=== PATIENT | male | born 1945 | race Caucasian/White ===

== ENCOUNTER → 2017-10-25 09:32 | Outpatient (CLI) | payer MEDICARE, SELFPAY ==
[2017-10-25 10:30] LABS: ALB/GLOB Ratio 1.1 RATIO (0.9-2.4); AST(SGOT) 16 U/L (15-37); Alanine Aminotransfer ALT/SGPT 22 U/L (16-61); Albumin, Serum 3.9 g/dL (3.2-5.0); Alkaline Phosphatase 67 U/L (45-117); Anion Gap 7 (5-15); BUN 14 mg/dL (7-18); BUN/Creat Ratio 14.9 RATIO (10-20); Calcium,Total 8.7 mg/dL (8.5-10.1); Chloride 107 mmol/L (98-107); Cholesterol 153 mg/dL (200); Creatinine, Serum 0.94 mg/dL (0.70-1.30); EST Glomerular Filtration Rate 84 mL/min (>60); Est Glom Filt Rate - Afr Amer 101 mL/min (>60); Globulin 3.5 g/dL (2.2-4.2); Glucose 98 mg/dL (74-106); High Density Lipoprotein 40 mg/dL; PSA,Total - Annual Screen 5.92 ng/mL (0.00-4.00); Potassium 4.5 mmol/L (3.5-5.1); Protein, Total 7.4 g/dL (6.4-8.2); Sodium Level 141 mmol/L (136-145); Triglycerides 101 mg/dL; Very Low Density Lipoprotein 20 mg/dL (5-40)
== END ==
PROVIDERS: Family Provider Family Medicine; PCP Family Medicine; Visit Provider Family Medicine
DX: I10 Essential (primary) hypertension (principal); N40.0 Benign prostatic hyperplasia without lower urinary tract symptoms; Z12.5 Encounter for screening for malignant neoplasm of prostate
CPT/HCPCS: 36415; 80053; 80061; 84153; G0103

== ENCOUNTER → 2018-04-05 11:45 | Outpatient (CLI) | payer MEDICARE, SELFPAY ==
[2018-04-05 12:53] LABS: Absolute Lymphocyte Count 1.64 X10^3/ul (0.83-4.51); Absolute Neutrophil Count 4.7 X10^3/uL (2.0-7.7); Basophil# 0.07 X10^3/uL; Basophil% 0.9 % (0-1); Eosinophil# 0.31 X10^3/uL; Eosinophils% 4.2 % (0-5); Hematocrit 42.8 % (40-54); Hemoglobin 14.3 g/dl (13.0-16.5); Lymphocyte # 1.64 X10^3/ul (4.0); Lymphocyte % 22.1 % (19-41); Mean Corp Hgb Conc 33.4 g/gl (32-36); Mean Corpuscular Hgb 31.2 pg (27.0-32.0); Mean Corpuscular Volume 93.2 fL (80-94); Mean Platelet Vol. 9.6 fl (6.2-12.0); Monocyte# 0.74 X10^3/uL; Neutrophil # 4.65 X10^3/uL (2.7-7.7); Neutrophil % 62.5 % (47-70); Platelet Count 302 K/mm3 (150-450); RBC Distribution Width CV 12.7 % (11.6-14.6); RBC Distribution Width SD 42.8 fl (35.1-43.9); Red Blood Count 4.59 M/mm3 (4.6-6.2); White Blood Count 7.4 K/mm3 (4.4-11.0)
[2018-04-05 12:54] LABS: POSITIVE COUNT NO; POSITIVE DIFFERENTIAL NO; POSITIVE MORPHOLOGY NO
[2018-04-05 13:26] LABS: ALB/GLOB Ratio 1.2 RATIO (0.9-2.4); AST(SGOT) 14 U/L (15-37); Alanine Aminotransfer ALT/SGPT 22 U/L (16-61); Albumin, Serum 3.9 g/dL (3.2-5.0); Alkaline Phosphatase 63 U/L (45-117); Anion Gap 7 (5-15); BUN 15 mg/dL (7-18); BUN/Creat Ratio 16.2 RATIO (10-20); Calcium,Total 8.6 mg/dL (8.5-10.1); Chloride 106 mmol/L (98-107); Creatinine, Serum 0.92 mg/dL (0.70-1.30); EST Glomerular Filtration Rate 85 mL/min (>60); Est Glom Filt Rate - Afr Amer 103 mL/min (>60); Globulin 3.3 g/dL (2.2-4.2); Glucose 97 mg/dL (74-106); Potassium 4.3 mmol/L (3.5-5.1); Protein, Total 7.2 g/dL (6.4-8.2); Sodium Level 140 mmol/L (136-145); Thyroid Stim Hormone (TSH) 0.96 uIU/mL (0.358-3.74)
[2018-04-05 13:27] LABS: Vitamin D,25 Hydroxy 35.9 ng/mL (29.95-100.01)
== END ==
PROVIDERS: Nurse Practitioner Family; Family Provider Family Medicine; PCP Family Medicine; Referring Provider Family Medicine; Visit Provider Family Medicine
DX: I10 Essential (primary) hypertension (principal); R53.83 Other fatigue; E55.9 Vitamin D deficiency, unspecified
CPT/HCPCS: 36415; 80053; 82306; 84443; 85025

== ENCOUNTER → 2018-11-15 | Outpatient (CLI) | payer MEDICARE, SELFPAY ==
--- NOTE | 2018-11-15 02:49 | HP_ITS ---
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: No Is patient in pain?: No Allergies No Known Allergies Allergy (Verified 11/15/18 14:14) Medications Pravastatin [Pravachol] 20 mg PO DAILY 02/05/14 [History Confirmed 11/15/18] aspirin 81 mg tablet,delayed release 81 mg PO DAILY 07/11/18 [History Confirmed 11/15/18] brimonidine 0.1 % eye drops 1 drp OPHTHALMIC BID ml 07/11/18 [History Confirmed 11/15/18] finasteride 5 mg tablet 5 mg PO DAILY 07/11/18 [History Confirmed 11/15/18] omeprazole magnesium 20 mg tablet,delayed release 20 mg PO DAILY 07/11/18 [History Confirmed 11/15/18] tamsulosin 0.4 mg capsule 0.4 mg PO DAILY 07/11/18 [History Confirmed 11/15/18] timolol 0.25 % eye drops 1 drp OPHTHALMIC BID 07/11/18 [History Confirmed 11/15/18] Azithromycin 500 mg PO DAILY #3 tab 11/08/18 [Rx Confirmed 11/15/18] PFS Medical History Emphysema lung (Acute) Carotid stenosis, bilateral (Chronic) Glaucoma (Acute) OA (osteoarthritis) of hip (Acute) Microcytic anemia (Chronic) Hyperlipidemia (Chronic) Hypertension (Chronic) History of kidney stones (Chronic) Hematuria (Acute) BPH (benign prostatic hyperplasia) (Chronic) Arthritis (Chronic) Abnormal stress test (Acute) Surgical History Hx of right inguinal hernia repair (Acute) History of total right hip arthroplasty (Acute) History of prostate surgery (Acute) History of back surgery (Acute) Hx of lithotripsy (Acute) Hx of cystoscopy (Acute) Family History Mother Heart disease Social History Smoking Status: Former smoker how long ago did patient quit smokin days ago alcohol intake: never substance use type: does not use caffeine: Yes frequency: does not exercise HPI HPI HPI: YAN STODDARD, is a 83 M who presents to the office today for HPI HPI Surgical H&P: Yes HPI: YAN STODDARD is a 83 M who presents to the office today for iron deficiency anemia. Patient was recently admitted to the hospital with pneumonia and was found to have iron deficiency anemia. He denies any abdominal pain or gross blood in his stool. He says that he also occasionally has dysphagia with solid foods. His last colonoscopy was in 1987. ROS General General: Yes fatigue; no weight change, appetite, colon cancer, breast cancer or weakness HEENT HEENT: Yes eye surgery; no difficulty swallowing, eye injury, swollen glands or hoarseness Endo Endocrine: No thyroid disease, diabetes mellitus, thyroid cancer, Hair loss, heat intolerance or cold intolerance Musc Musculoskeletal: Yes back problems and arthritis; no rheumatoid arthritis, gout or joint pain Cardio Cardiovascular: No murmur, pacemaker, heart disease, atrial fibrillation, high blood pressure, heart attack, heart stent, palpitations, shortness of breat with exertion or chest pain Resp Respiratory: Yes shortness of breath, No sleep apnea, No cough, Yes COPD, No asthma, Yes emphysema, No wheezing Gastro Gastrointestinal: No abdominal pain, No nausea or vomiting, No diarrhea, Yes constipation, No blood in stool, Yes acid reflux, No hemorrhoids, No ulcers, No gallbladder problem, No black,tarry stools [place] Hematologic: No blood thinners, No blood disorders, No bleeding, Yes anemia, No blood clots Neuro Neurologic: No weakness Exam Const General: cooperative Orientation: alert, oriented x3 Resp Effort & Inspection: normal respiratory effort Auscultation: clear to auscultation bilaterally Cardio Rate: regular rate Rhythm: regular rhythm Heart Sounds: no murmurs GI Inspection: non-distended Palpation: soft, hernia ventral, nontender Assessment & Plan Problems 1. Iron deficiency anemia, unspecified iron deficiency anemia type D50.9 Plan The patient has iron deficiency anemia. No gross blood in his stool. Recommend EGD and colonoscopy. Patient was recently worked up for carotid stenosis and is under observation. Patient sees Dr. Rojas for cardiology I explained endoscopy in detail to the patient. I explained the risks including but not limited to stroke or heart attack with anesthesia, perforation of the GI tract, bleeding, infection. I explained that any of these could necessitate further emergency surgery. The patient understands and all questions were answered sufficiently. The patient wishes to proceed with procedure. Patrick Mullins MD Pager: [facility] [address] [place] [address] [address] [place] [address] Office: Orders Orders: Colonoscopy Today D50.9 EGD Today D50.9 Coding Level of Care Code Off vis,new,level 3 Diagnoses Iron deficiency anemia, unspecified iron deficiency anemia type D50.9 ??Iron deficiency anemia type: unspecified iron deficiency 11/15/18 1449 <Electronically signed by Patrick Mullins MD> Date Patrick Mullins MD
[2018-11-15 08:53] VITALS: BMI 32.5
[2018-11-15 12:45] LABS: Anion Gap 5 (5-15); BUN 17 mg/dL (7-18); BUN/Creat Ratio 18.2 RATIO (10-20); Calcium,Total 8.8 mg/dL (8.5-10.1); Chloride 106 mmol/L (98-107); Creatinine, Serum 0.93 mg/dL (0.70-1.30); EST Glomerular Filtration Rate 84 mL/min (>60); Est Glom Filt Rate - Afr Amer 102 mL/min (>60); Glucose 93 mg/dL (74-106); PSA,Total- Diagnostic 5.89 ng/mL (0.0-4.0); Potassium 4.3 mmol/L (3.5-5.1); Sodium Level 139 mmol/L (136-145)
== END | disposition home or self-care (01) ==
LOC: BIMLAB 09:22
PROVIDERS: Family Provider Family Medicine; PCP Family Medicine; Visit Provider Family Medicine
DX: I10 Essential (primary) hypertension (principal); N40.0 Benign prostatic hyperplasia without lower urinary tract symptoms
CPT/HCPCS: 36415; 80048; 84153

== ENCOUNTER → 2019-12-26 09:48 | Outpatient (CLI) | payer MEDICARE, SELFPAY ==
[2019-12-26 09:30] VITALS: BMI 32.5
[2019-12-26 12:43] LABS: ALB/GLOB Ratio 1.2 RATIO (0.9-2.4); AST(SGOT) 16 U/L (15-37); Alanine Aminotransfer ALT/SGPT 27 U/L (16-61); Albumin, Serum 3.8 g/dL (3.2-5.0); Alkaline Phosphatase 58 U/L (45-117); Anion Gap 4 (5-15); BUN 16 mg/dL (7-18); BUN/Creat Ratio 17.8 RATIO (10-20); Calcium,Total 8.7 mg/dL (8.5-10.1); Chloride 107 mmol/L (98-107); Cholesterol 165 mg/dL (200); EST Glomerular Filtration Rate 87 mL/min (>60); Est Glom Filt Rate - Afr Amer 106 mL/min (>60); Globulin 3.3 g/dL (2.2-4.2); Glucose 97 mg/dL (74-106); High Density Lipoprotein 36 mg/dL; PSA,Total - Annual Screen 6.12 ng/mL (0.00-4.00); Potassium 4.5 mmol/L (3.5-5.1); Protein, Total 7.1 g/dL (6.4-8.2); Sodium Level 139 mmol/L (136-145); Triglycerides 103 mg/dL; Very Low Density Lipoprotein 21 mg/dL (5-40)
== END ==
PROVIDERS: PCP Family Medicine; Referring Provider Family Medicine; Visit Provider Family Medicine
DX: I10 Essential (primary) hypertension (principal); N40.0 Benign prostatic hyperplasia without lower urinary tract symptoms; Z12.5 Encounter for screening for malignant neoplasm of prostate
CPT/HCPCS: 36415; 80053; 80061; 84153; G0103

== ENCOUNTER → 2021-01-13 09:56 | Outpatient (CLI) | payer MEDICARE, SELFPAY ==
[2021-01-13 09:20] VITALS: BMI 32.5
--- NOTE | 2021-01-13 10:21 | RAD_ITS ---
STUDY: X-RAY CHEST REASON FOR EXAM: Male, 75 years old. chronic cough TECHNIQUE: PA and lateral views of the chest. COMPARISON: None. FINDINGS: Calcified nodule within the right lung base measuring approximately 1.3 cm, likely calcified granuloma. Remainder of the lung simpson are clear. There is no demonstrated pleural abnormality. Normal size heart. Normal mediastinum and ledy. Normal visualized pulmonary arteries. Normal visualized aortic arch and descending thoracic aorta. There is an increased kyphosis of the thoracic spine. There is degenerative osteoarthritis of the bilateral shoulders. There is no demonstrated abnormality of the visualized soft tissue structures of the upper abdomen. RAD/Chest PA and Lateral IMPRESSION: Calcified granuloma at the right lung base as described. Otherwise no acute cardiopulmonary disease. Electronically Signed: Eleanor Ng MD at 0:35 EDT , Service support ,
[2021-01-13 12:15] LABS: Absolute Lymphocyte Count 0.86 X10^3/uL (0.83-4.51); Absolute Neutrophil Count 3.1 X10^3/uL (2.0-7.7); Basophil# 0.07 X10^3/uL; Basophil% 1.4 % (0-1); Eosinophil# 0.47 X10^3/uL; Eosinophils% 9.3 % (0-5); Hematocrit 37.3 % (40-54); Hemoglobin 12.2 g/dL (13.0-16.5); Lymphocyte # 0.86 X10^3/ul (0.83-4.51); Lymphocyte % 16.9 % (19-41); Mean Corp Hgb Conc 32.7 g/dL (32-36); Mean Corpuscular Hgb 30.1 pg (27.0-32.0); Mean Corpuscular Volume 92.1 fL (80-94); Mean Platelet Vol. 9.8 fl (6.2-12.0); Monocyte% 11.8 % (0-10); NRBC Flagged by Analyzer 0 % (0-5); Neutrophil # 3.06 X10^3/uL (2.7-7.7); Neutrophil % 60.2 % (47-70); Platelet Count 146 K/mm3 (150-450); RBC Distribution Width CV 12.4 % (11.6-14.6); RBC Distribution Width SD 42.3 fl (35.1-43.9); Red Blood Count 4.05 M/mm3 (4.6-6.2); White Blood Count 5.1 K/mm3 (4.4-11.0)
[2021-01-13 12:39] LABS: ALB/GLOB Ratio 1.1 RATIO (0.9-2.4); AST(SGOT) 19 U/L (15-37); Alanine Aminotransfer ALT/SGPT 22 U/L (16-61); Albumin, Serum 3.8 g/dL (3.2-5.0); Alkaline Phosphatase 74 U/L (45-117); Anion Gap 5 (5-15); BUN 17 mg/dL (7-18); BUN/Creat Ratio 15.6 RATIO (10-20); Calcium,Total 8.6 mg/dL (8.5-10.1); Chloride 105 mmol/L (98-107); Creatinine, Serum 1.09 mg/dL (0.70-1.30); EST Glomerular Filtration Rate 70 mL/min (>60); Est Glom Filt Rate - Afr Amer 85 mL/min (>60); Globulin 3.4 g/dL (2.2-4.2); Glucose 84 mg/dL (74-106); Potassium 4.2 mmol/L (3.5-5.1); Protein, Total 7.2 g/dL (6.4-8.2); Sodium Level 138 mmol/L (136-145)
== END ==
LOC: BIMLAB 09:56 → RAD 10:20
PROVIDERS: PCP Family Medicine; Referring Provider Family Medicine; Visit Provider Family Medicine
DX: R05 Cough (principal); N40.0 Benign prostatic hyperplasia without lower urinary tract symptoms; I10 Essential (primary) hypertension
CPT/HCPCS: 36415; 71046; 80053; 84153; 84443; 85025

== ENCOUNTER → 2021-02-22 | Outpatient (CLI) | payer MEDICARE, SELFPAY | END | disposition home or self-care (01) | LOC: LABSPEC 15:38 | PROVIDERS: PCP Family Medicine; Visit Provider Physician Assistant Surgical | DX: R05 Cough (principal) | CPT/HCPCS: 87635; U0005; U0003 ==

== ENCOUNTER → 2021-03-03 13:33 | Outpatient (CLI) | payer MEDICARE, SELFPAY ==
[2021-03-03 13:34] LABS: Bacteria 0 SEEN /hpf (None Seen); Mucous, Urine 0 SEEN /hpf (<or=2+); Squamous Epithelial Cells - UA 0 SEEN /hpf (0-5); White Blood Cells 0 SEEN /hpf (0-5)
[2021-03-03 15:01] LABS: Absolute Neutrophil Count 2.2 X10^3/uL (2.0-7.7); Basophil# 0.05 X10^3/uL; Eosinophil# 0.34 X10^3/uL; Hematocrit 28.1 % (40-54); Lymphocyte % 33.1 % (19-41); Mean Corpuscular Hgb 29.7 pg (27.0-32.0); Mean Corpuscular Volume 92.7 fL (80-94); Mean Platelet Vol. 10.3 fl (6.2-12.0); Monocyte# 0.63 X10^3/uL; NRBC Flagged by Analyzer 0 % (0-5); Neutrophil # 2.17 X10^3/uL (2.7-7.7); Neutrophil % 44.9 % (47-70); Platelet Count 142 K/mm3 (150-450); RBC Distribution Width SD 46.9 fl (35.1-43.9); Red Blood Count 3.03 M/mm3 (4.6-6.2); White Blood Count 4.8 K/mm3 (4.4-11.0)
[2021-03-03 15:05] LABS: Color, Urine Yellow (Yellow); Glucose, Dipstick Normal (Normal); Ketone-Dipstick 5 mg/dl (Negative); Leukocyte Esterase-Dipstick 25 /ul (Negative); Nitrite-Dipstick Negative (Negative); Occult Blood-Urine Negative /ul (Negative); Protein-Dipstick 30 mg/dl (Negative); Specific Gravity, Urine 1.025 (1.002-1.030); Urine Bilirubin Dipstick Negative (Negative); Urine Clarity Sl. Cloudy (Clear); Urine Urobilinogen 4 mg/dl (Normal)
[2021-03-03 15:15] LABS: Red Blood Cells-Urine 0-5 SEEN /hpf (0-5)
[2021-03-03 15:16] LABS: Calcium Oxalate Crystals Ur 2+ /hpf (<or=2+)
[2021-03-03 15:22] LABS: BNP,B-Type NATRIURETIC PEPTIDE 95.2 pg/mL (0-100)
[2021-03-03 15:28] LABS: ALB/GLOB Ratio 0.8 RATIO (0.9-2.4); AST(SGOT) 35 U/L (15-37); Alanine Aminotransfer ALT/SGPT 75 U/L (16-61); Alkaline Phosphatase 82 U/L (45-117); Anion Gap 4 (5-15); BUN 33 mg/dL (7-18); BUN/Creat Ratio 22.9 RATIO (10-20); Calcium,Total 10.3 mg/dL (8.5-10.1); Chloride 107 mmol/L (98-107); Creatinine, Serum 1.44 mg/dL (0.70-1.30); EST Glomerular Filtration Rate 51 mL/min (>60); Est Glom Filt Rate - Afr Amer 61 mL/min (>60); Globulin 3.7 g/dL (2.2-4.2); Glucose 102 mg/dL (74-106); Potassium 4.4 mmol/L (3.5-5.1); Protein, Total 6.7 g/dL (6.4-8.2); Sodium Level 139 mmol/L (136-145)
[2021-03-04 10:59] LABS: Ferritin 468 ng/mL (26-388); Iron 32 ug/dL (65-175); Iron Binding Capacity,Total 234 ug/dL (250-450); PERCENT IRON SATURATION 13.7 % (15.0-55.0)
[2021-03-05 13:13] LABS: Transferrin 200 mg/dL (177-329)
== END ==
PROVIDERS: PCP Family Medicine; Referring Provider Physician Assistant; Visit Provider Physician Assistant
DX: N40.1 Benign prostatic hyperplasia with lower urinary tract symptoms (principal); R30.0 Dysuria; R35.0 Frequency of micturition; R35.1 Nocturia; R05 Cough; R06.02 Shortness of breath; R53.83 Other fatigue; I10 Essential (primary) hypertension; D64.9 Anemia, unspecified
CPT/HCPCS: 36415; 80053; 81001; 82668; 82728; 83540; 83550; 83880; 84443; 84466; 85025; 87086

== ENCOUNTER → 2021-03-09 09:39 | Outpatient (CLI) | payer MEDICARE, SELFPAY ==
[2021-03-09 09:50] LABS: Absolute Lymphocyte Count 1.64 X10^3/uL (0.83-4.51); Absolute Neutrophil Count 2.8 X10^3/uL (2.0-7.7); Basophil# 0.07 X10^3/uL; Basophil% 1.3 % (0-1); Eosinophil# 0.26 X10^3/uL; Eosinophils% 4.9 % (0-5); Hematocrit 27.4 % (40-54); Hemoglobin 8.6 g/dL (13.0-16.5); Lymphocyte # 1.64 X10^3/ul (0.83-4.51); Lymphocyte % 30.6 % (19-41); Mean Corp Hgb Conc 31.4 g/dL (32-36); Mean Corpuscular Hgb 29.8 pg (27.0-32.0); Mean Corpuscular Volume 94.8 fL (80-94); Mean Platelet Vol. 10.9 fl (6.2-12.0); Monocyte# 0.53 X10^3/uL; Monocyte% 9.9 % (0-10); NRBC Flagged by Analyzer 0.4 % (0-5); Neutrophil # 2.82 X10^3/uL (2.7-7.7); Neutrophil % 52.6 % (47-70); POSITIVE MORPHOLOGY YES; Platelet Count 119 K/mm3 (150-450); RBC Distribution Width CV 15.6 % (11.6-14.6); RBC Distribution Width SD 51.2 fl (35.1-43.9); Red Blood Count 2.89 M/mm3 (4.6-6.2); White Blood Count 5.4 K/mm3 (4.4-11.0)
[2021-03-09 09:52] LABS: Differential Indicated SCAN CRITERIA MET
[2021-03-09 10:23] LABS: Atypical Lymphocyte 1+ %
== END ==
PROVIDERS: PCP Family Medicine; Referring Provider Surgery; Visit Provider Surgery
DX: D64.9 Anemia, unspecified (principal); I10 Essential (primary) hypertension
CPT/HCPCS: 36415; 85025

== ENCOUNTER 2021-03-10 12:06 | Inpatient (IN) | payer MEDICARE, SELFPAY ==
[2021-03-10] VITALS (13 sets, daily range): BP systolic 99–118; BP diastolic 60–91; PULSE 94–108; RESP 14–23; TEMP 36.4–37.8; O2SAT 92–95; BMI 29.7; BMI 29.8
--- NOTE | 2021-03-10 12:31 | EKG12_ITS ---
Test Reason : Blood Pressure : / mmHG Vent. Rate : 100 BPM Atrial Rate : 100 BPM P-R Int : 146 ms QRS Dur : 094 ms QT Int : 332 ms P-R-T Axes : 012 -27 050 degrees QTc Int : 428 ms Normal sinus rhythm Leftward axis Confirmed by ALBERTO FINLEY, RUDY ([id number]), advertising editor BOOGIE BRO ([id number]) on 03/15/2021 12:56:59 PM Referred By: Confirmed By:RUDY DOMINGUEZ MD
[2021-03-10] MEDS: 0.9% Normal Saline 1,000 ML 150 ML IV (12:46)
--- NOTE | 2021-03-10 12:47 | ED.VIS.GI ---
HPI HPI - GI History of Present Illness Chief Complaint: GI Bleed Detail of Chief Complaint: Abdominal discomfort, dropping hemoglobin and dyspnea on exertion Informant: patient, spouse/S.O. and family Abdominal Pain/Flank Pain Onset: Weeks Context: Gradual Onset Timing: Continuous Quality: Cramping Location: Diffuse Current Severity: Mild Maximum Severity: Moderate Worsened by: Nothing Relieved by: Nothing Nausea/Vomiting/Emesis GI Symptom: Positive for Nausea; Negative for Vomiting Diarrhea/Melena/Hematochezia GI Symptom: Positive for Diarrhea Onset: Today Stool Quality: Positive for Loose Severity: Mild Associated Symptoms Associated Symptoms: Negative for Dysuria, Frequency and Hematuria Narrative Narrative: Patient is an elderly male with history of anemia, allergic rhinitis, hypertension and benign prostatic hypertrophy. Patient had 2 - Covid test. His family doctor was working him up for his dyspnea. Patient appears pale. states he is pale. He had dark loose stools today. He is scheduled for colonoscopy for tomorrow. He was sent to the emergency department to facilitate this. He does give intermittent symptoms of orthostatic hypotension. He does report [place] exertion. He apparently was prescribed Naprosyn by his primary care physician and he has been taking ibuprofen. He denies vomiting. states his stool looked like coffee grounds this morning. He does report vague abdominal discomfort. He is not on antiplatelet or anticoagulant. Prior similar symptoms: Yes Recent Illness/Hospitalization: No PFSH PFSH Medical History Enlarged prostate Hypertension Home Medications finasteride 5 mg tablet 5 mg PO QDAY 10/25/17 [History Last Taken 03/09/21] valsartan 80 mg tablet 80 mg PO DAILY #90 tab 01/13/21 [Rx Last Taken 03/09/21] benzonatate 100 mg capsule 100 mg PO BID PRN #20 cap 02/23/21 [Rx Last Taken 03/08/21] albuterol sulfate 90 mcg/actuation aerosol inhaler 2 puff INHALATION Q6H PRN #8.5 g 03/03/21 [Rx Last Taken 03/08/21] ibuprofen 200 mg capsule 200 mg PO Q6H PRN 03/03/21 [History Last Taken 03/09/21] multivitamin 1 tab PO DAILY 03/03/21 [History Last Taken 03/08/21] ascorbic acid (vitamin C) 500 mg PO DAILY 03/10/21 [History Last Taken 03/09/21] ferrous sulfate 325 mg PO QODAY 03/10/21 [History Last Taken 03/09/21] Allergy/AdvReac Type Severity Reaction Status Date / Time Antihistamines - Ethanolamine Allergy Severe rash Verified 03/10/21 12:11 MUCOUS RELIEF DM Allergy Rash Uncoded 03/10/21 12:12 Family History Father Cancer prostate Colon cancer Grandfather CVA (cerebral vascular accident) Myocardial infarction Surgical History History of appendectomy History of tonsillectomy Social History (Updated 03/10/21 @ 12:[address] Marcell Juarez MD) household members: spouse housing: house Smoking Status: Never smoker alcohol intake: never substance use type: does not use what type of physical activity do you participate in: none ROS ROS ED Constitutional Constitutional ED: Denies chills, fever(s) or subjective ENT ENT ED: Denies ear pain, rhinorrhea or sore throat Cardiovascular Cardiovascular: Denies chest pain, orthopnea, palpitations or paroxysmal nocturnal dyspnea Respiratory/Chest Respiratory/Chest: Reports dyspnea and dyspnea on exertion; Denies cough, orthopnea, paroxysmal nocturnal dyspnea or sputum Gastrointestinal Gastrointestinal: Denies abdominal pain, diarrhea, nausea or vomiting Genitourinary Genitourinary ED: Denies dysuria, hematuria or urinary frequency Musculoskeletal Musculoskeletal: Denies arthralgias, myalgias or neck pain Integumentary Denies rash Neurologic Neurologic: Reports weakness; Denies headache(s) or paresthesias Psychiatric Psychiatric: Denies anxiety or depression Endocrine Endocrinology: Denies polydipsia or polyuria Hematologic/Lymphatic Hematologic/Lymphatic: Denies easy bleeding or easy bruising EXAM Physical Exam Const Vital Signs: 03/10/21 12:07 03/10/21 12:10 03/10/21 13:09 Temperature 99.3 F H 99.3 F H Temperature Source Oral Oral Pulse Rate 105 H 105 H Respiratory Rate 18 18 Blood Pressure 99/60 99/60 118/68 Blood Pressure Mean 73 73 84 Pulse Ox 92 92 Oxygen Delivery Method Room Air Room Air 03/10/21 14:10 03/10/21 15:44 03/10/21 16:01 Temperature Temperature Source Pulse Rate 99 97 96 Respiratory Rate 19 H 23 H 23 H Blood Pressure 104/91 H 102/88 H 102/88 H Blood Pressure Mean 95 92 92 Pulse Ox 93 93 Oxygen Delivery Method Room Air Room Air Positive well nourished and well developed General Appearance ED: well developed, NAD and pallor HEENT Reports TM's clear and dry mucous membranes normocephalic and atraumatic Tympanic Membrane ED: Yes TM's clear Mouth ED: Yes dry mucous membranes Mouth: dry mucous membranes Eyes PERRL and EOMs intact bilaterally General Eye ED: Negative for pale conjunctiva or scleral icterus Neck no lymphadenopathy, supple and no JVD Resp normal respiratory effort and clear to auscultation bilaterally Cardio regular rate, regular rhythm, S1 normal heart sound, S2 normal heart sound and no murmurs GI non-distended and no masses; Negative for non-tender Auscultation: normoactive bowel sounds and hypoactive bowel sounds Palpation: soft and tender LLQ; Negative for guarding or rigid Back/Spine no CVA tenderness Cervical Spine: Negative for cervical spine tenderness Thoracic Spine / Upper Back: Negative for thoracic spinal tenderness Extremity full ROM Neuro CN's II-XII intact bilaterally and moves all extremities Sensorium / Orientation: alert and oriented to person Motor Exam: strength 5/5 throughout Psych mental status grossly normal Skin no wounds General Skin Exam: pallor; Negative for jaundice Lesions: no lesions Rashes: no rashes MDM MDM MDM Narrative Medical decision making narrative: Patient is anemic by exam. Prior laboratory results reveal a 3.5 to 4 drop in hemoglobin. He is hypotensive. We will perform orthostatic symptoms. Fluid bolus and appropriate labs. He will require admission for work-up of his presumed GI bleed. Hemoglobin on January 13 was 12.2. Hemoglobin on March 03 was 9.0. Hemoglobin on was 8.6. BUN to creatinine ratio is greater than 20-1. Case was discussed with patient's general surgeon/endoscopist. Because of the bloating, left lower quadrant bowel pain with smaller caliber stool CT of the abdomen with p.o. and IV contrast was ordered to determine if there is a stricture due to diverticulitis. Since there is an infiltrate on the left most likely the lingula and was missed transcribed ulnar level Floxin was ordered. Lab Data Attestation: I reviewed the patient's lab results. Labs: Laboratory Results - last 24 hr 03/10/21 03/10/21 03/10/21 12:35 12:35 12:35 WBC 5.5 RBC 2.91 L Hgb 8.6 L Hct 27.3 L MCV 93.8 MCH 29.6 MCHC 31.5 L RDW Std Deviation 51.6 H RDW Coeff of Dmitry 15.9 H Plt Count 128 L MPV 10.3 Sodium 138 Potassium 4.5 Chloride 107 Carbon Dioxide 23.0 Anion Gap 8 BUN 42 H Creatinine 1.63 H Estim Creat Clear Calc 41.06 Est GFR (MDRD) Af Amer 53 L Est GFR (MDRD) Non-Af 44 L BUN/Creatinine Ratio 25.8 H Glucose 105 Calcium 9.4 Blood Type A POSITIVE Antibody Screen NEGATIVE Radiography Diagnostic Testing: Radiology Impression Abdomen/Pelvis CT 03/10/21 13:20 IMPRESSION: Diffuse peritoneal and retroperitoneal lymphadenopathy extending into the pelvis. Marked degree of splenomegaly with findings suggestive of peripheral infarcts. Hepatomegaly. Small left pleural effusion with left ulnar infiltrate. Electronically Signed: Mihir Mathis MD at 15:44 EDT , Service support , CT of the abdomen and pelvis with IV contrast reveals a left pleural effusion, enlarged spleen with splenic infarct, bilateral renal cysts and significant lymphadenopathy. This is suggestive of lymphoma and most likely the etiology for patient's anemia. Since he is symptomatic and hypotensive hospitalist has been called. The surgeon who sent patient to the emergency room was called. Discharge Plan Dx/Rx/DC Orders Clinical Impression: Signs and symptoms of anemia, Pleural effusion on left, Splenomegaly, Splenic infarct, Renal cysts, acquired, bilateral, Lymphoma, Acute kidney injury, Enlarged prostate, Acute hypotension, Infiltrate of lung present on computed tomography Disposition Disposition: Acute Care [facility]
[2021-03-10 12:51] LABS: Hematocrit 27.3 % (40-54); Hemoglobin 8.6 g/dL (13.0-16.5); Mean Corp Hgb Conc 31.5 g/dL (32-36); Mean Corpuscular Hgb 29.6 pg (27.0-32.0); Mean Corpuscular Volume 93.8 fL (80-94); Mean Platelet Vol. 10.3 fl (6.2-12.0); Platelet Count 128 K/mm3 (150-450); RBC Distribution Width CV 15.9 % (11.6-14.6); RBC Distribution Width SD 51.6 fl (35.1-43.9); Red Blood Count 2.91 M/mm3 (4.6-6.2); White Blood Count 5.5 K/mm3 (4.4-11.0)
[2021-03-10 13:06] LABS: Anion Gap 8 (5-15); BUN 42 mg/dL (7-18); BUN/Creat Ratio 25.8 RATIO (10-20); Calcium,Total 9.4 mg/dL (8.5-10.1); Chloride 107 mmol/L (98-107); Creatinine, Serum 1.63 mg/dL (0.70-1.30); EST Glomerular Filtration Rate 44 mL/min (>60); Est Glom Filt Rate - Afr Amer 53 mL/min (>60); Estimated Creatinine Clearance 41.06 ml/min; Glucose 105 mg/dL (74-106); Potassium 4.5 mmol/L (3.5-5.1); Sodium Level 138 mmol/L (136-145)
--- NOTE | 2021-03-10 13:20 | CT_ITS ---
STUDY: CT ABDOMEN AND PELVIS WITH CONTRAST REASON FOR EXAM: Male, 75 years old. Left lower quadrant abdominal pain, small stool bl -- IV PO Contrast RADIATION DOSAGE (If Supplied By Facility): CTDIvol = ( 18.13 ) mGy, DLP = ( 2237.69 ) mGycm TECHNIQUE: Transaxial images were obtained from the dome of the diaphragm to the symphysis pubis with oral contrast. Oral and amp;amp; IV Gastrografin and amp;amp; 100mL Isovue-370 was administered. Sagittal and coronal images were reconstructed. Individualized dose optimization techniques were used for this CT. COMPARISON: None. FINDINGS: Small left pleural effusion with left basilar infiltration. Calcified granuloma at the right lung base. Coronary artery calcification. Hepatomegaly. Contracted gallbladder. Possible tiny gallstones versus sludge. There is severe splenomegaly. There is a 4.5 cm x 4.7 cm wedge-shaped peripheral defect in the upper posterior aspect of the spleen suggestive of possible infarction. Irregular contour of the inferior lateral aspect of the spleen is also present suggestive of possible smaller infarcts. There is evidence of a multiple lymph nodes in the region of the nikolai hepatis as well as the gastroepiploic ligament. Normal pancreas. Normal bilateral adrenal glands. Normal right kidney. Left renal cysts. The largest cyst measures 3.8 cm. Nonspecific bilateral perinephric stranding. There appears to be a thickening of the second portion of the duodenum. Normal small intestine. There are multiple colonic diverticula consistent with diverticulosis. There is non-visualization of the appendix. Normal abdominal aorta. Normal inferior vena cava. There is retroperitoneal lymphadenopathy with enlarged nodes greater than 10-15mm in the short axis. Enlarged lymphadenopathy is seen within the pelvis worse on the left side. There is also evidence of the bilateral inguinal lymph nodes. Normal urinary bladder. There is enlargement of the prostate gland. It measures 7.5 cm x 6.8 cm. This causes indentation at the bladder base. Normal abdominal wall. There are diffuse degenerative changes of the visualized lumbar spine. Minimal anterior listhesis of L5 on S1 with spondylolysis. CT/Abdomen/Pelvis WITH Contrast IMPRESSION: Diffuse peritoneal and retroperitoneal lymphadenopathy extending into the pelvis. Marked degree of splenomegaly with findings suggestive of peripheral infarcts. Hepatomegaly. Small left pleural effusion with left ulnar infiltrate. Electronically Signed: Mihir Mathis MD at 15:44 EDT , Service support ,
--- NOTE | 2021-03-10 16:08 | HP.PCM_ITS ---
HPI - General HPI Narrative WINNIE SCOTT, is a 75 M who presents to [facility] ED with complaints of abdominal distention, nausea, and extreme fatigue. Mr. Scott and I met for the first time yesterday in consultation after he was diagnosed with profound anemia as his referring provider sought colonoscopic evaluation to rule out a GI source for this anemia. He and his family had described a significant functional decline over the last 4 to 5 weeks and this has been largely attributed to his anemia, however, he consistently denied any observation of hematochezia or melena. Nevertheless he was scheduled for a colonoscopy for 03/15/2021 with an understanding that we would seek an earlier date if it became available. Such an opening did occur and when our office called his home to communicate this availability change, we were notified that the patient had developed abdominal distention and nausea as well as additional profound fatigue. Therefore, he was advised to present to the emergency room for further evaluation. This latter work-up was notable for ongoing mild hypotension, stable anemia with a hemoglobin of 8.6 g/dL, and double contrasted CT abdomen and pelvis findings which showed thickening of the second portion of the duodenum, multiple splenic infarcts, and diffuse peritoneal lymphadenopathy. [facility] Medical History Enlarged prostate Hypertension Home Medications finasteride 5 mg tablet 5 mg PO QDAY 10/25/17 [History Last Taken 03/09/21] valsartan 80 mg tablet 80 mg PO DAILY #90 tab 01/13/21 [Rx Last Taken 03/09/21] benzonatate 100 mg capsule 100 mg PO BID PRN #20 cap 02/23/21 [Rx Last Taken 03/08/21] albuterol sulfate 90 mcg/actuation aerosol inhaler 2 puff INHALATION Q6H PRN #8.5 g 03/03/21 [Rx Last Taken 03/08/21] ibuprofen 200 mg capsule 200 mg PO Q6H PRN 03/03/21 [History Last Taken 03/09/21] multivitamin 1 tab PO DAILY 03/03/21 [History Last Taken 03/08/21] ascorbic acid (vitamin C) 500 mg PO DAILY 03/10/21 [History Last Taken 03/09/21] ferrous sulfate 325 mg PO QODAY 03/10/21 [History Last Taken 03/09/21] Allergy/AdvReac Type Severity Reaction Status Date / Time Antihistamines - Ethanolamine Allergy Severe rash Verified 03/10/21 12:11 MUCOUS RELIEF DM Allergy Rash Uncoded 03/10/21 12:12 Family History Father Cancer prostate Colon cancer Grandfather CVA (cerebral vascular accident) Myocardial infarction Surgical History History of appendectomy History of tonsillectomy Social History (Updated 03/10/21 @ 12:[address] Marcell Juarez MD) household members: spouse housing: house Smoking Status: Never smoker alcohol intake: never substance use type: does not use what type of physical activity do you participate in: none Vital Signs Vital Signs Vital Signs: 03/10/21 12:07 03/10/21 12:10 03/10/21 13:09 Temperature 99.3 F H 99.3 F H Temperature Source Oral Oral Pulse Rate 105 H 105 H Pulse Rate [Lying] Pulse Rate [Sitting] Pulse Rate [Standing] Respiratory Rate 18 18 Blood Pressure 99/60 99/60 118/68 Blood Pressure [Lying] Blood Pressure [Sitting] Blood Pressure [Standing] Blood Pressure Mean 73 73 84 Blood Pressure Mean [Lying] Blood Pressure Mean [Sitting] Blood Pressure Mean [Standing] Pulse Ox 92 92 Oxygen Delivery Method Room Air Room Air 03/10/21 14:10 03/10/21 15:44 03/10/21 16:01 Temperature Temperature Source Pulse Rate 99 97 96 Pulse Rate [Lying] Pulse Rate [Sitting] Pulse Rate [Standing] Respiratory Rate 19 H 23 H 23 H Blood Pressure 104/91 H 102/88 H 102/88 H Blood Pressure [Lying] Blood Pressure [Sitting] Blood Pressure [Standing] Blood Pressure Mean 95 92 92 Blood Pressure Mean [Lying] Blood Pressure Mean [Sitting] Blood Pressure Mean [Standing] Pulse Ox 93 93 Oxygen Delivery Method Room Air Room Air 03/10/21 16:02 Temperature Temperature Source Pulse Rate Pulse Rate [Lying] 94 Pulse Rate [Sitting] 103 H Pulse Rate [Standing] 108 H Respiratory Rate Blood Pressure Blood Pressure [Lying] 114/60 Blood Pressure [Sitting] 107/65 Blood Pressure [Standing] 105/60 Blood Pressure Mean Blood Pressure Mean [Lying] 78 Blood Pressure Mean [Sitting] 79 Blood Pressure Mean [Standing] 75 Pulse Ox Oxygen Delivery Method Weight Weight: 213 lb Body Mass Index (BMI) 29.7 Physical Exam Const alert and oriented x3 General Appearance: cooperative Resp normal respiratory effort GI soft to palpation Inspection: abdominal distention Palpation: tender LLQ (Mild) and LUQ (Slightly greater than left lower quadrant) Results Lab / Micro Data Result Diagrams: 03/10/21 12:35 03/10/21 12:35 Labs: Laboratory Results - last 24 hr 03/10/21 12:35: WBC 5.5, RBC 2.91 L, Hgb 8.6 L, Hct 27.3 L, MCV 93.8, MCH 29.6, MCHC 31.5 L, RDW Std Deviation 51.6 H, RDW Coeff of Dmitry 15.9 H, Plt Count 128 L, MPV 10.3 03/10/21 12:35: Sodium 138, Potassium 4.5, Chloride 107, Carbon Dioxide 23.0, Anion Gap 8, BUN 42 H, Creatinine 1.63 H, Estim Creat Clear Calc 41.06, Est GFR (MDRD) Af Amer 53 L, Est GFR (MDRD) Non-Af 44 L, BUN/Creatinine Ratio 25.8 H, Glucose 105, Calcium 9.4 03/10/21 12:35: Blood Type A POSITIVE, Antibody Screen NEGATIVE Micro: Microbiology 03/10/21 12:45 Nasal Secretion SARS-CoV-2 Antigen (Rapid) - Final 03/10/21 12:35 Stool Stool Occult Blood (SERGIO) - Final Radiology Impression Abdomen/Pelvis CT 03/10/21 13:20 IMPRESSION: Diffuse peritoneal and retroperitoneal lymphadenopathy extending into the pelvis. Marked degree of splenomegaly with findings suggestive of peripheral infarcts. Hepatomegaly. Small left pleural effusion with left ulnar infiltrate. Electronically Signed: Mihir Mathis MD at 15:44 EDT , Service support , Assessment & Plan Assessment/Plan (1) Lymphadenopathy, abdominal: PLAN: Highly suggestive of neoplastic process. Especially when considered alongside patient's history of recent fatigue and hot flashes this is concerning for possible lymphoma. Will require tissue diagnosis. Tentatively planning for excisional lymph node biopsy. (2) Signs and symptoms of anemia: PLAN: Patient with profound fatigue and hemoglobin of 8.6 g/dL. This does represent a significant decrease from his prior baseline, however, the lymphadenopathy noted on his recent CT imaging suggests another possible cause of the patient's fatigue. Given the patient's history of anemia, reports of decreased stool caliber, and no prior colonoscopy a colonoscopic exam is indicated. After discussion with the hospitalist service, we will pursue a bowel prep today and then plan for endoscopy tomorrow afternoon. Patient okay for clear liquids on admission. (3) Thickened small bowel: PLAN: Patient's CT imaging shows some thickening of the second portion of the small bowel, recent use of NSAIDs (Naprosyn), and at least some concern for coffee-ground emesis/upper GI bleeding. Therefore, we will plan for EGD in addition to colonoscopy to evaluate these issues further. Patient should begin prep today. As above, okay to begin clear liquid diet. Recommend Protonix 40 mg twice daily as well. Charges/Coding Visit Charges Inpatient E&M: 86769 Init Hosp L2
--- NOTE | 2021-03-10 16:11 | HP.PCM.HOS_ITS ---
HPI - General General Date of Admission: 03/10/21 Date of Service: 03/10/21 Chief Complaint: Dark stools, loose, Low BP. HPI Narrative The patient is a 75 y/o M w/ PMHx: HTN, BPH who presents to the [facility] ED on 03/10/21 with history of planned colonoscopy day following presentation however patient per PCP upon evaluation with worsening dyspnea, worse with exertion with dark loose stools on day of presentation prompting ED evaluation with notable hypotension. Patient reportedly has been taking both naproxen and ibuprofen. reports that his stool does look like coffee grounds especially in the morning on day of ED presentation. He reports associated vague abdominal discomfort, cramping which has been continuous and ranges mild to moderate in severity with nausea with no emesis. His stools have been loose in nature. He denies taking any antiplatelet or anticoagulant therapy. Work-up in the ED included T 99.3, heart rate 105, BP 99/58 initially, improved 104/91, respiratory rate 18, 92 to 93% on room air, CBC with WC 5.5, hemoglobin 8.6 most recently 03/09/2021 8.6 and 03/03/2021 9 however 01/13/2021 had been 12.2, platelet 128 with no differential performed, BMP with BUN/creatinine 42/1.63 with baseline creatinine noted 0.9-1.0, type and screen performed per ED physician noted to be a positive with antibody negative screen, stool guaiac negative, rapid SARS Covid antigen negative, CT A/P w/ diffuse peritoneal and retr operitoneal lymphadenopathy extending into the pelvis, marked degree of splenomegaly with findings suggestive of peripheral infarcts, hepatomegaly, small left pleural effusion with left basilar infiltrate. [facility] Medical History Enlarged prostate Hypertension Home Medications finasteride 5 mg tablet 5 mg PO QDAY 10/25/17 [History Last Taken 03/09/21] valsartan 80 mg tablet 80 mg PO DAILY #90 tab 01/13/21 [Rx Last Taken 03/09/21] benzonatate 100 mg capsule 100 mg PO BID PRN #20 cap 02/23/21 [Rx Last Taken 03/08/21] albuterol sulfate 90 mcg/actuation aerosol inhaler 2 puff INHALATION Q6H PRN #8.5 g 03/03/21 [Rx Last Taken 03/08/21] ibuprofen 200 mg capsule 200 mg PO Q6H PRN 03/03/21 [History Last Taken 03/09/21] multivitamin 1 tab PO DAILY 03/03/21 [History Last Taken 03/08/21] ascorbic acid (vitamin C) 500 mg PO DAILY 03/10/21 [History Last Taken 03/09/21] ferrous sulfate 325 mg PO QODAY 03/10/21 [History Last Taken 03/09/21] Allergy/AdvReac Type Severity Reaction Status Date / Time Antihistamines - Ethanolamine Allergy Severe rash Verified 03/10/21 12:11 MUCOUS RELIEF DM Allergy Rash Uncoded 03/10/21 12:12 Family History (Updated 03/10/21 @ 18:[address] Fariha Chaudhry MD) Father Cancer Prostate and Colon CA. Colon cancer Hypertension Grandfather CVA (cerebral vascular accident) Myocardial infarction Mother Hypertension Surgical History History of appendectomy History of tonsillectomy Social History (Updated 03/10/21 @ 12:[address] Marcell Juarez MD) household members: spouse housing: house Smoking Status: Never smoker alcohol intake: never substance use type: does not use what type of physical activity do you participate in: none ROS ROS Narrative Admission Review of Systems: CONSTITUTIONAL: No weight loss, fever, chills, + weakness or fatigue. HEENT: Eyes: No visual loss, blurred vision, double vision or yellow sclerae. Ears, Nose, Throat: No hearing loss, sneezing, congestion, runny nose or sore throat. SKIN: No rash or itching, lesions, wounds. CARDIOVASCULAR: No chest pain, chest pressure or chest discomfort, palpitations, edema, orthopnea, syncopal events. RESPIRATORY: + shortness of breath, No marked cough or sputum, wheezing, hemoptysis. GASTROINTESTINAL: + anorexia, nausea without vomiting, diarrhea, abdominal cramping, dark stools but not specifically melena, No BRBPR. GENITOURINARY: No dysuria, frequency, urgency or retention. NEUROLOGICAL: No headache, dizziness, syncope, paralysis, ataxia, numbness or tingling in the extremities, focal weakness, change in bowel or bladder control, seizure. MUSCULOSKELETAL: + muscle, back pain, joint pain or stiffness. HEMATOLOGIC: + anemia, bleeding or bruising. LYMPHATICS: No enlarged nodes. No history of splenectomy. PSYCHIATRIC: No history of depression or anxiety. ENDOCRINOLOGIC: No reports of sweating, cold or heat intolerance. No polyuria or polydipsia. ALLERGIES: No history of asthma, hives, eczema or rhinitis. Vital Signs Vital Signs Vital Signs: 03/10/21 12:07 03/10/21 12:10 03/10/21 13:09 Temperature 99.3 F H 99.3 F H Temperature Source Oral Oral Pulse Rate 105 H 105 H Pulse Rate [Lying] Pulse Rate [Sitting] Pulse Rate [Standing] Respiratory Rate 18 18 Blood Pressure 99/60 99/60 118/68 Blood Pressure [Lying] Blood Pressure [Sitting] Blood Pressure [Standing] Blood Pressure Mean 73 73 84 Blood Pressure Mean [Lying] Blood Pressure Mean [Sitting] Blood Pressure Mean [Standing] Pulse Ox 92 92 Oxygen Delivery Method Room Air Room Air 03/10/21 14:10 03/10/21 15:44 03/10/21 16:01 Temperature Temperature Source Pulse Rate 99 97 96 Pulse Rate [Lying] Pulse Rate [Sitting] Pulse Rate [Standing] Respiratory Rate 19 H 23 H 23 H Blood Pressure 104/91 H 102/88 H 102/88 H Blood Pressure [Lying] Blood Pressure [Sitting] Blood Pressure [Standing] Blood Pressure Mean 95 92 92 Blood Pressure Mean [Lying] Blood Pressure Mean [Sitting] Blood Pressure Mean [Standing] Pulse Ox 93 93 Oxygen Delivery Method Room Air Room Air 03/10/21 16:02 Temperature Temperature Source Pulse Rate Pulse Rate [Lying] 94 Pulse Rate [Sitting] 103 H Pulse Rate [Standing] 108 H Respiratory Rate Blood Pressure Blood Pressure [Lying] 114/60 Blood Pressure [Sitting] 107/65 Blood Pressure [Standing] 105/60 Blood Pressure Mean Blood Pressure Mean [Lying] 78 Blood Pressure Mean [Sitting] 79 Blood Pressure Mean [Standing] 75 Pulse Ox Oxygen Delivery Method Weight Weight: 213 lb Body Mass Index (BMI) 29.7 Physical Exam Narrative Physical Examination: General: Awake, alert, oriented x 3 and cooperative, seated upright in the ED bed, fatigued and uncomfortable appearing. Skin: Normal color, normal turgor, no icterus, no cyanosis. HEENT: AT/NC, EOMI, PERRLA, mildly dry MM, no carotid bruits or JVD noted. Lungs: Mildly diminished, greater bases, mildly increased respiratory rate but no evidence of any distress, no rales, ronchi or wheezing. Heart: Mildly tachycardic with regular rhythm; no gallop, rub audible. Abdomen: Soft, mild generalized discomfort with palpation, worse left-sided upper and lower quadrants, no rebound or guarding, mildly tympanic and distended, distant hyperactive bowel sounds, evidence of hepatosplenomegaly. Extremities: No cyanosis, no clubbing, bilateral ankle to distal gomes mild edema. Neurological: Patient awake, alert, oriented as noted, cognitive function i ntact; pupils equally reactive to light and accommodation, cranial nerves II-XII grossly normal, moving all 4 extremities, no focal deficits, strength moderately to severely global decreased. Psychiatric: Affect appears fatigued, uncomfortable appearing, no acute evidence of depressive or anxiety feelings. Results Lab / Micro Data Result Diagrams: 03/10/21 12:35 03/10/21 12:35 Labs: Laboratory Results - last 24 hr 03/10/21 12:35: WBC 5.5, RBC 2.91 L, Hgb 8.6 L, Hct 27.3 L, MCV 93.8, MCH 29.6, MCHC 31.5 L, RDW Std Deviation 51.6 H, RDW Coeff of Dmitry 15.9 H, Plt Count 128 L, MPV 10.3 03/10/21 12:35: Sodium 138, Potassium 4.5, Chloride 107, Carbon Dioxide 23.0, Anion Gap 8, BUN 42 H, Creatinine 1.63 H, Estim Creat Clear Calc 41.06, Est GFR (MDRD) Af Amer 53 L, Est GFR (MDRD) Non-Af 44 L, BUN/Creatinine Ratio 25.8 H, Glucose 105, Calcium 9.4 03/10/21 12:35: Blood Type A POSITIVE, Antibody Screen NEGATIVE Micro: Microbiology 03/10/21 12:45 Nasal Secretion SARS-CoV-2 Antigen (Rapid) - Final 03/10/21 12:35 Stool Stool Occult Blood (SERGIO) - Final Radiology Impression Abdomen/Pelvis CT 03/10/21 13:20 IMPRESSION: Diffuse peritoneal and retroperitoneal lymphadenopathy extending into the pelvis. Marked degree of splenomegaly with findings suggestive of peripheral infarcts. Hepatomegaly. Small left pleural effusion with left ulnar infiltrate. Electronically Signed: Mihir Mathis MD at 15:44 EDT , Service support , Assessment & Plan Assessment/Plan (1) Splenic infarct: (2) Splenomegaly: (3) Lymphadenopathy, abdominal: (4) Signs and symptoms of anemia: PLAN: The patient is a 75 y/o M w/ PMHx: HTN, BPH who presents to the [facility] ED on 03/10/21 with history of planned colonoscopy day following presentation however patient per PCP upon evaluation with worsening dyspnea, worse with exertion with dark loose stools on day of presentation prompting ED evaluation with notable hypotension. 1. Acute GI Bleed w/ resultant Acute Blood Loss Anemia complicated by #2: Will admit to PCU given associated hypotension and possibly upper in nature, maintain on IVFs, obtain coags to be cautious, obtain serial H+Hs especially if recurrent loose dark appearing stools, type and screen obtained per ED, maintain IV PPI, n.p.o. status pending surgery evaluation with Per discussion with Dr Aldana planned upper and lower scope 03/11/2021. There is a region of noted thickening, second portion of the duodenum. 2. Acute peripheral splenic infarcts: CT abdomen pelvis with diffuse peritoneal and retroperitoneal lymphadenopathy extending to the pelvis with marked degree of splenomegaly with findings suggestive of peripheral infarcts with noted largest defect 4.57 x 4.7 similar wedge-shaped peripheral in the upper posterior aspect of the spleen, complicates presentation given #1 with acute GI bleed as patient would benefit from consideration of anticoagulant therapy. Unclear etiology but suspect secondary to underlying malignancy. 3. Acute kidney injury: Secondary to GI losses and likely #1. Admission BUN/Cr 42/1.63, prior baseline creatinine noted to be 0.9-1, increasing notably over the last 1 week. Will judiciously hydrate, hold nephrotoxic medications and repeat chemistry in AM. If no improvement would plan FeNa assessment. 4. ? Community Acquired Pneumonia, left basilar: CT abdomen pelvis with noted small left pleural effusion with left basilar infiltrate, will maintain on oxygen with wean as tolerated to room air, continue ATC duonebs, PRN albuterol, maintained on Rocephin and Azithromycin, HOB, IS parameters w/ pending sputum cultures, respiratory viral panel and urine antigens. Procalcitonin pending. 5. Significant diffuse peritoneal and retroperitoneal lymphadenopathy concerning for underlying malignant process: Given presentation, initial needs will be to ascertain any source of GI bleeding although given findings could certainly be underlying malignant process, will then benefit from consideration lymph node biopsy and following these transition to anticoagulation preferably with heparin drip in case of recurrent worsening anemia 6. Hypertension: Given presentation with hypotension, hold regimen, may add back once appropriate. 7. BPH: We will continue patient home finasteride regimen. 8. DVT prophylaxis: SCDs, defer any chemoprophylaxis given acute presentation as noted. 9. CODE status: Patient HARINI is his who is present as well as his son and living will is currently in place. Discussed CODE status at length including di fference between FULL code, DNR-CCA and DNR-CC status. Following discussions about the differences in these status, requested Full Code status, but intimated that if interventions became futile he would prefer then to transition to passing naturally. Advanced Care Planning Face to Face Time: 16 minutes. Charges/Coding Visit Charges Inpatient E&M: 85501 Init Hosp L3 Procedures Hospitalists Procedures: 71894 Advncd Care Plan 30 Min
[2021-03-10] MEDS: levoFLOXacin IV 750 MG/150 ML BAG 100 MG IV (16:26)
--- NOTE | 2021-03-10 18:10 | ECHOD_ITS ---
Reason For Study: DYSPNEA Procedure This was a 2D Doppler, Color Flow transthoracic echocardiogram. Exam performed portable in patient room. Left Ventricle Normal LV size. Left ventricular systolic function is hyperdynamic. The estimated ejection fraction is 75 %. The global longitudinal strain = -28 % (normal). No evidence for diastolic dysfunction. No regional wall motion abnormalities noted. Right Ventricle Normal RV size. Normal systolic function. Atria The left atrium is mildly enlarged. Normal right atrium. No doppler evidence for ASD. Mitral Valve There is no mitral annular calcification. Mild diffuse mitral valve thickening. Trivial mitral valve insufficiency. Tricuspid Valve Normal tricuspid valve. Mild to moderate (1-2+) tricuspid valve insufficiency. Right ventricular systolic pressure estimated to be 51 mmHg. Aortic Valve Trisinus/trileaflet aortic valve. Mild diffuse aortic valve thickening. Pulmonic Valve The pulmonic valve is not well visualized. Trivial pulmonic valve insufficiency. Great Vessels Normal sized aortic root. Pericardium/Pleural No pericardial effusion. MMode/2D Measurements & Calculations LVIDd: 4.7 cm IVSd: 0.85 cm Ao root diam: 3.4 cm LVIDs: 2.9 cm LVPWd: 0.90 cm RVDd: 3.6 cm FS: 37.9 % LAV(MOD-bp): 64.5 ml LA A4 area: 22.3 cm2 LA dimension(2D): 4.5 cm LAV(MOD-bp) Indexed: 29.8 ml/m2 LAV(MOD-sp2): 61.0 ml LAV(MOD-sp4): 67.3 ml RA A4 area: 15.9 cm2 Time Measurements MV dec time: 0.23 sec Doppler Measurements & Calculations MV E max malvin: 73.0 cm/sec Lat Peak E' Malvin: 13.2 cm/sec Med Peak E' Malvin: 9.3 cm/sec MV A max malvin: 108.8 cm/sec E/E' lat: 5.5 E/E' med: 7.9 MV E/A: 0.67 Ao V2 max: 205.0 cm/sec LV V1 max: 168.7 cm/sec PA V2 max: 123.0 cm/sec Ao max P.9 mmHg LV V1 max P.5 mmHg PI end-d malvin: 141.5 cm/sec TR max malvin: 347.3 cm/sec TR max P.2 mmHg ECHO/Echo Complete Interpretation Summary Left ventricular systolic function is hyperdynamic. The estimated ejection fraction is 75 %. The global longitudinal strain = -28 % (normal). The left atrium is mildly enlarged. Mild diffuse mitral valve thickening. Trivial mitral valve insufficiency. Mild to moderate (1-2+) tricuspid valve insufficiency. Mild diffuse aortic valve thickening. Trivial pulmonic valve insufficiency. Right ventricular systolic pressure estimated to be 51 mmHg. No evidence for diastolic dysfunction. Comment: Based upon the 2D echocardiographic images obtained a diagnosis of raheel loidosis cannot necessarily be excluded with consideration for further evaluation as clinically indicated. Ordering Physician: Fariha Chaudhry Referring Physician: ROBBIE ALFARO Performed By: Valerie Aldrich RDCS, RVT
[2021-03-10] MEDS: 0.9% Normal Saline 1,000 ML 100 ML IV (18:48)
[2021-03-10] MEDS: Finasteride 5 MG Tablet PO (18:52)
[2021-03-10 19:19] LABS: AST(SGOT) 47 U/L (15-37); Alanine Aminotransfer ALT/SGPT 74 U/L (16-61); Albumin, Serum 2.4 g/dL (3.2-5.0); Alkaline Phosphatase 100 U/L (45-117); Bilirubin, Direct 0.39 mg/dL (0.00-0.30); Globulin 3.4 g/dL (2.2-4.2); Magnesium 1.9 mg/dL (1.6-2.6); Protein, Total 5.8 g/dL (6.4-8.2)
[2021-03-10 19:26] LABS: Procalcitonin 0.36 ng/mL (0.00-0.09)
[2021-03-10 22:20] LABS: Hematocrit 23.6 % (40-54); Hemoglobin 7.5 g/dL (13.0-16.5)
[2021-03-11] VITALS (13 sets, daily range): BP systolic 92–114; BP diastolic 48–65; PULSE 89–102; RESP 12–24; TEMP 36.8–37.4; O2SAT 93–96; BMI 29.9
[2021-03-11 02:51] LABS: Hematocrit 22.9 % (40-54); Hemoglobin 7.2 g/dL (13.0-16.5)
[2021-03-11] MEDS: 0.9% Normal Saline 1,000 ML 100 ML IV ×2 (04:45→18:19)
[2021-03-11 07:47] LABS: Absolute Lymphocyte Count 1.34 X10^3/uL (0.83-4.51); Absolute Neutrophil Count 2.6 X10^3/uL (2.0-7.7); Basophil# 0.04 X10^3/uL; Basophil% 0.8 % (0-1); Hematocrit 22.5 % (40-54); Lymphocyte # 1.34 X10^3/ul (0.83-4.51); Lymphocyte % 27.1 % (19-41); Mean Corp Hgb Conc 31.1 g/dL (32-36); Mean Corpuscular Hgb 29.8 pg (27.0-32.0); Mean Corpuscular Volume 95.7 fL (80-94); Mean Platelet Vol. 10.7 fl (6.2-12.0); Monocyte# 0.67 X10^3/uL; Monocyte% 13.5 % (0-10); NRBC Flagged by Analyzer 0.6 % (0-5); Neutrophil # 2.64 X10^3/uL (2.7-7.7); Neutrophil % 53.4 % (47-70); POSITIVE MORPHOLOGY YES; Platelet Count 112 K/mm3 (150-450); RBC Distribution Width SD 52.4 fl (35.1-43.9); Red Blood Count 2.35 M/mm3 (4.6-6.2)
[2021-03-11 07:58] LABS: Differential Indicated SCAN CRITERIA MET
--- NOTE | 2021-03-11 08:07 | PCM.PN.SRG ---
Objective Data Objective Data Vital Signs: Vital Signs Temp Pulse Resp BP Pulse Ox 98.5 F 97 18 114/65 93 03/11/21 06:00 03/11/21 06:00 03/11/21 06:00 03/11/21 06:00 03/11/21 06:00 Oxygen Flow Rate (L/min) 2 Oxygen Delivery Method Nasal Cannula Weight: 213 lb 10.047 oz Body Mass Index (BMI) 29.8 Intake & Output: Intake and Output for Last 24 Hours 03/09/21 03/10/21 03/11/21 23:59 23:59 23:59 Intake Total 1260 / 1260 1540 / 1540 Balance 1260 / 1260 1540 / 1540 Lab / Micro Data Result Diagrams: 03/11/21 06:43 03/10/21 12:35 Labs: Laboratory Results - last 24 hr 03/10/21 12:35: WBC 5.5, RBC 2.91 L, Hgb 8.6 L, Hct 27.3 L, MCV 93.8, MCH 29.6, MCHC 31.5 L, RDW Std Deviation 51.6 H, RDW Coeff of Dmitry 15.9 H, Plt Count 128 L, MPV 10.3 03/10/21 12:35: Sodium 138, Potassium 4.5, Chloride 107, Carbon Dioxide 23.0, Anion Gap 8, BUN 42 H, Creatinine 1.63 H, Estim Creat Clear Calc 41.06, Est GFR (MDRD) Af Amer 53 L, Est GFR (MDRD) Non-Af 44 L, BUN/Creatinine Ratio 25.8 H, Glucose 105, Calcium 9.4 03/10/21 12:35: Blood Type A POSITIVE, Antibody Screen NEGATIVE 03/10/21 18:53: Magnesium 1.9, Total Bilirubin 0.80, Direct Bilirubin 0.39 H, AST 47 H, ALT 74 H, Alkaline Phosphatase 100, Total Protein 5.8 L, Albumin 2.4 L, Globulin 3.4 03/10/21 18:53: Procalcitonin 0.36 H 03/10/21 21:50: Hgb 7.5 L, Hct 23.6 L 03/11/21 02:30: Hgb 7.2 L, Hct 22.9 L 03/11/21 06:43: WBC 5.0, RBC 2.35 L, Hgb 7.0 L, Hct 22.5 L, MCV 95.7 H, MCH 29.8, MCHC 31.1 L, RDW Std Deviation 52.4 H, RDW Coeff of Dmitry 16.0 H, Plt Count 112 L, MPV 10.7, Immature Gran % (Auto) 1.200 H, Neut % (Auto) 53.4, Lymph % (Auto) 27.1, [place] % (Auto) 13.5 H, Eos % (Auto) 4.0, Baso % (Auto) 0.8, Absolute Neuts (auto) 2.6, Absolute Lymphs (auto) 1.34, Nucleated RBC % 0.6 Micro: Microbiology 03/10/21 20:34 Mucosa - Nasopharyngeal Respiratory Panel (PCR) - Final 03/10/21 22:18 Urine, Clean Catch Legionella Antigen - Final 03/10/21 22:18 Urine, Clean Catch Streptococcus pneumoniae Antigen (M - Final 03/10/21 12:45 Nasal Secretion SARS-CoV-2 Antigen (Rapid) - Final 03/10/21 12:35 Stool Stool Occult Blood (SERGIO) - Final Radiography Diagnostic Testing: Radiology Impression Abdomen/Pelvis CT 03/10/21 13:20 IMPRESSION: Diffuse peritoneal and retroperitoneal lymphadenopathy extending into the pelvis. Marked degree of splenomegaly with findings suggestive of peripheral infarcts. Hepatomegaly. Small left pleural effusion with left ulnar infiltrate. Electronically Signed: Mihir Mathis MD at 15:44 EDT , Service support ,
--- NOTE | 2021-03-11 08:17 | PCM.PN.SRG ---
Subjective Subjective Patient seen and examined during AM rounds. He reports that he feels weaker this morning. He states that he had several bowel movements overnight, but does not believe he started a formal bowel prep. He describes the appearance as black and tarry and is not sure if this is to be attributed to his iron supplementation or blood. He has several questions regarding the plans for endoscopic investigation later today which were answered at bedside. Objective Data Objective Data Vital Signs: Vital Signs Temp Pulse Resp BP Pulse Ox 98.5 F 97 18 114/65 93 03/11/21 06:00 03/11/21 06:00 03/11/21 06:00 03/11/21 06:00 03/11/21 06:00 Oxygen Flow Rate (L/min) 2 Oxygen Delivery Method Nasal Cannula Weight: 213 lb 10.047 oz Body Mass Index (BMI) 29.8 Intake & Output: Intake and Output for Last 24 Hours 03/09/21 03/10/21 03/11/21 23:59 23:59 23:59 Intake Total 1260 / 1260 1540 / 1540 Balance 1260 / 1260 1540 / 1540 Lab / Micro Data Result Diagrams: 03/11/21 06:43 03/10/21 12:35 Labs: Laboratory Results - last 24 hr 03/10/21 12:35: WBC 5.5, RBC 2.91 L, Hgb 8.6 L, Hct 27.3 L, MCV 93.8, MCH 29.6, MCHC 31.5 L, RDW Std Deviation 51.6 H, RDW Coeff of Dmitry 15.9 H, Plt Count 128 L, MPV 10.3 03/10/21 12:35: Sodium 138, Potassium 4.5, Chloride 107, Carbon Dioxide 23.0, Anion Gap 8, BUN 42 H, Creatinine 1.63 H, Estim Creat Clear Calc 41.06, Est GFR (MDRD) Af Amer 53 L, Est GFR (MDRD) Non-Af 44 L, BUN/Creatinine Ratio 25.8 H, Glucose 105, Calcium 9.4 03/10/21 12:35: Blood Type A POSITIVE, Antibody Screen NEGATIVE 03/10/21 18:53: Magnesium 1.9, Total Bilirubin 0.80, Direct Bilirubin 0.39 H, AST 47 H, ALT 74 H, Alkaline Phosphatase 100, Total Protein 5.8 L, Albumin 2.4 L, Globulin 3.4 03/10/21 18:53: Procalcitonin 0.36 H 03/10/21 21:50: Hgb 7.5 L, Hct 23.6 L 03/11/21 02:30: Hgb 7.2 L, Hct 22.9 L 03/11/21 06:43: WBC 5.0, RBC 2.35 L, Hgb 7.0 L, Hct 22.5 L, MCV 95.7 H, MCH 29.8, MCHC 31.1 L, RDW Std Deviation 52.4 H, RDW Coeff of Dmitry 16.0 H, Plt Count 112 L, MPV 10.7, Immature Gran % (Auto) 1.200 H, Neut % (Auto) 53.4, Lymph % (Auto) 27.1, [place] % (Auto) 13.5 H, Eos % (Auto) 4.0, Baso % (Auto) 0.8, Absolute Neuts (auto) 2.6, Absolute Lymphs (auto) 1.34, Nucleated RBC % 0.6 Micro: Microbiology 03/10/21 20:34 Mucosa - Nasopharyngeal Respiratory Panel (PCR) - Final 03/10/21 22:18 Urine, Clean Catch Legionella Antigen - Final 03/10/21 22:18 Urine, Clean Catch Streptococcus pneumoniae Antigen (M - Final 03/10/21 12:45 Nasal Secretion SARS-CoV-2 Antigen (Rapid) - Final 03/10/21 12:35 Stool Stool Occult Blood (SERGIO) - Final Radiography Diagnostic Testing: Radiology Impression Abdomen/Pelvis CT 03/10/21 13:20 IMPRESSION: Diffuse peritoneal and retroperitoneal lymphadenopathy extending into the pelvis. Marked degree of splenomegaly with findings suggestive of peripheral infarcts. Hepatomegaly. Small left pleural effusion with left ulnar infiltrate. Electronically Signed: Mihir Mathis MD at 15:44 EDT , Service support , Physical Exam Const oriented x3 and no apparent distress Resp normal respiratory effort GI soft to palpation Inspection: Negative for abdominal distention Palpation: tender LUQ (Mild) Assessment & Plan Assessment/Plan (1) Signs and symptoms of anemia: PLAN: Plan for EGD and colonoscopy today. Need to have patient complete bowel prep prior to this procedure. To help ensure adequate prep, I have also ordered a soapsuds enema to follow this prep. Patient's hemoglobin has down trended to 7 g/dL from 8.6 g/dL on intake. This suggests ongoing losses. Blood cell transfusion threshold at 7 g/dL (2) Thickened small bowel: PLAN: As above, plan for EGD later today to better assess the thickening of the duodenum seen on CT yesterday (3) Lymphadenopathy, abdominal: PLAN: Patient with concurrent inguinal lymphadenopathy. Tentatively planning for excisional lymph node biopsy (left seems to have greater number of abnormal lymph nodes than right per CT) on 03/12/2021 in order to achieve tissue diagnosis. Charges/Coding Visit Charges Inpatient E&M: 37618 Subs Hosp L2
[2021-03-11 08:19] LABS: ALB/GLOB Ratio 0.7 RATIO (0.9-2.4); AST(SGOT) 39 U/L (15-37); Alanine Aminotransfer ALT/SGPT 67 U/L (16-61); Albumin, Serum 2.2 g/dL (3.2-5.0); Alkaline Phosphatase 85 U/L (45-117); Anion Gap 5 (5-15); BUN 35 mg/dL (7-18); BUN/Creat Ratio 23.8 RATIO (10-20); Calcium,Total 8.5 mg/dL (8.5-10.1); Chloride 110 mmol/L (98-107); Creatinine, Serum 1.47 mg/dL (0.70-1.30); EST Glomerular Filtration Rate 49 mL/min (>60); Est Glom Filt Rate - Afr Amer 60 mL/min (>60); Estimated Creatinine Clearance 44.14 ml/min; Globulin 3.1 g/dL (2.2-4.2); Glucose 85 mg/dL (74-106); Potassium 4.2 mmol/L (3.5-5.1); Protein, Total 5.3 g/dL (6.4-8.2); Sodium Level 140 mmol/L (136-145)
[2021-03-11 08:35] LABS: Reactive Lymphocyte RARE
--- NOTE | 2021-03-11 09:09 | IMM_PTH ---
PATIENT: WINNIE SCOTT LOC: [facility] U#:[id number] AGE/SX: 75/M ROOM: [facility] RE03/10/[address]: Dr. Alona Maldonado MD : [id number] BED: 1 DIS: 03/17/2021 SPEC #: [id number] RECD: 03/12/21 08:17 STATUS: SOUJohn REQ #: [id number] DELIO: 03/11/21 09:[address]: Reza Aldana DEPT: IMMUNOHISTOCHEMISTRY RECD BY: Betty Steel ENTERED: 03/12/21 08:18 SP TYPE: IMMUNO OTHR DR: MD Dr. Yo Hernandez, MD Dr. Jj Romero Dr., Tissues: Stomach, NOS Procedures: H Pylori (initial) Comments: @ Ordering doctor for H.PYLORI edited from to @ by DIOR at 03/15/21 1055 @ Submitting doctor edited from to @ by DIOR at 03/15/21 1055 PHYSICIAN & INSTITUTION [place] [address] SPECIMEN INFORMATION: Tissue Source: C. Antrum biopsy Clinical Info: Signs and symptoms of anemia Specimen Number: [id number] CPT code: 43609 METHODOLOGY: Deparaffinized sections of prefer/formalin-fixed tissue or PAP/DQ stained slides are incubated with monoclonal/polyclonal antibodies/oligonucleotide probes. Localization is made via biotin free immunoperoxidase method. Appropriate controls are performed and reacted as expected. Results on target cell population are indicated in the following table: RESULTS: ANTIBODY / CLONE RESULT Block C H Pylori (polyclonal) negative These tests were developed and their performance characteristics determined by [facility]. They may not have been cleared or approved by the U.S. Food and Drug Administration. The FDA has determined that such clearance or approval is not necessary. INTERPRETATION: C. Antrum biopsy: Negative for Helicobacter pylori organisms. YURIY:bob 03/15/2021
[2021-03-11] MEDS: Bisacodyl 5 MG Tablet 20 MG PO (09:10)
[2021-03-11] MEDS: Polyethylene Glycol 3350 BOWEL PREP PO (09:35)
[2021-03-11] MEDS: Ceftriaxone 1 GM/50 ML BAG IV (10:32)
--- NOTE | 2021-03-11 13:21 | PCM.PN.HOSP ---
Documented by User: Dilia Kang NP, SCHEDULING ADMINISTRATOR-C 03/11/21 13:30 Subjective Subjective Patient seen and examined. Undergoing bowel prep. Denies nausea, vomiting, abdominal pain. Reports continued generalized weakness. Objective Data Objective Data Vital Signs: Vital Signs Temp Pulse Resp BP Pulse Ox 98.3 F 94 18 109/57 L 94 03/11/21 09:00 03/11/21 09:00 03/11/21 09:00 03/11/21 09:00 03/11/21 09:00 Oxygen Flow Rate (L/min) 2 Oxygen Delivery Method Nasal Cannula Weight: 213 lb 10.047 oz Body Mass Index (BMI) 29.8 Intake & Output: Intake and Output for Last 24 Hours 03/09/21 03/10/21 03/11/21 23:59 23:59 23:59 Intake Total 1260 / 1260 1954 Balance 1260 / 1260 1954 Lab / Micro Data Result Diagrams: 03/11/21 06:43 03/11/21 06:43 Labs: Laboratory Results - last 24 hr 03/10/21 12:35: Blood Type A POSITIVE, Antibody Screen NEGATIVE 03/10/21 18:53: Magnesium 1.9, Total Bilirubin 0.80, Direct Bilirubin 0.39 H, AST 47 H, ALT 74 H, Alkaline Phosphatase 100, Total Protein 5.8 L, Albumin 2.4 L, Globulin 3.4 03/10/21 18:53: Procalcitonin 0.36 H 03/10/21 21:50: Hgb 7.5 L, Hct 23.6 L 03/11/21 02:30: Hgb 7.2 L, Hct 22.9 L 03/11/21 06:43: WBC 5.0, RBC 2.35 L, Hgb 7.0 L, Hct 22.5 L, MCV 95.7 H, MCH 29.8, MCHC 31.1 L, RDW Std Deviation 52.4 H, RDW Coeff of Dmitry 16.0 H, Plt Count 112 L, MPV 10.7, Immature Gran % (Auto) 1.200 H, Neut % (Auto) 53.4, Lymph % (Auto) 27.1, [place] % (Auto) 13.5 H, Eos % (Auto) 4.0, Baso % (Auto) 0.8, Absolute Neuts (auto) 2.6, Absolute Lymphs (auto) 1.34, Nucleated RBC % 0.6, Reactive Lymphocytes RARE 03/11/21 06:43: Sodium 140, Potassium 4.2, Chloride 110 H, Carbon Dioxide 25.0, Anion Gap 5, BUN 35 H, Creatinine 1.47 H, Estim Creat Clear Calc 44.14, Est GFR (MDRD) Af Amer 60, Est GFR (MDRD) Non-Af 49 L, BUN/Creatinine Ratio 23.8 H, Glucose 85, Calcium 8.5, Total Bilirubin 0.70, AST 39 H, ALT 67 H, Alkaline Phosphatase 85, Total Protein 5.3 L, Albumin 2.2 L, Globulin 3.1, Albumin/Globulin Ratio 0.7 L Micro: Microbiology 03/10/21 20:34 Mucosa - Nasopharyngeal Respiratory Panel (PCR) - Final 03/10/21 22:18 Urine, Clean Catch Legionella Antigen - Final 03/10/21 22:18 Urine, Clean Catch Streptococcus pneumoniae Antigen (M - Final 03/10/21 12:45 Nasal Secretion SARS-CoV-2 Antigen (Rapid) - Final 03/10/21 12:35 Stool Stool Occult Blood (SERGIO) - Final Radiography Diagnostic Testing: Radiology Impression Abdomen/Pelvis CT 03/10/21 13:20 IMPRESSION: Diffuse peritoneal and retroperitoneal lymphadenopathy extending into the pelvis. Marked degree of splenomegaly with findings suggestive of peripheral infarcts. Hepatomegaly. Small left pleural effusion with left ulnar infiltrate. Electronically Signed: Mihir Mathis MD at 15:44 EDT , Service support , Physical Exam Const alert, oriented x3 and no apparent distress Orientation / Consciousness: awake, oriented to person, oriented to place and oriented to time HEENT normocephalic and moist oral mucous membranes Eyes PERRL, EOMs intact bilaterally and conjunctivae normal Neck no lymphadenopathy Resp normal respiratory effort and clear to auscultation bilaterally Cardio regular rate, regular rhythm and no murmurs Peripheral Pulses: pulses 2+ throughout GI normal to inspection, nondistended, normoactive bowel sounds, non-tender and non-distended Extremity normal to inspection Skin no rashes or lesions noted Lesions: no lesions Rashes: no rashes Trauma: no lacerations or abrasions Neuro CN's II-XII intact bilaterally, no focal motor deficits, no sensory deficits noted and deep tendon reflexes 2+ bilaterally Psych mental status grossly normal and affect normal Assessment & Plan Assessment/Plan (1) Lymphadenopathy, abdominal: (2) Splenic infarct: (3) Acute kidney injury: (4) Anemia: QUALIFIERS: Anemia type: iron deficiency Iron deficiency anemia type: unspecified iron deficiency Qualified Code(s): D50.9 - Iron deficiency anemia, unspecified PLAN: 1. Acute GI bleed, blood loss anemia-IV PPI. General surgery consulted. Trend CBC. Transfuse for hemoglobin less than 7. To undergo EGD/colonoscopy this afternoon. 2. Acute splenic infarcts-suspected secondary to malignancy. GI work-up as noted above, if unremarkable, consider anticoagulation. 3. Acute kidney injury-not significantly improved from prior. IV fluids. Obtain urine studies and renal ultrasound. 4. Diffuse peritoneal and retroperitoneal lymphadenopathy, concerning for malignancy-general surgery on consult with plan for lymph node biopsy. CA 19/carcinoembryonic antigen ordered. Will need referral to oncology pending further inpatient stabilization. 5. Questionable left basilar community-acquired pneumonia-on empiric azithromycin and Rocephin. Sputum culture ordered. Afebrile, no leukocytosis. 6. Hypertension-valsartan on hold due to hypotension and acute kidney injury. Creatinine normal December 2020. 7. BPH-on finasteride. DVT prophylaxis-SCDs This patient was seen by ALISA CalderonC under the supervision of Dr. Langford. Documented by User: Dr. Hannah Langford DO 03/11/21 13:50 Subjective Subjective This patient was seen in conjunction with Dilia Kang NP. The following is a reflection of my independent history and physical exam. Please see below for any addendum the above. Patient reports that he has had symptoms for least 2 months. He reported he really started having symptoms in the middle of December. He is beginning his prep for his colonoscopy. Objective Data Lab / Micro Data Result Diagrams: 03/11/21 06:43 03/11/21 06:43 Physical Exam Const alert, oriented x3, no apparent distress and average body habitus Constitutional Narrative: Very pleasant elderly white male sitting on the edge of bed with nursing at bedside, appears fatigued but nontoxic Exam Limitations: no limitations Nutritional Appearance: overweight HEENT head/scalp atraumatic, moist oral mucous membranes and oropharynx normal Head and Scalp: normocephalic Mouth: oral and palatal mucosa normal Resp normal respiratory effort, no retractions, no use of accessory muscles and clear to auscultation bilaterally Auscultation: Negative for crackles, rales, rhonchi or wheezes Cardio regular rate, regular rhythm, S1 normal heart sound, S2 normal heart sound, no murmurs, no rub, no gallops, no clicks and no JVD GI normal to inspection, nondistended, normoactive bowel sounds, soft to palpation, non-tender and non-distended Extremity no clubbing, cyanosis or edema Peripheral Pulses: Yes pulses 2+ throughout Neuro oriented x3, CN's II-XII intact bilaterally, moves all extremities and no focal motor deficits Neuro Narrative: Significant generalized weakness Sensorium / Orientation: awake and alert Speech: speech normal Psych Psych Narrative: Affect is somewhat flat Assessment & Plan Assessment/Plan (1) Lymphadenopathy, abdominal: (2) Splenic infarct: (3) Acute kidney injury: (4) Anemia: QUALIFIERS: Anemia type: iron deficiency Iron deficiency anemia type: unspecified iron deficiency Qualified Code(s): D50.9 - Iron deficiency anemia, unspecified (5) Acute hypotension: (6) Splenomegaly: (7) Fatigue: QUALIFIERS: Fatigue type: unspecified Qualified Code(s): R53.83 - Other fatigue PLAN: Assessment: Acute anemia Duodenal thickening Abdominal/retroperitoneal lymphadenopathy Severe splenomegaly Acute splenic infarct EFREN Community-acquired pneumonia Hypotension-resolved History of hypertension BPH Plan: General surgery is following -Plan for lymph node biopsy, EGD, and colonoscopy today -Patient was Hemoccult negative Check CEA and CA 19-9 Check LDH Continue empiric antibiotics for left basilar pneumonia--> question if this is more compressive atelectasis from his effusion than actual pneumonia -Cultures pending--> if work-up negative would discontinue antibiotics -Strep pneumo and Legionella antigens negative -Covid negative -Viral respiratory panel negative Renal function remains the same despite hydration -Urine studies pending -Question if related to obstruction from marked abdominal lymphadenopathy -No hydro noted on CT scan--> ultrasound pending If scopes negative would consider full anticoagulation given splenic infarcts Echo pending
--- NOTE | 2021-03-11 13:29 | US_ITS ---
INDICATION: Acute kidney injury EXAMINATION: Ultrasound US Kidney(s) complete (eg, kidneys and bladder) TECHNIQUE: Whittaker scale and color doppler images were obtained of the kidneys. COMPARISON: CT abdomen and pelvis 03/10/2021 FINDINGS: RIGHT KIDNEY: 11.8 cm in length with 1.5 cm thick renal cortex. There is no hydronephrosis. No shadowing calculus, or perinephric collection is demonstrated. LEFT KIDNEY: 12.7 cm length kidney and 1.8 cm thick renal cortex. There is no hydronephrosis. No shadowing calculus, or perinephric collection is demonstrated. 2.9 x 2.0 x 2.0 cm mid and 3.7 x 2.5 x 2.7 cm inferior pole exophytic renal cysts are demonstrated. Smaller left upper pole hypodensity seen on comparison CT not visible on this exam. Area of cortical thickening right and left mid renal hilum consistent with column of Stephen. No suspicious masses. URINARY BLADDER: Prevoid urinary volume of 114 mL. No post void imaging. Prostate gland is significantly enlarged measuring 6.8 x 6.5 x 7.2 cm US/Kidney and Bladder IMPRESSION: Significant prostate enlargement with no associated hydronephrosis. Bladder volume within normal limits at 114 mL. Left renal cysts with otherwise normal sonographic appearance of the kidneys. Electronically Signed: Reza Ibrahim DO at 20:55 EDT Tel , Service support ,
--- NOTE | 2021-03-11 13:50 | CASEMGMT ---
KAL GOTTLIEB assessment: Face to Face with patient for initial transition planning/care coordination assessment. KAL GOTTLIEB introduced self and role at [facility], pt voices understanding and consents to assessment. Pt is lying in bed in no distress on 2Lnc . Pt is A/Ox4 and answers all questions appropriately. Pt's is at bedside during assessment and assists with questions at times. Care providers, pharmacy, and demographics verified. Presentation: Pt w/ low hgb, hypotension, dark stools-pt was supposed to have OP scope but unable to tolerate prep Admitting dx: GI bleed, splenic infarcts, pna, EFREN PCP: Willis Specialists: hesham Eller Preferred Pharmacy: [facility] Insurance: [facility] A/B Prescription Benefit: Pt does not have Rx coverage and declines concerns with getting meds at this time. Living Will/HPOA: Pt has LW/HPOA and is aware that it is not on file at [facility]. Pt's , Kylah Rodriguez, is HPOA. LNOK: Kylah Rodriguez, Living Arrangements: Pt states lives with on main level of 2 story home and states no concerns at home. Pt is independent w/ ADL's. Transportation: Pt states drives self and states no transportation concerns. DME/HHC: Pt states has the following DME: cane, walker, and shower chair. Pt states no need for any further DME. Pt states no hx of HHC or SNF. Pt states no concerns with going home at time of discharge. 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 Pt does not smoke cigarettes or drink ETOH. Pt voices no further concerns/needs. CM to follow for any further discharge planning/needs. Advised pt to ask for CM if any further questions/concerns/needs arise, voices understanding. Pt Goal: Home Plan[place] KAL GOTTLIEB
[2021-03-11 14:08] LABS: LDH 416 U/L (87-241)
[2021-03-11] MEDS: Lactated Ringers 1,000 ML 100 ML IV (14:20)
--- NOTE | 2021-03-11 15:00 | EGD_PTH ---
PATIENT: WINNIE SCOTT LOC: [facility] U#:[id number] AGE/SX: 75/M ROOM: [facility] RE03/10/[address]: Dr. Alona Maldonado MD : 1945 BED: 1 DIS: 03/17/2021 SPEC #: [id number] RECD: 03/11/21 17:17 STATUS: JELLY RUTH #: [id number] DELIO: 03/11/21 15:[address]: Reza Aldana DEPT: SURGICAL PATHOLOGY RECD BY: Shannan Dill ENTERED: 03/12/21 08:15 SP TYPE: EGD BIOPSY OTHR DR: MD Dr. Yo Hernandez, DO MD Dr. Jj Clement, DO Tissues: A - Duodenum, NOS B - Duodenum, NOS C - Gastric mucous membrane D - Stomach, NOS E - Stomach, NOS F - Rectum, NOS G - Rectum, NOS Procedures: Special Stain Group II Special Stain Group I Surgery Specimen Level IV GMS Stain (control) Alcian Blue/PAS (control) Comments: @ Ordering doctor for SSII edited from to @ by DIOR at 03/15/21 1055 @ Ordering doctor for SSI edited from to @ by DIOR at 03/15/21 1055 @ Ordering doctor for SUIV edited from to @ by DIOR at 03/15/21 1055 @ Ordering doctor for GMS edited from to @ by DIOR at 03/15/21 1055 @ Ordering doctor for AB-PAS edited from to @ by RGOFAUSTO at 03/15/21 1055 @ Submitting doctor edited from to @ by RGOOD at 03/15/21 1055 HEADER OPERATION: Colonoscopy, EGD ([facility] [place] PRE-OP DIAGNOSIS: Signs and symptoms of anemia TISSUE SUBMITTED: A. Duodenum biopsy, B. Duodenal ulcer, C. Antrum biopsy, D. Cardia polyp, E. GE junction, F. Rectal biopsy, G. Distal rectum biopsy MICROSCOPIC DIAGNOSIS A. Duodenum, biopsy: Fragments of duodenal mucosa with focal ulceration and associated acute inflammation and Keren gland hyperplasia. See comment. B. Duodenal ulcer, biopsy: A fragment of duodenal mucosa with focal ulceration and associated acute inflammation and Keren gland hyperplasia. C. Antrum, biopsy: Mild gastritis. See microscopic description and comment. D. Cardia polyp, biopsy: Consistent with fragments of hyperplastic/inflammatory polyp. E. GE junction, biopsy: Fragments of gastric mucosa with mild chronic inflammation. Intestinal metaplasia (goblet cell metaplasia) not identified. See comment. F. Rectal polyp, biopsy: A fragment of colonic mucosa with focal acute colitis. See comment. G. Distal rectum, biopsy: Fragments of squamous epithelium, no pathologic diagnosis. See comment. SJ:bob 03/15/2021 COMMENT A. Special stain for fungi is negative for organisms; matched control is appropriate. C. The results of immunohistochemistry for Helicobacter pylori will be reported separately ([id number]). E. Alcian blue/PAS stain with matched control is used in the evaluation of the specimen. F. Glandular distortion or granulomas are not seen. Correlation with clinical, endoscopic findings and appropriate follow up are necessary. MICROSCOPIC DESCRIPTION Slides are reviewed. C. The specimen shows fragments of gastric mucosa with chronic inflammatory cell infiltrates in the lamina propria consisting of lymphocytes and plasma cells, consistent with mild chronic gastritis. GROSS DESCRIPTION A. Received is one container labeled with the patient name and designated duodenum biopsy. The specimen consists of two irregular fragments of light bruno soft tissue that in aggregate measure 0.5 x 0.2 x 0.1 cm. The specimen is totally submitted in one cassette. B. Received is one container labeled with the patient name and designated duodenal ulcer biopsy. The specimen consists of one irregular fragment of light bruno soft tissue that measures 3 x 2 x 1 cm. The specimen is totally submitted in one cassette. C. Received is one container labeled with the patient name and designated antrum biopsy. The specimen consists of multiple irregular fragments of light bruno soft tissue that in aggregate measure 0.6 x 0.2 x 0.1 cm. The specimen is totally submitted in one cassette. D. Received is one container labeled with the patient name and designated cardia polyp biopsy. The specimen consists of two irregular fragments of light bruno soft tissue that in aggregate measure 0.6 x 0.6 x 0.1 cm. The specimen is totally submitted in one cassette. E. Received is one container labeled with the patient name and designated GE junction biopsy. The specimen consists of two irregular fragments of light bruno soft tissue that in aggregate measure 0.3 x 0.2 x 0.1 cm. The specimen is totally submitted in one cassette. F. Received is one container labeled with the patient name and designated rectal biopsy. The specimen consists of one irregular fragment of light bruno soft tissue that measures 0.2 x 0.2 x 0.1 cm. The specimen is totally submitted in one cassette. G. Received is one container labeled with the patient name and designated distal rectal biopsy. The specimen consists of multiple irregular fragments of light bruno soft tissue that in aggregate measure 0.2 x 0.2 x <0.1 cm. The specimen is totally submitted in one cassette. / AM:bob 03/12/21 TC:2 CPT: 71666 x7, 89386, 35942
--- NOTE | 2021-03-11 16:53 | OP.EGD_ITS ---
Patient Name: Saleem Rodriguez Procedure Date: 03/11/2021 2:50 PM Date of : 1945 Age: 75 Procedure: Upper GI endoscopy Indications: Iron deficiency anemia Providers: Reza Aldana MD Medicines: Monitored Anesthesia Care Patient Profile: Patient has symptoms. Refer to note in patient chart for documentation of history and physical. Complications: No immediate complications. Estimated blood loss: Minimal. Procedure: Pre-Anesthesia Assessment: - The heart rate, respiratory rate, oxygen saturations, blood pressure, adequacy of pulmonary ventilation, and response to care were monitored throughout the procedure. - After reviewing the risks and benefits, the patient was deemed in satisfactory condition to undergo the procedure. After obtaining informed consent, the endoscope was passed under direct vision. Throughout the procedure, the patient's blood pressure, pulse, and oxygen saturations were monitored continuously. The Endoscope was introduced through the mouth, and advanced to the second part of duodenum. The upper GI endoscopy was somewhat difficult. Scope In: 3:16:53 PM Scope Out: 3:45:21 PM Total Procedure Duration Time 0 hours 28 minutes 28 seconds Findings: Localized moderate mucosal changes characterized by erosion were found in the first portion of the duodenum. Biopsies were taken with a cold forceps for histology. Estimated blood loss was minimal. Mildly severe esophagitis with no bleeding was found. Biopsies were taken with a cold forceps for histology. Estimated blood loss was minimal. One non-bleeding cratered duodenal ulcer with no stigmata of bleeding was found in the first portion of the duodenum. The lesion was 8 mm in largest dimension. Biopsies were taken with a cold forceps for histology. Estimated blood loss was minimal. Patchy mild inflammation characterized by erythema was found in the gastric antrum. Biopsies were taken with a cold forceps for histology. Biopsies were taken with a cold forceps for Helicobacter pylori cultures. Estimated blood loss was minimal. One 7 mm pedunculated polyp with no bleeding and no stigmata of recent bleeding was found in the cardia. Biopsies were taken with a cold forceps for histology. Estimated blood loss was minimal. Impression: - Mucosal changes in the duodenum. Biopsied. - Mildly severe chronic esophagitis. Biopsied. - One non-bleeding duodenal ulcer with no stigmata of bleeding. Biopsied. - Acute gastritis. Biopsied. - One gastric polyp. Biopsied. Recommendation: - [facility]. - Await pathology results. - No aspirin, ibuprofen, naproxen, or other non-steroidal anti-inflammatory drugs. Procedure Code(s): --- Professional --- 23680, Esophagogastroduodenoscopy, flexible, transoral; with biopsy, single or multiple Diagnosis Code(s): --- Professional --- K31.89, Other diseases of stomach and duodenum K20.9, Esophagitis, unspecified K26.9, Duodenal ulcer, unspecified as acute or chronic, without hemorrhage or perforation K29.00, Acute gastritis without bleeding K31.7, Polyp of stomach and duodenum D50.9, Iron deficiency anemia, unspecified CPT copyright 2017 [employer]. All rights reserved. The codes documented in this report are preliminary and upon punch press operator review may be revised to meet current compliance requirements. Reza Aldana MD 03/11/2021 4:53:36 PM This report has been signed electronically. Number of Addenda: 0 Note Initiated On: 03/11/2021 2:50 PM
--- NOTE | 2021-03-11 16:55 | OP.CCLET_ITS ---
03/11/2021 Yo Pedro Re : Upper GI endoscopy procedure for Saleem Rodriguez Dear Dr. Pedro This procedure was performed on March. My impressions and recommendations are as follows: Impressions : - Mucosal changes in the duodenum. Biopsied. - Mildly severe chronic esophagitis. Biopsied. - One non-bleeding duodenal ulcer with no stigmata of bleeding. Biopsied. - Acute gastritis. Biopsied. - One gastric polyp. Biopsied. Recommendations : - [facility] to [facility]. - Await pathology results. - No aspirin, ibuprofen, naproxen, or other non-steroidal anti-inflammatory drugs. My findings are described in the full procedure note, which is enclosed. If I can be of further assistance, please feel free to contact me at Doctor phone number(s): , Work: . Sincerely, Reza Aldana MD 03/11/2021 4:53:36 PM This report has been signed electronically.
--- NOTE | 2021-03-11 17:03 | OP.COLON_ITS ---
Patient Name: Saleem Rodriguez Procedure Date: 03/11/2021 3:46 PM Date of : 1945 Age: 75 Procedure: Colonoscopy Indications: Iron deficiency anemia, Change in stool caliber Providers: Reza Aldana MD Medicines: See the Anesthesia note for documentation of the administered medications Patient Profile: Patient has symptoms. Refer to note in patient chart for documentation of history and physical. Last Colonoscopy: none. The patient's first colonoscopy is today. Complications: No immediate complications. Estimated blood loss: Minimal. Procedure: Pre-Anesthesia Assessment: - The heart rate, respiratory rate, oxygen saturations, blood pressure, adequacy of pulmonary ventilation, and response to care were monitored throughout the procedure. - After reviewing the risks and benefits, the patient was deemed in satisfactory condition to undergo the procedure. After I obtained informed consent, the scope was passed under direct vision. Throughout the procedure, the patient's blood pressure, pulse, and oxygen saturations were monitored continuously. The adult colonoscope was introduced through the anus and advanced to the cecum, identified by appendiceal orifice and ileocecal valve. The colonoscopy was technically difficult and complex due to poor bowel prep. Successful completion of the procedure was aided by lavage. Scope In: 3:49:59 PM Scope Withdrawal Time 0 hours 24 minutes 19 seconds Scope Out: 4:37:31 PM Total Procedure Duration Time 0 hours 47 minutes 32 seconds Findings: Many medium-mouthed diverticula were found in the sigmoid colon, ascending colon and mid ascending colon. There was no evidence of diverticular bleeding. No biopsies or other specimens were collected for this exam. Nonbleeding ulcerated mucosa with no stigmata of recent bleeding were present in the rectum. Biopsies were taken with a cold forceps for histology. Estimated blood loss was minimal. A 9 mm polyp was found in the rectum (benign-appearing lesion). The polyp was pedunculated. Biopsies were taken with a cold forceps for histology. Estimated blood loss was minimal. Impression: - Moderate diverticulosis in the sigmoid colon, in the ascending colon and in the mid ascending colon. There was no evidence of diverticular bleeding. No specimens collected. - Mucosal ulceration. Biopsied. - One benign appearing 9 mm polyp in the rectum. Biopsied. Recommendation: - Await pathology results. - [facility] patient to [facility] care. - Repeat colonoscopy is recommended. The colonoscopy date will be determined after pathology results from today's exam become available for review. - Continue present medications. Procedure Code(s): --- Professional --- 91950, Colonoscopy, flexible; with biopsy, single or multiple Diagnosis Code(s): --- Professional --- K63.3, Ulcer of intestine K62.1, Rectal polyp D50.9, Iron deficiency anemia, unspecified R19.5, Other fecal abnormalities K57.30, Diverticulosis of large intestine without perforation or abscess without bleeding CPT copyright 2017 [employer]. All rights reserved. The codes documented in this report are preliminary and upon sea captain review may be revised to meet current compliance requirements. Reza Aldana MD 03/11/2021 5:02:36 PM This report has been signed electronically. Number of Addenda: 0 Note Initiated On: 03/11/2021 3:46 PM
--- NOTE | 2021-03-11 17:03 | OP.CCLET_ITS ---
03/11/2021 Yo Pedro Re : Colonoscopy procedure for Saleem Rodriguez Dear Dr. Pedro This procedure was performed on March. My impressions and recommendations are as follows: Impressions : - Moderate diverticulosis in the sigmoid colon, in the ascending colon and in the mid ascending colon. There was no evidence of diverticular bleeding. No specimens collected. - Mucosal ulceration. Biopsied. - One benign appearing 9 mm polyp in the rectum. Biopsied. Recommendations : - Await pathology results. - [facility] patient to [facility] care. - Repeat colonoscopy is recommended. The colonoscopy date will be determined after pathology results from today's exam become available for review. - Continue present medications. My findings are described in the full procedure note, which is enclosed. If I can be of further assistance, please feel free to contact me at Doctor phone number(s): , Work: . Sincerely, Reza Aldana MD 03/11/2021 5:02:36 PM This report has been signed electronically.
[2021-03-11] MEDS: Finasteride 5 MG Tablet PO (18:15)
[2021-03-11] MEDS: Multivitamins,Therapeutic Tablet 1 TABLET PO (18:15)
[2021-03-11] MEDS: Ferrous Sulfate 325 MG Tablet PO (18:19)
[2021-03-11 21:34] LABS: Urine Sodium 32 mmol/L (Not Establ.)
[2021-03-12] VITALS (20 sets, daily range): BP systolic 98–147; BP diastolic 56–91; PULSE 84–104; RESP 18–28; TEMP 36.9–37.8; O2SAT 92–96
[2021-03-12] MEDS: 0.9% Normal Saline 1,000 ML 100 ML IV (05:08)
[2021-03-12 05:54] LABS: Absolute Lymphocyte Count 1.45 X10^3/uL (0.83-4.51); Absolute Neutrophil Count 2.3 X10^3/uL (2.0-7.7); Basophil# 0.04 X10^3/uL; Basophil% 0.8 % (0-1); Eosinophil# 0.34 X10^3/uL; Hematocrit 22.7 % (40-54); Lymphocyte # 1.45 X10^3/ul (0.83-4.51); Lymphocyte % 29.9 % (19-41); Mean Corp Hgb Conc 30.8 g/dL (32-36); Mean Corpuscular Hgb 29.8 pg (27.0-32.0); Mean Corpuscular Volume 96.6 fL (80-94); Mean Platelet Vol. 10.5 fl (6.2-12.0); Monocyte# 0.69 X10^3/uL; Monocyte% 14.2 % (0-10); NRBC Flagged by Analyzer 0.4 % (0-5); Neutrophil # 2.27 X10^3/uL (2.7-7.7); Neutrophil % 46.9 % (47-70); POSITIVE MORPHOLOGY YES; Platelet Count 126 K/mm3 (150-450); RBC Distribution Width SD 53.5 fl (35.1-43.9); Red Blood Count 2.35 M/mm3 (4.6-6.2); White Blood Count 4.9 K/mm3 (4.4-11.0)
[2021-03-12 05:56] LABS: Differential Indicated SCAN CRITERIA MET
[2021-03-12 06:23] LABS: Anion Gap 6 (5-15); BUN 30 mg/dL (7-18); BUN/Creat Ratio 22.4 RATIO (10-20); Calcium,Total 8.1 mg/dL (8.5-10.1); Chloride 110 mmol/L (98-107); Creatinine, Serum 1.34 mg/dL (0.70-1.30); EST Glomerular Filtration Rate 55 mL/min (>60); Est Glom Filt Rate - Afr Amer 67 mL/min (>60); Estimated Creatinine Clearance 48.42 ml/min; Glucose 86 mg/dL (74-106); Potassium 3.9 mmol/L (3.5-5.1); Sodium Level 140 mmol/L (136-145)
--- NOTE | 2021-03-12 08:32 | PCM.PN.SRG ---
Subjective Subjective Patient seen and examined during AM rounds. He reports an uneventful overnight course. He states that he feels somewhat better from a fatigue standpoint today than he did yesterday. He has had occasional nausea overnight but no vomiting and would like to try diet despite some noted abdominal distention. Objective Data Objective Data Vital Signs: Vital Signs Temp Pulse Resp BP Pulse Ox 98.9 F 93 18 98/56 L 96 03/12/21 05:15 03/12/21 07:00 03/12/21 05:15 03/12/21 05:15 03/12/21 05:15 Oxygen Flow Rate (L/min) 2 Oxygen Delivery Method Nasal Cannula Weight: 217 lb 6.012 oz Body Mass Index (BMI) 29.9 Intake & Output: Intake and Output for Last 24 Hours 03/10/21 03/11/21 03/12/21 23:59 23:59 23:59 Intake Total 1260 / 1260 4260 / 4260 1110 / 1110 Output Total 300 / 300 Balance 1260 / 1260 3960 / 3960 1110 / 1110 Lab / Micro Data Result Diagrams: 03/12/21 05:20 03/12/21 05:20 Labs: Laboratory Results - last 24 hr 03/11/21 06:43: Reactive Lymphocytes RARE 03/11/21 06:43: Lactate Dehydrogenase 416 H 03/11/21 21:00: Ur Random Sodium 32, Urine Creatinine 156.00 03/12/21 05:20: WBC 4.9, RBC 2.35 L, Hgb 7.0 L, Hct 22.7 L, MCV 96.6 H, MCH 29.8, MCHC 30.8 L, RDW Std Deviation 53.5 H, RDW Coeff of Dmitry 16.0 H, Plt Count 126 L, MPV 10.5, Immature Gran % (Auto) 1.200 H, Neut % (Auto) 46.9 L, Lymph % (Auto) 29.9, [place] % (Auto) 14.2 H, Eos % (Auto) 7.0 H, Baso % (Auto) 0.8, Absolute Neuts (auto) 2.3, Absolute Lymphs (auto) 1.45, Nucleated RBC % 0.4 03/12/21 05:20: Sodium 140, Potassium 3.9, Chloride 110 H, Carbon Dioxide 24.0, Anion Gap 6, BUN 30 H, Creatinine 1.34 H, Estim Creat Clear Calc 48.42, Est GFR (MDRD) Af Amer 67, Est GFR (MDRD) Non-Af 55 L, BUN/Creatinine Ratio 22.4 H, Glucose 86, Calcium 8.1 L Micro: Microbiology 03/10/21 20:34 Mucosa - Nasopharyngeal Respiratory Panel (PCR) - Final 03/10/21 22:18 Urine, Clean Catch Legionella Antigen - Final 03/10/21 22:18 Urine, Clean Catch Streptococcus pneumoniae Antigen (M - Final 03/10/21 12:45 Nasal Secretion SARS-CoV-2 Antigen (Rapid) - Final 03/10/21 12:35 Stool Stool Occult Blood (SERGIO) - Final Radiography Diagnostic Testing: Radiology Impression Renal Ultrasound 03/11/21 13:29 IMPRESSION: Significant prostate enlargement with no associated hydronephrosis. Bladder volume within normal limits at 114 mL. Left renal cysts with otherwise normal sonographic appearance of the kidneys. Electronically Signed: Reza Ibrahim, at 20:55 EDT Tel , Service support , Physical Exam Const oriented x3 and no apparent distress Resp normal respiratory effort Resp Narrative: Patient requiring supplemental O2 via nasal cannula GI non-tender GI Narrative: Moderate abdominal distention Assessment & Plan Assessment/Plan (1) Signs and symptoms of anemia: PLAN: Patient status post double endoscopy yesterday. Several possible causes of anemia are identified between duodenal ulcerations, gastritis, and colonic diverticulosis. However there is no stigmata of recent bleeding with any of the above. Biopsies obtained during endoscopy session currently pending final pathology. Hemoglobin remained stable today. Continue to monitor with daily labs. Given patient's CT findings of hepatosplenomegaly and diffuse lymphadenopathy, it is also possible patient's anemia is due to another process then GI bleed. (2) Lymphadenopathy, abdominal: PLAN: Patient with diffuse peritoneal lymphadenopathy and inguinal lymphadenopathy. Planning for excisional inguinal lymph node biopsy on Monday, March 15, 2021. Okay for regular diet today from surgical standpoint. Patient should be kept n.p.o. past midnight on March 14, 2021. (3) Thickened small bowel: PLAN: Thickened small bowel noted on patient's CT scan from admission. After yesterday's EGD, it is probable this thickening is due to the duodenal ulcerations that were found on exam. Biopsy results are pending (for both histology and H. pylori), however, recommend continuing Protonix, avoiding NSAIDs, and will begin Carafate. Charges/Coding Visit Charges Inpatient E&M: 91330 Subs Hosp L2
[2021-03-12] MEDS: Ceftriaxone 1 GM/50 ML BAG IV (09:52)
[2021-03-12] MEDS: Albuterol 2.5 MG/3 ML VIAL.NEB. INHALATION (09:57)
--- NOTE | 2021-03-12 10:08 | PCS.PANDOC ---
PANDEMIC DOCUMENTATION INITIATED: Date: 02/15/2021 Time: 190
[2021-03-12] MEDS: Multivitamins,Therapeutic Tablet 1 TABLET PO (10:32)
[2021-03-12] MEDS: Finasteride 5 MG Tablet PO (10:32)
--- NOTE | 2021-03-12 11:37 | CT_ITS ---
We are attempting to reach an attending provider to discuss findings. An addendum with communication details will be sent when the communication is complete. STUDY: CTA CHEST REASON FOR EXAM: Male, 75 years old. hypoxia RADIATION DOSAGE (If Supplied By Facility): CTDIvol = ( 19.15 ) mGy, DLP = ( 459.07 ) mGycm TECHNIQUE: The examination was performed with the intravenous administration of IV 100mL Isovue-370. Post-processing of the angiographic images was performed, with multiplanar reformation and 3D reconstruction. Individualized dose optimization techniques were used for this CT. COMPARISON: Chest x-ray 02/22/2021 FINDINGS: Extensive bilateral axillary lymphadenopathy worrisome for metastatic disease or lymphoma. Normal enhancement of the main pulmonary artery and right and left pulmonary arteries. Normal enhancement of the bilateral peripheral pulmonary arteries. Filling defect within the distal descending right pulmonary artery consistent with pulmonary embolism. Normal thoracic aorta and visualized great vessels. There is no demonstrated aortic dissection. Normal heart and pericardium. Bilateral hilar and mediastinal lymphadenopathy also worrisome for lymphoma or metastatic disease. Precarinal lymphadenopathy measures 2 x 5 cm. Right hilar lymphadenopathy measures 3 x 4 cm. Left hilar lymphadenopathy measures 2.2 x 2.8 cm. Normal visualized trachea and bronchi. The lungs are well expanded. Normal pulmonary parenchyma. Large left-sided pleural effusion with left lower lobe atelectasis. Normal chest wall structures. Normal osseous structures. Splenomegaly. CT/CTA Chest W/WO Contrast IMPRESSION: 1. Positive for pulmonary embolism of the distal right descending pulmonary artery. 2. Bilateral axillary, bilateral hilar, mediastinal lymphadenopathy as well as splenomegaly suggestive of lymphoma or metastatic disease. 3. Large left pleural effusion with left lower lobe atelectasis. Electronically Signed: Sebastian Torres MD at 12:16 EDT Tel , Service support ,
[2021-03-12] MEDS: Sucralfate 1 GM Tablet PO ×3 (11:56→21:06)
[2021-03-12 12:58] LABS: Carbohydrate Ag 19-9 2261 8 U/mL (0-35); Carcinoembryonic Antigen 0.5 ng/mL (0.0-4.7)
--- NOTE | 2021-03-12 13:58 | PN.HOSP_ITS ---
Documented by User: Dilia Kang NP, [employer] 03/12/21 14:13 Subjective Subjective Patient seen and examined. Reports continued cough, states shortness of breath has improved. Remains on 2 L nasal cannula. Denies other symptoms or complaints. Objective Data Objective Data Vital Signs: Vital Signs Temp Pulse Resp BP Pulse Ox 98.7 F 95 20 H 116/66 95 03/12/21 13:25 03/12/21 13:25 03/12/21 13:25 03/12/21 13:25 03/12/21 13:25 Oxygen Flow Rate (L/min) 2 Oxygen Delivery Method Nasal Cannula Weight: 217 lb 6.012 oz Body Mass Index (BMI) 29.9 Intake & Output: Intake and Output for Last 24 Hours 03/10/21 03/11/21 03/12/21 23:59 23:59 23:59 Intake Total 1260 / 1260 4260 / 4260 2481.67 / 2481.67 Output Total 300 / 300 Balance 1260 / 1260 3960 / 3960 2481.67 / 2481.67 Lab / Micro Data Result Diagrams: 03/12/21 05:20 03/12/21 05:20 Labs: Laboratory Results - last 24 hr 03/10/21 12:35: Crossmatch See Detail 03/10/21 18:53: Carcinoembryonic Ag 0.5 03/10/21 18:53: CA 19-9 Serial Monitor 8 03/11/21 06:43: Lactate Dehydrogenase 416 H 03/11/21 21:00: Ur Random Sodium 32, Urine Creatinine 156.00 03/12/21 05:20: WBC 4.9, RBC 2.35 L, Hgb 7.0 L, Hct 22.7 L, MCV 96.6 H, MCH 29.8, MCHC 30.8 L, RDW Std Deviation 53.5 H, RDW Coeff of Dmitry 16.0 H, Plt Count 126 L, MPV 10.5, Immature Gran % (Auto) 1.200 H, Neut % (Auto) 46.9 L, Lymph % (Auto) 29.9, [place] % (Auto) 14.2 H, Eos % (Auto) 7.0 H, Baso % (Auto) 0.8, Absolute Neuts (auto) 2.3, Absolute Lymphs (auto) 1.45, Nucleated RBC % 0.4 03/12/21 05:20: Sodium 140, Potassium 3.9, Chloride 110 H, Carbon Dioxide 24.0, Anion Gap 6, BUN 30 H, Creatinine 1.34 H, Estim Creat Clear Calc 48.42, Est GFR (MDRD) Af Amer 67, Est GFR (MDRD) Non-Af 55 L, BUN/Creatinine Ratio 22.4 H, Glucose 86, Calcium 8.1 L 03/12/21 05:20: Total PSA 10.70 H Micro: Microbiology 03/10/21 20:34 Mucosa - Nasopharyngeal Respiratory Panel (PCR) - Final 03/10/21 22:18 Urine, Clean Catch Legionella Antigen - Final 03/10/21 22:18 Urine, Clean Catch Streptococcus pneumoniae Antigen (M - Final 03/10/21 12:45 Nasal Secretion SARS-CoV-2 Antigen (Rapid) - Final 03/10/21 12:35 Stool Stool Occult Blood (SERGIO) - Final Radiography Diagnostic Testing: Radiology Impression Echocardiogram 03/10/21 18:10 Interpretation Summary Left ventricular systolic function is hyperdynamic. The estimated ejection fraction is 75 %. The global longitudinal strain = -28 % (normal). The left atrium is mildly enlarged. Mild diffuse mitral valve thickening. Trivial mitral valve insufficiency. Mild to moderate (1-2+) tricuspid valve insufficiency. Mild diffuse aortic valve thickening. Trivial pulmonic valve insufficiency. Right ventricular systolic pressure estimated to be 51 mmHg. No evidence for diastolic dysfunction. Comment: Based upon the 2D echocardiographic images obtained a diagnosis of amyloidosis cannot necessarily be excluded with consideration for further evaluation as clinically indicated. Ordering Physician: Fariha Chaudhry Referring Physician: ROBBIE ALFARO Performed By: Valerie Aldrich, RDCS, RVT Renal Ultrasound 03/11/21 13:29 IMPRESSION: Significant prostate enlargement with no associated hydronephrosis. Bladder volume within normal limits at 114 mL. Left renal cysts with otherwise normal sonographic appearance of the kidneys. Electronically Signed: Reza Ibrahim DO at 20:55 EDT Tel , Service support , Chest CTA 03/12/21 11:37 IMPRESSION: 1. Positive for pulmonary embolism of the distal right descending pulmonary artery. 2. Bilateral axillary, bilateral hilar, mediastinal lymphadenopathy as well as splenomegaly suggestive of lymphoma or metastatic disease. 3. Large left pleural effusion with left lower lobe atelectasis. Electronically Signed: Sebastian Torres MD at 12:16 EDT Tel , Service support , ADDENDUM: 03/12/21 1240 IMPRESSION: 1. Positive for pulmonary embolism of the distal right descending pulmonary artery. 2. Bilateral axillary, bilateral hilar, mediastinal lymphadenopathy as well as splenomegaly suggestive of lymphoma or metastatic disease. 3. Large left pleural effusion with left lower lobe atelectasis. N.B. : The above Results were Read Back by Sebastian Torres MD to Dilia Kang NP, and understanding confirmed on 03/12/2021 12:33:08 (ET). Electronically Signed: Sebastian Torres MD at 12:16 EDT Tel , Service support , Physical Exam Const alert, oriented x3 and no apparent distress Orientation / Consciousness: awake, oriented to person, oriented to place and oriented to time HEENT normocephalic and moist oral mucous membranes Eyes PERRL, EOMs intact bilaterally and conjunctivae normal Neck no lymphadenopathy Resp clear to auscultation bilaterally Auscultation: diminished lung sounds Cardio regular rate, regular rhythm and no murmurs Peripheral Pulses: pulses 2+ throughout GI normal to inspection, nondistended, normoactive bowel sounds, non-tender and non-distended Extremity normal to inspection Skin no rashes or lesions noted Lesions: no lesions Rashes: no rashes Trauma: no lacerations or abrasions Neuro CN's II-XII intact bilaterally, no focal motor deficits, no sensory deficits noted and deep tendon reflexes 2+ bilaterally Psych mental status grossly normal and affect normal Assessment & Plan Assessment/Plan (1) Lymphadenopathy, abdominal: (2) Duodenal ulcer: (3) Pulmonary embolism: PLAN: 1. Acute GI bleed, blood loss anemia, gastritis with duodenal ulcerations and colonic diverticulosis-IV PPI. General surgery consulted. Underwent EGD/colonoscopy which demonstrated duodenal ulcerations, gastritis and colonic diverticulosis. No evidence of recent bleeding. Biopsies obtained. 2 unit PRBC ordered. Trend CBC. 2. Acute splenic infarcts-suspected secondary to malignancy. Heparin drip pending biopsy on Monday, then plan for transition to oral anticoagulation. 3. Acute kidney injury-slightly improved. Renal ultrasound demonstrates sign ificant prostate enlargement with no hydronephrosis. FENa 0.2%, prerenal. Continue gentle fluids. Hold nephrotoxic regimen. 4. Acute hypoxic respiratory insufficiency secondary to acute PE and large left pleural effusion- heparin gtt pending lymph node biopsy. 5. Diffuse peritoneal and retroperitoneal lymphadenopathy, concerning for malignancy-general surgery on consult with plan for lymph node biopsy 03/15/21. CA 19/carcinoembryonic antigen ordered. Prior PSA elevated. Repeat PSA 10.7. Will need referral to oncology pending further inpatient stabilization. 6. Large left basilar pleural effusion, unclear if related to pneumonia or underlying malignant process-on empiric azithromycin and Rocephin. Afebrile, no leukocytosis. Consider therapeutic and diagnostic thoracentesis if worsening respiratory symptoms. 7. Hypertension-valsartan on hold due to hypotension and acute kidney injury. Blood pressure stable. 8. BPH-on finasteride. Flomax added. DVT prophylaxis-SCDs, heparin gtt This patient was seen by GREGORIO Calderon under the supervision of Dr. Estrada. Documented by User: Dr. Jj Estrada, 03/12/21 20:50 Objective Data Lab / Micro Data Result Diagrams: 03/12/21 05:20 03/12/21 05:20 Charges/Coding Addendum Addendum: Patient was seen and examined today independently of Dilia Kang, he required supplemental oxygen today and we performed a CTA of the chest on the patient which showed evidence of pulmonary embolism and a large pleural effusion on the left along with extensive lymphadenopathy. We placed the patient on heparin today, he will undergo a lymph node biopsy on Monday. Patient was transfused 2 units of packed red blood cells today. Echocardiogram today showed evidence of mild pulmonary hypertension along with a normal ejection fraction. On examination he appeared in good health and spirits. Vital signs as documented. Skin warm and dry and without overt rashes. Neck without JVD, neck was supple, trachea midline, thyroid was normal. Lungs-decreased breath sounds were noted over the left lower lung field, no rales rhonchi or wheezes were noted. Heart exam notable for regular rhythm, normal sounds and absence of murmurs, rubs or gallops. Abdomen unremarkable and without evidence of organom egaly, masses, or abdominal aortic enlargement. Bowel sounds are present, abdomen is not distended. Extremities nonedematous, no cyanosis was noted, no clubbing was noted. Neuro: Cranial nerves II through XII are grossly intact, no focal motor deficits were noted, sensation to light touch and pinprick intact, motor exam 5/5 throughout. Psych: Patient is alert and oriented x3, he does not appear anxious or depressed, he does not appear agitated. I have reviewed Dilia Kang's progress note including her medical assessment and plan of care and endorse it. Visit Charges Inpatient E&M: 89749 Subs Hosp L2
[2021-03-12 15:29] LABS: International Normalized Ratio 1.4; Prothrombin Time (Protime)PT. 16.5 SECONDS (11.7-14.9)
[2021-03-12 15:30] LABS: Partial Thromboplast Time 35.5 Seconds (24.1-36.2)
[2021-03-12] MEDS: Heparin Injection (Vial) 5,000 UNIT/ML VIAL 7500 UNIT IV (15:35)
[2021-03-12] MEDS: HEPARIN/D5w 25,000 UNITS 25,000 UNITS/250 ML IV.SOLN. 14 UNITS IV (15:36)
[2021-03-12] MEDS: Tamsulosin HCl 0.4 MG Capsule PO (18:15)
[2021-03-12 21:41] LABS: Partial Thromboplast Time 51.7 Seconds (24.1-36.2)
[2021-03-12] MEDS: Heparin Injection (Vial) 5,000 UNIT/ML VIAL IV (22:29)
[2021-03-13] VITALS (14 sets, daily range): BP systolic 100–105; BP diastolic 60–70; PULSE 93–104; RESP 18–20; TEMP 36.5–37.9; O2SAT 92–98
[2021-03-13 04:29] LABS: Absolute Lymphocyte Count 1.74 X10^3/uL (0.83-4.51); Absolute Neutrophil Count 2.3 X10^3/uL (2.0-7.7); Basophil# 0.08 X10^3/uL; Basophil% 1.5 % (0-1); Eosinophil# 0.55 X10^3/uL; Eosinophils% 10.1 % (0-5); Hematocrit 26.9 % (40-54); Hemoglobin 8.5 g/dL (13.0-16.5); Lymphocyte # 1.74 X10^3/ul (0.83-4.51); Mean Corp Hgb Conc 31.6 g/dL (32-36); Mean Corpuscular Hgb 29.7 pg (27.0-32.0); Mean Corpuscular Volume 94.1 fL (80-94); Mean Platelet Vol. 10.6 fl (6.2-12.0); Monocyte# 0.67 X10^3/uL; Monocyte% 12.3 % (0-10); NRBC Flagged by Analyzer 0 % (0-5); Neutrophil # 2.33 X10^3/uL (2.7-7.7); Neutrophil % 42.8 % (47-70); POSITIVE MORPHOLOGY YES; Platelet Count 106 K/mm3 (150-450); RBC Distribution Width CV 16.1 % (11.6-14.6); Red Blood Count 2.86 M/mm3 (4.6-6.2); White Blood Count 5.4 K/mm3 (4.4-11.0)
[2021-03-13 04:30] LABS: Differential Indicated SCAN CRITERIA MET
[2021-03-13 04:49] LABS: Partial Thromboplast Time 160.5 Seconds (24.1-36.2)
[2021-03-13 04:50] LABS: Anion Gap 6 (5-15); BUN 29 mg/dL (7-18); Calcium,Total 8.1 mg/dL (8.5-10.1); Chloride 109 mmol/L (98-107); Creatinine, Serum 1.32 mg/dL (0.70-1.30); EST Glomerular Filtration Rate 56 mL/min (>60); Est Glom Filt Rate - Afr Amer 68 mL/min (>60); Estimated Creatinine Clearance 49.16 ml/min; Glucose 95 mg/dL (74-106); Potassium 3.9 mmol/L (3.5-5.1); Sodium Level 138 mmol/L (136-145)
[2021-03-13] MEDS: Sucralfate 1 GM Tablet PO ×4 (06:04→21:51)
[2021-03-13] MEDS: Ferrous Sulfate 325 MG Tablet PO (08:51)
[2021-03-13] MEDS: Multivitamins,Therapeutic Tablet 1 TABLET PO (08:52)
[2021-03-13] MEDS: Finasteride 5 MG Tablet PO (08:52)
[2021-03-13] MEDS: levoFLOXacin IV 750 MG/150 ML BAG 100 MG IV (08:57)
[2021-03-13] MEDS: HEPARIN/D5w 25,000 UNITS 25,000 UNITS/250 ML IV.SOLN. 12 UNITS IV (10:43)
--- NOTE | 2021-03-13 11:21 | PCM.PN.HOSP ---
Documented by User: Dilia Kang NP, [employer] 03/13/21 11:28 Subjective Subjective Patient seen and examined. Reports itching rash which began overnight. Denies worsening shortness of breath. Cough mildly improved. Objective Data Objective Data Vital Signs: Vital Signs Temp Pulse Resp BP Pulse Ox 97.7 F L 98 18 102/63 97 03/13/21 08:00 03/13/21 08:00 03/13/21 08:00 03/13/21 08:00 03/13/21 08:00 Oxygen Flow Rate (L/min) 4 Oxygen Delivery Method Nasal Cannula Weight: 221 lb 1.978 oz Body Mass Index (BMI) 29.9 Intake & Output: Intake and Output for Last 24 Hours 03/11/21 03/12/21 03/13/21 23:59 23:59 23:59 Intake Total 4260 / 4260 3968.27 / 3968.27 401.7 / 401.7 Output Total 300 / 300 Balance 3960 / 3960 3968.27 / 3968.27 401.7 / 401.7 Lab / Micro Data Result Diagrams: 03/13/21 04:20 03/13/21 04:20 Labs: Laboratory Results - last 24 hr 03/10/21 12:35: Crossmatch See Detail 03/10/21 18:53: Carcinoembryonic Ag 0.5, CA 19-9 Serial Monitor Not Reportable 03/10/21 18:53: CA 19-9 Serial Monitor 8 03/12/21 05:20: Total PSA 10.70 H 03/12/21 14:39: PT 16.5 H, INR 1.4, APTT 35.5 03/12/21 21:13: APTT 51.7 H 03/13/21 04:20: WBC 5.4, RBC 2.86 L, Hgb 8.5 L, Hct 26.9 L, MCV 94.1 H, MCH 29.7, MCHC 31.6 L, RDW Std Deviation 53.0 H, RDW Coeff of Dmitry 16.1 H, Plt Count 106 L, MPV 10.6, Immature Gran % (Auto) 1.300 H, Neut % (Auto) 42.8 L, Lymph % (Auto) 32.0, [place] % (Auto) 12.3 H, Eos % (Auto) 10.1 H, Baso % (Auto) 1.5 H, Absolute Neuts (auto) 2.3, Absolute Lymphs (auto) 1.74, Nucleated RBC % 0 03/13/21 04:20: Sodium 138, Potassium 3.9, Chloride 109 H, Carbon Dioxide 23.0, Anion Gap 6, BUN 29 H, Creatinine 1.32 H, Estim Creat Clear Calc 49.16, Est GFR (MDRD) Af Amer 68, Est GFR (MDRD) Non-Af 56 L, BUN/Creatinine Ratio 22.0 H, Glucose 95, Calcium 8.1 L 03/13/21 04:20: APTT 160.5 H* Micro: Microbiology 03/12/21 09:26 Sputum, Expectorated/Coughed Gram Stain - Final 03/10/21 20:34 Mucosa - Nasopharyngeal Respiratory Panel (PCR) - Final 03/10/21 22:18 Urine, Clean Catch Legionella Antigen - Final 03/10/21 22:18 Urine, Clean Catch Streptococcus pneumoniae Antigen (M - Final 03/10/21 12:45 Nasal Secretion SARS-CoV-2 Antigen (Rapid) - Final 03/10/21 12:35 Stool Stool Occult Blood (SERGIO) - Final Radiography Diagnostic Testing: Radiology Impression Echocardiogram 03/10/21 18:10 Interpretation Summary Left ventricular systolic function is hyperdynamic. The estimated ejection fraction is 75 %. The global longitudinal strain = -28 % (normal). The left atrium is mildly enlarged. Mild diffuse mitral valve thickening. Trivial mitral valve insufficiency. Mild to moderate (1-2+) tricuspid valve insufficiency. Mild diffuse aortic valve thickening. Trivial pulmonic valve insufficiency. Right ventricular systolic pressure estimated to be 51 mmHg. No evidence for diastolic dysfunction. Comment: Based upon the 2D echocardiographic images obtained a diagnosis of amyloidosis cannot necessarily be excluded with consideration for further evaluation as clinically indicated. Ordering Physician: Fariha Chaudrhy Referring Physician: ROBBIE ALFARO Performed By: Valerie Aldrich, RDCS, RVT Chest CTA 03/12/21 11:37 IMPRESSION: 1. Positive for pulmonary embolism of the distal right descending pulmonary artery. 2. Bilateral axillary, bilateral hilar, mediastinal lymphadenopathy as well as splenomegaly suggestive of lymphoma or metastatic disease. 3. Large left pleural effusion with left lower lobe atelectasis. Electronically Signed: Sebastian Torres MD at 12:16 EDT Tel , Service support , ADDENDUM: 03/12/21 1240 IMPRESSION: 1. Positive for pulmonary embolism of the distal right descending pulmonary artery. 2. Bilateral axillary, bilateral hilar, mediastinal lymphadenopathy as well as splenomegaly suggestive of lymphoma or metastatic disease. 3. Large left pleural effusion with left lower lobe atelectasis. N.B. : The above Results were Read Back by Sebastian Torres MD to Dilia Kang NP, and understanding confirmed on 03/12/2021 12:33:08 (ET). Electronically Signed: Sebastian Torres MD at 12:16 EDT Tel , Service support , Physical Exam Const alert, oriented x3 and no apparent distress Orientation / Consciousness: awake, oriented to person, oriented to place and oriented to time HEENT normocephalic and moist oral mucous membranes Eyes PERRL, EOMs intact bilaterally and conjunctivae normal Neck no lymphadenopathy Resp clear to auscultation bilaterally Auscultation: diminished lung sounds Cardio regular rate, regular rhythm and no murmurs Peripheral Pulses: pulses 2+ throughout GI normal to inspection, nondistended, normoactive bowel sounds, non-tender and non-distended Extremity normal to inspection Skin no rashes or lesions noted Skin Narrative: Diffuse pruritic rash, allergic dermatitis Lesions: no lesions Rashes: no rashes Trauma: no lacerations or abrasions Neuro CN's II-XII intact bilaterally, no focal motor deficits, no sensory deficits noted and deep tendon reflexes 2+ bilaterally Psych mental status grossly normal and affect normal Assessment & Plan Assessment/Plan (1) Lymphadenopathy, abdominal: (2) Duodenal ulcer: PLAN: 1. Acute GI bleed, blood loss anemia, gastritis with duodenal ulcerations and colonic diverticulosis-IV PPI. General surgery consulted. Underwent EGD/colonoscopy which demonstrated duodenal ulcerations, gastritis and colonic diverticulosis. No evidence of recent bleeding. Biopsies obtained. 2 unit PRBC ordered. Trend CBC. 2. Acute splenic infarcts-suspected secondary to malignancy. Heparin drip pending biopsy on Monday, then plan for transition to oral anticoagulation. 3. Acute kidney injury-slightly improved. Renal ultrasound demonstrates significant prostate enlargement with no hydronephrosis. FENa 0.2%, prerenal. Hold nephrotoxic regimen. 4. Acute hypoxic respiratory insufficiency secondary to acute PE and large left pleural effusion- heparin gtt pending lymph node biopsy. 5. Diffuse peritoneal and retroperitoneal lymphadenopathy, concerning for malignancy-general surgery on consult with plan for lymph node biopsy 03/15/21. CA 19/carcinoembryonic antigen ordered. Prior PSA elevated. Repeat PSA 10.7. Will need referral to oncology pending further inpatient stabilization. 6. Large left basilar pleural effusion, unclear if related to pneumonia or underlying malignant process-IV Levaquin, previously on azithromycin and Rocephin however developed rash. Afebrile, no leukocytosis. Consider therapeutic and diagnostic thoracentesis if worsening respiratory symptoms. 7. Hypertension-valsartan on hold due to hypotension and acute kidney injury. Blood pressure stable. 8. BPH-on finasteride. Flomax added. 9. Pruritic dermatitis-unclear if related to medication versus other etiology. Patient states he cannot take antihistamines. Topical corticosteroid. DVT prophylaxis-SCDs, heparin gtt This patient was seen by GREGORIO Calderon under the supervision of Dr. Estrada. Documented by User: Dr. Jj Estrada, 03/13/21 20:25 Objective Data Lab / Micro Data Result Diagrams: 03/13/21 04:20 03/13/21 04:20 Charges/Coding Addendum Addendum: Patient was seen and examined today independently of Dilia Kang, his was in his hospital room this afternoon and I went over his medical care with her. Patient has audible expiratory wheezes today, his states that he has this frequently at home, he has no history of smoking and there is no diagnosis of chronic lung disease. On examination he appeared in good health and spirits. Vital signs as documented. Skin warm and dry and without overt rashes. Neck without JVD, neck was supple, trachea midline, thyroid was normal. Lungs-bilateral expiratory wheezing was noted, normal air movement was noted. Heart exam notable for regular rhythm, normal sounds and absence of murmurs, rubs or gallops. Abdomen unremarkable and without evidence of organomegaly, masses, or abdominal aortic enlargement. Bowel sounds are present, abdomen is not distended. Extremities nonedematous, no cyanosis was noted, no clubbing was noted. Neuro: Cranial nerves II through XII are grossly intact, no focal motor deficits were noted, sensation to light touch and pinprick intact, motor exam 5/5 throughout. Psych: Patient is alert and oriented x3, he does not appear anxious or depressed, he does not appear agitated. Patient will undergo a diagnostic and therapeutic thoracentesis on the left on Monday, he will also undergo an inguinal node biopsy on Monday. I have reviewed Diliavicki Kang's progress note including her medical assessment and plan of care and endorse it. Visit Charges Inpatient E&M: 37674 Subs Hosp L2
[2021-03-13 13:19] LABS: Partial Thromboplast Time 87.7 Seconds (24.1-36.2)
[2021-03-13 13:49] LABS: ALB/GLOB Ratio 0.7 RATIO (0.9-2.4); Globulin 3.1 g/dL (2.2-4.2); LDH 444 U/L (87-241); Protein, Total 5.2 g/dL (6.4-8.2)
[2021-03-13] MEDS: Tamsulosin HCl 0.4 MG Capsule PO (16:19)
[2021-03-13] MEDS: Hydrocortisone 2.5% Crm 1 APPLIC TOPICAL ×2 (16:20→21:51)
[2021-03-13 20:19] LABS: Partial Thromboplast Time 88.5 Seconds (24.1-36.2)
[2021-03-13] MEDS: Albuterol 2.5 MG/3 ML VIAL.NEB. INHALATION (21:35)
[2021-03-13] MEDS: 0.9% Saline Lock 10 ML Syringe IV (21:50)
[2021-03-14] VITALS (13 sets, daily range): BP systolic 94–114; BP diastolic 55–75; PULSE 80–112; RESP 18–28; TEMP 36.8–37.7; O2SAT 93–995
[2021-03-14 02:13] LABS: Absolute Lymphocyte Count 1.96 X10^3/uL (0.83-4.51); Absolute Neutrophil Count 2.5 X10^3/uL (2.0-7.7); Basophil# 0.05 X10^3/uL; Basophil% 0.9 % (0-1); Eosinophil# 0.66 X10^3/uL; Eosinophils% 11.5 % (0-5); Hematocrit 28.4 % (40-54); Hemoglobin 8.9 g/dL (13.0-16.5); Lymphocyte # 1.96 X10^3/ul (0.83-4.51); Mean Corp Hgb Conc 31.3 g/dL (32-36); Mean Corpuscular Hgb 29.9 pg (27.0-32.0); Mean Corpuscular Volume 95.3 fL (80-94); Mean Platelet Vol. 10.7 fl (6.2-12.0); Monocyte# 0.56 X10^3/uL; Monocyte% 9.7 % (0-10); NRBC Flagged by Analyzer 0.3 % (0-5); Neutrophil # 2.47 X10^3/uL (2.7-7.7); Neutrophil % 42.9 % (47-70); POSITIVE MORPHOLOGY YES; Platelet Count 116 K/mm3 (150-450); RBC Distribution Width CV 16.6 % (11.6-14.6); Red Blood Count 2.98 M/mm3 (4.6-6.2); White Blood Count 5.8 K/mm3 (4.4-11.0)
[2021-03-14 02:14] LABS: Differential Indicated SCAN CRITERIA MET
[2021-03-14 02:18] LABS: Anion Gap 8 (5-15); BUN 25 mg/dL (7-18); BUN/Creat Ratio 19.4 RATIO (10-20); Calcium,Total 8.2 mg/dL (8.5-10.1); Chloride 107 mmol/L (98-107); Creatinine, Serum 1.29 mg/dL (0.70-1.30); EST Glomerular Filtration Rate 58 mL/min (>60); Est Glom Filt Rate - Afr Amer 70 mL/min (>60); Glucose 99 mg/dL (74-106); Potassium 3.8 mmol/L (3.5-5.1); Sodium Level 139 mmol/L (136-145)
[2021-03-14 02:45] LABS: Partial Thromboplast Time 93.5 Seconds (24.1-36.2)
[2021-03-14 05:42] LABS: Anisocytosis RARE; Differential Comment SCANNED; Macrocytosis RARE; Polychromasia RARE
[2021-03-14] MEDS: Sucralfate 1 GM Tablet PO ×4 (06:05→21:27)
[2021-03-14] MEDS: Albuterol 2.5 MG/3 ML VIAL.NEB. INHALATION ×3 (07:05→20:03)
[2021-03-14] MEDS: Multivitamins,Therapeutic Tablet 1 TABLET PO (08:47)
[2021-03-14] MEDS: Finasteride 5 MG Tablet PO (08:47)
[2021-03-14 10:32] LABS: Partial Thromboplast Time 58.4 Seconds (24.1-36.2)
--- NOTE | 2021-03-14 11:30 | PCM.PN.HOSP ---
Documented by User: Dilia Kang NP, CURRICULUM AND ASSESSMENT COORDINATOR-C 03/14/21 11:49 Subjective Subjective Patient seen and examined. Reports ongoing shortness of breath, nonproductive cough. Rash mildly less pruritic. Denies fever, chills. Denies other current symptoms or complaints. Objective Data Objective Data Vital Signs: Vital Signs Temp Pulse Resp BP Pulse Ox 99.9 F H 99 18 94/59 L 995 03/14/21 08:39 03/14/21 08:39 03/14/21 08:39 03/14/21 08:39 03/14/21 08:39 Oxygen Flow Rate (L/min) 3 Oxygen Delivery Method Nasal Cannula Weight: 222 lb 10.67 oz Body Mass Index (BMI) 29.9 Intake & Output: Intake and Output for Last 24 Hours 03/12/21 03/13/21 03/14/21 23:59 23:59 23:59 Intake Total 3968.27 / 3968.27 1092.0 / 1092.0 183.33 / 183.33 Balance 3968.27 / 3968.27 1092.0 / 1092.0 183.33 / 183.33 Lab / Micro Data Result Diagrams: 03/14/21 01:35 03/14/21 01:35 Labs: Laboratory Results - last 24 hr 03/13/21 04:20: Lactate Dehydrogenase 444 H, Total Protein 5.2 L, Globulin 3.1, Albumin/Globulin Ratio 0.7 L 03/13/21 12:52: APTT 87.7 H 03/13/21 19:35: APTT 88.5 H 03/14/21 01:35: WBC 5.8, RBC 2.98 L, Hgb 8.9 L, Hct 28.4 L, MCV 95.3 H, MCH 29.9, MCHC 31.3 L, RDW Std Deviation 55.0 H, RDW Coeff of Dmitry 16.6 H, Plt Count 116 L, MPV 10.7, Immature Gran % (Auto) 1.000 H, Neut % (Auto) 42.9 L, Lymph % (Auto) 34.0, [place] % (Auto) 9.7, Eos % (Auto) 11.5 H, Baso % (Auto) 0.9, Absolute Neuts (auto) 2.5, Absolute Lymphs (auto) 1.96, Nucleated RBC % 0.3, Differential Comment SCANNED, Polychromasia RARE, Anisocytosis RARE, Macrocytosis RARE 03/14/21 01:35: Sodium 139, Potassium 3.8, Chloride 107, Carbon Dioxide 24.0, Anion Gap 8, BUN 25 H, Creatinine 1.29, Estim Creat Clear Calc 50.30, Est GFR (MDRD) Af Amer 70, Est GFR (MDRD) Non-Af 58 L, BUN/Creatinine Ratio 19.4, Glucose 99, Calcium 8.2 L 03/14/21 01:35: APTT 93.5 H* 03/14/21 09:45: APTT 58.4 H Micro: Microbiology 03/12/21 09:26 Sputum, Expectorated/Coughed Gram Stain - Final 03/12/21 09:26 Sputum, Expectorated/Coughed Respiratory Culture - Final Mixed normal respiratory fartun. No Streptococcus pneumoniae, beta-hemolytic Streptococcus or Staphylococcus aureus isolated. 03/10/21 20:34 Mucosa - Nasopharyngeal Respiratory Panel (PCR) - Final 03/10/21 22:18 Urine, Clean Catch Legionella Antigen - Final 03/10/21 22:18 Urine, Clean Catch Streptococcus pneumoniae Antigen (M - Final 03/10/21 12:45 Nasal Secretion SARS-CoV-2 Antigen (Rapid) - Final 03/10/21 12:35 Stool Stool Occult Blood (SERGIO) - Final Physical Exam Const alert, oriented x3 and no apparent distress Orientation / Consciousness: awake, oriented to person, oriented to place and oriented to time HEENT normocephalic and moist oral mucous membranes Eyes PERRL, EOMs intact bilaterally and conjunctivae normal Neck no lymphadenopathy Resp Auscultation: wheezes and diminished lung sounds Cardio regular rate, regular rhythm and no murmurs Peripheral Pulses: pulses 2+ throughout GI normal to inspection, nondistended, normoactive bowel sounds, non-tender and non-distended Extremity normal to inspection Skin no rashes or lesions noted Skin Narrative: Generalized allergic dermatitis Lesions: no lesions Rashes: no rashes Trauma: no lacerations or abrasions Neuro CN's II-XII intact bilaterally, no focal motor deficits, no sensory deficits noted and deep tendon reflexes 2+ bilaterally Psych mental status grossly normal and affect normal Assessment & Plan Assessment/Plan (1) Splenic infarct: (2) Pulmonary embolism: PLAN: 1. Acute GI bleed, blood loss anemia, gastritis with duodenal ulcerations and colonic diverticulosis-IV PPI. General surgery consulted. Underwent EGD/colonoscopy which demonstrated duodenal ulcerations, gastritis and colonic diverticulosis. No evidence of recent bleeding. Biopsies obtained. S/P 2 unit PRBC. Trend CBC. 2. Acute splenic infarcts-suspected secondary to malignancy. Heparin drip pending lymph node biopsy on Monday, then plan for transition to oral anticoagulation. 3. Acute kidney injury-resolved. Renal ultrasound demonstrates significant prostate enlargement with no hydronephrosis. FENa 0.2%, prerenal. Hold nephrotoxic regimen. 4. Acute hypoxic respiratory insufficiency secondary to acute PE and large left pleural effusion- heparin gtt pending lymph node biopsy. Home oxygen testing prior to discharge. Continue supplement oxygen to maintain O2 at above 90%. 5. Diffuse peritoneal and retroperitoneal lymphadenopathy, concerning for malignancy-general surgery on consult with plan for lymph node biopsy 03/15/21. CA 19/carcinoembryonic antigen ordered. Prior PSA elevated. Repeat PSA 10.7. Will need referral to oncology pending further inpatient stabilization. 6. Large left basilar pleural effusion, unclear if related to pneumonia or underlying malignant process- Afebrile, no leukocytosis. Left-sided thoracentesis diagnostic and therapeutic in a.m. On IV Levaquin empirically however suspect pleural effusion due to underlying malignancy. 7. Hypertension-valsartan on hold due to hypotension and acute kidney injury. Blood pressure stable. 8. BPH-on finasteride. Flomax added. 9. Pruritic dermatitis-unclear if related to medication versus other etiology. Patient states he cannot take antihistamines. Topical corticosteroid. DVT prophylaxis-SCDs, heparin gtt Discharge plan: Lymph node biopsy and thoracentesis 03/15/2021. Will likely need home O2. This patient was seen by GREGORIO Calderon under the supervision of Dr. Estrada. Documented by User: Dr. Jj Estrada, DO 03/14/21 19:57 Objective Data Lab / Micro Data Result Diagrams: 03/14/21 01:35 03/14/21 01:35 Charges/Coding Addendum Addendum: Patient was seen and examined independently of Dilia Kang, he continues to have some expiratory wheezes today but overall his breathing is improved. Patient will be scheduled for thoracentesis tomorrow as well as a lymph node biopsy. On examination he appeared in good health and spirits. Vital signs as documented. Skin warm and dry and without overt rashes. Neck without JVD, neck was supple, trachea midline, thyroid was normal. Lungs-mild expiratory wheezes bilaterally, normal air movement was noted. Heart exam notable for regular rhythm, normal sounds and absence of murmurs, rubs or gallops. Abdomen unremarkable and without evidence of organomegaly, masses, or abdominal aortic enlargement. Bowel sounds are present, abdomen is not distended. Extremities nonedematous, no cyanosis was noted, no clubbing was noted. Neuro: Cranial nerves II through XII are grossly intact, no focal motor deficits were noted, sensation to light touch and pinprick intact, motor exam 5/5 throughout. Psych: Patient is alert and oriented x3, he does not appear anxious or depressed, he does not appear agitated. I have reviewed Dilia Kang's progress note including her medical assessment and plan of care and endorse it. Visit Charges Inpatient E&M: 43757 Subs Hosp L2
[2021-03-14] MEDS: Hydrocortisone 2.5% Crm 1 APPLIC TOPICAL ×2 (12:34→20:56)
[2021-03-14] MEDS: HEPARIN/D5w 25,000 UNITS 25,000 UNITS/250 ML IV.SOLN. 8 UNITS IV (12:47)
[2021-03-14 16:30] LABS: Partial Thromboplast Time 57.9 Seconds (24.1-36.2)
[2021-03-14] MEDS: Tamsulosin HCl 0.4 MG Capsule PO (16:32)
[2021-03-14 21:06] LABS: Bedside Glucose 127 mg/dL (70-110)
[2021-03-15] VITALS (21 sets, daily range): BP systolic 73–109; BP diastolic 49–84; PULSE 86–103; RESP 16–92; TEMP 36.2–37.2; O2SAT 90–98
[2021-03-15] MEDS: Sucralfate 1 GM Tablet PO ×3 (06:47→22:10)
[2021-03-15] MEDS: Albuterol 2.5 MG/3 ML VIAL.NEB. INHALATION ×2 (06:48→19:10)
[2021-03-15 08:02] LABS: Absolute Lymphocyte Count 1.75 X10^3/uL (0.83-4.51); Absolute Neutrophil Count 3.1 X10^3/uL (2.0-7.7); Basophil# 0.05 X10^3/uL; Basophil% 0.8 % (0-1); Eosinophil# 0.89 X10^3/uL; Eosinophils% 13.6 % (0-5); Hemoglobin 9.6 g/dL (13.0-16.5); Lymphocyte # 1.75 X10^3/ul (0.83-4.51); Lymphocyte % 26.8 % (19-41); Mean Corpuscular Hgb 30.1 pg (27.0-32.0); Mean Platelet Vol. 11.1 fl (6.2-12.0); Monocyte# 0.66 X10^3/uL; Monocyte% 10.1 % (0-10); NRBC Flagged by Analyzer 0 % (0-5); Neutrophil # 3.12 X10^3/uL (2.7-7.7); Neutrophil % 47.8 % (47-70); POSITIVE MORPHOLOGY YES; Platelet Count 122 K/mm3 (150-450); RBC Distribution Width CV 16.6 % (11.6-14.6); RBC Distribution Width SD 54.4 fl (35.1-43.9); Red Blood Count 3.19 M/mm3 (4.6-6.2); White Blood Count 6.5 K/mm3 (4.4-11.0)
[2021-03-15 08:03] LABS: Differential Indicated SCAN CRITERIA MET
--- NOTE | 2021-03-15 08:12 | PN.SURG_ITS ---
Subjective Subjective Patient seen and examined during AM rounds. He states he overall had an uneventful weekend. He believes he is feeling somewhat better, however, he continues to deal with some shortness of breath. He confirms that he has not had anything to eat since midnight and only a sip of water for meds. He has some concerns related to new scrotal swelling and questions how this might have occurred/might be improved. Objective Data Objective Data Vital Signs: Vital Signs Temp Pulse Resp BP Pulse Ox 98.5 F 99 24 H 106/68 98 03/15/21 06:45 03/15/21 06:49 03/15/21 06:49 03/15/21 06:45 03/15/21 06:49 Oxygen Flow Rate (L/min) 3 Oxygen Delivery Method Nasal Cannula Weight: 225 lb 8.526 oz Body Mass Index (BMI) 29.9 Intake & Output: Intake and Output for Last 24 Hours 03/13/21 03/14/21 03/15/21 23:59 23:59 23:59 Intake Total 1092.0 / 1092.0 364.26 / 364.26 Balance 1092.0 / 1092.0 364.26 / 364.26 Lab / Micro Data Result Diagrams: 03/15/21 07:31 03/14/21 01:35 Labs: Laboratory Results - last 24 hr 03/14/21 09:45: APTT 58.4 H 03/14/21 16:05: APTT 57.9 H 03/14/21 21:00: POC Glucose 127 H 03/15/21 07:31: WBC 6.5, RBC 3.19 L, Hgb 9.6 L, Hct 30.0 L, MCV 94.0, MCH 30.1, MCHC 32.0, RDW Std Deviation 54.4 H, RDW Coeff of Dmitry 16.6 H, Plt Count 122 L, MPV 11.1, Immature Gran % (Auto) 0.900, Neut % (Auto) 47.8, Lymph % (Auto) 26.8, [place] % (Auto) 10.1 H, Eos % (Auto) 13.6 H, Baso % (Auto) 0.8, Absolute Neuts (auto) 3.1, Absolute Lymphs (auto) 1.75, Nucleated RBC % 0 Micro: Microbiology 03/12/21 09:26 Sputum, Expectorated/Coughed Gram Stain - Final 03/12/21 09:26 Sputum, Expectorated/Coughed Respiratory Culture - Final Mixed normal respiratory fartun. No Streptococcus pneumoniae, beta-hemolytic Streptococcus or Staphylococcus aureus isolated. 03/10/21 20:34 Mucosa - Nasopharyngeal Respiratory Panel (PCR) - Final 03/10/21 22:18 Urine, Clean Catch Legionella Antigen - Final 03/10/21 22:18 Urine, Clean Catch Streptococcus pneumoniae Antigen (M - Final 03/10/21 12:45 Nasal Secretion SARS-CoV-2 Antigen (Rapid) - Final 03/10/21 12:35 Stool Stool Occult Blood (SERGIO) - Final Physical Exam Const oriented x3 and no apparent distress Resp Resp Narrative: Requiring 3 L nasal cannula Auscultation: wheezes expiratory wheezes and lower bilaterally; Negative for rales GI soft to palpation and non-tender Inspection: Negative for abdominal distention Assessment & Plan Assessment/Plan (1) Duodenal ulcer: PLAN: Awaiting final path results from EGD biopsies last week. Continue to abstain from NSAIDs. Continue PPI and Carafate. (2) Pulmonary embolism: QUALIFIERS: Chronicity: acute Acute cor pulmonale presence: without acute cor pulmonale Pulmonary embolism type: other Qualified Code(s): I26.99 - Other pulmonary embolism without acute cor pulmonale PLAN: Patient currently on heparin drip with stable oxygen saturations using 3 L nasal cannula. Will hold drip this morning in anticipation of both a excisional lymph node biopsy and thoracentesis. (3) Signs and symptoms of anemia: PLAN: Patient with appropriate response to transfusion of 2 units PRBCs per labs from 03/14/2021. No evidence of ongoing losses. Plan as above for duodenal ulceration and remainder of biopsies from patient's double endoscopy last week. (4) Lymphadenopathy, abdominal: PLAN: Patient with accessible inguinal adenopathy. Planning for excisional lymph node biopsy this afternoon. Hold heparin drip as above. M aintjessi n.p.o. (5) Scrotal swelling: PLAN: Patient encouraged to elevate scrotum with a small towel or washcloth to improve lymphatic drainage. Charges/Coding Visit Charges Inpatient E&M: 38819 [facility] Hosp L1
[2021-03-15 08:30] LABS: Partial Thromboplast Time 47.1 Seconds (24.1-36.2)
[2021-03-15 08:32] LABS: Anion Gap 8 (5-15); BUN 28 mg/dL (7-18); BUN/Creat Ratio 18.9 RATIO (10-20); Calcium,Total 8.3 mg/dL (8.5-10.1); Chloride 106 mmol/L (98-107); Creatinine, Serum 1.48 mg/dL (0.70-1.30); EST Glomerular Filtration Rate 49 mL/min (>60); Est Glom Filt Rate - Afr Amer 59 mL/min (>60); Estimated Creatinine Clearance 43.84 ml/min; Glucose 106 mg/dL (74-106); Potassium 4.1 mmol/L (3.5-5.1); Sodium Level 136 mmol/L (136-145)
[2021-03-15 08:35] LABS: Reactive Lymphocyte 1+
[2021-03-15] MEDS: 0.9% Saline Lock 10 ML Syringe IV ×2 (10:12→22:10)
[2021-03-15] MEDS: Finasteride 5 MG Tablet PO (10:13)
[2021-03-15] MEDS: Multivitamins,Therapeutic Tablet 1 TABLET PO (10:13)
[2021-03-15] MEDS: Ferrous Sulfate 325 MG Tablet PO (10:13)
--- NOTE | 2021-03-15 12:29 | PCM.PN.HOSP ---
Documented by User: Dilia Kang HOSPICE/HOME HEALTH AIDE, HOSPICE/HOME HEALTH AIDE-C 03/15/21 12:39 Subjective Subjective Patient seen and examined. Reports improvement in rash/itching. Continues to have shortness of breath and cough however not worsened from prior. To undergo thoracentesis and biopsy today. Discussed with patient's and son at bedside. Objective Data Objective Data Vital Signs: Vital Signs Temp Pulse Resp BP Pulse Ox 98.5 F 95 18 96/62 94 03/15/21 10:42 03/15/21 10:42 03/15/21 10:42 03/15/21 10:42 03/15/21 10:42 Oxygen Flow Rate (L/min) 4 Oxygen Delivery Method Nasal Cannula Weight: 225 lb 8.526 oz Body Mass Index (BMI) 29.9 Intake & Output: Intake and Output for Last 24 Hours 03/13/21 03/14/21 03/15/21 23:59 23:59 23:59 Intake Total 1092.0 / 1092.0 364.26 / 364.26 265.73 / 265.73 Balance 1092.0 / 1092.0 364.26 / 364.26 265.73 / 265.73 Lab / Micro Data Result Diagrams: 03/15/21 07:31 03/15/21 07:31 Labs: Laboratory Results - last 24 hr 03/14/21 16:05: APTT 57.9 H 03/14/21 21:00: POC Glucose 127 H 03/15/21 07:31: WBC 6.5, RBC 3.19 L, Hgb 9.6 L, Hct 30.0 L, MCV 94.0, MCH 30.1, MCHC 32.0, RDW Std Deviation 54.4 H, RDW Coeff of Dmitry 16.6 H, Plt Count 122 L, MPV 11.1, Immature Gran % (Auto) 0.900, Neut % (Auto) 47.8, Lymph % (Auto) 26.8, [place] % (Auto) 10.1 H, Eos % (Auto) 13.6 H, Baso % (Auto) 0.8, Absolute Neuts (auto) 3.1, Absolute Lymphs (auto) 1.75, Nucleated RBC % 0, Reactive Lymphocytes 1+ 03/15/21 07:31: Sodium 136, Potassium 4.1, Chloride 106, Carbon Dioxide 22.0, Anion Gap 8, BUN 28 H, Creatinine 1.48 H, Estim Creat Clear Calc 43.84, Est GFR (MDRD) Af Amer 59 L, Est GFR (MDRD) Non-Af 49 L, BUN/Creatinine Ratio 18.9, Glucose 106, Calcium 8.3 L 03/15/21 07:31: APTT 47.1 H Micro: Microbiology 03/12/21 09:26 Sputum, Expectorated/Coughed Gram Stain - Final 03/12/21 09:26 Sputum, Expectorated/Coughed Respiratory Culture - Final Mixed normal respiratory fartun. No Streptococcus pneumoniae, beta-hemolytic Streptococcus or Staphylococcus aureus isolated. 03/10/21 20:34 Mucosa - Nasopharyngeal Respiratory Panel (PCR) - Final 03/10/21 22:18 Urine, Clean Catch Legionella Antigen - Final 03/10/21 22:18 Urine, Clean Catch Streptococcus pneumoniae Antigen (M - Final 03/10/21 12:45 Nasal Secretion SARS-CoV-2 Antigen (Rapid) - Final 03/10/21 12:35 Stool Stool Occult Blood (SERGIO) - Final Physical Exam Const alert, oriented x3 and no apparent distress Orientation / Consciousness: awake, oriented to person, oriented to place and oriented to time HEENT normocephalic and moist oral mucous membranes Eyes PERRL, EOMs intact bilaterally and conjunctivae normal Neck no lymphadenopathy Resp Auscultation: wheezes and diminished lung sounds Cardio regular rate, regular rhythm and no murmurs Peripheral Pulses: pulses 2+ throughout GI normal to inspection, nondistended, normoactive bowel sounds, non-tender and non-distended Extremity normal to inspection Skin no rashes or lesions noted Lesions: no lesions Rashes: no rashes Trauma: no lacerations or abrasions Neuro CN's II-XII intact bilaterally, no focal motor deficits, no sensory deficits noted and deep tendon reflexes 2+ bilaterally Psych mental status grossly normal and affect normal Assessment & Plan Assessment/Plan (1) Pulmonary embolism: QUALIFIERS: Acute cor pulmonale presence: without acute cor pulmonale Chronicity: acute Pulmonary embolism type: other Qualified Code(s): I26.99 - Other pulmonary embolism without acute cor pulmonale (2) Splenic infarct: (3) Pleural effusion on left: PLAN: 1. Acute GI bleed, blood loss anemia, gastritis with duodenal ulcerations and colonic diverticulosis-IV PPI. General surgery consulted. Underwent EGD/colonoscopy which demonstrated duodenal ulcerations, gastritis and colonic diverticulosis. No evidence of recent bleeding. Biopsies obtained. S/P 2 unit PRBC. Trend CBC. Hemoglobin has remained stable. 2. Acute splenic infarcts-suspected secondary to malignancy. Heparin drip pending lymph node biopsy today, then plan for transition to oral anticoagulation. 3. Acute kidney injury-improved. Renal ultrasound demonstrates significant prostate enlargement with no hydronephrosis. FENa 0.2%, prerenal. Hold nephrotoxic regimen. 4. Acute hypoxic respiratory insufficiency secondary to acute PE and large left pleural effusion- heparin gtt pending lymph node biopsy. Home oxygen testing prior to discharge. Continue supplement oxygen to maintain O2 at above 90%. 5. Diffuse peritoneal and retroperitoneal lymphadenopathy, concerning for malignancy-general surgery on consult with plan for lymph node biopsy 03/15/21. CA 19/carcinoembryonic antigen ordered. Prior PSA elevated. Repeat PSA 10.7. Will need referral to oncology pending further inpatient stabilization. Further antibiotics on hold, if pleural fluid consistent with exudate, will resume. 6. Large left basilar pleural effusion, unclear if related to pneumonia or underlying malignant process- Afebrile, no leukocytosis. Left-sided thoracentesis diagnostic and therapeutic in a.m. Suspect pleural effusion due to underlying malignancy. 7. Hypertension-valsartan on hold due to hypotension and acute kidney injury. Blood pressure stable. 8. BPH-on finasteride. Flomax added. 9. Pruritic dermatitis-unclear if related to medication versus other etiology. Patient states he cannot take antihistamines. Topical corticosteroid. DVT prophylaxis-SCDs, heparin gtt Discharge plan: Lymph node biopsy and thoracentesis 03/15/2021. Will likely need home O2. This patient was seen by GREGORIO Calderon under the supervision of Dr. Estrada. Documented by User: Dr. Jj Estrada, 03/15/21 20:36 Objective Data Lab / Micro Data Result Diagrams: 03/15/21 07:31 03/15/21 07:31 Charges/Coding Addendum Addendum: Patient was seen and examined independently of Dilia Kang today, he underwent a lymph node biopsy which the preliminary result pointed to lymphoma. The final diagnosis on this patient will be pending due to staining and cytology. Patient was not able to undergoes thoracentesis today due to scheduling conflicts and the fact that he returned late from his biopsy to the floor. On examination he appeared in good health and spirits. Vital signs as documented. Skin warm and dry and without overt rashes. Neck without JVD, neck was supple, trachea midline, thyroid was normal. Lungs-scattered expiratory wheezes were noted bilaterally, normal air movement was noted. Heart exam notable for regular rhythm, normal sounds and absence of murmurs, rubs or gallops. Abdomen unremarkable and without evidence of organomegaly, masses, or abdominal aortic enlargement. Bowel sounds are present, abdomen is not distended. Extremities nonedematous, no cyanosis was noted, no clubbing was noted. Neuro: Cranial nerves II through XII are grossly intact, no focal motor deficits were noted, sensation to light touch and pinprick intact, motor exam 5/5 throughout. Psych: Patient is alert and oriented x3, he does not appear anxious or depressed, he does not appear agitated. Patient will undergo thoracentesis tomorrow, he will need follow-up with oncology regarding his biopsy results. I have I have reviewed Dilia Kang's progress note including her medical assessment and plan of care and endorse it. Visit Charges Inpatient E&M: 69070 Subs Hosp L2
[2021-03-15] MEDS: Cefazolin 2 GM in 0.9% Normal Saline 100 ML IV (12:58)
[2021-03-15] MEDS: Bupivacaine 0.25% 30 ML Vial (12:58)
--- NOTE | 2021-03-15 13:53 | OP.PCM_ITS ---
Problems Associated Problem List Diagnoses (1) Inguinal adenopathy: Report of Operation Date of Procedure: 03/15/21 Pre-Operative Diagnosis: 1. Inguinal (diffuse) adenopathy 2. Symptomatic anemia 3. Pulmonary embolus (acute) 4. Hepatosplenomegaly 5. Diffuse papular rash thought to be reactive to recent medication Post-Operative Diagnosis: Same Surgery/Procedure Performed:: Excisional biopsy of left inguinal lymph node Description of Surgical Findings:: ?Bulky inguinal adenopathy (friable with manipulation) ?Dry surgical bed following excision of node Surgeon: Reza Aldana touch up painter: Leia Garcia Type of Anesthesia: MAC/Supplemental/Local Anesthesiologist: Declan Payne Specimen's removed: Left inguinal lymph node Drains: None Estimated Blood Loss (mL): 5 Description of Procedure: After appropriate identification and site marking in the preoperative holding area, the patient was brought to the operating room. He was positioned supine on the operating table and was administered sedation for a MAC. Preoperative antibiotics were administered by anesthesia. The patient's left groin was then clipped of hair and prepped/draped in the usual sterile fashion. A formal timeout was conducted amongst those present to confirm both patient and the procedure. The procedure was begun by raising a wheal of local anesthetic (a total of 15 mL quarter percent plain bupivacaine) and making a 4 cm transverse incision in the left groin directly over a palpable inguinal lymph node. Dissection was carried down through the dermis and connective tissue to inguinal lymph node chain. There we encountered an enlarged red/pink lymph node. Blunt dissection and use of the harmonic scalpel was used to free the surrounding attachments circumferentially taking care posteriorly to avoid any inadvertent injury to the femoral vessels. Despite taking care with manipulation of this tissue, the lymph node was very friable and the capsule fractured. Still the lymph node was submitted in its entirety for pathologic frozen section followed by permanent staining. The surgical cavity was inspected for hemostasis and any lymphatic leakage. There was some oozing from the next superior lymph node in the inguinal chain and electrocautery was successfully applied to stop this oozing. The cavity was irrigated with sterile saline and was closed in layers using 3-0 Vicryl. Subcuticular technique was used for the skin with a 4-0 Monocryl and after confirming our frozen section result, Dermabond was applied as a dressing. Given the patient's rash, alcohol was used to try to clear chlorhexidine from the patient's skin. A Telfa and Tegaderm were applied to discourage any scratching or picking by the patient given the concurrent rash. Sedation was then lightened and the patient was transferred to PACU for ongoing recovery. Complications None Admit VTE Documentation VTE Present on Admission: Yes VTE Mechan Device Prophylaxis: SCD's Procedures Cardiovascular CF Procedures [id number]: [id number] Open bx/exc inguinofem nodes
[2021-03-15 14:36] LABS: Bedside Glucose 88 mg/dL (70-110)
[2021-03-15] MEDS: Tamsulosin HCl 0.4 MG Capsule PO (16:05)
[2021-03-15] MEDS: Hydrocortisone 2.5% Crm 1 APPLIC TOPICAL (16:07)
[2021-03-15 22:21] LABS: Partial Thromboplast Time 45.6 Seconds (24.1-36.2)
[2021-03-15] MEDS: HEPARIN/D5w 25,000 UNITS 25,000 UNITS/250 ML IV.SOLN. 9 UNITS IV (23:41)
[2021-03-16] VITALS (17 sets, daily range): BP systolic 86–100; BP diastolic 51–64; PULSE 90–116; RESP 16–20; TEMP 36.6–37; O2SAT 94–99
[2021-03-16 05:07] LABS: Absolute Lymphocyte Count 1.52 X10^3/uL (0.83-4.51); Absolute Neutrophil Count 2.9 X10^3/uL (2.0-7.7); Basophil# 0.03 X10^3/uL; Basophil% 0.5 % (0-1); Eosinophil# 0.86 X10^3/uL; Eosinophils% 14.3 % (0-5); Hematocrit 28.6 % (40-54); Hemoglobin 9.2 g/dL (13.0-16.5); Lymphocyte # 1.52 X10^3/ul (0.83-4.51); Lymphocyte % 25.3 % (19-41); Mean Corp Hgb Conc 32.2 g/dL (32-36); Mean Corpuscular Hgb 30.4 pg (27.0-32.0); Mean Corpuscular Volume 94.4 fL (80-94); Mean Platelet Vol. 10.8 fl (6.2-12.0); Monocyte# 0.63 X10^3/uL; Monocyte% 10.5 % (0-10); NRBC Flagged by Analyzer 0 % (0-5); Neutrophil # 2.94 X10^3/uL (2.7-7.7); Neutrophil % 48.9 % (47-70); POSITIVE MORPHOLOGY YES; Platelet Count 140 K/mm3 (150-450); RBC Distribution Width CV 16.6 % (11.6-14.6); RBC Distribution Width SD 54.4 fl (35.1-43.9); Red Blood Count 3.03 M/mm3 (4.6-6.2)
[2021-03-16 05:20] LABS: Partial Thromboplast Time 46.4 Seconds (24.1-36.2)
[2021-03-16 05:23] LABS: Anion Gap 5 (5-15); BUN 28 mg/dL (7-18); Chloride 106 mmol/L (98-107); EST Glomerular Filtration Rate 52 mL/min (>60); Est Glom Filt Rate - Afr Amer 63 mL/min (>60); Estimated Creatinine Clearance 46.35 ml/min; Glucose 108 mg/dL (74-106); Sodium Level 135 mmol/L (136-145)
[2021-03-16 05:28] LABS: Differential Indicated SCAN CRITERIA MET
[2021-03-16 05:29] LABS: Differential Comment SCANNED; Hypochromasia 1+
[2021-03-16] MEDS: Hydrocortisone 2.5% Crm 1 APPLIC TOPICAL (06:49)
[2021-03-16] MEDS: Sucralfate 1 GM Tablet PO ×3 (06:49→20:31)
[2021-03-16] MEDS: Albuterol 2.5 MG/3 ML VIAL.NEB. INHALATION ×2 (07:21→19:28)
--- NOTE | 2021-03-16 08:00 | US_ITS ---
STUDY: SUPERFICIAL ULTRASOUND - CHEST. REASON FOR EXAM: Male, 75 years old. Left pleural effusion, lymphadenopathy TECHNIQUE: A superficial ultrasound was performed with real-time and static dior-scale imaging. COMPARISON: None. FINDINGS: Sonogram of the left pleural space was obtained. There is a small left pleural effusion. The effusion is too small for safe thoracentesis. US/Chest IMPRESSION: Small left pleural effusion. Electronically Signed: Mihir Mathis MD at 13:25 EDT , Service support ,
--- NOTE | 2021-03-16 08:40 | PN.SURG_ITS ---
Subjective Subjective Patient seen and examined during AM rounds. He reports that he is still feeling fatigued and somewhat short of breath. He presented for thoracentesis this morning, but was told by the veterinary milk specialist that there was not enough fluid present to be tapped. He states that the rash that developed under his arms across his back and in his inguinal folds is somewhat improved?and as long as he keeps from becoming overheated it is better. Lastly he states there is no pain with his left groin surgical site but continues to complain of scrotal swelling. Objective Data Objective Data Vital Signs: Vital Signs Temp Pulse Resp BP Pulse Ox 98.4 F 94 18 97/60 99 03/16/21 06:56 03/16/21 07:06 03/16/21 06:56 03/16/21 06:56 03/16/21 06:56 Oxygen Flow Rate (L/min) 4 Oxygen Delivery Method Nasal Cannula Weight: 227 lb 4.745 oz Body Mass Index (BMI) 29.9 Intake & Output: Intake and Output for Last 24 Hours 03/14/21 03/15/21 03/16/21 23:59 23:59 23:59 Intake Total 364.26 / 364.26 548.20 / 668.20 237.2 / 237.2 Balance 364.26 / 364.26 548.20 / 668.20 237.2 / 237.2 Lab / Micro Data Result Diagrams: 03/16/21 04:56 03/16/21 04:56 Labs: Laboratory Results - last 24 hr 03/15/21 14:29: POC Glucose 88 03/15/21 21:55: APTT 45.6 H 03/16/21 04:56: WBC 6.0, RBC 3.03 L, Hgb 9.2 L, Hct 28.6 L, MCV 94.4 H, MCH 30.4, MCHC 32.2, RDW Std Deviation 54.4 H, RDW Coeff of Dmitry 16.6 H, Plt Count 140 L, MPV 10.8, Immature Gran % (Auto) 0.500, Neut % (Auto) 48.9, Lymph % (Auto) 25.3, [place] % (Auto) 10.5 H, Eos % (Auto) 14.3 H, Baso % (Auto) 0.5, Abso lute Neuts (auto) 2.9, Absolute Lymphs (auto) 1.52, Nucleated RBC % 0, Differential Comment SCANNED, Hypochromasia 1+ 03/16/21 04:56: Sodium 135 L, Potassium 4.0, Chloride 106, Carbon Dioxide 24.0, Anion Gap 5, BUN 28 H, Creatinine 1.40 H, Estim Creat Clear Calc 46.35, Est GFR (MDRD) Af Amer 63, Est GFR (MDRD) Non-Af 52 L, BUN/Creatinine Ratio 20.0, Glucose 108 H, Calcium 8.0 L 03/16/21 04:56: APTT 46.4 H Micro: Microbiology 03/12/21 09:26 Sputum, Expectorated/Coughed Gram Stain - Final 03/12/21 09:26 Sputum, Expectorated/Coughed Respiratory Culture - Final Mixed normal respiratory fartun. No Streptococcus pneumoniae, beta-hemolytic Streptococcus or Staphylococcus aureus isolated. 03/10/21 20:34 Mucosa - Nasopharyngeal Respiratory Panel (PCR) - Final 03/10/21 22:18 Urine, Clean Catch Legionella Antigen - Final 03/10/21 22:18 Urine, Clean Catch Streptococcus pneumoniae Antigen (M - Final 03/10/21 12:45 Nasal Secretion SARS-CoV-2 Antigen (Rapid) - Final 03/10/21 12:35 Stool Stool Occult Blood (SERGIO) - Final Physical Exam Const oriented x3 and no apparent distress Resp Auscultation: wheezes expiratory wheezes and scattered wheezes Cardio regular rate and regular rhythm Narrative: There is no substantial scrotal swelling extending onto the phallus. The left groin operative site remains dressed with a Telfa and Tegaderm and the surrounding tissues here are soft. There is no strikethrough to this overlying dressing. Assessment & Plan Assessment/Plan (1) Inguinal adenopathy: PLAN: Postoperative day 1 from excisional biopsy of left inguinal lymph node. Pathology currently pending. Patient okay to remove outer dressing today and could begin showering as early as today given that there is a coat of Dermabond sealing the incision site. Continue to monitor for any signs of swelling or acute pain developing. (2) Scrotal swelling: PLAN: Continue to elevate scrotum on a rolled towel to promote drainage (3) Pulmonary embolism: QUALIFIERS: Pulmonary embolism type: other Chronicity: acute Acute cor pulmonale presence: without acute cor pulmonale Qualified Code(s): I26.99 - Other pulmonary embolism without acute cor pulmonale PLAN: Okay to resume heparin drip from a surgical standpoint. Could consider transition to p.o. anticoagulation if no additional procedures are planned. Patient continues to require supplemental oxygen. May require home oxygen?defer to hospitalist team. (4) Duodenal ulcer: PLAN: Biopsy results consistent with duodenal ulcer only. Continue Protonix and Carafate therapy while inpatient. Upon discharge continue Protonix and limit NSAIDs. (5) Signs and symptoms of anemia: PLAN: Patient's hemoglobin has stabilized to slightly improved today. He continues to be fatigued. Unfortunately this fatigue could be a manifestation of more than his anemia as lymphoma remains at the top of his differential diagnosis. Continue to monitor for any signs of GI losses, but negative scopes and subsequent stable labs (despite anticoagulation with heparin) suggest any losses have stopped. (6) Splenic infarct: PLAN: Okay to resume heparin drip from surgical standpoint. May consider transition to p.o. anticoagulation. Charges/Coding Visit Charges Inpatient E&M: 11404 Subs Hosp L2
[2021-03-16] MEDS: Finasteride 5 MG Tablet PO (09:29)
[2021-03-16] MEDS: Multivitamins,Therapeutic Tablet 1 TABLET PO (09:29)
[2021-03-16] MEDS: 0.9% Saline Lock 10 ML Syringe IV (09:30)
--- NOTE | 2021-03-16 12:42 | PN.HOSP_ITS ---
Documented by User: Dilia Kang CABIN CREW, CABIN CREW-C 03/16/21 13:03 Subjective Subjective Patient seen and examined. Remains on 4 L nasal cannula. Reports continued shortness of breath, cough. Went for thoracentesis today however not enough fluid to drain. Reports scrotal and lower extremity swelling. Objective Data Objective Data Vital Signs: Vital Signs Temp Pulse Resp BP Pulse Ox 98.6 F 105 H 18 89/51 L 98 03/16/21 09:49 03/16/21 09:49 03/16/21 09:49 03/16/21 09:49 03/16/21 09:49 Oxygen Flow Rate (L/min) 4 Oxygen Delivery Method Nasal Cannula Weight: 227 lb 4.745 oz Body Mass Index (BMI) 29.9 Intake & Output: Intake and Output for Last 24 Hours 03/14/21 03/15/21 03/16/21 23:59 23:59 23:59 Intake Total 364.26 / 364.26 548.20 / 668.20 347.2 / 347.2 Balance 364.26 / 364.26 548.20 / 668.20 347.2 / 347.2 Lab / Micro Data Result Diagrams: 03/16/21 04:56 03/16/21 04:56 Labs: Laboratory Results - last 24 hr 03/15/21 14:29: POC Glucose 88 03/15/21 21:55: APTT 45.6 H 03/16/21 04:56: WBC 6.0, RBC 3.03 L, Hgb 9.2 L, Hct 28.6 L, MCV 94.4 H, MCH 30.4, MCHC 32.2, RDW Std Deviation 54.4 H, RDW Coeff of Dmitry 16.6 H, Plt Count 140 L, MPV 10.8, Immature Gran % (Auto) 0.500, Neut % (Auto) 48.9, Lymph % (Auto) 25.3, [place] % (Auto) 10.5 H, Eos % (Auto) 14.3 H, Baso % (Auto) 0.5, Absolute Neuts (auto) 2.9, Absolute Lymphs (auto) 1.52, Nucleated RBC % 0, Differential Comment SCANNED, Hypochromasia 1+ 03/16/21 04:56: Sodium 135 L, Potassium 4.0, Chloride 106, Carbon Dioxide 24.0, Anion Gap 5, BUN 28 H, Creatinine 1.40 H, Estim Creat Clear Calc 46.35, Est GFR (MDRD) Af Amer 63, Est GFR (MDRD) Non-Af 52 L, BUN/Creatinine Ratio 20.0, Glucose 108 H, Calcium 8.0 L 03/16/21 04:56: APTT 46.4 H Micro: Microbiology 03/12/21 09:26 Sputum, Expectorated/Coughed Gram Stain - Final 03/12/21 09:26 Sputum, Expectorated/Coughed Respiratory Culture - Final Mixed normal respiratory fartun. No Streptococcus pneumoniae, beta-hemolytic Streptococcus or Staphylococcus aureus isolated. 03/10/21 20:34 Mucosa - Nasopharyngeal Respiratory Panel (PCR) - Final 03/10/21 22:18 Urine, Clean Catch Legionella Antigen - Final 03/10/21 22:18 Urine, Clean Catch Streptococcus pneumoniae Antigen (M - Final 03/10/21 12:45 Nasal Secretion SARS-CoV-2 Antigen (Rapid) - Final 03/10/21 12:35 Stool Stool Occult Blood (SERGIO) - Final Physical Exam Const alert, oriented x3 and no apparent distress Orientation / Consciousness: awake, oriented to person, oriented to place and oriented to time HEENT normocephalic and moist oral mucous membranes Eyes PERRL, EOMs intact bilaterally and conjunctivae normal Neck no lymphadenopathy Resp Auscultation: wheezes and diminished lung sounds Cardio regular rate, regular rhythm and no murmurs Peripheral Pulses: pulses 2+ throughout GI normal to inspection, nondistended, normoactive bowel sounds, non-tender and non-distended Extremity General Extremity: edema bilateral lower extremity Details: moderate Skin no rashes or lesions noted Lesions: no lesions Rashes: no rashes Trauma: no lacerations or abrasions Neuro CN's II-XII intact bilaterally, no focal motor deficits, no sensory deficits noted and deep tendon reflexes 2+ bilaterally Psych mental status grossly normal and affect normal Assessment & Plan Assessment/Plan (1) Pleural effusion on left: (2) Anemia: QUALIFIERS: Anemia type: iron deficiency Iron deficiency anemia type: unspecified iron deficiency Qualified Code(s): D50.9 - Iron deficiency anemia, unspecified PLAN: 1. Acute hypoxic respiratory insufficiency secondary to acute PE and large left pleural effusion-on heparin drip. Continue supplement oxygen to maintain O2 at above 90%. Thoracentesis ordered however reported there was not enough fluid to drain. Remains on 4 L nasal cannula. Repeat chest x-ray ordered. IV Lasix if blood pressure tolerates. Pulmonary medicine consulted. 2. Diffuse peritoneal and retroperitoneal lymphadenopathy, concerning for malignancy-general surgery on consult, lymph node biopsy 03/15/21. CA 19/carcinoembryonic antigen negative/normal. Prior PSA elevated. Repeat PSA 10.7. Oncology consult placed. 3. Large left basilar pleural effusion, unclear if related to pneumonia or underlying malignant process- Afebrile, no leukocytosis. Left-sided thoracen tesis canceled due to reported and significant fluid. Suspect pleural effusion due to underlying malignancy. IV antibiotics empirically to complete course. 4. Acute GI bleed, blood loss anemia, gastritis with duodenal ulcerations and colonic diverticulosis- General surgery consulted. Underwent EGD/colonoscopy which demonstrated duodenal ulcerations, gastritis and colonic diverticulosis. No evidence of recent bleeding. Biopsies negative for h. pylori. S/P 2 unit PRBC. Hemoglobin has remained stable. Trend CBC. Transition to oral PPI twice daily. 5. Acute PE/Acute splenic infarcts-suspected secondary to malignancy. Heparin drip, will transition to oral anticoagulation if patient does not able to undergo thoracentesis. 6. Acute kidney injury-initially improved, creatinine fluctuating. Renal ultrasound demonstrates significant prostate enlargement with no hydronephrosis. FENa 0.2%, prerenal. Hold nephrotoxic regimen. 7. Hypertension-valsartan on hold due to hypotension and acute kidney injury. 8. BPH-on finasteride. Flomax added. 9. Pruritic dermatitis-unclear if related to medication versus other etiology. Patient states he cannot take antihistamines. Topical corticosteroid. DVT prophylaxis-SCDs, heparin gtt This patient was seen by GREGORIO Calderon under the supervision of Dr. Maldonado. Documented by User: Dr. Alona Maldonado MD 03/16/21 20:58 Objective Data Lab / Micro Data Result Diagrams: 03/16/21 04:56 03/16/21 04:56 Charges/Coding Addendum Addendum: This patient was seen in conjunction with Dilia Kang. I have independently interviewed and examined the patient and reviewed pertinent historical, laboratory, and other data. I have reviewed her note and concur with her documentation Patient was seen and examined. Denies any new complaints. Thoracocentesis could not be done. Physical Exam: Gen: Appears comfortable on 3 L of oxygen, not pale, not jaundiced CVS:HS I +II, regular, no murmurs RESP: Diminished at lung bases GI: BS present and normal, soft, nontender, no palpable organs EXT: Bilateral lower leg edema, +3 ASSESSMENT: 1. Acute hypoxic respiratory failure secondary to acute PE/large left pleural effusion 2. Diffuse peritoneal retroperitoneal lymphadenopathy 3. Large left pleural effusion 4. Acute GI bleed 5. Acute PE/acute splenic infarct 6. EFREN 7. Hypertension 8. BPH Plan: Continue on Levaquin, Lasix, heparin drip Visit Charges Inpatient E&M: 93557 Subs Hosp L3
--- NOTE | 2021-03-16 13:11 | RAD_ITS ---
STUDY: X-RAY CHEST REASON FOR EXAM: Male, 75 years old. Hypoxia, pleural effusion TECHNIQUE: PA and lateral views of the chest. COMPARISON: Comparison is made with prior study dated 02/22/2021. FINDINGS: EKG electrodes are seen. There is evidence of a small left pleural effusion with left lower lobe infiltration. Calcified granuloma at the right lung base. There is no demonstrated pleural abnormality. Normal size heart. Normal mediastinum and ledy. Normal visualized pulmonary arteries. There is atherosclerotic calcification of the aortic arch with tortuosity. There are diffuse degenerative changes of the visualized thoracic spine. Normal visualized ribs, clavicles, and shoulders. There is no demonstrated abnormality of the visualized soft tissue structures of the upper abdomen. RAD/Chest PA and Lateral IMPRESSION: Small left pleural effusion with left basilar infiltrate. Electronically Signed: Mihir Mathis MD at 13:27 EDT , Service support ,
[2021-03-16] MEDS: levoFLOXacin IV 750 MG/150 ML BAG 100 MG IV (15:28)
[2021-03-16] MEDS: Furosemide 20 MG/2 ML VIAL IV (15:36)
--- NOTE | 2021-03-16 16:27 | CON.PCM.ON_ITS ---
Assessment & Plan Assessment/Plan (1) Lymphadenopathy, abdominal: Status: Acute Code(s): R59.0 - Localized enlarged lymph nodes (2) Mediastinal lymphadenopathy: Status: Acute Code(s): R59.0 - Localized enlarged lymph nodes (3) Splenomegaly: Status: Acute Code(s): R16.1 - Splenomegaly, not elsewhere classified (4) Anemia: Status: Acute Code(s): D64.9 - Anemia, unspecified Qualifiers: Anemia type: iron deficiency Iron deficiency anemia type: unspecified iron deficiency Qualified Code(s): D50.9 - Iron deficiency anemia, unspecified Plan: All imaging including CT abdomen and pelvis, chest CTA and labs reviewed. Images demonstrate extensive lymphadenopathy involving bilateral axilla, hilar and mediastinal nodes, peritoneal and retroperitoneal nodes and hepatosplenomegaly. Patient with persistent normocytic anemia, mild thrombocytopenia. Subjectively reporting B symptoms. Clinical picture suggestive of a lymphoma. Patient underwent excisional biopsy of left inguinal node yesterday, area is healing well. Pathology is pending. Discussed suspicion for malignancy with patient however cannot confirm subtype of lymphoma, prognosis or present treatment options until pathology is finalized. Recommend we assess iron levels, B12, LDH and obtain hepatitis panel in preparation for likely future therapy with rituximab. We will also obtain baseline uric acid level?if elevated will begin allopurinol. Consider DOAC on discharge as long as platelets remain greater than 50,000. Advised patient be evaluated at [place] [facility] early next week. In the interim, I advised the patient to focus on maintaining good nutrition/hydration and staying as active as possible while at home. Emotional support provided. Case reviewed and discussed with Dr. Sebastian who was in agreement with aforem entioned plan. HPI Consult Data Date of Service:: 03/18/21 PCP / Referring Provider: Dr. Robbie Pedro DO Attending: Dr. Alona Maldonado MD Chief Complaint Chief Complaint: Lymphadenopathy, anemia History of Present Illness History of Present Illness: Mr. Rodriguez is a very pleasant 75 year old gentleman with a PMH for hypertension and BPH, who presented to [facility] ED on 03/10/21 with c/o fatigue and anemia which were being worked up by his pcp. Found to have a Hgb 8.6, platelets 128,[address] abdomen and pelvis revealed diffuse peritoneal and retroperitoneal lymphadenopathy extending into the pelvis, hepato-splenomegaly and small left pleural effusion. Underwent EGD and colonosc opy on 03/11/2021 findings significant only for duodenal ulcer, started on PPI and Carafate. CTA 03/12/2021 right-sided revealed PE, now on heparin drip. Received 2 units PRBCs on 03/12/2021 for hemoglobin 7. He underwent excision left inguinal node yesterday?pathology is pending. Upon entering the room, patient is lying supine in bed visiting with spouse. Describes productive cough and exertional dyspnea onset as abrupt within 4 to 6 weeks. The symptoms were accompanied by intermittent night sweats, abdominal bloating and early satiety. He denies headache, vision changes, dysphagia, and any other lymph nodes that he may have noted under his arms or neck while bathing/dressing. No weight loss although he began noting dependent edema at home prior to admission. Reports a good support system at home by way of family and friends. Prior to this admission, ECOG 0. 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 Advanced Directives Power of It Security Architect: Yes Living Will: Yes [facility], [facility] Medical History Enlarged prostate Hypertension Mediastinal lymphadenopathy Home Medications finasteride 5 mg tablet 5 mg PO QDAY 10/25/17 [History Last Taken 03/09/21] albuterol sulfate 90 mcg/actuation aerosol inhaler 2 puff INHALATION Q6H PRN #8.5 g 03/03/21 [Rx Last Taken 03/08/21] multivitamin 1 tab PO DAILY 03/03/21 [History Last Taken 03/08/21] apixaban [Eliquis] 10 mg PO BID #70 tab 03/17/21 [Rx Last Taken Unknown] furosemide [Lasix] 40 mg PO BID #60 tab 03/17/21 [Rx Last Taken Unknown] pantoprazole 40 mg PO BID #60 tab 03/17/21 [Rx Last Taken Unknown] tamsulosin 0.4 mg PO DAILY@1730 #30 cap 03/17/21 [Rx Last Taken Unknown] Allergy/AdvReac Type Severity Reaction Status Date / Time Antihistamines - Ethanolamine Allergy Severe rash Verified 03/10/21 12:11 MUCOUS RELIEF DM Allergy Rash Uncoded 03/10/21 12:12 Family History Father Cancer Prostate and Colon CA. Colon cancer Hypertension Grandfather CVA (cerebral vascular accident) Myocardial infarction Mother Hypertension Surgical History History of appendectomy History of tonsillectomy Social History household members: spouse housing: house Smoking Status: Never smoker alcohol intake: never substance use type: does not use what type of physical activity do you participate in: none ROS ROS Narrative Negative except as documented in the interval HPI Physical Exam Const alert, oriented x3 and no apparent distress Orientation / Consciousness: awake HEENT normocephalic Eyes conjunctivae normal and no scleral icterus Lymph Lymphatic: no lymphedema noted Lymphatic Narrative: 1 anterior cervical node and 1 posterior cervical node noted on the right, 2 anterior cervical nodes and one posterior node on the left?all approximately 1 cm and nontender. 2 small axillary nodes left Resp Auscultation: wheezes expiratory wheezes and throughout and diminished lung sounds left Cardio regular rate, regular rhythm, S1 normal heart sound and S2 normal heart sound Peripheral Pulses: pulses 2+ throughout GI non-distended GI Narrative: Minimally tender to palpation left upper quadrant, normoactive bowel sounds Palpation: firm, tender, hepatomegaly and splenomegaly Extremity General Extremity: edema bilateral (Nonpitting) lower extremity Details: moderate Skin no rashes or lesions noted, no jaundice and no petechiae General Skin Exam: Negative for ecchymosis Lesions: no lesions Rashes: no rashes Trauma: no lacerations or abrasions Neuro CN's II-XII intact bilaterally, no focal motor deficits and deep tendon reflexes 2+ bilaterally Psych mental status grossly normal Psych Narrative: Calm and engaged Vital Signs Temperature 98.0 F 03/16/21 15:10 Temperature Source Oral 03/16/21 15:10 Pulse Rate 91 03/16/21 15:10 Respiratory Rate 18 03/16/21 15:10 Respiratory Effort Non-Labored 03/15/21 03:00 Respiratory Depth Normal 03/14/21 04:18 Respiratory Pattern Normal 03/16/21 07:21 Blood Pressure 95/62 03/16/21 15:10 Blood Pressure Mean 73 03/16/21 15:10 Blood Pressure Source Monitor 03/16/21 15:10 Blood Pressure Position Sitting 03/16/21 09:49 Blood Pressure Location Right Arm 03/16/21 09:49 Baseline BP 95/53 03/15/21 14:50 Pulse Ox 98 03/16/21 15:10 Oxygen Delivery Method Nasal Cannula 03/16/21 15:10 Oxygen Flow Rate (L/min) 2 03/16/21 15:10 Laboratory Results - last 24 hr 03/15/21 21:55: APTT 45.6 H 03/16/21 04:56: WBC 6.0, RBC 3.03 L, Hgb 9.2 L, Hct 28.6 L, MCV 94.4 H, MCH 30.4, MCHC 32.2, RDW Std Deviation 54.4 H, RDW Coeff of Dmitry 16.6 H, Plt Count 140 L, MPV 10.8, Immature Gran % (Auto) 0.500, Neut % (Auto) 48.9, Lymph % (Auto) 25.3, [place] % (Auto) 10.5 H, Eos % (Auto) 14.3 H, Baso % (Auto) 0.5, Absolute Neuts (auto) 2.9, Absolute Lymphs (auto) 1.52, Nucleated RBC % 0, Differential Comment SCANNED, Hypochromasia 1+ 03/16/21 04:56: Sodium 135 L, Potassium 4.0, Chloride 106, Carbon Dioxide 24.0, Anion Gap 5, BUN 28 H, Creatinine 1.40 H, Estim Creat Clear Calc 46.35, Est GFR (MDRD) Af Amer 63, Est GFR (MDRD) Non-Af 52 L, BUN/Creatinine Ratio 20.0, Glucose 108 H, Calcium 8.0 L 03/16/21 04:56: APTT 46.4 H Diagnostic Data Abdomen/Pelvis CT 03/10/21 13:20 IMPRESSION: Diffuse peritoneal and retroperitoneal lymphadenopathy extending into the pelvis. Marked degree of splenomegaly with findings suggestive of peripheral infarcts. Hepatomegaly. Small left pleural effusion with left ulnar infiltrate. Electronically Signed: Mihir Mathis MD at 15:44 EDT , Service support , Echocardiogram 03/10/21 18:10 Interpretation Summary Left ventricular systolic function is hyperdynamic. The estimated ejection fraction is 75 %. The global longitudinal strain = -28 % (normal). The left atrium is mildly enlarged. Mild diffuse mitral valve thickening. Trivial mitral valve insufficiency. Mild to moderate (1-2+) tricuspid valve insufficiency. Mild diffuse aortic valve thickening. Trivial pulmonic valve insufficiency. Right ventricular systolic pressure estimated to be 51 mmHg. No evidence for diastolic dysfunction. Comment: Based upon the 2D echocardiographic images obtained a diagnosis of amyloidosis cannot necessarily be excluded with consideration for further evaluation as clinically indicated. Ordering Physician: Fariha Chaudhry Referring Physician: ROBBIE PEDRO Performed By: Valerie Aldrich, MIRACLE, RVT Renal Ultrasound 03/11/21 13:29 IMPRESSION: Significant prostate enlargement with no associated hydronephrosis. Bladder volume within normal limits at 114 mL. Left renal cysts with otherwise normal sonographic appearance of the kidneys. Electronically Signed: Reza Ibrahim DO at 20:55 EDT Tel , Service support , Chest CTA 03/12/21 11:37 IMPRESSION: 1. Positive for pulmonary embolism of the distal right descending pulmonary artery. 2. Bilateral axillary, bilateral hilar, mediastinal lymphadenopathy as well as splenomegaly suggestive of lymphoma or metastatic disease. 3. Large left pleural effusion with left lower lobe atelectasis. Electronically Signed: Sebastian Torres MD at 12:16 EDT Tel , Service support , ADDENDUM: 03/12/21 1240 IMPRESSION: 1. Positive for pulmonary embolism of the distal right descending pulmonary artery. 2. Bilateral axillary, bilateral hilar, mediastinal lymphadenopathy as well as splenomegaly suggestive of lymphoma or metastatic disease. 3. Large left pleural effusion with left lower lobe atelectasis. N.B. : The above Results were Read Back by Sebastian Torres MD to Dilia Kang NP, and understanding confirmed on 03/12/2021 12:33:08 (ET). Electronically Signed: Sebastian Torres MD at 12:16 EDT Tel , Service support , Chest Ultrasound 03/16/21 08:00 IMPRESSION: Small left pleural effusion. Electronically Signed: Mihir Mathis MD at 13:25 EDT , Service support , Chest X-Ray 03/16/21 13:11 IMPRESSION: Small left pleural effusion with left basilar infiltrate. Electronically Signed: Mihir Mathis MD at 13:27 EDT , Service support ,
[2021-03-16] MEDS: Tamsulosin HCl 0.4 MG Capsule PO (16:41)
--- NOTE | 2021-03-16 19:29 | EX.PCM.CONCC ---
Assessment & Plan Assessment/Plan (1) Mediastinal lymphadenopathy: (2) Pulmonary embolism: QUALIFIERS: Pulmonary embolism type: other Chronicity: acute Acute cor pulmonale presence: without acute cor pulmonale Qualified Code(s): I26.99 - Other pulmonary embolism without acute cor pulmonale (3) Lymphadenopathy, abdominal: (4) Acute kidney injury: (5) Chronic cough: PLAN: RECOMMENDATIONS: 1. Aggressive diuresis with goal of -500 to 1000 mL/day 2. Initiation of steroid therapy if okay with oncology 3. Encourage incentive spirometer and Acapella 4. Await pathology results 5. Wean oxygen as tolerated 6. Agree with bronchodilators IMPRESSIONS: 1. Acute hypoxic respiratory insufficiency secondary to left pleural effusion and acute PE Pleural effusion was predominant on CT scan, but reportedly was not enough fluid to drain on thoracentesis. Patient does have multiple stigmata suggestive of fluid overload. Recommend aggressive diuresis of -500 to 1000 mL/day. Patient does have a history of possible asthma and bronchial thickening noted on CT scan. Agree with bronchodilators, but patient may benefit from steroid therapy. This would need to be discussed with oncology as this may interfere with his work-up for possible lymphoma. Patient can be continued on anticoagulation from my perspective. Okay to transition to a 10 a inhibitor, Eliquis would be preferred given patient's acute kidney injury. 2. Diffuse lymphadenopathy Patient has had an inguinal lymph node biopsy on 03/15/2021. Await the results. Likely not necessary to proceed with bronchoscopy for mediastinal lymphadenopathy. Mediastinal lymphadenopathy is bilateral, so it is unclear if this would be related to left lower lobe findings. 3. Acute kidney injury/hypertension/BPH/dermatitis/Advanced age/chronic cough Complicates care, management, recovery and prognosis. HPI Consult Data Date of Consult: 03/16/21 HPI Narrative HPI Narrative: WINNIE SCOTT is a 75 M, with past medical history listed below, who presented to [facility] on 03/10/2021 secondary to abdominal discomfort and a reported GI bleed. Patient reportedly had had some shortness of breath on exertion and had been tested twice for Covid and was found to be negative. Patient's reported that he appeared pale and he had had some dark stools. Patient did admit to using naproxen and ibuprofen. Patient had vague abdominal discomfort. Patient is not on any antiplatelet or anticoagulant therapy. In the ER, patient was afebrile, but slightly hypotensive at 99/60 with tachycardia of 105 bpm. Patient was saturating well when 92% on room air. Examination of laboratory value showed a drop of 3-1/2 to 4 g in hemoglobin compared to December. Patient also had an element of acute kidney injury. A CT of the abdomen showed a possible lingular infiltrate with associated effusion, so patient was placed on Levaquin therapy. CT of the abdomen and also showed significant lymphadenopathy, so the patient was admitted to the hospital for further evaluation. Over the course of patient's hospitalization he has required more supplemental oxygen. Patient states he is never required supplemental oxygen previously. Patient does report that he has had some gradual worsening of his lower extremity edema over the last 2 to 3 weeks. Patient has never had a pulmonary function test, but states that his PCP has recommended this secondary to frequent bronchitis. Patient states he has been placed on prednisone in the past and feels this significantly helped his cough and shortness of breath. Patient's reports that he readily coughs more than a normal person. Patient is not on an inhaler at baseline that he uses regularly. Patient does not report any family history of clotting disorders. Patient has never had a DVT or PE previously. Patient was placed on diuretics today and feels this may have helped. Patient does not have a history of a pleural effusion in the past that he is aware of. Review of systems otherwise negative from a constitutional, HEENT, respiratory, cardiovascular, GI, genitourinary, musculoskeletal, skin, neurologic, psychiatric and hematologic system unless stated above. [facility] Medical History Enlarged prostate Hypertension Mediastinal lymphadenopathy Home Medications finasteride 5 mg tablet 5 mg PO QDAY 10/25/17 [History Last Taken 03/09/21] valsartan 80 mg tablet 80 mg PO DAILY #90 tab 01/13/21 [Rx Last Taken 03/09/21] benzonatate 100 mg capsule 100 mg PO BID PRN #20 cap 02/23/21 [Rx Last Taken 03/08/21] albuterol sulfate 90 mcg/actuation aerosol inhaler 2 puff INHALATION Q6H PRN #8.5 g 03/03/21 [Rx Last Taken 03/08/21] ibuprofen 200 mg capsule 200 mg PO Q6H PRN 03/03/21 [History Last Taken 03/09/21] multivitamin 1 tab PO DAILY 03/03/21 [History Last Taken 03/08/21] ascorbic acid (vitamin C) 500 mg PO DAILY 03/10/21 [History Last Taken 03/09/21] ferrous sulfate 325 mg PO QODAY 03/10/21 [History Last Taken 03/09/21] Allergy/AdvReac Type Severity Reaction Status Date / Time Antihistamines - Ethanolamine Allergy Severe rash Verified 03/10/21 12:11 MUCOUS RELIEF DM Allergy Rash Uncoded 03/10/21 12:12 Family History Father Cancer Prostate and Colon CA. Colon cancer Hypertension Grandfather CVA (cerebral vascular accident) Myocardial infarction Mother Hypertension Surgical History History of appendectomy History of tonsillectomy Social History household members: spouse housing: house Smoking Status: Never smoker alcohol intake: never substance use type: does not use what type of physical activity do you participate in: none ROS ROS Narrative See HPI Physical Exam Const alert, oriented x3 and no apparent distress Orientation / Consciousness: awake, oriented to person, oriented to place and oriented to time HEENT normocephalic and moist oral mucous membranes Eyes PERRL, EOMs intact bilaterally and conjunctivae normal Neck no lymphadenopathy Resp Auscultation: wheezes and diminished lung sounds Cardio regular rate, regular rhythm and no murmurs Peripheral Pulses: pulses 2+ throughout GI normal to inspection, nondistended, normoactive bowel sounds, non-tender and non-distended Extremity General Extremity: edema bilateral lower extremity (3+) Skin no rashes or lesions noted Lesions: no lesions Rashes: no rashes Trauma: no lacerations or abrasions Neuro CN's II-XII intact bilaterally, no focal motor deficits, no sensory deficits noted and deep tendon reflexes 2+ bilaterally Psych mental status grossly normal and affect normal Lab / Micro Data Result Diagrams: 03/16/21 04:56 03/16/21 04:56 Labs: Laboratory Results - last 24 hr 03/15/21 21:55: APTT 45.6 H 03/16/21 04:56: WBC 6.0, RBC 3.03 L, Hgb 9.2 L, Hct 28.6 L, MCV 94.4 H, MCH 30.4, MCHC 32.2, RDW Std Deviation 54.4 H, RDW Coeff of Dmitry 16.6 H, Plt Count 140 L, MPV 10.8, Immature Gran % (Auto) 0.500, Neut % (Auto) 48.9, Lymph % (Auto) 25.3, [place] % (Auto) 10.5 H, Eos % (Auto) 14.3 H, Baso % (Auto) 0.5, Absolute Neuts (auto) 2.9, Absolute Lymphs (auto) 1.52, Nucleated RBC % 0, Differential Comment SCANNED, Hypochromasia 1+ 03/16/21 04:56: Sodium 135 L, Potassium 4.0, Chloride 106, Carbon Dioxide 24.0, Anion Gap 5, BUN 28 H, Creatinine 1.40 H, Estim Creat Clear Calc 46.35, Est GFR (MDRD) Af Amer 63, Est GFR (MDRD) Non-Af 52 L, BUN/Creatinine Ratio 20.0, Glucose 108 H, Calcium 8.0 L 03/16/21 04:56: APTT 46.4 H Radiology Impression Chest Ultrasound 03/16/21 08:00 IMPRESSION: Small left pleural effusion. Electronically Signed: Mihir Mathis MD at 13:25 EDT , Service support , Chest X-Ray 03/16/21 13:11 IMPRESSION: Small left pleural effusion with left basilar infiltrate. Electronically Signed: Mihir Mathis MD at 13:27 EDT , Service support , Charges/Coding Visit Charges Inpatient E&M: 89686 Init Hosp L3
[2021-03-16] MEDS: Pantoprazole Sodium 40 MG Tablet PO (20:31)
[2021-03-16 22:09] LABS: Ferritin 752 ng/mL (26-388); Iron 160 ug/dL (65-175); Iron Binding Capacity,Total 156 ug/dL (250-450); LDH 363 U/L (87-241); PERCENT IRON SATURATION 102.6 % (15.0-55.0); Uric Acid 8.4 mg/dL (3.5-7.2)
[2021-03-16] MEDS: Heparin Injection (Vial) 5,000 UNIT/ML VIAL IV (22:43)
[2021-03-16 23:51] LABS: Vitamin B12 512 pg/mL (211-911)
[2021-03-17] VITALS (9 sets, daily range): BP systolic 95–121; BP diastolic 55–95; PULSE 88–97; RESP 18–20; TEMP 36.6–36.9; O2SAT 83–99
[2021-03-17 05:15] LABS: Absolute Lymphocyte Count 1.49 X10^3/uL (0.83-4.51); Basophil# 0.03 X10^3/uL; Basophil% 0.5 % (0-1); Eosinophil# 1.06 X10^3/uL; Hematocrit 29.6 % (40-54); Hemoglobin 9.5 g/dL (13.0-16.5); Lymphocyte # 1.49 X10^3/ul (0.83-4.51); Lymphocyte % 23.9 % (19-41); Mean Corp Hgb Conc 32.1 g/dL (32-36); Mean Corpuscular Hgb 30.1 pg (27.0-32.0); Mean Corpuscular Volume 93.7 fL (80-94); Mean Platelet Vol. 10.6 fl (6.2-12.0); Monocyte# 0.58 X10^3/uL; Monocyte% 9.3 % (0-10); NRBC Flagged by Analyzer 0 % (0-5); Neutrophil # 3.02 X10^3/uL (2.7-7.7); Neutrophil % 48.5 % (47-70); POSITIVE MORPHOLOGY YES; Platelet Count 149 K/mm3 (150-450); RBC Distribution Width CV 16.4 % (11.6-14.6); RBC Distribution Width SD 54.3 fl (35.1-43.9); Red Blood Count 3.16 M/mm3 (4.6-6.2); White Blood Count 6.2 K/mm3 (4.4-11.0)
[2021-03-17 05:17] LABS: Differential Indicated SCAN CRITERIA MET
[2021-03-17 05:27] LABS: Partial Thromboplast Time 60.2 Seconds (24.1-36.2)
[2021-03-17 05:29] LABS: Anion Gap 3 (5-15); BUN 29 mg/dL (7-18); BUN/Creat Ratio 20.3 RATIO (10-20); Calcium,Total 8.7 mg/dL (8.5-10.1); Chloride 105 mmol/L (98-107); Creatinine, Serum 1.43 mg/dL (0.70-1.30); EST Glomerular Filtration Rate 51 mL/min (>60); Est Glom Filt Rate - Afr Amer 62 mL/min (>60); Estimated Creatinine Clearance 45.38 ml/min; Glucose 119 mg/dL (74-106); Potassium 4.1 mmol/L (3.5-5.1); Sodium Level 135 mmol/L (136-145)
[2021-03-17 05:50] LABS: Atypical Lymphocyte RARE %; Differential Comment SCANNED
[2021-03-17] MEDS: Sucralfate 1 GM Tablet PO ×2 (06:32→10:39)
[2021-03-17] MEDS: Hydrocortisone 2.5% Crm 1 APPLIC TOPICAL (06:36)
[2021-03-17] MEDS: Albuterol 2.5 MG/3 ML VIAL.NEB. INHALATION ×2 (07:12→13:20)
--- NOTE | 2021-03-17 07:49 | PCM.PN.BLA ---
Progress Note Patient seen and examined during AM rounds. He is sitting out of bed in a chair. Oxygen is running but the flow rate is down to 2 and half liters a minute. Mr. Rodriguez still has some complaints about persistent fatigue and lower extremity/scrotal swelling. Lastly he remarks that his rash is still bothersome at night requiring him to turn frequently to minimize the itching. Physical Exam Const alert, oriented x3 and no apparent distress General Appearance: cooperative Orientation / Consciousness: oriented to person, oriented to place and oriented to time Groin / Perineum Exam: other Patient's left groin dressing is removed and incision is sealed beneath Dermabond. Remains well approximated and surrounding tissues are soft Scrotum: edematous Assessment & Plan Assessment/Plan (1) Inguinal adenopathy: PLAN: Postoperative day 2 from excisional biopsy of left inguinal lymph node. Pathology currently pending. Outer dressing removed and patient okay to begin bathing as desired. Instructed to avoid any submersion of the wound. Continue to monitor for any signs of swelling or acute pain developing. (2) Scrotal swelling: PLAN: Continue to elevate scrotum on a rolled towel to promote drainage (3) Pulmonary embolism: QUALIFIERS: Pulmonary embolism type: other Chronicity: acute Acute cor pulmonale presence: without acute cor pulmonale Qualified Code(s): I26.99 - Other pulmonary embolism without acute cor pulmonale PLAN: Okay to resume anticoagulation from a surgical standpoint. Patient continues to require supplemental oxygen. Patient evaluated by pulmonary medicine yesterday and plan is for aggressive diuresis. (4) Duodenal ulcer: PLAN: Biopsy results consistent with duodenal ulcer only. Continue Protonix and Carafate therapy while inpatient. Upon discharge continue Protonix and limit NSAIDs. (5) Signs and symptoms of anemia: PLAN: Patient's hemoglobin scratch this improved today. He continues to be fatigued. Unfortunately this fatigue could be a manifestation of more than his anemia as lymphoma remains at the top of his differential diagnosis. Continue to monitor for any signs of GI losses, but negative scopes and subsequent stable labs (despite anticoagulation with heparin) suggest any losses have stopped. (6) Splenic infarct: PLAN: Okay to resume anticoagulation. Visit Charges Inpatient E&M: 70383 Subs Hosp L2
[2021-03-17] MEDS: Furosemide 20 MG/2 ML VIAL IV (08:31)
[2021-03-17] MEDS: Ferrous Sulfate 325 MG Tablet PO (08:32)
[2021-03-17] MEDS: Finasteride 5 MG Tablet PO (08:32)
[2021-03-17] MEDS: Multivitamins,Therapeutic Tablet 1 TABLET PO (08:32)
[2021-03-17] MEDS: Pantoprazole Sodium 40 MG Tablet PO (08:32)
[2021-03-17] MEDS: APIXABAN 5 MG TABLET 10 MG PO (10:07)
--- NOTE | 2021-03-17 10:37 | CASEMGMT ---
Palliative referral to be sent per Dr. Maldonado for extensive lymphadenopathy w/ probable malignancy. Order placed and referral faxed. Pt to f/u with oncology next week for bx results. Call to palliative to notify of referral, voices understanding. Hilda BOWDEN CM
--- NOTE | 2021-03-17 11:50 | PCM.DC ---
Discharge Instructions Diet Discharge Diet: Low fat / Low cholesterol Activity Discharge Activity: Return to Normal Activity Dressing / Incision Call your doctor if you observe: Shortness of breath, Dizziness and Chest pain Follow Up Care Test Results: Test results from this visit will be discussed in further detail at your follow-up appointment, if applicable. Discharge Plan Admission Admit Date/Time: 03/10/21 16:45 Primary Reason for Your Visit: Pulmonary embolism, suspected lymphoma Attending Provider: Alona Maldonado Primary Care Provider: Yo Pedro Consulting Providers: Reza Aldana ; Mike Silverio ; Romulo Goode ; Jerome Grimes ; Halle Sebastian ; Marcin Burrell ; Rajat Guzman ; Aman Grimes ; Myles Caraballo ; Nini Yepez NP Discharge Orders/Prescriptions Prescriptions: New tamsulosin 0.4 mg Capsule 0.4 mg PO DAILY@1730 Qty: 30 RF: 0 pantoprazole 40 mg Tablet,Delayed Release (Dr/Ec) 40 mg PO BID Qty: 60 RF: 0 Eliquis 5 mg Tablet 10 mg PO BID Qty: 70 RF: 0 furosemide [Lasix] 40 mg tablet 40 mg PO BID Qty: 60 RF: 0 Continued finasteride 5 mg tablet 5 mg PO QDAY RF: 0 multivitamin Tablet 1 tab PO DAILY RF: 0 albuterol sulfate 90 mcg/actuation HFA aerosol inhaler 2 puff inhalation Q6H PRN (Reason: shortness of breath or wheezing) Qty: 8.5 RF: 1 Discontinued valsartan 80 mg tablet 80 mg PO DAILY Qty: 90 RF: 3 ibuprofen 200 mg capsule 200 mg PO Q6H PRN (Reason: Pain) RF: 0 ascorbic acid (vitamin C) 500 mg Tablet 500 mg PO DAILY RF: 0 ferrous sulfate 325 mg (65 mg iron) tablet 325 mg PO QODAY RF: 0 benzonatate [Tessalon Perles] 100 mg capsule 100 mg PO BID PRN (Reason: cough) Qty: 20 RF: 1 Referrals / Follow Up: Yo Pedro DO [Primary Care Provider] - See Referral Note (As scheduled with Kathy SHEEHAN 03/19/2021) Halle Sebastian MD [STAFF PHYSICIAN] - 03/24/21 10:30 am Disposition Disposition (needs filled in before D/C Order can be placed): Home, Self Care
--- NOTE | 2021-03-17 12:02 | CASEMGMT ---
This RN CM to room to discuss discharge plan with pt/. Pt will need to go home on 4L w/ exertion home oxygen and states preference for [facility] after list of local DME providers given. Referral faxed to [facility]. Pt states he will be getting a pulse ox for at home as well. Per Nini Yepez Heme/onc [employer], pt needs to f/u with them next week. Call to office and appt scheduled for 03/24/21 at 1030 and placed on pt discharge plan in [facility]. Pt/ voice no further questions/concerns/needs. S[place]en KAL CM
--- NOTE | 2021-03-17 12:34 | PCM.DC.SUM ---
Documented by User: Dilia Kang NP, INSTRUCTIONAL TECHNOLOGIST-C 03/17/21 12:41 Providers Date of Admission: 03/10/21 Date of Discharge: 03/17/21 Primary Care Physician: Dr. Yo Pedro, Consultations 03/10/21 18:10 Consult: General Surgery Routine Consulting Provider: Reza Aldana Reason for Consult: Concern poss GI bleed, need ruled out, has infarcts and suspect malignancy EMERGENT Consult: No MD Notified: Yes Date Notified: 03/10/21 Time Notified: 16:40 Method of Notification: talked 03/16/21 12:33 Consult: Oncology/Hematology Routine Consulting Provider: [facility]) Reason for Consult: Suspected lymphoma EMERGENT Consult: No MD Notified: Yes Date Notified: 03/16/21 Time Notified: 14:59 Method of Notification: Verbal 03/16/21 12:37 Consult: Armature Connector / Pulmonary Medicine Routine Consulting Provider: Mike Silverio Reason for Consult: Hypoxia, pleural effusion, PE EMERGENT Consult: No MD Notified: Yes Date Notified: 03/16/21 Time Notified: 12:40 Method of Notification: Text Reason For Visit: ? GI BLEED, SPLENIC INFARCTS, PNA, EFREN, POSSIBLE Diagnosis Discharge Diagnosis (1) Inguinal adenopathy: Status: Acute Code(s): R59.0 - Localized enlarged lymph nodes (2) Scrotal swelling: Status: Acute Code(s): N50.89 - Other specified disorders of the male genital organs (3) Pulmonary embolism: Status: Acute Code(s): I26.99 - Other pulmonary embolism without acute cor pulmonale Qualifiers: Acute cor pulmonale presence: without acute cor pulmonale Chronicity: acute Pulmonary embolism type: other Qualified Code(s): I26.99 - Other pulmonary embolism without acute cor pulmonale (4) Duodenal ulcer: Status: Acute Code(s): K26.9 - Duodenal ulcer, unspecified as acute or chronic, without hemorrhage or perforation (5) Signs and symptoms of anemia: Status: Acute Code(s): R68.89 - Other general symptoms and signs (6) Splenic infarct: Status: Acute Code(s): D73.5 - Infarction of spleen Medications at Discharge Home Medications finasteride 5 mg tablet 5 mg PO QDAY 10/25/17 albuterol sulfate 90 mcg/actuation aerosol inhaler 2 puff INHALATION Q6H PRN #8.5 g 03/03/21 multivitamin 1 tab PO DAILY 03/03/21 apixaban [Eliquis] 10 mg PO BID #70 tab 03/17/21 furosemide [Lasix] 40 mg PO BID #60 tab 03/17/21 pantoprazole 40 mg PO BID #60 tab 03/17/21 tamsulosin 0.4 mg PO DAILY@1730 #30 cap 03/17/21 Hospital Course Operations None Procedures 2-D Echocardiogram, Colonoscopy, EGD and - (Left inguinal lymph node biopsy) Summary of Care Provided Minutes Spent on Discharge: 35 Hospital Course: Patient is a 75-year-old male admitted 03/10/2021 due to dark stools and low blood pressure. 1. Acute hypoxic respiratory insufficiency secondary to acute PE and large left pleural effusion-Thoracentesis ordered however reported there was not enough fluid to drain. Echocardiogram demonstrated an EF of 75%, no evidence of diastolic dysfunction. Clinically improved with diuresis with Lasix. Continue Lasix 40 mg twice daily at discharge. Patient will require supplemental oxygen, 4 L nasal cannula with ambulation/exertion. He is ambulatory in the home. Continue supplement oxygen to maintain O2 at above 90%. Follow-up with PCP and oncology at discharge. 2. Diffuse peritoneal and retroperitoneal lymphadenopathy, concerning for malignancy/lymphoma-general surgery on consult, lymph node biopsy 03/15/21. CA 19/carcinoembryonic antigen negative/normal. Prior PSA elevated. Repeat PSA 10.7. Oncology consult placed. Follow-up with oncology for biopsy results and further treatment/management as scheduled 03/24/2021. 3. Large left basilar pleural effusion, suspect secondary to underlying malignant process- Afebrile, no leukocytosis. Left-sided thoracentesis canceled due to reported and significant fluid. Received IV antibiotics empirically during admission, no further indication for antibiotics at discharge. Patient symptomatically improved with diuresis. 4. Acute GI bleed, blood loss anemia, gastritis with duodenal ulcerations and colonic diverticulosis- General surgery consulted during admission. Underwent EGD/colonoscopy which demonstrated duodenal ulcerations, gastritis and colonic diverticulosis. No evidence of recent bleeding. Biopsies negative for h. pylori. S/P 2 unit PRBC. Hemoglobin has remained stable. Transition to oral PPI twice daily. 5. Acute PE/Acute splenic infarcts-suspected secondary to malignancy. Heparin drip during admission with transition to Eliquis at discharge. 6. Acute kidney injury-initially improved, creatinine fluctuating. Renal ultrasound demonstrates significant prostate enlargement with no hydronephrosis. FENa 0.2%, prerenal. 7. Hypertension-valsartan discontinued due to low blood pressure. 8. BPH-on finasteride. Flomax added. 9. Pruritic dermatitis-unclear if related to medication versus other etiology. Patient states he cannot take antihistamines. Topical corticosteroid. Improving. Physical Exam Const alert, oriented x3 and no apparent distress Orientation / Consciousness: awake, oriented to person, oriented to place and oriented to time HEENT normocephalic and moist oral mucous membranes Eyes PERRL, EOMs intact bilaterally and conjunctivae normal Neck no lymphadenopathy Resp Auscultation: wheezes and diminished lung sounds Cardio regular rate, regular rhythm and no murmurs Peripheral Pulses: pulses 2+ throughout GI normal to inspection, nondistended, normoactive bowel sounds, non-tender and non-distended Extremity General Extremity: edema bilateral lower extremity Details: moderate Skin no rashes or lesions noted Lesions: no lesions Rashes: no rashes Trauma: no lacerations or abrasions Neuro CN's II-XII intact bilaterally, no focal motor deficits, no sensory deficits noted and deep tendon reflexes 2+ bilaterally Psych mental status grossly normal and affect normal Patient seen and examined prior to discharge. Physical assessment as noted above. Patient is stable for discharge with follow up recommendations as noted above. This patient was seen by GREGORIO Calderon under the supervision of Dr. Maldonado. Weight / BMI Weight Weight: 234 lb 9.149 oz Body Mass Index (BMI) 29.9 ABG / Lab / Microbiology Data Result Diagrams: 03/17/21 04:46 03/17/21 04:46 Laboratory: Laboratory Results - last 24 hr 03/16/21 21:28: APTT 46.0 H 03/16/21 21:28: Uric Acid 8.4 H, Iron 160, TIBC 156 L, Iron Saturation 102.6 H, Ferritin 752 H, Lactate Dehydrogenase 363 H 03/16/21 21:28: Vitamin B12 512 03/17/21 04:46: WBC 6.2, RBC 3.16 L, Hgb 9.5 L, Hct 29.6 L, MCV 93.7, MCH 30.1, MCHC 32.1, RDW Std Deviation 54.3 H, RDW Coeff of Dmitry 16.4 H, Plt Count 149 L, MPV 10.6, Immature Gran % (Auto) 0.800, Neut % (Auto) 48.5, Lymph % (Auto) 23.9, [place] % (Auto) 9.3, Eos % (Auto) 17.0 H, Baso % (Auto) 0.5, Absolute Neuts (auto) 3.0, Absolute Lymphs (auto) 1.49, Nucleated RBC % 0, Differential Comment SCANNED, Atypical Lymphocytes RARE 03/17/21 04:46: Sodium 135 L, Potassium 4.1, Chloride 105, Carbon Dioxide 27.0, Anion Gap 3 L, BUN 29 H, Creatinine 1.43 H, Estim Creat Clear Calc 45.38, Est GFR (MDRD) Af Amer 62, Est GFR (MDRD) Non-Af 51 L, BUN/Creatinine Ratio 20.3 H, Glucose 119 H, Calcium 8.7 03/17/21 04:46: APTT 60.2 H Microbiology: Microbiology 03/12/21 09:26 Sputum, Expectorated/Coughed Gram Stain - Final 03/12/21 09:26 Sputum, Expectorated/Coughed Respiratory Culture - Final Mixed normal respiratory fartun. No Streptococcus pneumoniae, beta-hemolytic Streptococcus or Staphylococcus aureus isolated. 03/10/21 20:34 Mucosa - Nasopharyngeal Respiratory Panel (PCR) - Final 03/10/21 22:18 Urine, Clean Catch Legionella Antigen - Final 03/10/21 22:18 Urine, Clean Catch Streptococcus pneumoniae Antigen (M - Final 03/10/21 12:45 Nasal Secretion SARS-CoV-2 Antigen (Rapid) - Final 03/10/21 12:35 Stool Stool Occult Blood (SERGIO) - Final Radiography Diagnostic Testing: Radiology Impression Chest Ultrasound 03/16/21 08:00 IMPRESSION: Small left pleural effusion. Electronically Signed: Mihir Mathis MD at 13:25 EDT , Service support , Chest X-Ray 03/16/21 13:11 IMPRESSION: Small left pleural effusion with left basilar infiltrate. Electronically Signed: Mihir Mathis MD at 13:27 EDT , Service support , D/C Instructions Discharge Diet: Low fat / Low cholesterol Call your doctor if you observe: Shortness of breath, Dizziness and Chest pain Meaningful Use Info Meaningful Use Diagnoses (Choose all that apply): None applicable Discharge Plan Admission Admit Date/Time: 03/10/21 16:45 Primary Reason for Your Visit: Pulmonary embolism, suspected lymphoma Attending Provider: Alona Maldonado Primary Care Provider: Yo Pedro Consulting Providers: Reza Aldana ; Mike Silverio ; Romulo Goode ; Jerome Grimes ; Halle Sebastian ; Marcin Burrell ; Rajat Guzman ; Aman Grimes ; Myles Caraballo ; Nini Yepez INSTRUCTIONAL TECHNOLOGIST Discharge Orders/Prescriptions Prescriptions: New tamsulosin 0.4 mg Capsule 0.4 mg PO DAILY@1730 Qty: 30 RF: 0 pantoprazole 40 mg Tablet,Delayed Release (Dr/Ec) 40 mg PO BID Qty: 60 RF: 0 Eliquis 5 mg Tablet 10 mg PO BID Qty: 70 RF: 0 furosemide [Lasix] 40 mg tablet 40 mg PO BID Qty: 60 RF: 0 Continued finasteride 5 mg tablet 5 mg PO QDAY RF: 0 multivitamin Tablet 1 tab PO DAILY RF: 0 albuterol sulfate 90 mcg/actuation HFA aerosol inhaler 2 puff inhalation Q6H PRN (Reason: shortness of breath or wheezing) Qty: 8.5 RF: 1 Discontinued valsartan 80 mg tablet 80 mg PO DAILY Qty: 90 RF: 3 ibuprofen 200 mg capsule 200 mg PO Q6H PRN (Reason: Pain) RF: 0 ascorbic acid (vitamin C) 500 mg Tablet 500 mg PO DAILY RF: 0 ferrous sulfate 325 mg (65 mg iron) tablet 325 mg PO QODAY RF: 0 benzonatate [Tessalon Perles] 100 mg capsule 100 mg PO BID PRN (Reason: cough) Qty: 20 RF: 1 Referrals / Follow Up: Yo Pedro, DO [Primary Care Provider] - See Referral Note (As scheduled with Kathy SHEEHAN 03/19/2021) Halle Sebastian MD [STAFF PHYSICIAN] - 03/24/21 10:30 am Disposition Disposition (needs filled in before D/C Order can be placed): Home, Self Care Documented by User: Dr. Alona Maldonado MD 03/18/21 07:53 Providers Date of Admission: 03/10/21 Reason For Visit: ? GI BLEED, SPLENIC INFARCTS, PNA, EFREN, POSSIBLE Medications at Discharge Home Medications finasteride 5 mg tablet 5 mg PO QDAY 10/25/17 albuterol sulfate 90 mcg/actuation aerosol inhaler 2 puff INHALATION Q6H PRN #8.5 g 03/03/21 multivitamin 1 tab PO DAILY 03/03/21 apixaban [Eliquis] 10 mg PO BID #70 tab 03/17/21 furosemide [Lasix] 40 mg PO BID #60 tab 03/17/21 pantoprazole 40 mg PO BID #60 tab 03/17/21 tamsulosin 0.4 mg PO DAILY@1730 #30 cap 03/17/21 ABG / Lab / Microbiology Data Result Diagrams: 03/17/21 04:46 03/17/21 04:46 Discharge Plan Admission Admit Date/Time: 03/10/21 16:45 Primary Reason for Your Visit: Pulmonary embolism, suspected lymphoma Attending Provider: Alona Maldonado Primary Care Provider: Yo Pedro Consulting Providers: Reza Aldana ; Mike Silverio ; Romulo Goode ; Jerome Grimes ; Halle Sebastian ; Marcin Burrell ; Rajat Guzman ; Aman Grimes ; Myles Caraballo ; Nini Yepez INSTRUCTIONAL TECHNOLOGIST Discharge Orders/Prescriptions Prescriptions: New tamsulosin 0.4 mg Capsule 0.4 mg PO DAILY@1730 Qty: 30 RF: 0 pantoprazole 40 mg Tablet,Delayed Release (Dr/Ec) 40 mg PO BID Qty: 60 RF: 0 Eliquis 5 mg Tablet 10 mg PO BID Qty: 70 RF: 0 furosemide [Lasix] 40 mg tablet 40 mg PO BID Qty: 60 RF: 0 Continued finasteride 5 mg tablet 5 mg PO QDAY RF: 0 multivitamin Tablet 1 tab PO DAILY RF: 0 albuterol sulfate 90 mcg/actuation HFA aerosol inhaler 2 puff inhalation Q6H PRN (Reason: shortness of breath or wheezing) Qty: 8.5 RF: 1 Discontinued valsartan 80 mg tablet 80 mg PO DAILY Qty: 90 RF: 3 ibuprofen 200 mg capsule 200 mg PO Q6H PRN (Reason: Pain) RF: 0 ascorbic acid (vitamin C) 500 mg Tablet 500 mg PO DAILY RF: 0 ferrous sulfate 325 mg (65 mg iron) tablet 325 mg PO QODAY RF: 0 benzonatate [Tessalon Perles] 100 mg capsule 100 mg PO BID PRN (Reason: cough) Qty: 20 RF: 1 Referrals / Follow Up: Yo Pedro DO [Primary Care Provider] - See Referral Note (As scheduled with Kathy SHEEHAN 03/19/2021) Halle Sebastian MD [STAFF PHYSICIAN] - 03/24/21 10:30 am Disposition Disposition (needs filled in before D/C Order can be placed): Home, Self Care Charges/Coding Addendum Addendum: This patient was seen in conjunction with Dilia Kang. I have independently interviewed and examined the patient and reviewed pertinent historical, laboratory, and other data. I have reviewed her note and concur with her documentation 75-year-old male who presented to the hospital with abdominal discomfort and GI bleed. His COVID test was negative. Patient was tachycardic and hypotensive. Patient reported having dark loose stools on the day of presentation. He had taking naproxen and ibuprofen. He also had acute kidney injury. CT of the abdomen showed diffuse peritoneal and retroperitoneal lymphadenopathy, extending into the pelvis, marked degree of splenomegaly with findings suggestive of peripheral infarcts, hepatomegaly and small left pleural effusion with left basilar infiltrate. Patient required more oxygen during his hospital stay. He was tachycardic, had low-grade temperature. He had a lymph node biopsy done on 03/15/21. He also had an EGD and colonoscopy done which showed duodenal ulcerations, gastritis as well as colonic diverticulosis. H. pylori was negative. Patient got 2 units of packed RBCs. His 2D echo showed an EF of 75%, no evidence of diastolic dysfunction. An attempt at thoracocentesis was unsuccessful as patient did not have sufficient fluid to drain. Palliative care was consulted during this hospital stay. Patient was discharged on oxygen Physical Exam: Gen: Appears comfortable on 3 L of oxygen, not pale, not jaundiced CVS:HS I +II, regular, no murmurs RESP: Diminished at lung bases GI: BS present and normal, soft, nontender, no palpable organs EXT: Bilateral lower leg edema, +2 ASSESSMENT: 1. Acute hypoxic respiratory failure secondary to acute PE/large left pleural effusion 2. Diffuse peritoneal retroperitoneal lymphadenopathy 3. Large left pleural effusion 4. Acute GI bleed 5. Acute PE/acute splenic infarct 6. EFREN 7. Hypertension 8. BPH Visit Charges Inpatient E&M: 71082 Disch Hosp
--- NOTE | 2021-03-17 13:40 | CON.PCM.PA_ITS ---
Assessment & Plan Assessment/Plan (1) Shortness of breath: (2) Fatigue: QUALIFIERS: Fatigue type: unspecified Qualified Code(s): R53.83 - Other fatigue (3) Cough: (4) Pulmonary embolism: QUALIFIERS: Acute cor pulmonale presence: without acute cor pulmonale Chronicity: acute Pulmonary embolism type: other Qualified Code(s): I26.99 - Other pulmonary embolism without acute cor pulmonale (5) Lymphoma: QUALIFIERS: Lymphoma site: unspecified region Lymphoma type: unspecified type Qualified Code(s): C85.90 - Non-Hodgkin lymphoma, unspecified, unspecified site (6) Splenic infarct: (7) Splenomegaly: (8) Inguinal adenopathy: (9) Mediastinal lymphadenopathy: (10) Duodenal ulcer: (11) Thickened small bowel: (12) Pleural effusion on left: (13) Acute hypotension: (14) Anemia: QUALIFIERS: Anemia type: iron deficiency Iron deficiency anemia type: unspecified iron deficiency Qualified Code(s): D50.9 - Iron deficiency anemia, unspecified (15) Enlarged prostate: (16) Hypertension: QUALIFIERS: Hypertension type: unspecified Qualified Code(s): I10 - Essential (primary) hypertension (17) Allergic rhinitis: QUALIFIERS: Allergic rhinitis seasonality: non-seasonal Allergic rhinitis trigger: pollen Qualified Code(s): J30.1 - Allergic rhinitis due to pollen PLAN: 75-year-old male with newly diagnosed lymphoma, presented with increased shortness of breath and lymphadenopathy, abdominal pain, and bloody stools. Seen today for palliative consultation secondary to supportive care and management of shortness of breath. 1. Shortness of breath: He does have new PEs, anticoagulated. He will follow- up with pulmonary and PCP. Declines palliative, going to contact us if he wants further evaluation. Treating underlying conditions for now, no indication for addition of any palliative medications. Goals of care if he does decide to enroll with palliative would be symptom management, augmentation of current plan of care, and improvement of quality of life. 2. Fatigue: Multifactorial, doing well with therapy. 3. PE/splenomegaly/splenic infarct/duodenal ulcer/left pleural effusion/hypertension/anemia/enlarged prostate/hypertension/allergic rhinitis: Complicates overall care, management, recovery, and prognosis. Patient should follow-up with specialist and PCP for management. Thank you for the opportunity to participate in this patient's care, please do not hesitate to contact [facility] with any further questions or conc erns. Palliative direct line is [phone]. Patient has declined palliative services at this time but took information and will call once he gets all of his appointments arranged as an outpatient. Greater than 50% of F2F visit dedicated to education and counseling of palliative care services, medications, comorbid conditions and potential assistance with management, and plan of care moving forward. Start time: 1340 End time: 1419 HPI Consult Data Date of Consult: 03/17/21 HPI Narrative HPI Narrative: WINNIE RODRIGUEZ, is a 75 M who presented to [facility] with increased shortness of breath, dark loose stools, and hypertension . Patient had been on naproxen and ibuprofen. Having some abdominal discomfort. Presented to the ED for further evaluation. CT the abdomen pelvis showed diffuse. Peritoneal and retroperitoneal lymphadenopathy extending into the pelvis, marked degree of splenomegaly with findings suggestive of peripheral infarcts, hepatomegaly, small left pleural effusion with left basilar infiltrate. He had a low-grade temp and was tachycardic with a blood pressure of 99/58. His white count was 5.5. He did have an EFREN. Palliative care consulted secondary to his current health status with mediastinal lymphadenopathy, probable lymphoma, new PEs, and generalized weakness. General surgery was consulted while patient was in the hospital, as well as [facility]. Lymph node biopsy 03/15/2021. Also had EGD/colonoscopy which demonstrated duodenal ulcerations, gastritis, colonic diverticulosis. No evidence of recent bleeding. H. pylori was negative. He did require 2 units of PRBCs. Lock Tender also saw the patient due to his hypoxia and pleural effusion, PE. He was to have a thoracentesis however there was insufficient fluid to drain. Renal ultrasound demonstrated a significant prostate enlargement with no hydronephrosis. He did have an echocardiogram that showed an EF of 75%, no evidence of diastolic dysfunction. He was diuresed with Lasix and required supplemental oxygen 4 L, which he is going home with. Patient lives with his and has been independent with all ADLs. He drives. DME in the home include cane, walker, shower chair. He has not had previous home oxygen. He does not smoke or drink. Still working full-time. He uses [facility] in [place] for pharmacy. Follows with Dr. Fregoso for urology and his PCP is Dr. Pedro. He does have a living will and healthcare power of document review attorney, Kylah Rodriguez is his /HCPOA. Patient sitting up in his recliner with legs elevated, at bedside. He is alert and oriented. Denies any current shortness of breath or chest pain. He does get short of breath with exertion. No nausea, vomiting, diarrhea. No abdominal pain. He does have baseline urinary issues and follows with Dr. Eller. Also has new lower extremity edema, 1-2+ pitting. No peripheral neuropathy symptoms, no pain to his legs. No dizziness or syncope. Blood pressures have improved but still on the lower side. Systolic is ranging in the 80s to 90s. [facility] Medical History Enlarged prostate Hypertension Mediastinal lymphadenopathy Home Medications finasteride 5 mg tablet 5 mg PO QDAY 10/25/17 [History Last Taken 03/09/21] albuterol sulfate 90 mcg/actuation aerosol inhaler 2 puff INHALATION Q6H PRN #8.5 g 03/03/21 [Rx Last Taken 03/08/21] multivitamin 1 tab PO DAILY 03/03/21 [History Last Taken 03/08/21] apixaban [Eliquis] 10 mg PO BID #70 tab 03/17/21 [Rx Last Taken Unknown] furosemide [Lasix] 40 mg PO BID #60 tab 03/17/21 [Rx Last Taken Unknown] pantoprazole 40 mg PO BID #60 tab 03/17/21 [Rx Last Taken Unknown] tamsulosin 0.4 mg PO DAILY@1730 #30 cap 03/17/21 [Rx Last Taken Unknown] Allergy/AdvReac Type Severity Reaction Status Date / Time Antihistamines - Ethanolamine Allergy Severe rash Verified 03/10/21 12:11 MUCOUS RELIEF DM Allergy Rash Uncoded 03/10/21 12:12 Family History Father Cancer Prostate and Colon CA. Colon cancer Hypertension Grandfather CVA (cerebral vascular accident) Myocardial infarction Mother Hypertension Surgical History History of appendectomy History of tonsillectomy Social History household members: spouse housing: house Smoking Status: Never smoker alcohol intake: never substance use type: does not use what type of physical activity do you participate in: none ROS ROS Narrative Review of systems otherwise negative from a constitutional, HEENT, respiratory, cardiovascular, GI, genitourinary, musculoskeletal, skin, neurologic, psychiatric and hematologic system unless stated above. Physical Exam Const alert, oriented x3 and no apparent distress General Appearance: cooperative and comfortable HEENT normocephalic and head/scalp atraumatic Neck supple General: trachea midline Resp normal respiratory effort Effort and Inspection: able to speak in complete sentences and symmetric chest movement Auscultation: diminished lung sounds; Negative for rales, rhonchi or wheezes Cardio regular rate, regular rhythm, S1 normal heart sound and S2 normal heart sound GI normal to inspection, nondistended, normoactive bowel sounds Skin no rashes or lesions noted Neuro moves all extremities and no focal motor deficits Psych mental status grossly normal Appearance: grossly normal Attitude: calm and engaged Activity / Motor Behavior: appropriate eye contact Speech: normal speech Thought Process: normal thought process Thought Content: normal thought content Memory / Cognition: memory grossly intact Insight: insight good Judgement: judgement good
--- NOTE | 2021-03-17 14:37 | PHA.DC.MR ---
Pharmacy Service has performed discharge medication reconciliation for this patient. The patient's discharge medication list was reviewed for discrepancies and discrepancies were resolved. Medication education papers prepared but patient was discharged when I went to community health counselor. Home Medications finasteride 5 mg tablet 5 mg PO QDAY 10/25/17 albuterol sulfate 90 mcg/actuation aerosol inhaler 2 puff INHALATION Q6H PRN #8.5 g 03/03/21 multivitamin 1 tab PO DAILY 03/03/21 apixaban [Eliquis] 10 mg PO BID #70 tab 03/17/21 furosemide [Lasix] 40 mg PO BID #60 tab 03/17/21 pantoprazole 40 mg PO BID #60 tab 03/17/21 tamsulosin 0.4 mg PO DAILY@1730 #30 cap 03/17/21
[2021-03-19 04:07] LABS: HEPATITIS B SURFACE AG 6510 Negative (Negative)
[2021-03-19 08:34] LABS: Hep B Surface Antibodies Non Reactive (.); Hep C Antibodies <0.1 s/co ratio (0.0-0.9)
== END 2021-03-17 14:38 | disposition home or self-care (01) | DRG 823 ==
LOC: ED 16:53 → PCU 17:16
PROVIDERS: Family Medicine; Internal Medicine; Nurse Practitioner Family; Surgery; Admitting Provider Family Medicine; Emergency Provider Emergency Medicine; PCP Family Medicine; Visit Provider Internal Medicine
PROC: 0DJD8ZZ Inspection of Lower Intestinal Tract, Via Natural or Artificial Opening Endoscopic (ICD-10-PCS; CPT 45378; principal; 2021-03-11 14:55)
PROC: 07BJ0ZX Excision of Left Inguinal Lymphatic, Open Approach, Diagnostic (ICD-10-PCS; CPT 38500; principal; 2021-03-15 12:15)
DX: C85.93 Non-Hodgkin lymphoma, unspecified, intra-abdominal lymph nodes (principal); I26.99 Other pulmonary embolism without acute cor pulmonale; J96.01 Acute respiratory failure with hypoxia; N17.9 Acute kidney failure, unspecified; J91.0 Malignant pleural effusion; K26.9 Duodenal ulcer, unspecified as acute or chronic, without hemorrhage or perforation; K29.00 Acute gastritis without bleeding; K57.30 Diverticulosis of large intestine without perforation or abscess without bleeding; D50.0 Iron deficiency anemia secondary to blood loss (chronic); N28.1 Cyst of kidney, acquired; I27.20 Pulmonary hypertension, unspecified; D69.6 Thrombocytopenia, unspecified; I95.1 Orthostatic hypotension; N50.89 Other specified disorders of the male genital organs; K20.90 Esophagitis, unspecified without bleeding; K31.7 Polyp of stomach and duodenum; I10 Essential (primary) hypertension; I25.2 Old myocardial infarction; K62.1 Rectal polyp; L30.8 Other specified dermatitis; N40.0 Benign prostatic hyperplasia without lower urinary tract symptoms; Z90.49 Acquired absence of other specified parts of digestive tract; Z79.01 Long term (current) use of anticoagulants; Z79.899 Other long term (current) drug therapy
CPT/HCPCS: 36415; 71046; 71275; 74177; 76604; 76770; 80048; 80053; 80076; 82274; 82378; 82570; 82607; 82728; 82962; 83540; 83550; 83615; 83735; 84145; 84153; 84156; 84300; 84550; 85014; 85018; 85025; 85027; 85610; 85730; 86301; 86706; 86803; 86850; 86900; 86901; 86920; 86922; 87070; 87205; 87340; 87426; 87449; 87633; 88305; 88312; 88313; 88342; 93005; 93306; 94640; 94667; 94668; 97110; 97116; 97162; 97165; 97530; 97802; 97803; 99251; 99285; J7030; J7050; J7120; P9016; Q9967; A4216; G0463; J1940

== ENCOUNTER → 2021-03-15 14:29 | Outpatient (CLI) | payer MEDICARE, SELFPAY ==
--- NOTE | 2021-03-15 | IMM_PTH ---
PATIENT: WINNIE SCOTT LOC: EN U#:[id number] AGE/SX: 79/M ROOM: RE03/15/[address]: Dr. Reza Aldana MD : 1945 BED: DIS: SPEC #: [id number] RECD: 03/17/21 14:08 STATUS: JELLY REQ #: [id number] DELIO: 03/15/21 00:[address]: Reza Aldana DEPT: IMMUNOHISTOCHEMISTRY RECD BY: Zoraida Persaud ENTERED: 03/17/21 14:10 SP TYPE: IMMUNO OTHR DR: Dr. Yo Pedro, Tissues: Inguinal lymph node, NOS Procedures: BCL-2 (add) BCL-6 (add) CD10 (add) CD138 (add) CD15 (add) CD20 (add) CD23 (add) CD3 (add) CD30 (add) CD43 (add) CD45 (add) CD5 (add) CD79A (add) CYCLIN (add) RAQUEL (add) KAPPA (add) KI-67 (add) LAMBDA (add) MUM1 (add) C-MYC (add) Pankeratin (initial) PHYSICIAN & INSTITUTION [facility] [id number] SPECIMEN INFORMATION: Tissue Source: Left inguinal lymph node Clinical Info: Lymphadenopathy abdominal, scrotal swelling Specimen Number: [id number] #2 CPT code: 43312, 67232 x20 METHODOLOGY: Deparaffinized sections of prefer/formalin-fixed tissue or PAP/DQ stained slides are incubated with monoclonal/polyclonal antibodies/oligonucleotide probes. Localization is made via biotin free immunoperoxidase method. Appropriate controls are performed and reacted as expected. Results on target cell population are indicated in the following table: RESULTS: ANTIBODY / CLONE RESULT Block 2 AE1-3 (AE1/AE3/PCK26) negative CD3 (PS1) negative CD5 (SP10) positive CD10 (56C6) negative CD15 (MMA) negative CD20 (L26) positive CD23 (1B12) negative CD30 (Christopher-H2) negative CD43 (L60) positive CD45 (RP2/18) positive CD79a (11E3) positive CD138 (B-A38) negative BCL-2 (bcl-2/100/D5) positive BCL-6 (FM937X/A8) negative Cyclin D1/BCL-1 (SP4) positive MUM1 (MRQ-43) positive C-MYC (Y69) negative Latty (polyclonal) negative Lambda (polyclonal) negative RAQUEL (E29) negative Ki-67 (30-9) positive, >95% These tests were developed and their performance characteristics determined by [facility]. They may not have been cleared or approved by the U.S. Food and Drug Administration. The FDA has determined that such clearance or approval is not necessary. The above immunohistochemical/dualISH markers are ordered and reviewed by the Pathologist. INTERPRETATION: Left inguinal lymph node, biopsy: Consistent with mantle cell lymphoma. AM:bob 03/19/2021 Case has been reviewed in consultation with Dr. Cagle who concurs with the above diagnosis. IDC:SJ
--- NOTE | 2021-03-15 | LYMN_PTH ---
PATIENT: WINNIE SCOTT LOC: EN U#:[id number] AGE/SX: 79/M ROOM: RE03/15/[address]: Dr. Reza Aldana MD : 1945 BED: DIS: SPEC #: [id number] RECD: 03/15/21 13:32 STATUS: JELLY FARAZ #: [id number] DELIO: 03/15/21 00:[address]: Reza Aldana DEPT: SURGICAL PATHOLOGY RECD BY: Zoraida Persaud ENTERED: 03/15/21 14:05 SP TYPE: LYMPH NODE OTHR DR: Dr. Yo Pedro DO Tissues: LYMPH NODE BIOPSY Procedures: Frozen Section (charge) Surgery Specimen Level IV HEADER OPERATION: Lymph node biopsy, inguinal area PRE-OP DIAGNOSIS: Lymphadenopathy abdominal, scrotal swelling TISSUE SUBMITTED: Left inguinal lymph node, frozen section FROZEN SECTION DIAGNOSIS Left inguinal lymph node, biopsy: Atypical lymph node tissue, suspicious for lymphoma. A section is submitted for flow cytometry studies. SJ:bob 03/15/2021 MICROSCOPIC DIAGNOSIS Left inguinal lymph node, excisional biopsy: Consistent with mantle cell lymphoma. See comment. AM:bob 03/18/2021 COMMENT Immunohistochemistry ([id number]) supports the above diagnosis. Flow cytometry analysis reveals B-cell lymphoma that is CD5 positive. A t(11;14) molecular study may be performed if necessary. Case has been reviewed in consultation with Dr. Cagle who concurs with the above diagnosis. IDC:[email or web address] MICROSCOPIC DESCRIPTION Slides are reviewed. GROSS DESCRIPTION Received fresh for frozen diagnosis labeled with the patient's name is a specimen designated left inguinal lymph. The specimen consists of an irregular piece of pink-red soft tissue measuring 3.5 x 3 x 1 cm. Sections reveal pink-red, fleshy-cut surfaces. A section is submitted for frozen section diagnosis. Two touch imprints are prepared. A section is also submitted for flow cytometry studies. The entire specimen is submitted in five cassettes as follows: 1 ? frozen section, 2-5 ? rest of the specimen. / SJ:rg 03/15/21 TC:0 [facility]: [id number], [id number] ADDENDUM ADDENDUM ADDENDUM ADDENDUM ADDENDUM ADDENDUM 03/29/2021 10:37 ADDENDUM 03/29/2021 10:37 ADDENDUM 03/29/2021 10:37 ADDENDUM 03/29/2021 10:37 ADDENDUM 03/29/2021 10:37 FLUORESCENCE IN-SITU HYBRIDIZATION (FISH) FROM [employer] INTERPRETATION: Positive for CCND1-IGH [(translocation t(11;14)] gene rearrangement. Please see complete report in e-chart or EMR
== END ==
PROVIDERS: PCP Family Medicine; Visit Provider Surgery
DX: N50.89 Other specified disorders of the male genital organs (principal); R59.0 Localized enlarged lymph nodes
CPT/HCPCS: 88305; 88331; 88341; 88342

== ENCOUNTER 2021-03-29 09:10 | Day surgery (SDC) | payer MEDICARE, SELFPAY ==
[2021-03-29] VITALS (10 sets, daily range): BP systolic 86–107; BP diastolic 54–69; PULSE 94–104; RESP 16–918; TEMP 36.6–36.8; O2SAT 92–96; BMI 32.5
--- NOTE | 2021-03-29 10:00 | PCM.HP.STD ---
HPI - General HPI Narrative WINNIE SCOTT, is a 75 M who presents to the day surgery area for insertion of a Port-A-Cath. He is well-known to me from a recent admission where he was diagnosed with mantle cell lymphoma after a left inguinal lymph node biopsy. I have been asked to place the port by oncology so that he can begin chemo treatments on 04/01/2021. He has no prior history of central lines. He continues to have a cutaneous rash that began during the latter half of his hospital stay. Topical steroids appear to be helping but the rash continues to spread in a caudad direction. The rash is associated with itching but Mr. Scott is doing his best to abstain from scratching. It was initially believed this rash was related to an antibiotic infusion, however he is not been continued on antibiotics since his last admission. [facility] [place] Medical History (Updated 03/26/21 @ 09:07 by Jaja Sandy) Anemia Asthma Cancer Chronic cough Dietary restriction Duodenal ulcer Encounter for education Enlarged prostate Gout History of echocardiogram History of edema History of steroid therapy History of ulceration Hypertension Infiltrate of lung present on computed tomography Mantle cell lymphoma Non-smoker On home oxygen therapy Pneumonia Prostate disease Pulmonary embolism Rash Renal cysts, acquired, bilateral Restless legs Shortness of breath on exertion Splenic infarct Wears glasses Home Medications finasteride 5 mg tablet 5 mg PO QDAY 10/25/17 [History Last Taken 03/09/21] albuterol sulfate 90 mcg/actuation aerosol inhaler 2 puff INHALATION Q6H PRN #8.5 g 03/03/21 [Rx Last Taken 03/08/21] multivitamin 1 tab PO DAILY 03/03/21 [History Last Taken 03/08/21] furosemide [Lasix] 40 mg PO BID #60 tab 03/17/21 [Rx Last Taken Unknown] pantoprazole 40 mg PO BID #60 tab 03/17/21 [Rx Last Taken 03/29/21 0630] tamsulosin 0.4 mg PO DAILY@1730 #30 cap 03/17/21 [Rx Last Taken Unknown] hydrocortisone 2.5 % topical cream 1 applic TOPICAL BID PRN #30 g 03/19/21 [Rx Last Taken Unknown] allopurinol 300 mg PO DAILY 20 Days #20 tab 03/24/21 [Rx Last Taken Unknown] prednisone 100 mg PO DAILY 5 Days #50 tab 03/24/21 [Rx Last Taken Unknown] lidocaine-prilocaine 2.5 %-2.5 % topical cream 1 applic TOPICAL ONCE PRN 30 Days #30 g 03/25/21 [Rx Last Taken Unknown] ondansetron 8 mg disintegrating tablet 8 mg PO Q8H PRN #30 tab 03/25/21 [Rx Last Taken Unknown] apixaban [Eliquis] 5 mg PO BID 03/26/21 [History Last Taken 03/26/21] Allergy/AdvReac Type Severity Reaction Status Date / Time Antihistamines - Ethanolamine Allergy Severe rash Verified 03/26/21 08:45 MUCOUS RELIEF DM Allergy Rash Uncoded 03/26/21 08:45 Family History Father Cancer Prostate and Colon CA. Colon cancer Hypertension Grandfather CVA (cerebral vascular accident) Myocardial infarction Mother Hypertension Surgical History (Updated 03/26/21 @ 09:07 by Jaja Sandy) History of appendectomy History of esophagogastroduodenoscopy (EGD) History of tonsillectomy Hx of colonoscopy Hx of lymph node biopsy Social History household members: spouse housing: house Smoking Status: Never smoker second hand exposure: No alcohol intake: never substance use type: does not use what type of physical activity do you participate in: none yosef/protestant: Mennonite seatbelt use: always do you feel safe at home: Yes Vital Signs Vital Signs Vital Signs: 03/29/21 09:37 Temperature Source Temporal Pulse Rate 104 H Respiratory Rate 16 Respiratory Pattern Normal Blood Pressure 107/67 Blood Pressure Mean 80 Blood Pressure Source Monitor Blood Pressure Position Semi-Fowlers Blood Pressure Location Right Arm Pulse Ox 94 Oxygen Delivery Method Nasal Cannula Oxygen Flow Rate (L/min) 2 Weight Weight: 233 lb 11.04 oz Body Mass Index (BMI) 32.5 Physical Exam Const alert, oriented x3 and no apparent distress Chest inspection of chest normal Chest: Negative for wounds, scars or rash Resp normal respiratory effort Assessment & Plan Assessment/Plan (1) Mantle cell lymphoma: QUALIFIERS: Lymphoma site: multiple regions Qualified Code(s): C83.18 - Mantle cell lymphoma, lymph nodes of multiple sites PLAN: Plan for placement of right versus left internal jugular Mediport via ultrasound guidance. Postoperative care and general access precautions were given to both patient and spouse. They expressed understanding and denied any further questions. Plan to proceed to the OR today.
[2021-03-29] MEDS: Cefazolin 2 GM in 0.9% Normal Saline 100 ML IV (10:10)
[2021-03-29] MEDS: Bupivacaine 0.25% 30 ML Vial (10:35)
--- NOTE | 2021-03-29 11:24 | DCINST_ITS ---
Discharge Instructions Diet Discharge Diet: No restrictions Activity Discharge Activity: May Not Drive (While taking prescription pain medications) and May Shower Dressing / Incision Call your doctor if your incision/area has: Continuous Slow Oozing, Sudden Increased Bleeding, Increased Pain/ Swelling and Increased Redness Call your doctor if you observe: Fever of 101 or Higher, Coldness, Increased Pa in, Numbness or Tingling and Chest pain Change Dressing in: do not change dressing Remove Dressing in: do not remove dressing Cleanse incision/area with: Soap & Water Follow Up Care Test Results: Test results from this visit will be discussed in further detail at your follow-up appointment, if applicable. Discharge Plan Admission Primary Reason for Your Visit: Insertion of right internal jugular Mediport Attending Provider: Reza Aldana Primary Care Provider: Yo Pedro Instructions Patient Instructions: Caring for Your Central Vein Access Discharge Orders/Prescriptions Prescriptions: No Action finasteride 5 mg tablet 5 mg PO QDAY RF: 0 multivitamin Tablet 1 tab PO DAILY RF: 0 albuterol sulfate 90 mcg/actuation HFA aerosol inhaler 2 puff inhalation Q6H PRN (Reason: shortness of breath or wheezing) Qty: 8.5 RF: 1 lidocaine-prilocaine 2.5-2.5 % cream 1 applic topical ONCE PRN (Reason: port access) 30 Days Qty: 30 RF: 2 ondansetron 8 mg tablet,disintegrating 8 mg PO Q8H PRN (Reason: nausea and vomiting) Qty: 30 RF: 2 allopurinol 300 mg Tablet 300 mg PO DAILY 20 Days Qty: 20 RF: 0 prednisone 10 mg Tablet 100 mg PO DAILY 5 Days Qty: 50 RF: 0 tamsulosin 0.4 mg Capsule 0.4 mg PO DAILY@1730 Qty: 30 RF: 0 pantoprazole 40 mg Tablet,Delayed Release (Dr/Ec) 40 mg PO BID Qty: 60 RF: 0 furosemide [Lasix] 40 mg tablet 40 mg PO BID Qty: 60 RF: 0 Eliquis 5 mg tablet 5 mg PO BID RF: 0 hydrocortisone 2.5 % cream 1 applic topical BID PRN (Reason: rash, itching) Qty: 30 RF: 1 Referrals / Follow Up: Yo Pedro DO [Primary Care Provider] - Disposition Disposition (needs filled in before D/C Order can be placed): Home, Self Care
--- NOTE | 2021-03-29 11:49 | RAD_ITS ---
STUDY: X-RAY CHEST REASON FOR EXAM: Male, 75 years old. PORT PLACEMENT TECHNIQUE: Single AP portable view of the chest. COMPARISON: Comparison is made with prior study dated 03/16/2021. FINDINGS: A right-sided nikolai catheter has been placed. The distal tip is seen within the superior vena cava at the junction with the right brachiocephalic vein. The midportion of the catheter is buckled along the right side of the neck. Left pleural effusion with left basilar atelectasis and/or infiltrate. There is no demonstrated pleural abnormality. Normal size heart. Normal mediastinum and ledy. Normal visualized pulmonary arteries. There is atherosclerotic tortuosity of the aortic arch and descending thoracic aorta. There are diffuse degenerative changes of the visualized thoracic spine. There is degenerative osteoarthritis of the bilateral shoulders. There is no demonstrated abnormality of the visualized soft tissue structures of the upper abdomen. RAD/CXR for Line Placement IMPRESSION: The tip of the right nikolai catheter is at the junction of the superior vena cava and right brachiocephalic vein. The midportion of the catheter is buckled along the right side of the neck. Electronically Signed: Mihir Mathis MD at 12:06 EDT , Service support ,
--- NOTE | 2021-03-29 13:09 | PCM.OPRPT ---
Problems Associated Problem List Diagnoses (1) Mantle cell lymphoma: Report of Operation Date of Procedure: 03/29/21 Pre-Operative Diagnosis: Mantle cell lymphoma requiring chemotherapy Post-Operative Diagnosis: Same Surgery/Procedure Performed:: Insertion of ultrasound?guided right internal jugular Mediport Description of Surgical Findings:: Insertion of 8F PowerPort, MRI implantable port. Lot R [id number] Surgeon: Reza Aldana database engineer: None Type of Anesthesia: General/Supplemental Anesthesiologist: Migue Moser Specimen's removed: NA Drains: NA Description of Procedure: After appropriate identification in the preoperative holding area the patient was brought to the operating room. There he was administered preoperative antibiotics, positioned supine on the operating room table and sequential compression devices were connected. Once sedation was begun, he experienced desaturations and anesthesia expressed greater comfort and converting to a general anesthetic. Therefore, general anesthesia was induced and an LMA was placed. The upper chest and lower cervical region were prepped and draped in usual sterile fashion. A formal timeout was then conducted to confirm both the patient and procedure. Ultrasound was used to localize the right internal jugular vein. Then a wheal of half percent bupivacaine was raised superficially in this location. As I made a stab incision in the neck at this point, there was more bleeding then expected and making quick reference with the ultrasound I determined that I had partially lacerated a unnamed crossing vein from the external jugular. Therefore, I used some Monocryl to encircle the vein in a [id number] fashion and tie it off. Pressure was held until there was hemostasis. The skin site was then closed and I moved my access more caudad. Again a wheal of local anesthetic was raised, and a stab incision was made. This time the pocket was bluntly opened and the vein was accessed under direct ultrasound guidance using a Seldinger technique to place a guidewire. The position of the guidewire was confirmed with fluoroscopy. Next the position of the port pocket was determined and again local anesthetic was used to anesthetize the area of both the pocket and the tunneling cephalad. A transverse incision approximately 3 cm in width was made down through the subcutaneous tissue. Selective electrocautery was used to obtain hemostasis. Then the port pocket was developed with blunt dissection. The catheter was connected to the tunneler and was tunneled up to the position of the guidewire. Here the dilator and peel-away sheath were placed over the guidewire under fluoroscopic imaging. After placement of the peel-away sheath, the guidewire was removed. Position was again confirmed with fluoroscopy. The catheter length was estimated based on the external anatomic landmarks and the peel-away sheath was broken. The catheter was then fed into the sheath for a distance of 15 cm and slowly the sheath was peeled away as forward pressure was maintained on the catheter. Back at the chest, I realized the distal end of the catheter had not been occluded and there was approximately 150 cc of blood that had coursed down the side of the drape in a fold onto the floor. The catheter was quickly occluded at this point and the excess catheter was trimmed. The connector piece was attached to the catheter and the port was connected to the catheter. The port was tied into the pocket using 3-0 Vicryl. Function was then tested using sterile saline on a Mendoza needle. It was locked with four mL of heparinized saline (concentration 1 to 100 units). The port pocket was closed with a deep dermal stitch using a running 3-0 Vicryl followed by 4-0 Monocryl subcuticular stitch. The 1 cm incision in the neck was closed with a single interrupted subcuticular stitch using 4-0 Monocryl. Dermabond was applied as a dressing. Patient was then aroused from the sedation and taken to PACU for ongoing recovery where a portable chest x-ray was obtained to confirm port positioning and exclude any pneumothorax. Unfortunately this x-ray did show that the catheter appeared to have backed out of the vein slightly and was not as deep as intended. After discussion with the patient, I made the decision to test the port function by accessing it using a Mendoza needle. After sterile preparations were made, the Mendoza needle was inserted and the port aspirated and flushed with ease. Satisfied with his result, the port was locked again with another 4 mL of heparinized saline (concentration 1 to 100 units) and deaccessed with the needle. Admit VTE Documentation VTE Mechan Device Prophylaxis: SCD's Procedures Cardiovascular CF Procedures [id number]: [id number] Insert tunneled cv cath
== END 2021-03-29 14:01 | disposition home or self-care (01) ==
LOC: SDC 09:17 → AC 09:18
PROVIDERS: PCP Family Medicine; Referring Provider Surgery; Visit Provider Surgery
PROC: (CPT 36561; principal; 2021-03-29 09:45)
DX: Z45.2 Encounter for adjustment and management of vascular access device (principal); C83.18 Mantle cell lymphoma, lymph nodes of multiple sites; I10 Essential (primary) hypertension; G25.81 Restless legs syndrome; N40.0 Benign prostatic hyperplasia without lower urinary tract symptoms; M10.9 Gout, unspecified; J45.909 Unspecified asthma, uncomplicated; Z87.19 Personal history of other diseases of the digestive system; Z86.2 Personal history of diseases of the blood and blood-forming organs and certain disorders involving the immune mechanism; Z87.01 Personal history of pneumonia (recurrent); Z86.711 Personal history of pulmonary embolism; Z79.01 Long term (current) use of anticoagulants; Z79.899 Other long term (current) drug therapy
CPT/HCPCS: 00532; 36561; 71045; 77001; J7120

== ENCOUNTER 2021-03-29 20:07 | Inpatient (IN) | payer MEDICARE, SELFPAY ==
[2021-03-29] VITALS (16 sets, daily range): BP systolic 83–103; BP diastolic 50–63; PULSE 104–139; RESP 14–93; TEMP 37.2–38.3; O2SAT 84–97; BMI 32.5
[2021-03-29 20:18] LABS: Mucous, Urine 0 SEEN /hpf (<or=2+); Red Blood Cells-Urine 0 SEEN /hpf (0-5); Squamous Epithelial Cells - UA 0 SEEN /hpf (0-5)
[2021-03-29 20:35] LABS: Color, Urine Yellow (Yellow); Glucose, Dipstick Normal (Normal); Ketone-Dipstick Negative (Negative); Leukocyte Esterase-Dipstick Negative /ul (Negative); Nitrite-Dipstick Negative (Negative); Occult Blood-Urine Negative /ul (Negative); Protein-Dipstick 15 mg/dl (Negative); Specific Gravity, Urine 1.015 (1.002-1.030); Urine Bilirubin Dipstick Negative (Negative); Urine Clarity Clear (Clear); Urine Urobilinogen Normal (Normal)
--- NOTE | 2021-03-29 20:36 | EKG12_ITS ---
Test Reason : PALPS Blood Pressure : / mmHG Vent. Rate : 131 BPM Atrial Rate : 131 BPM P-R Int : 150 ms QRS Dur : 096 ms QT Int : 292 ms P-R-T Axes : 026 -27 077 degrees QTc Int : 431 ms Sinus tachycardia Leftward axis Nonspecific T wave abnormality Confirmed by ALBERTO FINLEY, RUDY ([id number]), newspaper editor managing BOOGIE BRO ([id number]) on 03/31/2021 11:32:04 AM Referred By: POOJA Confirmed By:RUDY DOMINGUEZ MD
--- NOTE | 2021-03-29 20:36 | RAD_ITS ---
STUDY: X-RAY CHEST REASON FOR EXAM: Male, 75 years old. Fever TECHNIQUE: Single frontal view of the chest. COMPARISON: 03/29/2021 at 11:46 AM. FINDINGS: There is a right-sided central venous catheter in place terminating within the expected region of the junction of the right brachiocephalic vein and superior vena cava. There is a stable large left pleural effusion. Normal size heart. Normal mediastinum and ledy. Normal visualized pulmonary arteries. Normal visualized aortic arch and descending thoracic aorta. Normal visualized thoracic spine. There is degenerative osteoarthritis of the bilateral shoulders. There is no demonstrated abnormality of the visualized soft tissue structures of the upper abdomen. RAD/Chest 1 View (Portable) IMPRESSION: Stable large left pleural effusion, cannot exclude associated left basilar atelectasis and/or pneumonia. Electronically Signed: Madeleine Zuluaga MD at 21:33 EDT Tel , Service support ,
--- NOTE | 2021-03-29 20:37 | EDS_ITS ---
HPI History of Present Illness Chief Complaint: Fever Narrative Narrative: 75-year-old male with mantle cell lymphoma presenting for fever, generalized weakness. Apparently this started today. He has had a small cough recently. This is not productive of sputum. Patient states that he was n.p.o. after midnight last night in order to have a port placed in the right chest. This was done by Dr. Aldana. Patient states that the symptoms started about 1 with his fever and generalized weakness. He has not fallen but has been close to it per his . He does not have chest pain or abdominal pain. He denies urinary symptoms. He has no known sick contacts. He has not started chemo therapy yet. [facility] Medical History Anemia Asthma Cancer Chronic cough Dietary restriction Duodenal ulcer Encounter for education Enlarged prostate Gout History of echocardiogram History of edema History of steroid therapy History of ulceration Hypertension Infiltrate of lung present on computed tomography Mantle cell lymphoma Non-smoker On home oxygen therapy Pneumonia Prostate disease Pulmonary embolism Rash Renal cysts, acquired, bilateral Restless legs Shortness of breath on exertion Splenic infarct Wears glasses Home Medications finasteride 5 mg tablet 5 mg PO QDAY 10/25/17 [History Last Taken 03/09/21] albuterol sulfate 90 mcg/actuation aerosol inhaler 2 puff INHALATION Q6H PRN #8.5 g 03/03/21 [Rx Last Taken 03/08/21] multivitamin 1 tab PO DAILY 03/03/21 [History Last Taken 03/08/21] furosemide [Lasix] 40 mg PO BID #60 tab 03/17/21 [Rx Last Taken Unknown] pantoprazole 40 mg PO BID #60 tab 03/17/21 [Rx Last Taken 03/29/21 0630] tamsulosin 0.4 mg PO DAILY@1730 #30 cap 03/17/21 [Rx Last Taken Unknown] hydrocortisone 2.5 % topical cream 1 applic TOPICAL BID PRN #30 g 03/19/21 [Rx Last Taken Unknown] allopurinol 300 mg PO DAILY 20 Days #20 tab 03/24/21 [Rx Last Taken Unknown] prednisone 100 mg PO DAILY 5 Days #50 tab 03/24/21 [Rx Last Taken Unknown] lidocaine-prilocaine 2.5 %-2.5 % topical cream 1 applic TOPICAL ONCE PRN 30 Days #30 g 03/25/21 [Rx Last Taken Unknown] ondansetron 8 mg disintegrating tablet 8 mg PO Q8H PRN #30 tab 03/25/21 [Rx Last Taken Unknown] apixaban [Eliquis] 5 mg PO BID 03/26/21 [History Last Taken 03/26/21] Allergy/AdvReac Type Severity Reaction Status Date / Time Antihistamines - Ethanolamine Allergy Severe rash Verified 03/29/21 20:10 MUCOUS RELIEF DM Allergy Rash Uncoded 03/29/21 20:10 Family History Father Cancer Prostate and Colon CA. Colon cancer Hypertension Grandfather CVA (cerebral vascular accident) Myocardial infarction Mother Hypertension Surgical History History of appendectomy History of esophagogastroduodenoscopy (EGD) History of tonsillectomy Hx of colonoscopy Hx of lymph node biopsy Social History household members: spouse housing: house Smoking Status: Never smoker second hand exposure: No alcohol intake: never substance use type: does not use what type of physical activity do you participate in: none yosef/druze: [employer] seatbelt use: always do you feel safe at home: Yes ROS ROS ED Constitutional Constitutional ED: Reports chills and fever(s) Eyes Eyes: Denies blurry vision or diplopia ENT ENT ED: Denies rhinorrhea or sore throat Cardiovascular Cardiovascular: Denies chest pain or palpitations Respiratory/Chest Respiratory/Chest: Reports cough; Denies sputum Gastrointestinal Gastrointestinal: Denies abdominal pain, nausea or vomiting Genitourinary Genitourinary ED: Denies dysuria or hematuria Musculoskeletal Musculoskeletal: Reports myalgias; Denies arthralgias Integumentary Denies Abrasions or rash Neurologic Neurologic: Reports headache(s); Denies paresthesias EXAM Physical Exam Narrative Exam Narrative: Febrile, hypotensive, tachycardic appears unwell. Const Vital Signs: 03/29/21 20:08 03/29/21 20:10 03/29/21 20:42 Temperature 101.0 F H 101.0 F H Temperature Source Temporal Temporal Pulse Rate 139 H 133 H Respiratory Rate 18 18 Respiratory Effort Normal Respiratory Pattern Blood Pressure 90/53 L 90/53 L Blood Pressure Mean 65 65 Blood Pressure Source Pulse Ox 91 84 Oxygen Delivery Method Room Air Room Air Oxygen Flow Rate (L/min) 03/29/21 20:43 03/29/21 20:45 03/29/21 20:46 Temperature Temperature Source Pulse Rate 133 H Respiratory Rate Respiratory Effort Respiratory Pattern Blood Pressure Blood Pressure Mean Blood Pressure Source Pulse Ox 84 94 Oxygen Delivery Method Room Air Nasal Cannula Oxygen Flow Rate (L/min) 2 03/29/21 20:47 03/29/21 21:10 03/29/21 21:36 Temperature 101 F H Temperature Source Oral Pulse Rate 124 H 122 H Respiratory Rate 93 H Respiratory Effort Respiratory Pattern Blood Pressure 103/59 L 103/63 Blood Pressure Mean 73 76 Blood Pressure Source Pulse Ox 94 Oxygen Delivery Method Nasal Cannula Oxygen Flow Rate (L/min) 2 03/29/21 22:06 03/29/21 22:19 03/29/21 22:52 Temperature 99.7 F H Temperature Source Oral Pulse Rate 108 H 105 H Respiratory Rate 23 H 17 Respiratory Effort Respiratory Pattern Blood Pressure 85/53 L 97/56 L 89/56 L Blood Pressure Mean 63 69 67 Blood Pressure Source Pulse Ox 95 97 93 Oxygen Delivery Method Nasal Cannula Nasal Cannula Oxygen Flow Rate (L/min) 4 4 03/29/21 22:55 03/29/21 23:00 03/29/21 23:12 Temperature 99.1 F 99.1 F Temperature Source Oral Oral Pulse Rate 104 H 107 H 108 H Respiratory Rate 14 28 H 23 H Respiratory Effort Respiratory Pattern Normal Blood Pressure 89/56 L 89/56 L Blood Pressure Mean 67 67 Blood Pressure Source Monitor Pulse Ox 93 92 Oxygen Delivery Method Nasal Cannula Nasal Cannula Oxygen Flow Rate (L/min) 4 4 General Appearance ED: pallor HEENT Reports dry mucous membranes Negative for trauma Mouth ED: Yes dry mucous membranes Mouth: dry mucous membranes Eyes PERRL and EOMs intact bilaterally General Eye ED: Yes pale conjunctiva; Negative for scleral icterus Neck no lymphadenopathy and supple Resp normal respiratory effort and clear to auscultation bilaterally Cardio regular rhythm Rate: tachycardic GI normal to inspection, nondistended, normoactive bowel sounds Extremity General Extremety ED: Yes edema; Negative for tenderness General Extremity: edema Neuro oriented x3 and CN's II-XII intact bilaterally Sensorium / Orientation: alert Psych mental status grossly normal Skin General Skin Exam: pallor; Negative for jaundice Rashes: No rashes noted MDM MDM MDM Narrative Medical decision making narrative: Patient presenting febrile, tachycardic, hypotensive. Sepsis work-up was initiated. Patient apparently was n.p.o. last evening for a port placed in the right chest today. This was done by Dr. Aldana. Patient was doing well until about 1 to 1:30 PM today when he started feeling generalized fatigue and malaise. Patient states he felt feverish. His states that she does have a sick granddaughter that was sick 2 weeks ago but she states she had not seen her in over 3 weeks. His is other otherwise healthy. He does admit to a mild cough but states he would not of come in if it was just this mild cough. He does not have any chest pain and does not appear short of breath. His O2 sats are 91%. Patient was initially given a liter of IV fluids. His CBC shows that his white blood cell count is 15.7, hemoglobin is 7.4. Patient is on Eliquis but denies any black or bloody stools. His hemoglobin 5 days ago was 9.2. I will check an occult stool. Patient's urinalysis is negative for infection. Creatinine from 5 days ago was 1.64 now it is 1.94. Patient does have elevation in his AST at 101, ALT 114, alkaline phosphatase 133. Lactic acid returned at 5.5. At this point patient given 30 cc/kg because his rapid Covid is negative. A culture was drawn from the port. Chest x-ray on my interpretation was a large left pleural effusion. Radiologist does read this stable but states he cannot exclude pneumonia. This is the likely source as the patient is having respiratory symptoms. since patient is concerning for septic shock I did start vancomycin and Zosyn. On reevaluation his blood pressure has come up to 103/63. The patient's does state that he has had a problem with his blood pressure since his last visit. I reviewed the medical records and his blood pressure is near the same level as it was. I do believe he needs blood given he is dropped 2 units. He was typed, screened, crossmatch for 2 units. Patient's heart rate is down to 108. His fever has broken. On reevaluation the patient had some wheezing which is audible without a stethoscope. Does appear to be in all lung simpson on exam. He was given breathing treatments and Solu-Medrol and feels improved. Patient was discussed with the hospitalist who will admit the patient for further monitoring. Patient will be admitted to the ICU given his lactic acidosis and concern for septic shock. Covid PCR is pending and patient will be in isolation. Hospitalist did request a noncontrast CT of the chest to the patient's creatinine. Impression: 1. Septic shock 2. GI bleed 3. Loss anemia 4. Pneumonia 5. Thrombocytopenia 6. History of mantle cell lymphoma. Lab Data Labs: Laboratory Results - last 24 hr 03/29/21 03/29/21 03/29/21 20:15 20:15 20:18 WBC 15.7 H RBC 2.45 L Hgb 7.4 L Hct 22.8 L MCV 93.1 MCH 30.2 MCHC 32.5 RDW Std Deviation 53.0 H RDW Coeff of Dmitry 16.3 H Plt Count 24 L* MPV 10.9 Immature Gran % (Auto) 3.900 H Neut % (Auto) 29.2 L Lymph % (Auto) 18.3 L [place] % (Auto) 31.4 H Eos % (Auto) 16.7 H Baso % (Auto) 0.5 Absolute Neuts (auto) 4.6 Absolute Lymphs (auto) 2.86 Nucleated RBC % 1.8 Differential Comment SCANNED Diff Path Review May foll PT INR APTT Sodium Potassium Chloride Carbon Dioxide Anion Gap BUN Creatinine Estim Creat Clear Calc Est GFR (MDRD) Af Amer Est GFR (MDRD) Non-Af BUN/Creatinine Ratio Glucose Lactic Acid Calcium Total Bilirubin AST ALT Alkaline Phosphatase Troponin I High Sens Total Protein Albumin Globulin Albumin/Globulin Ratio Urine Color Yellow Cancelled Urine Clarity Clear Cancelled Urine pH 6.0 Cancelled Ur Specific [place] 1.015 Cancelled U Specif Grav (Refrac) Cancelled Urine Protein 15 H Cancelled Urine Glucose (UA) Normal Cancelled Urine Ketones Negative Cancelled Urine Occult Blood Negative Cancelled Urine Nitrite Negative Cancelled Urine Bilirubin Negative Cancelled Urine Urobilinogen Normal Cancelled Ur Leukocyte Esterase Negative Cancelled Urine RBC 0 SEEN Cancelled Urine WBC 0-5 SEEN Cancelled Ur Squamous Epith Cells 0 SEEN Cancelled Ur Transition Epith Cell Cancelled Ur Renal Epithelial Cell Cancelled Calcium Oxalate Crystal Cancelled Uric Acid Crystals Cancelled Triple Phos Crystals Cancelled Other Crystals Cancelled Amorphous Sediment Cancelled Urine Bacteria RARE Cancelled Hyaline Casts Cancelled Fine Granular Casts Cancelled Coarse Granular Casts Cancelled Waxy Casts Cancelled RBC Casts Cancelled WBC Casts Cancelled Urine Mucus 0 SEEN Cancelled Urine Trichomonas Cancelled Urine Yeast Cancelled Blood Type Antibody Screen Crossmatch 03/29/21 03/29/21 03/29/21 20:18 20:44 20:44 WBC RBC Hgb Hct MCV MCH MCHC RDW Std Deviation RDW Coeff of Dmitry Plt Count MPV Immature Gran % (Auto) Neut % (Auto) Lymph % (Auto) [place] % (Auto) Eos % (Auto) Baso % (Auto) Absolute Neuts (auto) Absolute Lymphs (auto) Nucleated RBC % Differential Comment Diff Path Review PT 17.3 H INR 1.5 APTT 32.5 Sodium 131 L Potassium 4.7 Chloride 92 L Carbon Dioxide 26.0 Anion Gap 13 BUN 46 H Creatinine 1.94 H Estim Creat Clear Calc 34.50 Est GFR (MDRD) Af Amer 43 L Est GFR (MDRD) Non-Af 36 L BUN/Creatinine Ratio 23.7 H Glucose 108 H Lactic Acid 5.5 H* Calcium 8.5 Total Bilirubin 0.40 AST 101 H ALT 114 H Alkaline Phosphatase 133 H Troponin I High Sens 13 Total Protein 5.6 L Albumin 2.4 L Globulin 3.2 Albumin/Globulin Ratio 0.8 L Urine Color Urine Clarity Urine pH Ur Specific [place] U Specif Grav (Refrac) Urine Protein Urine Glucose (UA) Urine Ketones Urine Occult Blood Urine Nitrite Urine Bilirubin Urine Urobilinogen Ur Leukocyte Esterase Urine RBC Urine WBC Ur Squamous Epith Cells Ur Transition Epith Cell Ur Renal Epithelial Cell Calcium Oxalate Crystal Uric Acid Crystals Triple Phos Crystals Other Crystals Amorphous Sediment Urine Bacteria Hyaline Casts Fine Granular Casts Coarse Granular Casts Waxy Casts RBC Casts WBC Casts Urine Mucus Urine Trichomonas Urine Yeast Blood Type Antibody Screen Crossmatch 03/29/21 03/29/21 21:30 21:30 WBC RBC Hgb Hct MCV MCH MCHC RDW Std Deviation RDW Coeff of Dmitry Plt Count MPV Immature Gran % (Auto) Neut % (Auto) Lymph % (Auto) [place] % (Auto) Eos % (Auto) Baso % (Auto) Absolute Neuts (auto) Absolute Lymphs (auto) Nucleated RBC % Differential Comment Diff Path Review PT INR APTT Sodium Potassium Chloride Carbon Dioxide Anion Gap BUN Creatinine Estim Creat Clear Calc Est GFR (MDRD) Af Amer Est GFR (MDRD) Non-Af BUN/Creatinine Ratio Glucose Lactic Acid Calcium Total Bilirubin AST ALT Alkaline Phosphatase Troponin I High Sens Total Protein Albumin Globulin Albumin/Globulin Ratio Urine Color Urine Clarity Urine pH Ur Specific [place] U Specif Grav (Refrac) Urine Protein Urine Glucose (UA) Urine Ketones Urine Occult Blood Urine Nitrite Urine Bilirubin Urine Urobilinogen Ur Leukocyte Esterase Urine RBC Urine WBC Ur Squamous Epith Cells Ur Transition Epith Cell Ur Renal Epithelial Cell Calcium Oxalate Crystal Uric Acid Crystals Triple Phos Crystals Other Crystals Amorphous Sediment Urine Bacteria Hyaline Casts Fine Granular Casts Coarse Granular Casts Waxy Casts RBC Casts WBC Casts Urine Mucus Urine Trichomonas Urine Yeast Blood Type A POSITIVE Antibody Screen NEGATIVE Crossmatch See Detail Radiography Diagnostic Testing: Radiology Impression Chest X-Ray 03/29/21 20:36 IMPRESSION: Stable large left pleural effusion, cannot exclude associated left basilar atelectasis and/or pneumonia. Electronically Signed: Madeleine Zuluaga MD at 21:33 EDT Tel , Service support , Discharge Plan Triage Chief Complaint: Fever ED Provider: Rohit Forman Dx/Rx/DC Orders Primary Care Provider: Yo Pedro
[2021-03-29 20:43] LABS: Bacteria RARE /hpf (None Seen); White Blood Cells 0-5 SEEN /hpf (0-5)
[2021-03-29 20:53] LABS: Absolute Lymphocyte Count 2.86 X10^3/uL (0.83-4.51); Absolute Neutrophil Count 4.6 X10^3/uL (2.0-7.7); Basophil# 0.08 X10^3/uL; Basophil% 0.5 % (0-1); Eosinophils% 16.7 % (0-5); Hematocrit 22.8 % (40-54); Hemoglobin 7.4 g/dL (13.0-16.5); Lymphocyte # 2.86 X10^3/ul (0.83-4.51); Lymphocyte % 18.3 % (19-41); Mean Corp Hgb Conc 32.5 g/dL (32-36); Mean Corpuscular Hgb 30.2 pg (27.0-32.0); Mean Corpuscular Volume 93.1 fL (80-94); Mean Platelet Vol. 10.9 fl (6.2-12.0); Monocyte# 4.92 X10^3/uL; Monocyte% 31.4 % (0-10); NRBC Flagged by Analyzer 1.8 % (0-5); Neutrophil # 4.57 X10^3/uL (2.7-7.7); Neutrophil % 29.2 % (47-70); POSITIVE COUNT YES; POSITIVE DIFFERENTIAL YES; POSITIVE MORPHOLOGY YES; RBC Distribution Width CV 16.3 % (11.6-14.6); Red Blood Count 2.45 M/mm3 (4.6-6.2); White Blood Count 15.7 K/mm3 (4.4-11.0)
[2021-03-29] MEDS: Acetaminophen 500 MG Tablet 1000 MG PO (20:57)
[2021-03-29 21:05] LABS: International Normalized Ratio 1.5; Prothrombin Time (Protime)PT. 17.3 SECONDS (11.7-14.9)
[2021-03-29 21:06] LABS: Partial Thromboplast Time 32.5 Seconds (24.1-36.2)
[2021-03-29 21:07] LABS: Differential Indicated SCAN CRITERIA MET; Eosinophil# 2.61 X10^3/uL; Platelet Count 24 K/mm3 (150-450)
[2021-03-29 21:10] LABS: ALB/GLOB Ratio 0.8 RATIO (0.9-2.4); AST(SGOT) 101 U/L (15-37); Alanine Aminotransfer ALT/SGPT 114 U/L (16-61); Albumin, Serum 2.4 g/dL (3.2-5.0); Alkaline Phosphatase 133 U/L (45-117); Anion Gap 13 (5-15); BUN 46 mg/dL (7-18); BUN/Creat Ratio 23.7 RATIO (10-20); Calcium,Total 8.5 mg/dL (8.5-10.1); Chloride 92 mmol/L (98-107); Creatinine, Serum 1.94 mg/dL (0.70-1.30); EST Glomerular Filtration Rate 36 mL/min (>60); Est Glom Filt Rate - Afr Amer 43 mL/min (>60); Globulin 3.2 g/dL (2.2-4.2); Glucose 108 mg/dL (74-106); Potassium 4.7 mmol/L (3.5-5.1); Protein, Total 5.6 g/dL (6.4-8.2); Sodium Level 131 mmol/L (136-145); Troponin-I HS 13 pg/mL (3.0-78.0)
[2021-03-29 21:22] LABS: Differential Comment SCANNED
[2021-03-29 21:44] LABS: Lactic Acid 5.5 mmol/L (0.4-1.9)
[2021-03-29] MEDS: 0.9% Normal Saline 1,000 ML 999 ML IV ×2 (21:51→22:05)
[2021-03-29] MEDS: MethylPREDNISolone 125 MG/2 ML Vial IV (22:36)
--- NOTE | 2021-03-29 23:15 | CT_ITS ---
STUDY: CT CHEST WITHOUT CONTRAST REASON FOR EXAM: Male, 75 years old. Fever RADIATION DOSAGE (If Supplied By Facility): CTDIvol = ( 18.67 ) mGy, DLP = ( 704.31 ) mGycm TECHNIQUE: Transaxial imaging was performed without the administration of intravenous contrast material. Multiplanar coronal and sagittal images were reformatted. Individualized dose optimization techniques were used for this CT. COMPARISON: None. FINDINGS: Right chest port. Large left pleural effusion with complete atelectasis of the left lower lobe. Small right pleural effusion. Normal heart and pericardium. Diffuse mediastinal, hilar, supraclavicular, axillary, and upper abdominal lymphadenopathy redemonstrated. Normal hilar regions. Normal unenhanced pulmonary arteries. Normal aorta arch and descending thoracic aorta. There is demineralization of the thoracic spine. Splenomegaly. CT/Chest without Contrast IMPRESSION: Increased left pleural effusion, now with complete left lower lobe atelectasis. Electronically Signed: De Deluna MD at 0:31 EDT Tel , Service support ,
--- NOTE | 2021-03-29 23:39 | ED.RN ---
report given to jae
--- NOTE | 2021-03-29 23:40 | PCM.HP.STD ---
HPI - General General Date of Admission: 03/29/21 HPI Narrative WINNIE SCOTT, is a 75 M with a significant history of mantle cell lymphoma who had a Port-A-Cath placed on the same day of presentation and later on developed a fever and chills. Also patient is very fatigued above his baseline. Further he reports poor appetite. At the emergency part because his hemoglobin had dropped by 2 points rectal exams and occult stool was done by emergent department doctor. Occult stool was positive for blood. [facility] Medical History Anemia Asthma Cancer Chronic cough Dietary restriction Duodenal ulcer Encounter for education Enlarged prostate Gout History of echocardiogram History of edema History of steroid therapy History of ulceration Hypertension Infiltrate of lung present on computed tomography Mantle cell lymphoma Non-smoker On home oxygen therapy Pneumonia Prostate disease Pulmonary embolism Rash Renal cysts, acquired, bilateral Restless legs Shortness of breath on exertion Splenic infarct Wears glasses Home Medications finasteride 5 mg tablet 5 mg PO QDAY 10/25/17 [History Last Taken 03/09/21] albuterol sulfate 90 mcg/actuation aerosol inhaler 2 puff INHALATION Q6H PRN #8.5 g 03/03/21 [Rx Last Taken 03/08/21] multivitamin 1 tab PO DAILY 03/03/21 [History Last Taken 03/08/21] furosemide [Lasix] 40 mg PO BID #60 tab 03/17/21 [Rx Last Taken Unknown] pantoprazole 40 mg PO BID #60 tab 03/17/21 [Rx Last Taken 03/29/21 0630] tamsulosin 0.4 mg PO DAILY@1730 #30 cap 03/17/21 [Rx Last Taken Unknown] hydrocortisone 2.5 % topical cream 1 applic TOPICAL BID PRN #30 g 03/19/21 [Rx Last Taken Unknown] allopurinol 300 mg PO DAILY 20 Days #20 tab 03/24/21 [Rx Last Taken Unknown] prednisone 100 mg PO DAILY 5 Days #50 tab 03/24/21 [Rx Last Taken Unknown] lidocaine-prilocaine 2.5 %-2.5 % topical cream 1 applic TOPICAL ONCE PRN 30 Days #30 g 03/25/21 [Rx Last Taken Unknown] ondansetron 8 mg disintegrating tablet 8 mg PO Q8H PRN #30 tab 03/25/21 [Rx Last Taken Unknown] apixaban [Eliquis] 5 mg PO BID 03/26/21 [History Last Taken 03/26/21] Allergy/AdvReac Type Severity Reaction Status Date / Time Antihistamines - Ethanolamine Allergy Severe rash Verified 03/29/21 20:10 MUCOUS RELIEF DM Allergy Rash Uncoded 03/29/21 20:10 Family History Father Cancer Prostate and Colon CA. Colon cancer Hypertension Grandfather CVA (cerebral vascular accident) Myocardial infarction Mother Hypertension Surgical History History of appendectomy History of esophagogastroduodenoscopy (EGD) History of tonsillectomy Hx of colonoscopy Hx of lymph node biopsy Social History household members: spouse housing: house Smoking Status: Never smoker second hand exposure: No alcohol intake: never substance use type: does not use what type of physical activity do you participate in: none yosef/anglican: Mennonite seatbelt use: always do you feel safe at home: Yes ROS ROS Narrative Constitutional: Reports fever and chills; fatigue; and anorexia. Eyes: Denies blurry vision, change in eye color, change in vision, discharge from eye(s), double vision, erythema, eye pain, loss of vision or other HEENT: Denies abnormal hearing, dysphagia, ear pain, epistaxis, headache(s), hearing loss, nasal congestion, nasal discharge, post nasal drip, sinus pressure, sore throat or other Cardiovascular: Report bilateral leg edema. Denies chest pain or palpitations. Respiratory/Chest: Denies shortness of breath or cough. Gastrointestinal: Denies abdominal pain, coffee ground emesis, constipation, diarrhea, dyspepsia, hematemesis, hematochezia, loose stools, melena, nausea, vomiting or other Genitourinary: Denies burning urination, difficulty urinating, dysuria, hematuria, nocturia, urinary frequency, urinary hesitancy, urinary incontinence, urinary urgency or other Musculoskeletal: Denies arthralgias, back pain, joint pain, joint stiffness, joint swelling, neck pain or other Neurologic: Denies abnormal gait, abnormal speech, confusion, disequilibrium, dizziness, focal weakness, headache(s), numbness, paresthesias, seizure-like activity, seizures, syncope, tingling, tremor(s) or other Psychiatric: Denies anxiety, depression, homicidal ideation, suicidal ideation or other Endocrinology: Denies change in body appearance, cold intolerance, excessive sweating, heat intolerance, polydipsia, polyuria or other Hematologic/Lymphatic: Denies anemia, easy bleeding, easy bruising, lymphadenopathy or other Integumentary: Reports rashes on bilateral legs. Allergic/Immunologic: Denies rhinitis, hives, eczema, asthma or other Vital Signs Vital Signs Vital Signs: 03/29/21 20:08 03/29/21 20:10 03/29/21 20:42 Temperature 101.0 F H 101.0 F H Temperature Source Temporal Temporal Pulse Rate 139 H 133 H Respiratory Rate 18 18 Respiratory Effort Normal Respiratory Pattern Blood Pressure 90/53 L 90/53 L Blood Pressure Mean 65 65 Blood Pressure Source Blood Pressure Position Blood Pressure Location Pulse Ox 91 84 Oxygen Delivery Method Room Air Room Air Oxygen Flow Rate (L/min) 03/29/21 20:43 03/29/21 20:45 03/29/21 20:46 Temperature Temperature Source Pulse Rate 133 H Respiratory Rate Respiratory Effort Respiratory Pattern Blood Pressure Blood Pressure Mean Blood Pressure Source Blood Pressure Position Blood Pressure Location Pulse Ox 84 94 Oxygen Delivery Method Room Air Nasal Cannula Oxygen Flow Rate (L/min) 2 03/29/21 20:47 03/29/21 21:10 03/29/21 21:36 Temperature 101 F H Temperature Source Oral Pulse Rate 124 H 122 H Respiratory Rate 93 H Respiratory Effort Respiratory Pattern Blood Pressure 103/59 L 103/63 Blood Pressure Mean 73 76 Blood Pressure Source Blood Pressure Position Blood Pressure Location Pulse Ox 94 Oxygen Delivery Method Nasal Cannula Oxygen Flow Rate (L/min) 2 03/29/21 22:06 03/29/21 22:19 03/29/21 22:52 Temperature 99.7 F H Temperature Source Oral Pulse Rate 108 H 105 H Respiratory Rate 23 H 17 Respiratory Effort Respiratory Pattern Blood Pressure 85/53 L 97/56 L 89/56 L Blood Pressure Mean 63 69 67 Blood Pressure Source Blood Pressure Position Blood Pressure Location Pulse Ox 95 97 93 Oxygen Delivery Method Nasal Cannula Nasal Cannula Oxygen Flow Rate (L/min) 4 4 03/29/21 22:55 03/29/21 23:00 03/29/21 23:12 Temperature 99.1 F 99.1 F Temperature Source Oral Oral Pulse Rate 104 H 107 H 108 H Respiratory Rate 14 28 H 23 H Respiratory Effort Respiratory Pattern Normal Blood Pressure 89/56 L 89/56 L Blood Pressure Mean 67 67 Blood Pressure Source Monitor Blood Pressure Position Blood Pressure Location Pulse Ox 93 92 Oxygen Delivery Method Nasal Cannula Nasal Cannula Oxygen Flow Rate (L/min) 4 4 03/29/21 23:17 03/29/21 23:29 Temperature 99 F 99 F Temperature Source Oral Oral Pulse Rate 107 H 109 H Respiratory Rate 17 24 H Respiratory Effort Respiratory Pattern Blood Pressure 83/50 L 83/50 L Blood Pressure Mean 61 61 Blood Pressure Source Monitor Blood Pressure Position Supine Blood Pressure Location Right Arm Pulse Ox 93 93 Oxygen Delivery Method Nasal Cannula Nasal Cannula Oxygen Flow Rate (L/min) 4 4 Weight Weight: 105.687 kg Body Mass Index (BMI) 32.5 Physical Exam Narrative Physical exam: General: Well-nourished, well-developed. Head: Normocephalic, atraumatic, no tenderness Eyes: PERRLA, EOMI ENT, no trauma, moist mucous membranes, no rhinorrhea Neck: Nontender, full range of motion, no spinal tenderness, deformities, step-off CVS: Regular rate and rhythm. S1-S2 present. No murmur, gallop or rub. Respiratory : Patient with audible wheezes. chest wall nontender. Abdomen: Soft, nontender, nondistended, normal bowel sounds, no masses : Deferred Back: Nontender, no CVA tenderness, no midline spinal tenderness, deformities, step-offs Extremities: Bilateral leg edema with petechial rash. Skin: Normal color, no trauma, abrasions Neuro: Alert, oriented, cranial nerves II through XII grossly intact. Psychiatry: Normal mood. Normal affect. Not depressed. Not anxious. . Results Lab / Micro Data Result Diagrams: 03/29/21 20:18 03/29/21 20:18 Labs: Laboratory Results - last 24 hr 03/29/21 20:15: Urine Color Yellow, Urine Clarity Clear, Urine pH 6.0, Ur Specific [place] 1.015, Urine Protein 15 H, Urine Glucose (UA) Normal, Urine Ketones Negative, Urine Occult Blood Negative, Urine Nitrite Negative, Urine Bilirubin Negative, Urine Urobilinogen Normal, Ur Leukocyte Esterase Negative, Urine RBC 0 SEEN, Urine WBC 0-5 SEEN, Ur Squamous Epith Cells 0 SEEN, Urine Bacteria RARE, Urine Mucus 0 SEEN 03/29/21 20:15: Urine Color Cancelled, Urine Clarity Cancelled, Urine pH Cancelled, Ur Specific [place] Cancelled, U Specif Grav (Refrac) Cancelled, Urine Protein Cancelled, Urine Glucose (UA) Cancelled, Urine Ketones Cancelled, Urine Occult Blood Cancelled, Urine Nitrite Cancelled, Urine Bilirubin Cancelled, Urine Urobilinogen Cancelled, Ur Leukocyte Esterase Cancelled, Urine RBC Cancelled, Urine WBC Cancelled, Ur Squamous Epith Cells Cancelled, Ur Transition Epith Cell Cancelled, Ur Renal Epithelial Cell Cancelled, Calcium Oxalate Crystal Cancelled, Uric Acid Crystals Cancelled, Triple Phos Crystals Cancelled, Other Crystals Cancelled, Amorphous Sediment Cancelled, Urine Bacteria Cancelled, Hyaline Casts Cancelled, Fine Granular Casts Cancelled, Coarse Granular Casts Cancelled, Waxy Casts Cancelled, RBC Casts Cancelled, WBC Casts Cancelled, Urine Mucus Cancelled, Urine Trichomonas Cancelled, Urine Yeast Cancelled 03/29/21 20:18: WBC 15.7 H, RBC 2.45 L, Hgb 7.4 L, Hct 22.8 L, MCV 93.1, MCH 30.2, MCHC 32.5, RDW Std Deviation 53.0 H, RDW Coeff of Dmitry 16.3 H, Plt Count 24 L*, MPV 10.9, Immature Gran % (Auto) 3.900 H, Neut % (Auto) 29.2 L, Lymph % (Auto) 18.3 L, [place] % (Auto) 31.4 H, Eos % (Auto) 16.7 H, Baso % (Auto) 0.5, Absolute Neuts (auto) 4.6, Absolute Lymphs (auto) 2.86, Nucleated RBC % 1.8, Differential Comment SCANNED, Diff Path Review October foll 03/29/21 20:18: Sodium 131 L, Potassium 4.7, Chloride 92 L, Carbon Dioxide 26.0, Anion Gap 13, BUN 46 H, Creatinine 1.94 H, Estim Creat Clear Calc 34.50, Est GFR (MDRD) Af Amer 43 L, Est GFR (MDRD) Non-Af 36 L, BUN/Creatinine Ratio 23.7 H, Glucose 108 H, Calcium 8.5, Total Bilirubin 0.40, AST 101 H, ALT 114 H, Alkaline Phosphatase 133 H, Troponin I High Sens 13, Total Protein 5.6 L, Albumin 2.4 L, Globulin 3.2, Albumin/Globulin Ratio 0.8 L 03/29/21 20:44: PT 17.3 H, INR 1.5, APTT 32.5 03/29/21 20:44: Lactic Acid 5.5 H* 03/29/21 21:30: Blood Type A POSITIVE, Antibody Screen NEGATIVE 03/29/21 21:30: Crossmatch See Detail Micro: Microbiology 03/29/21 21:30 Stool Stool Occult Blood (SERGIO) - Final Occult Blood Positive 03/29/21 21:10 Nasal Secretion SARS-CoV-2 Antigen (Rapid) - Final Radiology Impression Chest X-Ray 03/29/21 20:36 IMPRESSION: Stable large left pleural effusion, cannot exclude associated left basilar atelectasis and/or pneumonia. Electronically Signed: Madeleine Zuluaga MD at 21:33 EDT Tel , Service support , Assessment & Plan Assessment/Plan (1) Septic shock: (2) Asthma exacerbation: PLAN: Septic shock Patient with systolic blood pressure persistently lower than 90. White count of 15.7. Lactic acid of 5.5. Trend lactic acid. Received normal saline of 30 mL/kg bolus per septic shock protocol. Levophed infusion ordered. Chest x-ray interpreted by radiologist as stable large left pleural effusion, cannot exclude associated left basilar atelectasis and or/pneumonia. Chest CT interpreted by radiologist as increased left pleural effusion, now with complete left lower lobe atelectasis. Current chest CT and previous chest CTA was independently interpreted and I agree with radiologist interpretation. Of note patient is on Eliquis. Eliquis was stopped for Port-A-Cath to be placed but it has been resumed. Hold Eliquis at this time especially as patient is also having acute blood loss anemia with evidence of positive occult stools. With a pleural effusion cannot completely rule out pneumonia. Consider thoracentesis after effect of Eliquis as the labs. Urinalysis is unremarkable. Blood culture was drawn from Port-A-Cath. Incentive spirometer ordered. Admit to intensive care unit. Consult account executive agribusiness and ID specialist Acute exacerbation of asthma Place on [id number] Solu-Medrol and breathing treatments. Acute blood loss anemia Positive occult stool on presentation. Hemoglobin of 7.4 on presentation. That is about two-point decreased from his hemoglobin about 2 weeks ago. Of note review of records also show that on 03/11/2021 the patient had hemoglobin of 7.0. Of note patient had an EGD and colonoscopy on 03/11/2021. Colonoscopy showed mucosal ulceration and 9 mm benign polyp in the colon. EGD showed mildly severe chronic esophagitis. One nonbleeding duodenal ulcer with no stigmata of bleeding. Acute gastritis. Placed on twice daily Protonix IV. Hold home Eliquis Mantle cell lymphoma: Patient to follow-up with Dr. Baker oncology outpatient. DVT prophylaxis: SCD ordered. Charges/Coding Visit Charges Inpatient E&M: 48600 Init Hosp L3
--- NOTE | 2021-03-29 23:54 | NURSING ---
EMERGENCY PANDEMIC DOCUMENTATION
[2021-03-30] VITALS (32 sets, daily range): BP systolic 84–105; BP diastolic 47–71; PULSE 77–110; RESP 10–24; TEMP 35.7–37.6; O2SAT 85–94; BMI 34.0
--- NOTE | 2021-03-30 00:51 | PCM.RX.CS ---
Consult Pharmacy has been consulted to manage selected antiobiotic: Vancomycin Type of Consult: New start Suspected Infection: Sepsis Labs: Sodium 131 mmol/L (136-145) L 03/29/21 20:18 Potassium 4.7 mmol/L (3.5-5.1) 03/29/21 20:18 Chloride 92 mmol/L (98-107) L 03/29/21 20:18 Carbon Dioxide 26.0 mmol/L (21.0-32.0) 03/29/21 20:18 Anion Gap 13 (5-15) 03/29/21 20:18 BUN 46 mg/dL (7-18) H 03/29/21 20:18 Creatinine 1.94 mg/dL (0.70-1.30) H 03/29/21 20:18 Est GFR (MDRD) Af Amer 43 mL/min (>60) L 03/29/21 20:18 Est GFR (MDRD) Non-Af 36 mL/min (>60) L 03/29/21 20:18 BUN/Creatinine Ratio 23.7 RATIO (10-20) H 03/29/21 20:18 Glucose 108 mg/dL (74-106) H 03/29/21 20:18 Microbiology: Microbiology 03/29/21 20:15 Urine, Clean Catch Legionella Antigen - Final 03/29/21 20:15 Urine, Clean Catch Streptococcus pneumoniae Antigen (M - Final 03/29/21 21:30 Stool Stool Occult Blood (SERGIO) - Final Occult Blood Positive 03/29/21 21:10 Nasal Secretion SARS-CoV-2 Antigen (Rapid) - Final Weight used for dosin.5 kg Estimated Creatinine Clearance: 41 Goal Trough: 15-20 mcg/mL Pharmacy Plan for Drug Dosing: Pharmacy Service will continue to monitor and adjust dosing as required. Medications Vancomycin HCl (Vancomycin) 1,000 mg in 200 mls @ 200 mls/hr IV Q12H CARA Discontinued Medications Vancomycin HCl 1,500 mg/ (Sodium Chloride) 530 mls @ 250 mls/hr IV X1 ONE Stop: 03/29/21 23:27 Last Admin: 03/30/21 00:14 Dose: Infused Documented by: Follow-Up Labs: Trough Vancomycin Labs to be done on [date and time ordered]: 03/31 @ 1140
[2021-03-30 00:52] LABS: Reflex Lactate? Y
--- NOTE | 2021-03-30 05:46 | SEPSISNOTE ---
Sepsis Note Physical Exam/Vitals Objective: Chest X-Ray 03/29/21 20:36 IMPRESSION: Stable large left pleural effusion, cannot exclude associated left basilar atelectasis and/or pneumonia. Electronically Signed: Madeleine Zuluaga MD at 21:33 EDT Tel , Service support , Chest CT 03/29/21 23:15 IMPRESSION: Increased left pleural effusion, now with complete left lower lobe atelectasis. Electronically Signed: De Deluna MD at 0:31 EDT Tel , Service support , Temp Pulse Resp BP Pulse Ox 97.5 F L 81 11 L 87/52 L 92 03/30/21 05:40 03/30/21 05:40 03/30/21 05:40 03/30/21 05:40 03/30/21 05:40 03/30/21 03/29/21 03/29/21 01:15 21:30 21:30 WBC RBC Hgb Hct MCV MCH MCHC RDW Std Deviation RDW Coeff of Dmitry Plt Count MPV Immature Gran % (Auto) Neut % (Auto) Lymph % (Auto) [place] % (Auto) Eos % (Auto) Baso % (Auto) Absolute Neuts (auto) Absolute Lymphs (auto) Nucleated RBC % Differential Comment Diff Path Review PT INR APTT Sodium Potassium Chloride Carbon Dioxide Anion Gap BUN Creatinine Estim Creat Clear Calc Est GFR (MDRD) Af Amer Est GFR (MDRD) Non-Af BUN/Creatinine Ratio Glucose Lactic Acid Pending Calcium Total Bilirubin AST ALT Alkaline Phosphatase Troponin I High Sens Total Protein Albumin Globulin Albumin/Globulin Ratio Urine Color Urine Clarity Urine pH Ur Specific [place] U Specif Grav (Refrac) Urine Protein Urine Glucose (UA) Urine Ketones Urine Occult Blood Urine Nitrite Urine Bilirubin Urine Urobilinogen Ur Leukocyte Esterase Urine RBC Urine WBC Ur Squamous Epith Cells Ur Transition Epith Cell Ur Renal Epithelial Cell Calcium Oxalate Crystal Uric Acid Crystals Triple Phos Crystals Other Crystals Amorphous Sediment Urine Bacteria Hyaline Casts Fine Granular Casts Coarse Granular Casts Waxy Casts RBC Casts WBC Casts Urine Mucus Urine Trichomonas Urine Yeast COVID-19 (RACHELE) Blood Type A POSITIVE Antibody Screen NEGATIVE Crossmatch See Detail 03/29/21 03/29/21 03/29/21 20:44 20:44 20:18 WBC RBC Hgb Hct MCV MCH MCHC RDW Std Deviation RDW Coeff of Dmitry Plt Count MPV Immature Gran % (Auto) Neut % (Auto) Lymph % (Auto) [place] % (Auto) Eos % (Auto) Baso % (Auto) Absolute Neuts (auto) Absolute Lymphs (auto) Nucleated RBC % Differential Comment Diff Path Review PT 17.3 H INR 1.5 APTT 32.5 Sodium 131 L Potassium 4.7 Chloride 92 L Carbon Dioxide 26.0 Anion Gap 13 BUN 46 H Creatinine 1.94 H Estim Creat Clear Calc 34.50 Est GFR (MDRD) Af Amer 43 L Est GFR (MDRD) Non-Af 36 L BUN/Creatinine Ratio 23.7 H Glucose 108 H Lactic Acid 5.5 H* Calcium 8.5 Total Bilirubin 0.40 AST 101 H ALT 114 H Alkaline Phosphatase 133 H Troponin I High Sens 13 Total Protein 5.6 L Albumin 2.4 L Globulin 3.2 Albumin/Globulin Ratio 0.8 L Urine Color Urine Clarity Urine pH Ur Specific [place] U Specif Grav (Refrac) Urine Protein Urine Glucose (UA) Urine Ketones Urine Occult Blood Urine Nitrite Urine Bilirubin Urine Urobilinogen Ur Leukocyte Esterase Urine RBC Urine WBC Ur Squamous Epith Cells Ur Transition Epith Cell Ur Renal Epithelial Cell Calcium Oxalate Crystal Uric Acid Crystals Triple Phos Crystals Other Crystals Amorphous Sediment Urine Bacteria Hyaline Casts Fine Granular Casts Coarse Granular Casts Waxy Casts RBC Casts WBC Casts Urine Mucus Urine Trichomonas Urine Yeast COVID-19 (RACHELE) Blood Type Antibody Screen Crossmatch 03/29/21 03/29/21 03/29/21 20:18 20:15 20:15 WBC 15.7 H RBC 2.45 L Hgb 7.4 L Hct 22.8 L MCV 93.1 MCH 30.2 MCHC 32.5 RDW Std Deviation 53.0 H RDW Coeff of Dmitry 16.3 H Plt Count 24 L* MPV 10.9 Immature Gran % (Auto) 3.900 H Neut % (Auto) 29.2 L Lymph % (Auto) 18.3 L [place] % (Auto) 31.4 H Eos % (Auto) 16.7 H Baso % (Auto) 0.5 Absolute Neuts (auto) 4.6 Absolute Lymphs (auto) 2.86 Nucleated RBC % 1.8 Differential Comment SCANNED Diff Path Review May foll PT INR APTT Sodium Potassium Chloride Carbon Dioxide Anion Gap BUN Creatinine Estim Creat Clear Calc Est GFR (MDRD) Af Amer Est GFR (MDRD) Non-Af BUN/Creatinine Ratio Glucose Lactic Acid Calcium Total Bilirubin AST ALT Alkaline Phosphatase Troponin I High Sens Total Protein Albumin Globulin Albumin/Globulin Ratio Urine Color Cancelled Yellow Urine Clarity Cancelled Clear Urine pH Cancelled 6.0 Ur Specific [place] Cancelled 1.015 U Specif Grav (Refrac) Cancelled Urine Protein Cancelled 15 H Urine Glucose (UA) Cancelled Normal Urine Ketones Cancelled Negative Urine Occult Blood Cancelled Negative Urine Nitrite Cancelled Negative Urine Bilirubin Cancelled Negative Urine Urobilinogen Cancelled Normal Ur Leukocyte Esterase Cancelled Negative Urine RBC Cancelled 0 SEEN Urine WBC Cancelled 0-5 SEEN Ur Squamous Epith Cells Cancelled 0 SEEN Ur Transition Epith Cell Cancelled Ur Renal Epithelial Cell Cancelled Calcium Oxalate Crystal Cancelled Uric Acid Crystals Cancelled Triple Phos Crystals Cancelled Other Crystals Cancelled Amorphous Sediment Cancelled Urine Bacteria Cancelled RARE Hyaline Casts Cancelled Fine Granular Casts Cancelled Coarse Granular Casts Cancelled Waxy Casts Cancelled RBC Casts Cancelled WBC Casts Cancelled Urine Mucus Cancelled 0 SEEN Urine Trichomonas Cancelled Urine Yeast Cancelled COVID-19 (RACHELE) Blood Type Antibody Screen Crossmatch 03/29/21 20:05 WBC RBC Hgb Hct MCV MCH MCHC RDW Std Deviation RDW Coeff of Dmitry Plt Count MPV Immature Gran % (Auto) Neut % (Auto) Lymph % (Auto) [place] % (Auto) Eos % (Auto) Baso % (Auto) Absolute Neuts (auto) Absolute Lymphs (auto) Nucleated RBC % Differential Comment Diff Path Review PT INR APTT Sodium Potassium Chloride Carbon Dioxide Anion Gap BUN Creatinine Estim Creat Clear Calc Est GFR (MDRD) Af Amer Est GFR (MDRD) Non-Af BUN/Creatinine Ratio Glucose Lactic Acid Calcium Total Bilirubin AST ALT Alkaline Phosphatase Troponin I High Sens Total Protein Albumin Globulin Albumin/Globulin Ratio Urine Color Urine Clarity Urine pH Ur Specific [place] U Specif Grav (Refrac) Urine Protein Urine Glucose (UA) Urine Ketones Urine Occult Blood Urine Nitrite Urine Bilirubin Urine Urobilinogen Ur Leukocyte Esterase Urine RBC Urine WBC Ur Squamous Epith Cells Ur Transition Epith Cell Ur Renal Epithelial Cell Calcium Oxalate Crystal Uric Acid Crystals Triple Phos Crystals Other Crystals Amorphous Sediment Urine Bacteria Hyaline Casts Fine Granular Casts Coarse Granular Casts Waxy Casts RBC Casts WBC Casts Urine Mucus Urine Trichomonas Urine Yeast COVID-19 (RACHELE) Not Detected Blood Type Antibody Screen Crossmatch Attestation Sepsis Attestation: Sepsis re-evaluation was performed
[2021-03-30] MEDS: Ipratropium/Albuterol Sulfate 3 ML AMPUL.NEB INHALATION (06:50)
--- NOTE | 2021-03-30 08:21 | CASEMGMT ---
LW/Healthcare POA scanned into summary tab of [facility], Kylah Rodriguez is listed as Medical POA. JANETT Garcia
[2021-03-30 08:30] LABS: Lactic Acid 2.2 mmol/L (0.4-1.9)
[2021-03-30 10:11] LABS: Anion Gap 8 (5-15); BUN 44 mg/dL (7-18); BUN/Creat Ratio 25.7 RATIO (10-20); Chloride 98 mmol/L (98-107); Creatinine, Serum 1.71 mg/dL (0.70-1.30); EST Glomerular Filtration Rate 42 mL/min (>60); Est Glom Filt Rate - Afr Amer 51 mL/min (>60); Estimated Creatinine Clearance 39.14 ml/min; Glucose 138 mg/dL (74-106); Potassium 4.6 mmol/L (3.5-5.1); Sodium Level 135 mmol/L (136-145)
--- NOTE | 2021-03-30 10:27 | EX.PCM.CONCC ---
Assessment & Plan Assessment/Plan (1) Shortness of breath: (2) Mantle cell lymphoma: QUALIFIERS: Lymphoma site: multiple regions Qualified Code(s): C83.18 - Mantle cell lymphoma, lymph nodes of multiple sites (3) Anemia: PLAN: RECOMMENDATIONS: 1. Continue PPI 2. Cancel platelets. Repeat H&H now 3. Consider thoracentesis, diagnostic and therapeutic 4. Consult oncology Re: timing of chemotherapy 5. Continue empiric antibiotics pending culture results 6. Wean oxygen as tolerated IMPRESSIONS: 1. Shock Unclear etiology. Patient did have a fever and leukocytosis on presentation. Patient would be at risk for septic shock given immunocompromise state. Unclear source at this time. Other possibility would be acute blood loss anemia and hemorrhagic shock. Patient did have a significant drop in his hemoglobin. Platelets appear to be an anomaly. We will cancel the platelet order and repeat CBC. If this is okay, could likely proceed with a thoracentesis. Hold on pressors at this time. Patient is mentating well and appears to be responding well to blood products. 2. Acute hypoxic respiratory insufficiency secondary to left pleural effusion Patient received significant volume resuscitation secondary to problem #1. Patient did have a pleural effusion previously, but this cannot be visualized using ultrasound. If patient's blood work appears to be appropriate, would recommend a thoracentesis for diagnostic and therapeutic evaluation. 3. Duodenal ulcer Patient with upper GI 2 weeks ago showing a duodenal ulcer. Patient has been treated medically and appears to be doing well on therapy. Patient was guaiac positive. Patient is on iron supplementation, so stool color is less helpful. Patient also had some blood loss associated with port placement. Okay to continue with PPI for now. Unclear if scope needs to be repeated unless patient develops hematemesis or worsening lower GI bleed symptoms. Continue to hold Eliquis therapy. 4. Mantle cell lymphoma Patient is asking if chemotherapy will be delayed secondary to his acute presentation. It is unclear if patient could proceed with chemotherapy on discharge. Clinical suspicion is patient will be monitored for 48 hours to allow for cultures to result. If culture negative and H&H remained stable, patient may be able to proceed with chemotherapy. Will consult oncology for recommendations. 5. Advanced age/multiple hospitalizations/hypertension/allergic rhinitis/asthma Unclear if patient is truly in an asthma exacerbation. Patient did receive some steroids, but would not continue these long-term given his duodenal ulcer. Patient can be continued on bronchodilators. Physical therapy to evaluate the patient. HPI Consult Data Date of Consult: 03/30/21 HPI Narrative HPI Narrative: WINNIE SCOTT is a 75 M, with past medical history listed below, who presents to [facility] on 03/29/2021 secondary to generalized weakness and subjective fever starting on the day of presentation. Patient reportedly had had a minor nonproductive cough. Patient was n.p.o. since midnight secondary to a port placement. Patient did not reported any syncope, but did have some presyncopal type of symptoms. No chest pain, abdominal pain or urinary symptoms have been reported. Patient had not started chemotherapy secondary to a recent diagnosis of mantle cell carcinoma. Patient had not been taking his Eliquis. In the ER, patient was noted to have a temperature of 101 ?F and was tachycardic at 139 bpm. Patient's blood pressures were marginal and he was noted to be 84% on room air. A chest x-ray showed a stable left pleural effusion. Patient was noted to have a white blood cell count of 15.7, hemoglobin of 7.4 and a platelet count of 24. Patient did not have thrombocytopenia 5 days previous. UA was relatively unremarkable. Coagulation studies showed an INR of 1.5, creatinine of 1.94 and a lactate of 5.5. LFTs were slightly elevated, but troponin was normal. Patient was initially treated with IV fluids. Patient had a positive Hemoccult stool, so 2 units of blood were initiated. Patient was also placed on Vanco and Zosyn. Patient was given breathing treatments, Solu-Medrol and reported improvement in dyspnea. Covid PCR was negative. Since being in the intensive care unit, patient reports subjective improvement in overall condition. Patient's blood pressures have been marginal and Levophed was initially ordered. This did not have to be initiated as patient responded to fluid resuscitation with blood products. Platelets have been ordered, but are taking time to present. Patient had reported dark stools, but is on iron at baseline. Did talk with Dr. Aldana. Patient had an element of blood loss during the procedure of port placement. During previous scope 2 weeks ago, patient did have a duodenal ulcer with no visible vessel. Patient was advised to discontinue Eliquis. Patient was also evaluated for possible thoracentesis, but this could not be noted on ultrasound. Called down to laboratory to discuss peripheral smear of CBC of interest. They described platelets as enlarged with the subjective appearance of adequate. No significant clumping was noted. Review of systems otherwise negative from a constitutional, HEENT, respiratory, cardiovascular, GI, genitourinary, musculoskeletal, skin, neurologic, psychiatric and hematologic system unless stated above. [facility] Medical History (Updated 03/30/21 @ 10:[address] Mike Silverio MD) Anemia Asthma Cancer Chronic cough Dietary restriction Duodenal ulcer Encounter for education Enlarged prostate Gout History of echocardiogram History of edema History of steroid therapy History of ulceration Hypertension Infiltrate of lung present on computed tomography Mantle cell lymphoma Non-smoker On home oxygen therapy Pneumonia Prostate disease Pulmonary embolism Rash Renal cysts, acquired, bilateral Restless legs Shortness of breath on exertion Splenic infarct Wears glasses Home Medications finasteride 5 mg tablet 5 mg PO QDAY 10/25/17 [History Last Taken 03/09/21] albuterol sulfate 90 mcg/actuation aerosol inhaler 2 puff INHALATION Q6H PRN #8.5 g 03/03/21 [Rx Last Taken 03/08/21] multivitamin 1 tab PO DAILY 03/03/21 [History Last Taken 03/08/21] furosemide [Lasix] 40 mg PO BID #60 tab 03/17/21 [Rx Last Taken Unknown] pantoprazole 40 mg PO BID #60 tab 03/17/21 [Rx Last Taken 03/29/21 0630] tamsulosin 0.4 mg PO DAILY@1730 #30 cap 03/17/21 [Rx Last Taken Unknown] hydrocortisone 2.5 % topical cream 1 applic TOPICAL BID PRN #30 g 03/19/21 [Rx Last Taken Unknown] allopurinol 300 mg PO DAILY 20 Days #20 tab 03/24/21 [Rx Last Taken Unknown] prednisone 100 mg PO DAILY 5 Days #50 tab 03/24/21 [Rx Last Taken Unknown] lidocaine-prilocaine 2.5 %-2.5 % topical cream 1 applic TOPICAL ONCE PRN 30 Days #30 g 03/25/21 [Rx Last Taken Unknown] ondansetron 8 mg disintegrating tablet 8 mg PO Q8H PRN #30 tab 03/25/21 [Rx Last Taken Unknown] apixaban [Eliquis] 5 mg PO BID 03/26/21 [History Last Taken 03/26/21] Allergy/AdvReac Type Severity Reaction Status Date / Time Antihistamines - Ethanolamine Allergy Severe rash Verified 03/29/21 20:10 MUCOUS RELIEF DM Allergy Rash Uncoded 03/29/21 20:10 Family History Father Cancer Prostate and Colon CA. Colon cancer Hypertension Grandfather CVA (cerebral vascular accident) Myocardial infarction Mother Hypertension Surgical History History of appendectomy History of esophagogastroduodenoscopy (EGD) History of tonsillectomy Hx of colonoscopy Hx of lymph node biopsy Social History household members: spouse housing: house Smoking Status: Never smoker second hand exposure: No alcohol intake: never substance use type: does not use what type of physical activity do you participate in: none yosef/orthodox: M[employer]onite seatbelt use: always do you feel safe at home: Yes ROS ROS Narrative See HPI Physical Exam Const alert General Appearance: cooperative and ill appearing HEENT normocephalic Mouth: oral and palatal mucosa normal, No lesions and No thrush Neck supple and no JVD Lymph Lymphatic: lymphedema, lymphadenopathy Lymphadenopathy Laterality: bilateral and other Other Details: Generalized lymphadenopathy Chest Chest: symmetrical chest wall rise Resp Auscultation: breath sounds absent left Percussion: other Breath sounds were absent over the left base consistent with atelectasis plus or minus small effusion Cardio regular rate and regular rhythm Jugular Venous Distention: Negative for JVD GI non-tender, non-distended and hepatosplenomegaly Extremity General Extremity: edema bilateral lower extremity Details: moderate; Negative for clubbing or cyanosis Skin Rashes: rashes noted Neuro CN's II-XII intact bilaterally and moves all extremities Speech: speech normal Psych Attitude: calm and engaged Lab / Micro Data Result Diagrams: 03/29/21 20:18 03/30/21 04:25 Labs: Laboratory Results - last 24 hr 03/29/21 20:05: COVID-19 (RACHELE) Not Detected 03/29/21 20:15: Urine Color Yellow, Urine Clarity Clear, Urine pH 6.0, Ur Specific [place] 1.015, Urine Protein 15 H, Urine Glucose (UA) Normal, Urine Ketones Negative, Urine Occult Blood Negative, Urine Nitrite Negative, Urine Bilirubin Negative, Urine Urobilinogen Normal, Ur Leukocyte Esterase Negative, Urine RBC 0 SEEN, Urine WBC 0-5 SEEN, Ur Squamous Epith Cells 0 SEEN, Urine Bacteria RARE, Urine Mucus 0 SEEN 03/29/21 20:15: Urine Color Cancelled, Urine Clarity Cancelled, Urine pH Cancelled, Ur Specific [place] Cancelled, U Specif Grav (Refrac) Cancelled, Urine Protein Cancelled, Urine Glucose (UA) Cancelled, Urine Ketones Cancelled, Urine Occult Blood Cancelled, Urine Nitrite Cancelled, Urine Bilirubin Cancelled, Urine Urobilinogen Cancelled, Ur Leukocyte Esterase Cancelled, Urine RBC Cancelled, Urine WBC Cancelled, Ur Squamous Epith Cells Cancelled, Ur Transition Epith Cell Cancelled, Ur Renal Epithelial Cell Cancelled, Calcium Oxalate Crystal Cancelled, Uric Acid Crystals Cancelled, Triple Phos Crystals Cancelled, Other Crystals Cancelled, Amorphous Sediment Cancelled, Urine Bacteria Cancelled, Hyaline Casts Cancelled, Fine Granular Casts Cancelled, Coarse Granular Casts Cancelled, Waxy Casts Cancelled, RBC Casts Cancelled, WBC Casts Cancelled, Urine Mucus Cancelled, Urine Trichomonas Cancelled, Urine Yeast Cancelled 03/29/21 20:18: WBC 15.7 H, RBC 2.45 L, Hgb 7.4 L, Hct 22.8 L, MCV 93.1, MCH 30.2, MCHC 32.5, RDW Std Deviation 53.0 H, RDW Coeff of Dmtiry 16.3 H, Plt Count 24 L*, MPV 10.9, Immature Gran % (Auto) 3.900 H, Neut % (Auto) 29.2 L, Lymph % (Auto) 18.3 L, [place] % (Auto) 31.4 H, Eos % (Auto) 16.7 H, Baso % (Auto) 0.5, Absolute Neuts (auto) 4.6, Absolute Lymphs (auto) 2.86, Nucleated RBC % 1.8, Differential Comment SCANNED, Diff Path Review October foll 03/29/21 20:18: Sodium 131 L, Potassium 4.7, Chloride 92 L, Carbon Dioxide 26.0, Anion Gap 13, BUN 46 H, Creatinine 1.94 H, Estim Creat Clear Calc 34.50, Est GFR (MDRD) Af Amer 43 L, Est GFR (MDRD) Non-Af 36 L, BUN/Creatinine Ratio 23.7 H, Glucose 108 H, Calcium 8.5, Total Bilirubin 0.40, AST 101 H, ALT 114 H, Alkaline Phosphatase 133 H, Troponin I High Sens 13, Total Protein 5.6 L, Albumin 2.4 L, Globulin 3.2, Albumin/Globulin Ratio 0.8 L 03/29/21 20:44: PT 17.3 H, INR 1.5, APTT 32.5 03/29/21 20:44: Lactic Acid 5.5 H* 03/29/21 21:30: Blood Type A POSITIVE, Antibody Screen NEGATIVE 03/29/21 21:30: Crossmatch See Detail 03/30/21 01:15: Lactic Acid 2.2 H* 03/30/21 01:50: WBC Cancelled, Corrected WBC Cancelled, RBC Cancelled, Hgb Cancelled, Hct Cancelled, MCV Cancelled, MCH Cancelled, MCHC Cancelled, RDW Std Deviation Cancelled, RDW Coeff of [place] Cancelled, Plt Count Cancelled, MPV Cancelled, Immature Gran % (Auto) Cancelled, Neut % (Auto) Cancelled, Lymph % (Auto) Cancelled, [place] % (Auto) Cancelled, Eos % (Auto) Cancelled, Baso % (Auto) Cancelled, Absolute Neuts (auto) Cancelled, Absolute Lymphs (auto) Cancelled, Total Counted Cancelled, Neutrophils % (Manual) Cancelled, Band Neutrophils % Cancelled, Lymphocytes % (Manual) Cancelled, Monocytes % (Manual) Cancelled, Eosinophils % (Manual) Cancelled, Basophils % (Manual) Cancelled, Metamyelocytes % Cancelled, Myelocytes % Cancelled, Promyelocytes % Cancelled, Blast Cells % Cancelled, Plasma Cell % (Manual) Cancelled, Other Cells % Cancelled, Nucleated RBC % Cancelled, Nucleated RBCs/100 WBC Cancelled, Differential Comment Cancelled, Diff Path Review Cancelled, Hypersegmented Neuts Cancelled, Atypical Lymphocytes Cancelled, Reactive Lymphocytes Cancelled, Smudge Cells Cancelled, Toxic Granulation Cancelled, Toxic Vacuolation Cancelled, Dohle Bodies Cancelled, Rafael Rods Cancelled, Platelet Estimate Cancelled, Plt Morphology Comment Cancelled, RBC Morphology Cancelled, Polychromasia Cancelled, Hypochromasia Cancelled, Poikilocytosis Cancelled, Basophilic Stippling Cancelled, Anisocytosis Cancelled, Microcytosis Cancelled, Macrocytosis Cancelled, Spherocytes Cancelled, Sickle Cells Cancelled, Target Cells Cancelled, Tear Drop Cells Cancelled, Ovalocytes Cancelled, Stomatocytes Cancelled, [place] Bodies Cancelled, [place] Cells Cancelled, Bite Cells Cancelled, Crenated Cell Cancelled, Acanthocytes (Spur) Cancelled, Rouleaux Cancelled, Schistocytes Cancelled 03/30/21 04:25: Sodium 135 L, Potassium 4.6, Chloride 98, Carbon Dioxide 29.0, Anion Gap 8, BUN 44 H, Creatinine 1.71 H, Estim Creat Clear Calc 39.14, Est GFR (MDRD) Af Amer 51 L, Est GFR (MDRD) Non-Af 42 L, BUN/Creatinine Ratio 25.7 H, Glucose 138 H, Calcium 8.0 L Micro: Microbiology 03/29/21 20:05 Mucosa - Nasopharyngeal Respiratory Panel (PCR) - Final 03/29/21 20:15 Urine, Clean Catch Legionella Antigen - Final 03/29/21 20:15 Urine, Clean Catch Streptococcus pneumoniae Antigen (M - Final 03/29/21 21:30 Stool Stool Occult Blood (SERGIO) - Final Occult Blood Positive 03/29/21 21:10 Nasal Secretion SARS-CoV-2 Antigen (Rapid) - Final Radiology Impression Chest X-Ray 03/29/21 20:36 IMPRESSION: Stable large left pleural effusion, cannot exclude associated left basilar atelectasis and/or pneumonia. Electronically Signed: Madeleine Zuluaga MD at 21:33 EDT Tel , Service support , Chest CT 03/29/21 23:15 IMPRESSION: Increased left pleural effusion, now with complete left lower lobe atelectasis. Electronically Signed: De Deluna MD at 0:31 EDT Tel , Service support , Charges/Coding Visit Charges Inpatient E&M: 79341 Init Hosp L3
[2021-03-30 10:39] LABS: Hematocrit 22.6 % (40-54); Hemoglobin 7.2 g/dL (13.0-16.5); Mean Corpuscular Hgb 30.4 pg (27.0-32.0); Mean Corpuscular Volume 95.4 fL (80-94); Red Blood Count 2.37 M/mm3 (4.6-6.2); White Blood Count 14.4 K/mm3 (4.4-11.0)
[2021-03-30 10:40] LABS: Mean Corp Hgb Conc 31.9 g/dL (32-36); Mean Platelet Vol. 10.5 fl (6.2-12.0); POSITIVE DIFFERENTIAL YES; POSITIVE MORPHOLOGY YES; Platelet Count 121 K/mm3 (150-450); RBC Distribution Width CV 16.1 % (11.6-14.6); RBC Distribution Width SD 53.7 fl (35.1-43.9)
[2021-03-30 10:41] LABS: Differential Comment SCANNED
[2021-03-30 10:42] LABS: Anisocytosis 1+; Hypochromasia 1+
--- NOTE | 2021-03-30 10:47 | CON.PCM.ID_ITS ---
Assessment & Plan Assessment/Plan (1) Septic shock: PLAN: Improving this AM. Covid neg, has been vaccinated. R chest port placed 03/29/21. Bcx pending. Would do thoracentesis if possible. Cont vanc/zosyn. Will follow, thank you (2) Mantle cell lymphoma: QUALIFIERS: Lymphoma site: multiple regions Qualified Code(s): C83.18 - Mantle cell lymphoma, lymph nodes of multiple sites HPI Consult Data Date of Consult: 03/30/21 HPI Narrative HPI Narrative: WINNIE SCOTT, is a 75 M who presented yesterday with fever and chills. Has lymphoma. Recent admit with discharge 03/17 for PE and large L pleural effusion. Had port placed yesterday. Reports 2-3 days increased weakness, some fever. Has had covid vaccine. Some dyspnea. Pruritic rash which started in the hospital now much improved. Came to ED, admitted on vanc/zosyn, pressors. Feeling better this Am. Full ROS performed and neg except as noted above. [facility] Medical History Anemia Asthma Cancer Chronic cough Dietary restriction Duodenal ulcer Encounter for education Enlarged prostate Gout History of echocardiogram History of edema History of steroid therapy History of ulceration Hypertension Infiltrate of lung present on computed tomography Mantle cell lymphoma Non-smoker On home oxygen therapy Pneumonia Prostate disease Pulmonary embolism Rash Renal cysts, acquired, bilateral Restless legs Shortness of breath on exertion Splenic infarct Wears glasses Home Medications finasteride 5 mg tablet 5 mg PO QDAY 10/25/17 [History Last Taken 03/09/21] albuterol sulfate 90 mcg/actuation aerosol inhaler 2 puff INHALATION Q6H PRN #8.5 g 03/03/21 [Rx Last Taken 03/08/21] multivitamin 1 tab PO DAILY 03/03/21 [History Last Taken 03/08/21] furosemide [Lasix] 40 mg PO BID #60 tab 03/17/21 [Rx Last Taken Unknown] pantoprazole 40 mg PO BID #60 tab 03/17/21 [Rx Last Taken 03/29/21 0630] tamsulosin 0.4 mg PO DAILY@1730 #30 cap 03/17/21 [Rx Last Taken Unknown] hydrocortisone 2.5 % topical cream 1 applic TOPICAL BID PRN #30 g 03/19/21 [Rx Last Taken Unknown] allopurinol 300 mg PO DAILY 20 Days #20 tab 03/24/21 [Rx Last Taken Unknown] prednisone 100 mg PO DAILY 5 Days #50 tab 03/24/21 [Rx Last Taken Unknown] lidocaine-prilocaine 2.5 %-2.5 % topical cream 1 applic TOPICAL ONCE PRN 30 Days #30 g 03/25/21 [Rx Last Taken Unknown] ondansetron 8 mg disintegrating tablet 8 mg PO Q8H PRN #30 tab 03/25/21 [Rx Last Taken Unknown] apixaban [Eliquis] 5 mg PO BID 03/26/21 [History Last Taken 03/26/21] Allergy/AdvReac Type Severity Reaction Status Date / Time Antihistamines - Ethanolamine Allergy Severe rash Verified 03/29/21 20:10 MUCOUS RELIEF DM Allergy Rash Uncoded 03/29/21 20:10 Family History Father Cancer Prostate and Colon CA. Colon cancer Hypertension Grandfather CVA (cerebral vascular accident) Myocardial infarction Mother Hypertension Surgical History History of appendectomy History of esophagogastroduodenoscopy (EGD) History of tonsillectomy Hx of colonoscopy Hx of lymph node biopsy Social History household members: spouse housing: house Smoking Status: Never smoker second hand exposure: No alcohol intake: never substance use type: does not use what type of physical activity do you participate in: none yosef/protestant: Mennonite seatbelt use: always do you feel safe at home: Yes Physical Exam Const alert and no apparent distress General Appearance: cooperative Exam Limitations: no limitations HEENT normocephalic and head/scalp atraumatic Eyes PERRL and EOMs intact bilaterally Neck supple and No nodes Resp Resp Narrative: decreased on L base Auscultation: diminished lung sounds Cardio regular rate and regular rhythm GI normal to inspection, nondistended, normoactive bowel sounds Extremity General Extremity: edema Skin Skin Narrative: Mild erythema on BLE, fading Neuro CN's II-XII intact bilaterally Lab / Micro Data Result Diagrams: 03/30/21 04:25 03/30/21 04:25 Labs: Laboratory Results - last 24 hr 03/29/21 20:05: COVID-19 ([facility]) Not Detected 03/29/21 20:15: Urine Color Yellow, Urine Clarity Clear, Urine pH 6.0, Ur Specific [place] 1.015, Urine Protein 15 H, Urine Glucose (UA) Normal, Urine Ketones Negative, Urine Occult Blood Negative, Urine Nitrite Negative, Urine Bilirubin Negative, Urine Urobilinogen Normal, Ur Leukocyte Esterase Negative, Urine RBC 0 SEEN, Urine WBC 0-5 SEEN, Ur Squamous Epith Cells 0 SEEN, Urine Bacteria RARE, Urine Mucus 0 SEEN 03/29/21 20:15: Urine Color Cancelled, Urine Clarity Cancelled, Urine pH Cancelled, Ur Specific [place] Cancelled, U Specif Grav (Refrac) Cancelled, Urine Protein Cancelled, Urine Glucose (UA) Cancelled, Urine Ketones Cancelled, Urine Occult Blood Cancelled, Urine Nitrite Cancelled, Urine Bilirubin Cancelled, Urine Urobilinogen Cancelled, Ur Leukocyte Esterase Cancelled, Urine RBC Cancelled, Urine WBC Cancelled, Ur Squamous Epith Cells Cancelled, Ur Transition Epith Cell Cancelled, Ur Renal Epithelial Cell Cancelled, Calcium Oxalate Crystal Cancelled, Uric Acid Crystals Cancelled, Triple Phos Crystals Cancelled, Other Crystals Cancelled, Amorphous Sediment Cancelled, Urine Bacteria Cancelled, Hyaline Casts Cancelled, Fine Granular Casts Cancelled, Coarse Granular Casts Cancelled, Waxy Casts Cancelled, RBC Casts Cancelled, WBC Casts Cancelled, Urine Mucus Cancelled, Urine Trichomonas Cancelled, Urine Yeast Cancelled 03/29/21 20:18: WBC 15.7 H, RBC 2.45 L, Hgb 7.4 L, Hct 22.8 L, MCV 93.1, MCH 30.2, MCHC 32.5, RDW Std Deviation 53.0 H, RDW Coeff of Dmitry 16.3 H, Plt Count 24 L*, MPV 10.9, Immature Gran % (Auto) 3.900 H, Neut % (Auto) 29.2 L, Lymph % (Auto) 18.3 L, Barren % (Auto) 31.4 H, Eos % (Auto) 16.7 H, Baso % (Auto) 0.5, Absolute Neuts (auto) 4.6, Absolute Lymphs (auto) 2.86, Nucleated RBC % 1.8, Differential Comment SCANNED, Diff Path Review October foll 03/29/21 20:18: Sodium 131 L, Potassium 4.7, Chloride 92 L, Carbon Dioxide 26.0, Anion Gap 13, BUN 46 H, Creatinine 1.94 H, Estim Creat Clear Calc 34.50, Est GFR (MDRD) Af Amer 43 L, Est GFR (MDRD) Non-Af 36 L, BUN/Creatinine Ratio 23.7 H, Glucose 108 H, Calcium 8.5, Total Bilirubin 0.40, AST 101 H, ALT 114 H, Alkaline Phosphatase 133 H, Troponin I High Sens 13, Total Protein 5.6 L, Albumin 2.4 L, Globulin 3.2, Albumin/Globulin Ratio 0.8 L 03/29/21 20:44: PT 17.3 H, INR 1.5, APTT 32.5 03/29/21 20:44: Lactic Acid 5.5 H* 03/29/21 21:30: Blood Type A POSITIVE, Antibody Screen NEGATIVE 03/29/21 21:30: Crossmatch See Detail 03/30/21 01:15: Lactic Acid 2.2 H* 03/30/21 01:50: WBC Cancelled, Corrected WBC Cancelled, RBC Cancelled, Hgb Cancelled, Hct Cancelled, MCV Cancelled, MCH Cancelled, MCHC Cancelled, RDW Std Deviation Cancelled, RDW Coeff of Dmitry Cancelled, Plt Count Cancelled, MPV Cancelled, Immature Gran % (Auto) Cancelled, Neut % (Auto) Cancelled, Lymph % (A uto) Cancelled, Barren % (Auto) Cancelled, Eos % (Auto) Cancelled, Baso % (Auto) Cancelled, Absolute Neuts (auto) Cancelled, Absolute Lymphs (auto) Cancelled, Total Counted Cancelled, Neutrophils % (Manual) Cancelled, Band Neutrophils % Cancelled, Lymphocytes % (Manual) Cancelled, Monocytes % (Manual) Cancelled, Eosinophils % (Manual) Cancelled, Basophils % (Manual) Cancelled, Metamyelocytes % Cancelled, Myelocytes % Cancelled, Promyelocytes % Cancelled, Blast Cells % Cancelled, Plasma Cell % (Manual) Cancelled, Other Cells % Cancelled, Nucleated RBC % Cancelled, Nucleated RBCs/100 WBC Cancelled, Differential Comment Cancelled, Diff Path Review Cancelled, Hypersegmented Neuts Cancelled, Atypical Lymphocytes Cancelled, Reactive Lymphocytes Cancelled, Smudge Cells Cancelled, Toxic Granulation Cancelled, Toxic Vacuolation Cancelled, Dohle Bodies Cancelled, Rafael Rods Cancelled, Platelet Estimate Cancelled, Plt Morphology Comment Cancelled, RBC Morphology Cancelled, Polychromasia Cancelled, H ypochromasia Cancelled, Poikilocytosis Cancelled, Basophilic Stippling Cancelled, Anisocytosis Cancelled, Microcytosis Cancelled, Macrocytosis Cancelled, Spherocytes Cancelled, Sickle Cells Cancelled, Target Cells Cancelled, Tear Drop Cells Cancelled, Ovalocytes Cancelled, Stomatocytes Cancelled, [place]-Stewardson Bodies Cancelled, Joselin Cells Cancelled, Bite Cells Cancelled, Crenated Cell Cancelled, Acanthocytes (Spur) Cancelled, Rouleaux Cancelled, Schistocytes Cancelled 03/30/21 04:25: Sodium 135 L, Potassium 4.6, Chloride 98, Carbon Dioxide 29.0, Anion Gap 8, BUN 44 H, Creatinine 1.71 H, Estim Creat Clear Calc 39.14, Est GFR (MDRD) Af Amer 51 L, Est GFR (MDRD) Non-Af 42 L, BUN/Creatinine Ratio 25.7 H, Glucose 138 H, Calcium 8.0 L 03/30/21 04:25: WBC 14.4 H, RBC 2.37 L, Hgb 7.2 L, Hct 22.6 L, MCV 95.4 H, MCH 30.4, MCHC 31.9 L, RDW Std Deviation 53.7 H, RDW Coeff of Dmitry 16.1 H, Plt Count 121 L, MPV 10.5, Immature Gran % (Auto) 3.800 H, Neut % (Auto) 48.4, Lymph % (Auto) 20.2, Barren % (Auto) 11.2 H, Eos % (Auto) 0.5, Baso % (Auto) 15.9 H, Absolute Neuts (auto) 7.0, Absolute Lymphs (auto) 2.91, Nucleated RBC % 1.0, Differential Comment SCANNED, Diff Path Review May foll, Hypochromasia 1+, Anisocytosis 1+ Micro: Microbiology 03/29/21 20:05 Mucosa - Nasopharyngeal Respiratory Panel (PCR) - Final 03/29/21 20:15 Urine, Clean Catch Legionella Antigen - Final 03/29/21 20:15 Urine, Clean Catch Streptococcus pneumoniae Antigen (M - Final 03/29/21 21:30 Stool Stool Occult Blood (SEGRIO) - Final Occult Blood Positive 03/29/21 21:10 Nasal Secretion SARS-CoV-2 Antigen (Rapid) - Final Radiology Impression Chest X-Ray 03/29/21 20:36 IMPRESSION: Stable large left pleural effusion, cannot exclude associated left basilar atelectasis and/or pneumonia. Electronically Signed: Madeleine Zuluaga MD at 21:33 EDT Tel , Service support , Chest CT 03/29/21 23:15 IMPRESSION: Increased left pleural effusion, now with complete left lower lobe atelectasis. Electronically Signed: De Deluna MD at 0:31 EDT Tel , Service support ,
[2021-03-30] MEDS: Allopurinol 300 MG Tablet PO (10:56)
[2021-03-30 11:05] LABS: ALB/GLOB Ratio 0.7 RATIO (0.9-2.4); AST(SGOT) 92 U/L (15-37); Alanine Aminotransfer ALT/SGPT 85 U/L (16-61); Alkaline Phosphatase 97 U/L (45-117); Anion Gap 10 (5-15); BUN 46 mg/dL (7-18); BUN/Creat Ratio 25.1 RATIO (10-20); Calcium,Total 7.9 mg/dL (8.5-10.1); Chloride 98 mmol/L (98-107); Creatinine, Serum 1.83 mg/dL (0.70-1.30); EST Glomerular Filtration Rate 38 mL/min (>60); Est Glom Filt Rate - Afr Amer 46 mL/min (>60); Estimated Creatinine Clearance 36.58 ml/min; Globulin 2.8 g/dL (2.2-4.2); Glucose 186 mg/dL (74-106); Potassium 4.2 mmol/L (3.5-5.1); Protein, Total 4.8 g/dL (6.4-8.2); Sodium Level 136 mmol/L (136-145)
[2021-03-30] MEDS: Vancomycin IV 1,000 MG/200 ML BAG 200 MG IV ×2 (11:24→22:46)
[2021-03-30 11:46] LABS: Absolute Lymphocyte Count 1.63 X10^3/uL (0.83-4.51); Absolute Neutrophil Count 6.9 X10^3/uL (2.0-7.7); Basophil# 0.07 X10^3/uL; Basophil% 0.7 % (0-1); Eosinophils% 6.7 % (0-5); Hematocrit 23.3 % (40-54); Lymphocyte # 1.63 X10^3/ul (0.83-4.51); Lymphocyte % 15.7 % (19-41); Mean Corp Hgb Conc 34.3 g/dL (32-36); Mean Corpuscular Hgb 33.5 pg (27.0-32.0); Mean Corpuscular Volume 97.5 fL (80-94); Mean Platelet Vol. 10.5 fl (6.2-12.0); Monocyte# 0.84 X10^3/uL; Monocyte% 8.1 % (0-10); NRBC Flagged by Analyzer 0.8 % (0-5); Neutrophil # 6.86 X10^3/uL (2.7-7.7); Neutrophil % 65.9 % (47-70); POSITIVE MORPHOLOGY YES; Platelet Count 101 K/mm3 (150-450); RBC Distribution Width CV 16.5 % (11.6-14.6); Red Blood Count 2.39 M/mm3 (4.6-6.2); White Blood Count 10.4 K/mm3 (4.4-11.0)
[2021-03-30 11:51] LABS: Differential Indicated SCAN CRITERIA MET
[2021-03-30 12:36] LABS: LDH 867 U/L (87-241)
--- NOTE | 2021-03-30 12:44 | CON.PCM.ON_ITS ---
Assessment & Plan Assessment/Plan (1) Septic shock: Status: Acute Code(s): A41.9 - Sepsis, unspecified organism; R65.21 - Severe sepsis with septic shock (2) Mantle cell lymphoma: Status: Acute Code(s): C83.10 - Mantle cell lymphoma, unspecified site Qualifiers: Lymphoma site: multiple regions Qualified Code(s): C83.18 - Mantle cell lymphoma, lymph nodes of multiple sites Plan: 75-year-old gentleman with #9-Ctu-[id number]'s B cell lymphoma: advanced stage IV mantle cell lymphoma, admitted with febrile illness possible sepsis. Once acute illness resolves patient will be rescheduled for initial pretreatment staging PET/CT and first cycle of bendamustine Rituxan systemic therapy. #2-tumor lysis secondary to an aggressive lymphoma: Is at least a contributing factor to the patient's acidosis, hyperuricemia and azotemia. Continue gentle hydration (to minimize fluid overload and pre-existing anasarca) and allopurinol 300 mg daily. #3-pseudothrombocytopenia, resolved with repeat testing. No further intervention indicated. #4 anemia secondary to cancer and highly suspected bone marrow involvement by lymphoma plus or minus some operative blood loss. Target hemoglobin at or above 8 g per DL with packed red blood cell transfusion. #5-recent VTE, secondary to malignancy induced hyper coagulability, may resume systemic anticoagulation once stable and no active bleeding. Anticoagulation was held prior to port placement. #6-follow-up after discharge, PET/CT and chemo treatment will be rescheduled a week from today. Discussed with patient and his joined in on the phone. #[address] Silverio. Halle Sebastian MD Clinical Veterinarian, [facility] Divisions of Medical Oncology & Hematology Department of Internal Medicine [facility] [place] [id number] This note was generated using a voice recognition system software. Although it was reviewed by the author prior to finalization, it may still contain incorrect words, spelling, and punctuation that were not noted when reviewing prior to saving. If a clinically significant typo or inaccurately typed phrase is noted, please notify the author. (3) Shortness of breath: Status: Acute Code(s): R06.02 - Shortness of breath (4) Anemia: Status: Acute Code(s): D64.9 - Anemia, unspecified (5) Fever: Status: Acute Code(s): R50.9 - Fever, unspecified HPI Consult Data Date of Service:: 03/30/21 PCP / Referring Provider: Dr. Yo Pedro DO Attending: Dr. Hernan Campbell DO Chief Complaint Chief Complaint: Fever History of Present Illness History of Present Illness: 75-year-old gentleman recently diagnosed with an advanced stage mantle cell lymphoma, had a port placed March 29, 2021 electively in preparation for treatment and developed a fever within 24 hours. Patient hospitalized undergoing evaluation for possible sepsis. Advanced Directives Power of Computational Biologist: Yes Living Will: Yes [facility] Medical History Anemia Asthma Cancer Chronic cough Dietary restriction Duodenal ulcer Encounter for education Enlarged prostate Gout History of echocardiogram History of edema History of steroid therapy History of ulceration Hypertension Infiltrate of lung present on computed tomography Mantle cell lymphoma Non-smoker On home oxygen therapy Pneumonia Prostate disease Pulmonary embolism Rash Renal cysts, acquired, bilateral Restless legs Shortness of breath on exertion Splenic infarct Wears glasses Home Medications finasteride 5 mg tablet 5 mg PO QDAY 10/25/17 [History Last Taken 03/09/21] albuterol sulfate 90 mcg/actuation aerosol inhaler 2 puff INHALATION Q6H PRN #8.5 g 03/03/21 [Rx Last Taken 03/08/21] multivitamin 1 tab PO DAILY 03/03/21 [History Last Taken 03/08/21] furosemide [Lasix] 40 mg PO BID #60 tab 03/17/21 [Rx Last Taken Unknown] pantoprazole 40 mg PO BID #60 tab 03/17/21 [Rx Last Taken 03/29/21 0630] tamsulosin 0.4 mg PO DAILY@1730 #30 cap 03/17/21 [Rx Last Taken Unknown] hydrocortisone 2.5 % topical cream 1 applic TOPICAL BID PRN #30 g 03/19/21 [Rx Last Taken Unknown] allopurinol 300 mg PO DAILY 20 Days #20 tab 03/24/21 [Rx Last Taken Unknown] prednisone 100 mg PO DAILY 5 Days #50 tab 03/24/21 [Rx Last Taken Unknown] lidocaine-prilocaine 2.5 %-2.5 % topical cream 1 applic TOPICAL ONCE PRN 30 Days #30 g 03/25/21 [Rx Last Taken Unknown] ondansetron 8 mg disintegrating tablet 8 mg PO Q8H PRN #30 tab 03/25/21 [Rx Last Taken Unknown] apixaban [Eliquis] 5 mg PO BID 03/26/21 [History Last Taken 03/26/21] Allergy/AdvReac Type Severity Reaction Status Date / Time Antihistamines - Ethanolamine Allergy Severe rash Verified 03/29/21 20:10 MUCOUS RELIEF DM Allergy Rash Uncoded 03/29/21 20:10 Family History Father Cancer Prostate and Colon CA. Colon cancer Hypertension Grandfather CVA (cerebral vascular accident) Myocardial infarction Mother Hypertension Surgical History History of appendectomy History of esophagogastroduodenoscopy (EGD) History of tonsillectomy Hx of colonoscopy Hx of lymph node biopsy Social History household members: spouse housing: house Smoking Status: Never smoker second hand exposure: No alcohol intake: never substance use type: does not use what type of physical activity do you participate in: none yosef/mandaeism: Mennonite seatbelt use: always do you feel safe at home: Yes ROS Constitutional Constitutional: Reports fatigue, fever(s), poor appetite, weight gain and other Details: Weight gain mainly attributed to generalized edema ; Denies night sweats ENT HEENT: Reports neck mass; Denies dysphagia, hoarseness, loss taste/smell or sore throat Cardiovascular Cardiovascular: Reports dyspnea on exertion and edema; Denies chest pain Respiratory/Chest Respiratory/Chest: Reports dyspnea on exertion; Denies chest tightness, cough, hemoptysis, pain on inspiration or wheezing Gastrointestinal Gastrointestinal: Reports anorexia; Denies abdominal pain, change in bowel habits, hematochezia, melena, nausea or vomiting Genitourinary Genitourinary: Denies change in urinary stream or dysuria Musculoskeletal Musculoskeletal: Denies back pain Integumentary Integumentary: Reports rash and other Details: Had a rash weeks earlier, attributed to possible drug reaction, is fading away Neurologic Neurologic: Denies abnormal speech, focal weakness or headache(s) Endocrine Endocrinology: Denies flushing Hematologic/Lymphatic Hematologic/Lymphatic: Reports easy bruising and lymphadenopathy; Denies easy bleeding Physical Exam Narrative ECOG 1-2 Const alert, oriented x3 and no apparent distress General Appearance: grossly edematous HEENT normocephalic Eyes conjunctivae normal and no scleral icterus Neck no JVD General: lymphadenopathy Lymph Lymphatic: lymphedema and lymphadenopathy Resp clear to auscultation bilaterally Auscultation: diminished lung sounds left (Left pleural effusion) lower Cardio regular rate and regular rhythm GI soft to palpation and non-tender Extremity General Extremity: edema bilateral lower extremity Details: severe Skin no rashes or lesions noted Neuro CN's II-XII intact bilaterally, moves all extremities and no focal motor deficits Psych mental status grossly normal Vital Signs Temperature 96.2 F L 03/30/21 09:30 Temperature Source Temporal 03/30/21 09:30 Pulse Rate 86 03/30/21 11:00 Pulse Strength Normal (2+) 03/30/21 08:19 Respiratory Rate 19 H 03/30/21 11:00 Respiratory Effort 03/30/21 08:00 Respiratory Depth Normal 03/30/21 08:00 Respiratory Pattern Normal 03/30/21 08:00 Blood Pressure 89/61 L 03/30/21 11:00 Blood Pressure Mean 70 03/30/21 11:00 Blood Pressure Source Monitor 03/30/21 11:00 Blood Pressure Position Semi-Fowlers 03/30/21 11:00 Blood Pressure Location Right Arm 03/30/21 11:00 Pulse Ox 92 03/30/21 11:00 Oxygen Delivery Method Nasal Cannula 03/30/21 11:00 Oxygen Flow Rate (L/min) 2 03/30/21 11:00 Fraction of Inspired Oxygen (FIO2) 5 03/30/21 05:00 Laboratory Results - last 24 hr 03/29/21 20:05: COVID-19 (RACHELE) Not Detected 03/29/21 20:15: Urine Color Yellow, Urine Clarity Clear, Urine pH 6.0, Ur Specific [place] 1.015, Urine Protein 15 H, Urine Glucose (UA) Normal, Urine Ketones Negative, Urine Occult Blood Negative, Urine Nitrite Negative, Urine Bilirubin Negative, Urine Urobilinogen Normal, Ur Leukocyte Esterase Negative, Urine RBC 0 SEEN, Urine WBC 0-5 SEEN, Ur Squamous Epith Cells 0 SEEN, Urine Bacteria RARE, Urine Mucus 0 SEEN 03/29/21 20:15: Urine Color Cancelled, Urine Clarity Cancelled, Urine pH Cancelled, Ur Specific [place] Cancelled, U Specif Grav (Refrac) Cancelled, Urine Protein Cancelled, Urine Glucose (UA) Cancelled, Urine Ketones Cancelled, Urine Occult Blood Cancelled, Urine Nitrite Cancelled, Urine Bilirubin Cancelled, Urine Urobilinogen Cancelled, Ur Leukocyte Esterase Cancelled, Urine RBC Cancelled, Urine WBC Cancelled, Ur Squamous Epith Cells Cancelled, Ur Transition Epith Cell Cancelled, Ur Renal Epithelial Cell Cancelled, Calcium Oxalate Crystal Cancelled, Uric Acid Crystals Cancelled, Triple Phos Crystals Cancelled, Other Crystals Cancelled, Amorphous Sediment Cancelled, Urine Bacteria Cancelled, Hyaline Casts Cancelled, Fine Granular Casts Cancelled, Coarse Granular Casts Cancelled, Waxy Casts Cancelled, RBC Casts Cancelled, WBC Casts Cancelled, Urine Mucus Cancelled, Urine Trichomonas Cancelled, Urine Yeast Cancelled 03/29/21 20:18: WBC 15.7 H, RBC 2.45 L, Hgb 7.4 L, Hct 22.8 L, MCV 93.1, MCH 30.2, MCHC 32.5, RDW Std Deviation 53.0 H, RDW Coeff of Dmitry 16.3 H, Plt Count 24 L*, MPV 10.9, Immature Gran % (Auto) 3.900 H, Neut % (Auto) 29.2 L, Lymph % (Auto) 18.3 L, [place] % (Auto) 31.4 H, Eos % (Auto) 16.7 H, Baso % (Auto) 0.5, Absolute Neuts (auto) 4.6, Absolute Lymphs (auto) 2.86, Nucleated RBC % 1.8, Differential Comment SCANNED, Diff Path Review October foll 03/29/21 20:18: Sodium 131 L, Potassium 4.7, Chloride 92 L, Carbon Dioxide 26.0, Anion Gap 13, BUN 46 H, Creatinine 1.94 H, Estim Creat Clear Calc 34.50, Est GFR (MDRD) Af Amer 43 L, Est GFR (MDRD) Non-Af 36 L, BUN/Creatinine Ratio 23.7 H, Glucose 108 H, Calcium 8.5, Total Bilirubin 0.40, AST 101 H, ALT 114 H, Alkaline Phosphatase 133 H, Troponin I High Sens 13, Total Protein 5.6 L, Albumin 2.4 L, Globulin 3.2, Albumin/Globulin Ratio 0.8 L 03/29/21 20:44: PT 17.3 H, INR 1.5, APTT 32.5 03/29/21 20:44: Lactic Acid 5.5 H* 03/29/21 21:30: Blood Type A POSITIVE, Antibody Screen NEGATIVE 03/29/21 21:30: Crossmatch See Detail 03/30/21 01:15: Lactic Acid 2.2 H* 03/30/21 01:50: WBC Cancelled, Corrected WBC Cancelled, RBC Cancelled, Hgb Cancelled, Hct Cancelled, MCV Cancelled, MCH Cancelled, MCHC Cancelled, RDW Std Deviation Cancelled, RDW Coeff of Dmitry Cancelled, Plt Count Cancelled, MPV Cancelled, Immature Gran % (Auto) Cancelled, Neut % (Auto) Cancelled, Lymph % (Auto) Cancelled, [place] % (Auto) Cancelled, Eos % (Auto) Cancelled, Baso % (Auto) Cancelled, Absolute Neuts (auto) Cancelled, Absolute Lymphs (auto) Cancelled, Total Counted Cancelled, Neutrophils % (Manual) Cancelled, Band Neutrophils % Cancelled, Lymphocytes % (Manual) Cancelled, Monocytes % (Manual) Cancelled, Eosinophils % (Manual) Cancelled, Basophils % (Manual) Cancelled, Metamyelocytes % Cancelled, Myelocytes % Cancelled, Promyelocytes % Cancelled, Blast Cells % Cancelled, Plasma Cell % (Manual) Cancelled, Other Cells % Cancelled, Nucleated RBC % Cancelled, Nucleated RBCs/100 WBC Cancelled, Differential Comment Cancelled, Diff Path Review Cancelled, Hypersegmented Neuts Cancelled, Atypical Lymphocytes Cancelled, Reactive Lymphocytes Cancelled, Smudge Cells Cancelled, Toxic Granulation Cancelled, Toxic Vacuolation Cancelled, Dohle Bodies Can celled, Arfael Rods Cancelled, Platelet Estimate Cancelled, Plt Morphology Comment Cancelled, RBC Morphology Cancelled, Polychromasia Cancelled, Hypochromasia Cancelled, Poikilocytosis Cancelled, Basophilic Stippling Cancelled, Anisocytosis Cancelled, Microcytosis Cancelled, Macrocytosis Cancelled, Spherocytes Cancelled, Sickle Cells Cancelled, Target Cells Cancelled, Tear Drop Cells Cancelled, Ovalocytes Cancelled, Stomatocytes Cancelled, [place] Bodies Cancelled, Joselin Cells Cancelled, Bite Cells Cancelled, Crenated Cell Cancelled, Acanthocytes (Spur) Cancelled, Rouleaux Cancelled, Schistocytes Cancelled 03/30/21 04:25: Sodium 135 L, Potassium 4.6, Chloride 98, Carbon Dioxide 29.0, Anion Gap 8, BUN 44 H, Creatinine 1.71 H, Estim Creat Clear Calc 39.14, Est GFR (MDRD) Af Amer 51 L, Est GFR (MDRD) Non-Af 42 L, BUN/Creatinine Ratio 25.7 H, Glucose 138 H, Calcium 8.0 L 03/30/21 04:25: WBC 14.4 H, RBC 2.37 L, Hgb 7.2 L, Hct 22.6 L, MCV 95.4 H, MCH 30.4, MCHC 31.9 L, RDW Std Deviation 53.7 H, RDW Coeff of Dmitry 16.1 H, Plt Count 121 L, MPV 10.5, Immature Gran % (Auto) 3.800 H, Neut % (Auto) 48.4, Lymph % (Auto) 20.2, [place] % (Auto) 11.2 H, Eos % (Auto) 0.5, Baso % (Auto) 15.9 H, Absolute Neuts (auto) 7.0, Absolute Lymphs (auto) 2.91, Nucleated RBC % 1.0, Differential Comment SCANNED, Diff Path Review May foll, Hypochromasia 1+, Anisocytosis 1+ 03/30/21 04:25: Uric Acid 7.0, Lactate Dehydrogenase 867 H 03/30/21 10:40: Sodium 136, Potassium 4.2, Chloride 98, Carbon Dioxide 28.0, Anion Gap 10, BUN 46 H, Creatinine 1.83 H, Estim Creat Clear Calc 36.58, Est GFR (MDRD) Af Amer 46 L, Est GFR (MDRD) Non-Af 38 L, BUN/Creatinine Ratio 25.1 H, Glucose 186 H, Calcium 7.9 L, Total Bilirubin 0.60, AST 92 H, ALT 85 H, Alkaline Phosphatase 97, Total Protein 4.8 L, Albumin 2.0 L, Globulin 2.8, Albumin/Globulin Ratio 0.7 L 03/30/21 10:40: WBC 10.4, RBC 2.39 L, Hgb 8.0 L, Hct 23.3 L, MCV 97.5 H, MCH 33.5 H, MCHC 34.3 D, RDW Std Deviation 53.0 H, RDW Coeff of Dmitry 16.5 H, Plt Count 101 L, MPV 10.5, Immature Gran % (Auto) 2.900 H, Neut % (Auto) 65.9, Lymph % (Auto) 15.7 L, [place] % (Auto) 8.1, Eos % (Auto) 6.7 H, Baso % (Auto) 0.7, Absolute Neuts (auto) 6.9, Absolute Lymphs (auto) 1.63, Nucleated RBC % 0.8 Microbiology 03/29/21 20:05 Mucosa - Nasopharyngeal Respiratory Panel (PCR) - Final 03/29/21 20:15 Urine, Clean Catch Legionella Antigen - Final 03/29/21 20:15 Urine, Clean Catch Streptococcus pneumoniae Antigen (M - Final 03/29/21 21:30 Stool Stool Occult Blood (SERGIO) - Final Occult Blood Positive 03/29/21 21:10 Nasal Secretion SARS-CoV-2 Antigen (Rapid) - Final Diagnostic Data Chest X-Ray 03/29/21 20:36 IMPRESSION: Stable large left pleural effusion, cannot exclude associated left basilar atelectasis and/or pneumonia. Electronically Signed: Madeleine Zuluaga MD at 21:33 EDT Tel , Service support , Chest CT 03/29/21 23:15 IMPRESSION: Increased left pleural effusion, now with complete left lower lobe atelectasis. Electronically Signed: De Deluna MD at 0:31 EDT Tel , Service support ,
[2021-03-30 12:48] LABS: Atypical Lymphocyte RARE %; Hypochromasia 2+; Platelet Estimate ADEQUATE (ADEQ)
--- NOTE | 2021-03-30 13:31 | PN.HOSP_ITS ---
Subjective Subjective Feels better. Objective Data Objective Data Vital Signs: Vital Signs Temp Pulse Resp BP Pulse Ox 36.8 C 90 20 H 104/65 94 03/30/21 12:00 03/30/21 12:00 03/30/21 12:00 03/30/21 12:00 03/30/21 12:00 Oxygen Flow Rate (L/min) 2 Oxygen Delivery Method Nasal Cannula Weight: 110.5 kg Body Mass Index (BMI) 34.0 Intake & Output: Intake and Output for Last 24 Hours 03/28/21 03/29/21 03/30/21 23:59 23:59 23:59 Intake Total 3050 / 3050 2920 / 2920 Output Total 1150 / 1150 Balance 3050 / 3050 1770 / 1770 Lab / Micro Data Result Diagrams: 03/30/21 10:40 03/30/21 10:40 Labs: Laboratory Results - last 24 hr 03/29/21 20:05: COVID-19 (RACHELE) Not Detected 03/29/21 20:15: Urine Color Yellow, Urine Clarity Clear, Urine pH 6.0, Ur Specific [place] 1.015, Urine Protein 15 H, Urine Glucose (UA) Normal, Urine Ketones Negative, Urine Occult Blood Negative, Urine Nitrite Negative, Urine Bilirubin Negative, Urine Urobilinogen Normal, Ur Leukocyte Esterase Negative, Urine RBC 0 SEEN, Urine WBC 0-5 SEEN, Ur Squamous Epith Cells 0 SEEN, Urine Bacteria RARE, Urine Mucus 0 SEEN 03/29/21 20:15: Urine Color Cancelled, Urine Clarity Cancelled, Urine pH Cancelled, Ur Specific [place] Cancelled, U Specif Grav (Refrac) Cancelled, Urine Protein Cancelled, Urine Glucose (UA) Cancelled, Urine Ketones Cancelled, Urine Occult Blood Cancelled, Urine Nitrite Cancelled, Urine Bilirubin Cancelled, Urine Urobilinogen Cancelled, Ur Leukocyte Esterase Cancelled, Urine RBC Cancelled, Urine WBC Cancelled, Ur Squamous Epith Cells Cancelled, Ur Dsouza sition Epith Cell Cancelled, Ur Renal Epithelial Cell Cancelled, Calcium Oxalate Crystal Cancelled, Uric Acid Crystals Cancelled, Triple Phos Crystals Cancelled, Other Crystals Cancelled, Amorphous Sediment Cancelled, Urine Bacteria Cancelled, Hyaline Casts Cancelled, Fine Granular Casts Cancelled, Coarse Granular Casts Cancelled, Waxy Casts Cancelled, RBC Casts Cancelled, WBC Casts Cancelled, Urine Mucus Cancelled, Urine Trichomonas Cancelled, Urine Yeast Cancelled 03/29/21 20:18: WBC 15.7 H, RBC 2.45 L, Hgb 7.4 L, Hct 22.8 L, MCV 93.1, MCH 30.2, MCHC 32.5, RDW Std Deviation 53.0 H, RDW Coeff of Dmitry 16.3 H, Plt Count 24 L*, MPV 10.9, Immature Gran % (Auto) 3.900 H, Neut % (Auto) 29.2 L, Lymph % (Auto) 18.3 L, [place] % (Auto) 31.4 H, Eos % (Auto) 16.7 H, Baso % (Auto) 0.5, Absolute Neuts (auto) 4.6, Absolute Lymphs (auto) 2.86, Nucleated RBC % 1.8, Differential Comment SCANNED, Diff Path Review October03/29/21 20:18: Sodium 131 L, Potassium 4.7, Chloride 92 L, Carbon Dioxide 26.0, Anion Gap 13, BUN 46 H, Creatinine 1.94 H, Estim Creat Clear Calc 34.50, Est GFR (MDRD) Af Amer 43 L, Est GFR (MDRD) Non-Af 36 L, BUN/Creatinine Ratio 23.7 H, Glucose 108 H, Calcium 8.5, Total Bilirubin 0.40, AST 101 H, ALT 114 H, Alkaline Phosphatase 133 H, Troponin I High Sens 13, Total Protein 5.6 L, Albumin 2.4 L, Globulin 3.2, Albumin/Globulin Ratio 0.8 L 03/29/21 20:44: PT 17.3 H, INR 1.5, APTT 32.5 03/29/21 20:44: Lactic Acid 5.5 H* 03/29/21 21:30: Blood Type A POSITIVE, Antibody Screen NEGATIVE 03/29/21 21:30: Crossmatch See Detail 03/30/21 01:15: Lactic Acid 2.2 H* 03/30/21 01:50: WBC Cancelled, Corrected WBC Cancelled, RBC Cancelled, Hgb Cancelled, Hct Cancelled, MCV Cancelled, MCH Cancelled, MCHC Cancelled, RDW Std Deviation Cancelled, RDW Coeff of Dmitry Cancelled, Plt Count Cancelled, MPV Cancelled, Immature Gran % (Auto) Cancelled, Neut % (Auto) Cancelled, Lymph % (Auto) Cancelled, [place] % (Auto) Cancelled, Eos % (Auto) Cancelled, Baso % (Auto) Cancelled, Absolute Neuts (auto) Cancelled, Absolute Lymphs (auto) Cancelled, Total Counted Cancelled, Neutrophils % (Manual) Cancelled, Band Neutrophils % Cancelled, Lymphocytes % (Manual) Cancelled, Monocytes % (Manual) Cancelled, Eosinophils % (Manual) Cancelled, Basophils % (Manual) Cancelled, Metamyelocytes % Cancelled, Myelocytes % Cancelled, Promyelocytes % Cancelled, Blast Cells % Cancelled, Plasma Cell % (Manual) Cancelled, Other Cells % Cancelled, Nucleated RBC % Cancelled, Nucleated RBCs/100 WBC Cancelled, Differential Comment Cancelled, Diff Path Review Cancelled, Hypersegmented Neuts Cancelled, Atypical Lymphocytes Cancelled, Reactive Lymphocytes Cancelled, Smudge Cells Cancelled, Toxic Granulation Cancelled, Toxic Vacuolation Cancelled, Dohle Bodies Cancelled, Rafael Rods Cancelled, Platelet Estimate Cancelled, Plt Morphology Comment Cancelled, RBC Morphology Cancelled, Polychromasia Cancelled, Hypochromasia Cancelled, Poikilocytosis Cancelled, Basophilic Stippling Cancelled, Anisocytosis Cancelled, Microcytosis Cancelled, Macrocytosis Cancelled, Spherocytes Cancelled, Sickle Cells Cancelled, Target Cells Cancelled, Tear Drop Cells Cancelled, Ovalocytes Cancelled, Stomatocytes Cancelled, [place] Bodies Cancelled, [place] Cells Cancelled, Bite Cells C ancelled, Crenated Cell Cancelled, Acanthocytes (Spur) Cancelled, Rouleaux Cancelled, Schistocytes Cancelled 03/30/21 04:25: Sodium 135 L, Potassium 4.6, Chloride 98, Carbon Dioxide 29.0, Anion Gap 8, BUN 44 H, Creatinine 1.71 H, Estim Creat Clear Calc 39.14, Est GFR (MDRD) Af Amer 51 L, Est GFR (MDRD) Non-Af 42 L, BUN/Creatinine Ratio 25.7 H, Glucose 138 H, Calcium 8.0 L 03/30/21 04:25: WBC 14.4 H, RBC 2.37 L, Hgb 7.2 L, Hct 22.6 L, MCV 95.4 H, MCH 3 0.4, MCHC 31.9 L, RDW Std Deviation 53.7 H, RDW Coeff of Dmitry 16.1 H, Plt Count 121 L, MPV 10.5, Immature Gran % (Auto) 3.800 H, Neut % (Auto) 48.4, Lymph % (Auto) 20.2, [place] % (Auto) 11.2 H, Eos % (Auto) 0.5, Baso % (Auto) 15.9 H, Absolute Neuts (auto) 7.0, Absolute Lymphs (auto) 2.91, Nucleated RBC % 1.0, Differential Comment SCANNED, Diff Path Review October, Hypochromasia 1+, Anisocytosis 1+ 03/30/21 04:25: Uric Acid 7.0, Lactate Dehydrogenase 867 H 03/30/21 10:40: Sodium 136, Potassium 4.2, Chloride 98, Carbon Dioxide 28.0, Anion Gap 10, BUN 46 H, Creatinine 1.83 H, Estim Creat Clear Calc 36.58, Est GFR (MDRD) Af Amer 46 L, Est GFR (MDRD) Non-Af 38 L, BUN/Creatinine Ratio 25.1 H, Glucose 186 H, Calcium 7.9 L, Total Bilirubin 0.60, AST 92 H, ALT 85 H, Alkaline Phosphatase 97, Total Protein 4.8 L, Albumin 2.0 L, Globulin 2.8, Albumin/Globulin Ratio 0.7 L 03/30/21 10:40: WBC 10.4, RBC 2.39 L, Hgb 8.0 L, Hct 23.3 L, MCV 97.5 H, MCH 33.5 H, MCHC 34.3 D, RDW Std Deviation 53.0 H, RDW Coeff of Dmitry 16.5 H, Plt Count 101 L, MPV 10.5, Immature Gran % (Auto) 2.900 H, Neut % (Auto) 65.9, Lymph % (Auto) 15.7 L, [place] % (Auto) 8.1, Eos % (Auto) 6.7 H, Baso % (Auto) 0.7, Absolute Neuts (auto) 6.9, Absolute Lymphs (auto) 1.63, Nucleated RBC % 0.8, Atypical Lymphocytes RARE, Platelet Estimate ADEQUATE, Hypochromasia 2+ Micro: Microbiology 03/29/21 20:05 Mucosa - Nasopharyngeal Respiratory Panel (PCR) - Final 03/29/21 20:15 Urine, Clean Catch Legionella Antigen - Final 03/29/21 20:15 Urine, Clean Catch Streptococcus pneumoniae Antigen (M - Final 03/29/21 21:30 Stool Stool Occult Blood (SERGIO) - Final Occult Blood Positive 03/29/21 21:10 Nasal Secretion SARS-CoV-2 Antigen (Rapid) - Final Radiography Diagnostic Testing: Radiology Impression Chest X-Ray 03/29/21 20:36 IMPRESSION: Stable large left pleural effusion, cannot exclude associated left basilar atelectasis and/or pneumonia. Electronically Signed: Madeleine Zuluaga MD at 21:33 EDT Tel , Service support , Chest CT 03/29/21 23:15 IMPRESSION: Increased left pleural effusion, now with complete left lower lobe atelectasis. Electronically Signed: De Deluna MD at 0:31 EDT Tel , Service support , Physical Exam Const alert HEENT head/scalp atraumatic Head and Scalp: normocephalic Resp normal respiratory effort, no retractions, no use of accessory muscles and clear to auscultation bilaterally Cardio regular rate, regular rhythm, S1 normal heart sound and S2 normal heart sound GI normal to inspection, nondistended, normoactive bowel sounds, soft to palpation and non-distended Extremity normal to inspection Assessment & Plan Assessment/Plan (1) Septic shock: (2) Acute blood loss anemia: PLAN: 1. Septic shock * resolved * unclear source * follow up cultures * on vanc and pip/tazo * ID following 2. Acute blood loss anemia * did lose 150cc with port placement 03/29 * s/p 2 units * monitor * apixaban on hold 3. pleural effusion * more pronounced on CT from 03/12 * left sided * thoracentesis in 1-2 days 4. Asthma * doubt exacerbation * change to prednisone 5. Mantle cell lymphoma * oncology following * will need staging with PET/CT and first cycle of bendamustine/rituxan 6. VTE * apixaban held * likely malignancy-induced * monitor H/H 7. VTE prophylaxis: SCDs 8. PUD * PPI Charges/Coding Procedures Hospitalists Procedures: Other Procedure - See Report (non billable rounding. pt admitted after midnight. )
[2021-03-30 13:32] LABS: Pathologist Review Reviewed
--- NOTE | 2021-03-30 15:14 | CASEMGMT ---
RN CM chart review: Patient was admitted 03/10/21-03/17/21 for GI Bleed, splenic infarcts, PNA, EFREN, PE. See RN CM assessment from 03/11/21. Patient had palliative consult on 03/17/21. Patient was discharged home with home oxygen at 4 lpm. Patient had follow-up with Romulo on 03/24/21. Patient had Port a cath placed on 03/29/21 and developed fevers and weakness after. Patient returned to ED on 03/29/21 for septic shock and asthma exacerbation. Patient's hgb was 7.4 and received 2 units of PRBC. Will monitor for needs at discharge. Patient to follow-up with oncology. CM will continue to follow this patient and plan for a safe discharge.
[2021-03-30] MEDS: Tamsulosin HCl 0.4 MG Capsule PO (22:19)
[2021-03-30] MEDS: Albuterol 2.5 MG/3 ML VIAL.NEB. INHALATION (22:34)
[2021-03-31] VITALS (13 sets, daily range): BP systolic 105–121; BP diastolic 61–72; PULSE 78–101; RESP 16–20; TEMP 36.5–36.9; O2SAT 93–96
[2021-03-31 06:15] LABS: Absolute Lymphocyte Count 1.83 X10^3/uL (0.83-4.51); Absolute Neutrophil Count 7.2 X10^3/uL (2.0-7.7); Basophil# 0.03 X10^3/uL; Basophil% 0.3 % (0-1); Hematocrit 24.6 % (40-54); Hemoglobin 8.1 g/dL (13.0-16.5); Lymphocyte # 1.83 X10^3/ul (0.83-4.51); Lymphocyte % 18.4 % (19-41); Mean Corp Hgb Conc 32.9 g/dL (32-36); Mean Corpuscular Hgb 30.5 pg (27.0-32.0); Mean Corpuscular Volume 92.5 fL (80-94); Mean Platelet Vol. 10.2 fl (6.2-12.0); Monocyte# 0.46 X10^3/uL; Monocyte% 4.6 % (0-10); NRBC Flagged by Analyzer 0.4 % (0-5); Neutrophil # 7.19 X10^3/uL (2.7-7.7); Neutrophil % 72.3 % (47-70); POSITIVE COUNT YES; POSITIVE MORPHOLOGY YES; Platelet Count 88 K/mm3 (150-450); RBC Distribution Width CV 15.9 % (11.6-14.6); RBC Distribution Width SD 51.9 fl (35.1-43.9); Red Blood Count 2.66 M/mm3 (4.6-6.2)
[2021-03-31 06:17] LABS: Differential Indicated SCAN CRITERIA MET
[2021-03-31 06:38] LABS: ALB/GLOB Ratio 0.7 RATIO (0.9-2.4); AST(SGOT) 70 U/L (15-37); Alanine Aminotransfer ALT/SGPT 81 U/L (16-61); Alkaline Phosphatase 86 U/L (45-117); Anion Gap 10 (5-15); BUN 41 mg/dL (7-18); Calcium,Total 7.8 mg/dL (8.5-10.1); Chloride 100 mmol/L (98-107); Creatinine, Serum 1.52 mg/dL (0.70-1.30); EST Glomerular Filtration Rate 48 mL/min (>60); Est Glom Filt Rate - Afr Amer 58 mL/min (>60); Estimated Creatinine Clearance 44.04 ml/min; Globulin 2.8 g/dL (2.2-4.2); Glucose 142 mg/dL (74-106); Protein, Total 4.8 g/dL (6.4-8.2); Sodium Level 137 mmol/L (136-145)
[2021-03-31 06:48] LABS: Differential Comment SCANNED; Platelet Estimate SLT DEC (ADEQ)
--- NOTE | 2021-03-31 07:26 | PN.CC_ITS ---
Assessment & Plan Assessment/Plan (1) Shortness of breath: (2) Mantle cell lymphoma: QUALIFIERS: Lymphoma site: multiple regions Qualified Code(s): C83.18 - Mantle cell lymphoma, lymph nodes of multiple sites (3) Anemia: PLAN: RECOMMENDATIONS: 1. Continue PPI, but transition to p.o. 2. Monitor CBC daily 3. Await results of thoracentesis, diagnostic and therapeutic 4. Potential discontinuation of antibiotics once cultures negative at 48 hours 5. Walking oximetry prior to discharge 6. Wean oxygen as tolerated, especially after thoracentesis IMPRESSIONS: 1. Shock Unclear etiology. Patient did have a fever and leukocytosis on p resentation. Patient would be at risk for septic shock given immunocompromise state. Unclear source at this time. Other possibility would be acute blood loss anemia and hemorrhagic shock. Patient did have a significant drop in his hemoglobin. Agree with proceeding with a thoracentesis to see if this could be a possible source of infection. Patient has reasons for both exudate and transudate etiologies. Likely okay to discontinue antibiotics once cultures negative at 48 hours. Patient is mentating well and appears to be responding well to blood products. 2. Acute hypoxic respiratory insufficiency secondary to left pleural effusion Patient received significant volume resuscitation secondary to problem #1. Patient did have a pleural effusion previously, but this cannot be visualized using ultrasound. Agree with proceeding with thoracentesis for diagnostic and therapeutic evaluation. 3. Duodenal ulcer Patient with upper GI 2 weeks ago showing a duodenal ulcer. Patient has been treated medically and appears to be doing well on therapy. Patient was guaiac positive. Patient is on iron supplementation, so stool color is less helpful. Patient also had some blood loss associated with port placement. Okay to continue with PPI, but will change to p.o. Unclear if scope needs to be repeated unless patient develops hematemesis or worsening lower GI bleed symptoms. Continue to hold Eliquis therapy. 4. Mantle cell lymphoma Patient is asking if chemotherapy will be delayed secondary to his acute presentation. It is unclear if patient could proceed with chemotherapy on discharge. Clinical suspicion is patient will be monitored for 48 hours to allow for cultures to result. If culture negative and H&H remained stable, patient may be able to proceed with chemotherapy as an outpatient. 5. Advanced age/multiple hospitalizations/hypertension/allergic rhinitis/asthma Unclear if patient is truly in an asthma exacerbation. Patient did receive some steroids, but would not continue these long-term given his duodenal ulcer. 5-day burst of steroids should be sufficient. Patient can be continued on bronchodilators. Physical therapy to evaluate the patient. Subjective Subjective Patient did well overnight. Patient subjectively feels slightly improved compared to yesterday. No abdominal pain, diarrhea or tarry stools have been reported. Patient was on 2 to 3 L nasal cannula oxygen prior to admission. Patient reported variable compliance. Objective Data Objective Data Vital Signs: Vital Signs Temp Pulse Resp BP Pulse Ox 36.5 C L 87 18 113/72 93 03/31/21 04:10 03/31/21 04:10 03/31/21 04:10 03/31/21 04:10 03/31/21 07:22 Oxygen Flow Rate (L/min) 3 Oxygen Delivery Method Nasal Cannula Weight: 109.4 kg Body Mass Index (BMI) 34.0 Intake & Output: Intake and Output for Last 24 Hours 03/29/21 03/30/21 03/31/21 23:59 23:59 23:59 Intake Total 3050 / 3050 3200 / 3200 370 / 370 Output Total 2075 / 2075 500 / 500 Balance 3050 / 3050 1125 / 1125 -130 / -130 Lab / Micro Data Result Diagrams: 03/31/21 05:36 03/31/21 05:36 Labs: Laboratory Results - last 24 hr 03/29/21 20:18: Diff Path Review Reviewed 03/29/21 21:30: Crossmatch See Detail 03/30/21 01:15: Lactic Acid 2.2 H* 03/30/21 01:50: WBC Cancelled, Corrected WBC Cancelled, RBC Cancelled, Hgb Cancelled, Hct Cancelled, MCV Cancelled, MCH Cancelled, MCHC Cancelled, RDW Std Deviation Cancelled, RDW Coeff of Dmitry Cancelled, Plt Count Cancelled, MPV Cancelled, Immature Gran % (Auto) Cancelled, Neut % (Auto) Cancelled, Lymph % (Auto) Cancelled, [place] % (Auto) Cancelled, Eos % (Auto) Cancelled, Baso % (Auto) Cancelled, Absolute Neuts (auto) Cancelled, Absolute Lymphs (auto) Cancelled, Total Counted Cancelled, Neutrophils % (Manual) Cancelled, Band Neutrophils % Cancelled, Lymphocytes % (Manual) Cancelled, Monocytes % (Manual) Cancelled, Eosinophils % (Manual) Cancelled, Basophils % (Manual) Cancelled, Metamyelocytes % Cancelled, Myelocytes % Cancelled, Promyelocytes % Cancelled, Blast Cells % Cancelled, Plasma Cell % (Manual) Cancelled, Other Cells % Cancelled, Nucleated RBC % Cancelled, Nucleated RBCs/100 WBC Cancelled, Differential Comment Cancelled, Diff Path Review Cancelled, Hypersegmented Neuts Cancelled, Atypical Lymphocytes Cancelled, Reactive Lymphocytes Cancelled, Smudge Cells Cancelled, Toxic Granulation Cancelled, Toxic Vacuolation Cancelled, Dohle Bodies Cancelled, Rafael Rods Cancelled, Platelet Estimate Cancelled, Plt Morphology Comment Cancelled, RBC Morphology Cancelled, Polychromasia Cancelled, Hypochromasia Cancelled, Poikilocytosis Cancelled, Basophilic Stippling Canc elled, Anisocytosis Cancelled, Microcytosis Cancelled, Macrocytosis Cancelled, Spherocytes Cancelled, Sickle Cells Cancelled, Target Cells Cancelled, Tear Drop Cells Cancelled, Ovalocytes Cancelled, Stomatocytes Cancelled, [place] Bodies Cancelled, [place] Cells Cancelled, Bite Cells Cancelled, Crenated Cell Cancelled, Acanthocytes (Spur) Cancelled, Rouleaux Cancelled, Schistocytes Cancelled 03/30/21 04:25: Sodium 135 L, Potassium 4.6, Chloride 98, Carbon Dioxide 29.0, Anion Gap 8, BUN 44 H, Creatinine 1.71 H, Estim Creat Clear Calc 39.14, Est GFR (MDRD) Af Amer 51 L, Est GFR (MDRD) Non-Af 42 L, BUN/Creatinine Ratio 25.7 H, Glucose 138 H, Calcium 8.0 L 03/30/21 04:25: WBC 14.4 H, RBC 2.37 L, Hgb 7.2 L, Hct 22.6 L, MCV 95.4 H, MCH 30.4, MCHC 31.9 L, RDW Std Deviation 53.7 H, RDW Coeff of Dmitry 16.1 H, Plt Count 121 L, MPV 10.5, Immature Gran % (Auto) 3.800 H, Neut % (Auto) 48.4, Lymph % (Auto) 20.2, [place] % (Auto) 11.2 H, Eos % (Auto) 0.5, Baso % (Auto) 15.9 H, Absolute Neuts (auto) 7.0, Absolute Lymphs (auto) 2.91, Nucleated RBC % 1.0, Differential Comment SCANNED, Diff Path Review May foll, Hypochromasia 1+, Anisocytosis 1+ 03/30/21 04:25: Uric Acid 7.0, Lactate Dehydrogenase 867 H 03/30/21 10:40: Sodium 136, Potassium 4.2, Chloride 98, Carbon Dioxide 28.0, Anion Gap 10, BUN 46 H, Creatinine 1.83 H, Estim Creat Clear Calc 36.58, Est GFR (MDRD) Af Amer 46 L, Est GFR (MDRD) Non-Af 38 L, BUN/Creatinine Ratio 25.1 H, Glucose 186 H, Calcium 7.9 L, Total Bilirubin 0.60, AST 92 H, ALT 85 H, Alkaline Phosphatase 97, Total Protein 4.8 L, Albumin 2.0 L, Globulin 2.8, Albumin/Globulin Ratio 0.7 L 03/30/21 10:40: WBC 10.4, RBC 2.39 L, Hgb 8.0 L, Hct 23.3 L, MCV 97.5 H, MCH 33.5 H, MCHC 34.3 D, RDW Std Deviation 53.0 H, RDW Coeff of Dmitry 16.5 H, Plt Count 101 L, MPV 10.5, Immature Gran % (Auto) 2.900 H, Neut % (Auto) 65.9, Lymph % (Auto) 15.7 L, [place] % (Auto) 8.1, Eos % (Auto) 6.7 H, Baso % (Auto) 0.7, Absolute Neuts (auto) 6.9, Absolute Lymphs (auto) 1.63, Nucleated RBC % 0.8, Atypical Lymphocytes RARE, Platelet Estimate ADEQUATE, Hypochromasia 2+ 03/31/21 05:36: WBC 10.0, RBC 2.66 L, Hgb 8.1 L, Hct 24.6 L, MCV 92.5 D, MCH 30.5, MCHC 32.9, RDW Std Deviation 51.9 H, RDW Coeff of Dmitry 15.9 H, Plt Count 88 L, MPV 10.2, Immature Gran % (Auto) 2.400 H, Neut % (Auto) 72.3 H, Lymph % (A uto) 18.4 L, [place] % (Auto) 4.6, Eos % (Auto) 2.0, Baso % (Auto) 0.3, Absolute Neuts (auto) 7.2, Absolute Lymphs (auto) 1.83, Nucleated RBC % 0.4, Differential Comment SCANNED, Platelet Estimate SLT 03/31/21 05:36: Sodium 137, Potassium 4.0, Chloride 100, Carbon Dioxide 27.0, Anion Gap 10, BUN 41 H, Creatinine 1.52 H, Estim Creat Clear Calc 44.04, Est GFR (MDRD) Af Amer 58 L, Est GFR (MDRD) Non-Af 48 L, BUN/Creatinine Ratio 27.0 H, Glucose 142 H, Calcium 7.8 L, Total Bilirubin 0.60, AST 70 H, ALT 81 H, Alkaline Phosphatase 86, Total Protein 4.8 L, Albumin 2.0 L, Globulin 2.8, Albumin/Globulin Ratio 0.7 L Micro: Microbiology 03/29/21 20:05 Mucosa - Nasopharyngeal Respiratory Panel (PCR) - Final 03/29/21 20:15 Urine, Clean Catch Legionella Antigen - Final 03/29/21 20:15 Urine, Clean Catch Streptococcus pneumoniae Antigen (M - Final 03/29/21 21:30 Stool Stool Occult Blood (SERGIO) - Final Occult Blood Positive 03/29/21 21:10 Nasal Secretion SARS-CoV-2 Antigen (Rapid) - Final Physical Exam Const alert General Appearance: cooperative and ill appearing HEENT normocephalic Mouth: oral and palatal mucosa normal, No lesions and No thrush Neck supple and no JVD Lymph Lymphatic: lymphedema, lymphadenopathy Lymphadenopathy Laterality: bilateral and other Other Details: Generalized lymphadenopathy Chest Chest: symmetrical chest wall rise Resp Auscultation: diminished lung sounds left lower Percussion: other Breath sounds were absent over the left base consistent with atelectasis plus or minus small effusion Cardio regular rate and regular rhythm Jugular Venous Distention: Negative for JVD GI non-tender, non-distended and hepatosplenomegaly Extremity General Extremity: edema bilateral lower extremity Details: moderate; Negative for clubbing or cyanosis Skin Rashes: rashes noted Neuro CN's II-XII intact bilaterally and moves all extremities Speech: speech normal Psych Attitude: calm and engaged Charges/Coding Visit Charges Inpatient E&M: 13415 Subs Hosp L3
--- NOTE | 2021-03-31 09:10 | FLU_PTH ---
PATIENT: WINNIE SCOTT LOC: [facility] U#:[id number] AGE/SX: 75/M ROOM: [facility] RE03/29/[address]: Dr. Hernan Campbell DO : 1945 BED: 1 DIS: 04/01/2021 SPEC #: [id number] RECD: 03/31/21 09:43 STATUS: JELLY REJannette #: [id number] DELIO: 03/31/21 09:[address]: Hernan Campbell DEPT: CYTOLOGY RECD BY: Betty Steel ENTERED: 03/31/21 12:01 SP TYPE: Fluid OTHR DR: MD Dr. Yo Pepe DO Dr. David Kantorowitz, MD Dr. Joseph Agyepong, MD Dr. Joseph Prah, MD Dr. Mansour Isckarus, MD Dr. Robert Field, MD Dr. Ryan Jin, MD Dr. Robert Leininger, MD Dr. Roger Macklis, MD Dr. Steve Walston, DO Tyra Schlabach, SPECIAL SERVICES SUPERVISOR-C Tissues: Pleural fluid, NOS Procedures: Special Stain Group II Surgery Specimen Level IV Cytospin Fluid HEADER OPERATION: Thoracentesis PRE-OP DIAGNOSIS: Pleural effusion TISSUE SUBMITTED: Thoracentesis fluid for cytology DIAGNOSIS CYTOLOGY Thoracentesis fluid for cytology (cytospin and cell block): Negative for malignant cells. AM:bob 04/01/2021 CYTOLOGY STUDY Slides are reviewed. CYTOLOGY GROSS Received is 90 ml of dark red cloudy fluid labeled with the patient's name and and designated per the requisition as thoracentesis. Submitted for cytology preparation including cell block. / bob 03/31/2021 TC:5 CPT: 89583, 07091
[2021-03-31] MEDS: Lidocaine 2% (20 ml mdv) 20 ML Vial INFILT (09:12)
--- NOTE | 2021-03-31 09:20 | RAD_ITS ---
STUDY: X-RAY CHEST REASON FOR EXAM: Male, 75 years old. POST THORA TECHNIQUE: AP inspiration and expiration views. COMPARISON: Comparison is made with prior study dated 03/29/2021. FINDINGS: The patient is status post left thoracentesis. There is no evidence of pneumothorax. Mild residual pleural-parenchymal changes persist at the left lung base. RAD/Chest Insp/Exp 2 View IMPRESSION: Status post left thoracentesis. There is no evidence of pneumothorax. Electronically Signed: Mihir Mathis MD at 9:56 EDT , Service support ,
[2021-03-31 10:03] LABS: Body Fluid Mononuclear WBC # 1.202 10^3/uL; Body Fluid Polynuclear WBC # 0.063 10^3/uL; Body Fluid Total Cells Counted 1.383 10^3/ul; Red Cell Count/Body Fluid 0.181 10^6/ul; White Blood Count/Body Fluid 1.265 10^3/uL
[2021-03-31 10:04] LABS: Appearance/Body Fluid CLOUDY; Auto B Fluid Analyzer BKGD Ct COUNTS W/IN LIMITS (W/IN LIMITS); Color/Body Fluid RED; Source- Body Fluid THORACENTESIS
[2021-03-31 10:21] LABS: Glucose, Body Fluid 150 mg/dL (40-70); LDH,Body Fluid 300 Units/l (Not Establ.); Protein, Body Fluid 3.1 g/dL (Not Establ.)
[2021-03-31] MEDS: Pantoprazole Sodium 40 MG Tablet PO ×2 (10:44→21:17)
[2021-03-31] MEDS: predniSONE 20 MG Tablet 40 MG PO (10:44)
[2021-03-31 10:53] LABS: Vancomycin, Trough Level 14.8 ug/mL (5.0-15.0)
[2021-03-31 11:02] LABS: Lymphocytes 27 %; Mesothelial Cells 17 %; Monocytes 15 %; Neutrophil (Segs) 7 %; Other Cell Type/BF 34 %
[2021-03-31 11:03] LABS: Body Fluid QC Type(s) BF1Q
--- NOTE | 2021-03-31 11:33 | PCM.RX.CS ---
Consult Pharmacy has been consulted to manage selected antiobiotic: Vancomycin Type of Consult: Follow-up Suspected Infection: Sepsis Prior Doses of Antibiotics Received/Current Regimen: Currently on 1gm iv q12h. Labs: Sodium 137 mmol/L (136-145) 03/31/21 05:36 Potassium 4.0 mmol/L (3.5-5.1) 03/31/21 05:36 Chloride 100 mmol/L (98-107) 03/31/21 05:36 Carbon Dioxide 27.0 mmol/L (21.0-32.0) 03/31/21 05:36 Anion Gap 10 (5-15) 03/31/21 05:36 BUN 41 mg/dL (7-18) H 03/31/21 05:36 Creatinine 1.52 mg/dL (0.70-1.30) H 03/31/21 05:36 Est GFR (MDRD) Af Amer 58 mL/min (>60) L 03/31/21 05:36 Est GFR (MDRD) Non-Af 48 mL/min (>60) L 03/31/21 05:36 BUN/Creatinine Ratio 27.0 RATIO (10-20) H 03/31/21 05:36 Glucose 142 mg/dL (74-106) H 03/31/21 05:36 Vancomycin Trough 14.8 ug/mL (5.0-15.0) 03/31/21 10:08 Microbiology: Microbiology 03/29/21 20:15 Urine, Random Urine Culture - Preliminary Culture exhibits no growth. 03/29/21 20:05 Mucosa - Nasopharyngeal Respiratory Panel (PCR) - Final 03/29/21 20:15 Urine, Clean Catch Legionella Antigen - Final 03/29/21 20:15 Urine, Clean Catch Streptococcus pneumoniae Antigen (M - Final 03/29/21 21:30 Stool Stool Occult Blood (SERGIO) - Final Occult Blood Positive 03/29/21 21:10 Nasal Secretion SARS-CoV-2 Antigen (Rapid) - Final Weight used for dosin kg Estimated Creatinine Clearance: 52 ml/min Goal Trough: 15-20 mcg/mL Pharmacy Plan for Drug Dosing: Trough today was 14.8 with a goal range of 15-20mcg/ml. Renal function improved with CrCl from 41 to 52ml/min for calculated adjusted body weight of 89.4kg. Will increase dose to 1250mg iv q12h and get another trough before 4th dose of new regimen. Pharmacy Service will continue to monitor and adjust dosing as required. Follow-Up Labs: Trough Vancomycin - 9.30.21 @2330 before 0000 dose
[2021-03-31] MEDS: Allopurinol 300 MG Tablet PO (12:26)
[2021-03-31 13:23] LABS: Eosinophil 12 % (0-5); Lymphocyte 21 % (19-41); Metamyelocyte 2 % (0-1); Monocyte 4 % (0-10); Myelocyte 1 % (0-0); Neutrophil-Band 12 % (0-5); Neutrophil-Segmented 48 % (47-70); Nucleated Red Bld Cells,Manual 1 % (0-5)
[2021-03-31 13:26] LABS: Differential Indicated MANUAL DIFF
[2021-03-31 13:27] LABS: Absolute Neutrophil Count 8.6 X10^3/uL (2.0-7.7); Neutrophil # 8.64 X10^3/uL (2.7-7.7)
--- NOTE | 2021-03-31 13:28 | PN.HOSP_ITS ---
Documented by User: Dilia Kang ROADSIDE MECHANIC, ROADSIDE MECHANIC-C 03/31/21 13:57 Subjective Subjective Patient seen and examined. Underwent thoracentesis. Shortness of breath improved following fluid removal. Denies fever, chills Objective Data Objective Data Vital Signs: Vital Signs Temp Pulse Resp BP Pulse Ox 97.7 F L 100 16 121/66 H 95 03/31/21 09:55 03/31/21 09:55 03/31/21 09:55 03/31/21 09:55 03/31/21 09:55 Oxygen Flow Rate (L/min) [4] 3 Oxygen Flow Rate (L/min) [3] 3 Oxygen Flow Rate (L/min) [2] 3 Oxygen Flow Rate (L/min) [1 ( 3 Initial Baseline)] Oxygen Flow Rate (L/min) 3 Oxygen Delivery Method [4] Nasal Cannula Oxygen Delivery Method [3] Nasal Cannula Oxygen Delivery Method [2] Nasal Cannula Oxygen Delivery Method [1 ( Nasal Cannula Initial Baseline)] Oxygen Delivery Method Nasal Cannula Weight: 241 lb 2.971 oz Body Mass Index (BMI) 34.0 Intake & Output: Intake and Output for Last 24 Hours 03/29/21 03/30/21 03/31/21 23:59 23:59 23:59 Intake Total 3050 / 3050 3200 / 3200 1280 / 1280 Output Total 2075 / 2075 2125 / 2125 Balance 3050 / 3050 1125 / 1125 -845 / -845 Lab / Micro Data Result Diagrams: 03/31/21 05:36 03/31/21 05:36 Labs: Laboratory Results - last 24 hr 03/29/21 20:18: Diff Path Review Reviewed 03/30/21 04:25: Immature Gran % (Auto) ROADSIDE MECHANIC, Neut % (Auto) ROADSIDE MECHANIC, Lymph % (Auto) ROADSIDE MECHANIC, [place] % (Auto) ROADSIDE MECHANIC, Eos % (Auto) ROADSIDE MECHANIC, Baso % (Auto) ROADSIDE MECHANIC, Absolute Neuts (auto) 8.6 H , Absolute Lymphs (auto) 3.00, Total Counted ROADSIDE MECHANIC, Neutrophils % (Manual) 48, Band Neutrophils % 12 H, Lymphocytes % (Manual) 21, Monocytes % (Manual) 4, Eosinophils % (Manual) 12 H, Metamyelocytes % 2 H, Myelocytes % 1 H, Nucleated RBC % ROADSIDE MECHANIC, Nucleated RBCs/100 WBC 1 03/31/21 05:36: WBC 10.0, RBC 2.66 L, Hgb 8.1 L, Hct 24.6 L, MCV 92.5 D, MCH 30.5, MCHC 32.9, RDW Std Deviation 51.9 H, RDW Coeff of Dmitry 15.9 H, Plt Count 88 L, MPV 10.2, Immature Gran % (Auto) 2.400 H, Neut % (Auto) 72.3 H, Lymph % (Auto) 18.4 L, [place] % (Auto) 4.6, Eos % (Auto) 2.0, Baso % (Auto) 0.3, Absolute Neuts (auto) 7.2, Absolute Lymphs (auto) 1.83, Nucleated RBC % 0.4, Differential Comment SCANNED, Platelet Estimate SLT 03/31/21 05:36: Sodium 137, Potassium 4.0, Chloride 100, Carbon Dioxide 27.0, Anion Gap 10, BUN 41 H, Creatinine 1.52 H, Estim Creat Clear Calc 44.04, Est GFR (MDRD) Af Amer 58 L, Est GFR (MDRD) Non-Af 48 L, BUN/Creatinine Ratio 27.0 H, Glucose 142 H, Calcium 7.8 L, Total Bilirubin 0.60, AST 70 H, ALT 81 H, Alkaline Phosphatase 86, Total Protein 4.8 L, Albumin 2.0 L, Globulin 2.8, Albumin/Globulin Ratio 0.7 L 03/31/21 09:40: Fluid Glucose 150 H, Fluid Total Protein 3.1, Fluid LDH 300 03/31/21 09:40: Fluid Source THORACENTESIS, Fluid Color RED, Fluid Appearance CLOUDY, Fluid WBC 1.265, Fluid RBC 0.181, Fluid Tot Cell Count 1.383, Fld Polynuclear WBCs # 0.063, Fld Polynuclear WBCs % 5.0, Fluid Mononuclear WBCs 1.202, Fld Mononuclear WBCs % 95.0, Fluid Neutrophils 7, Fluid Lymphocytes 27, Fluid Monocytes 15, Fld Mesothelial Cells 17, Fluid Other Cells 34, Fl Pathologist Comment May follow, Fluid Comment 2 SEE COMMENT 03/31/21 10:08: Vancomycin Trough 14.8 Micro: Microbiology 03/29/21 20:15 Urine, Random Urine Culture - Preliminary Culture exhibits no growth. 03/29/21 20:05 Mucosa - Nasopharyngeal Respiratory Panel (PCR) - Final 03/29/21 20:15 Urine, Clean Catch Legionella Antigen - Final 03/29/21 20:15 Urine, Clean Catch Streptococcus pneumoniae Antigen (M - Final 03/29/21 21:30 Stool Stool Occult Blood (SERGIO) - Final Occult Blood Positive 03/29/21 21:10 Nasal Secretion SARS-CoV-2 Antigen (Rapid) - Final Radiography Diagnostic Testing: Radiology Impression Chest X-Ray 03/31/21 09:20 IMPRESSION: Status post left thoracentesis. There is no evidence of pneumothorax. Electronically Signed: Mihir Mathis MD at 9:56 EDT , Service support , Thoracentesis Ultrasound 03/31/21 13:46 IMPRESSION: Ultrasound-guided left thoracentesis. Electronically Signed: Mihir Mathis MD at 9:55 EDT , Service support , Physical Exam Const alert, oriented x3 and no apparent distress Orientation / Consciousness: awake, oriented to person, oriented to place and oriented to time HEENT normocephalic and moist oral mucous membranes Eyes PERRL, EOMs intact bilaterally and conjunctivae normal Neck no lymphadenopathy Resp clear to auscultation bilaterally Auscultation: diminished lung sounds Cardio regular rate, regular rhythm and no murmurs Peripheral Pulses: pulses 2+ throughout GI normal to inspection, nondistended, normoactive bowel sounds, non-tender and non-distended Extremity normal to inspection Skin no rashes or lesions noted Lesions: no lesions Rashes: no rashes Trauma: no lacerations or abrasions Neuro CN's II-XII intact bilaterally, no focal motor deficits, no sensory deficits n oted and deep tendon reflexes 2+ bilaterally Psych mental status grossly normal and affect normal Assessment & Plan Assessment/Plan (1) Septic shock: (2) Acute blood loss anemia: PLAN: 1. Septic shock-resolved. Unclear etiology. Blood cultures pending. On IV vancomycin and IV Zosyn. Urine culture with no growth. ID following. 2. Acute blood loss anemia-Eliquis on hold. Status post 2 units PRBC. Patient underwent EGD and colonoscopy 03/11/2021 which demonstrated duodenal ulcerations, gastritis and colonic diverticulosis. Continue PPI. Hemoglobin stable. Trend CBC. 3. Recurrent left pleural effusion, worsened from prior-underwent thoracentesis this a.m. With 1200 mL removal. Lights criteria positive, likely exudative effusion. Obtain fluid culture. Cytology pending. 4. Recent diagnosis mantle cell lymphoma-recent port placement. Oncology following. 5. Recent PE/splenic infarcts-likely malignancy related. Eliquis on hold due to anemia. 6. Chronic hypoxic respiratory failure-recent discharge with supplemental oxygen secondary to PE and pleural effusion. Continue supplement oxygen to maintain O2 at above 90%. 7. Presumed chronic kidney disease stage IIIb-recently suspected acute kidney injury however creatinine has since remained 1.4-1.8 range. Trend BMP. Recent renal ultrasound with no hydronephrosis, prostate enlargement. 8. BPH-on finasteride, Flomax. DVT prophylaxis-SCDs This patient was seen by GREGORIO Calderon under the supervision of Dr. Campbell. Documented by User: Dr. Hernan Campbell DO 03/31/21 15:04 Objective Data Lab / Micro Data Result Diagrams: 03/31/21 05:36 03/31/21 05:36 Physical Exam Const alert HEENT Head and Scalp: normocephalic Resp normal respiratory effort, no retractions, no use of accessory muscles and clear to auscultation bilaterally Cardio regular rate, regular rhythm, S1 normal heart sound and S2 normal heart sound GI normal to inspection, nondistended, normoactive bowel sounds, soft to palpation, non-tender and non-distended Extremity General Extremity: edema Skin Skin Narrative: resolving macular rash on LE. Psych affect normal Assessment & Plan Assessment/Plan (1) Septic shock: (2) Acute blood loss anemia: (3) Anemia: PLAN: Patient seen and examined independently. Data and vitals reviewed. I agree with the above note by the nurse practitioner. 1. shock septic v hemorrhagic v other resolved unclear source follow up cultures on vanc and pip/tazo ID following 2. Acute blood loss anemia did lose 150cc with port placement 03/29 s/p 2 units monitor apixaban on hold 3. pleural effusion more pronounced on CT from 03/12 left sided thoracentesis 03/31 removed 1200cc fluid exudative 4. Asthma doubt exacerbation change to prednisone 5. Mantle cell lymphoma oncology following will need staging with PET/CT and first cycle of bendamustine/rituxan 6. VTE apixaban held likely malignancy-induced monitor H/H 7. VTE prophylaxis: SCDs 8. PUD PPI Charges/Coding Visit Charges Inpatient E&M: 35424 Subs Hosp L3
--- NOTE | 2021-03-31 13:46 | US_ITS ---
PROCEDURE: ULTRASOUND GUIDED THORACENTESIS. DATE: 03/31/2021. INDICATION: Male, 75 years old. Left pleural effusion. PHYSICIAN: Mihir Mathis M.D. PROCEDURE: The risks, benefits, and alternatives to the procedure were explained to the patient. The specific risks of bleeding, infection, and pneumothorax requiring chest tube insertion were discussed and accepted. Written informed consent was obtained. Ultrasonographic evaluation of the left lower pleural space was carried out. An adequate pocket was identified. The patient was placed in the sitting, upright position. The overlying skin was prepped and draped in sterile fashion. 1% lidocaine was administered subcutaneously for local anesthesia. Under ultrasound guidance, a 5 English thoracentesis needle/catheter system was advanced into the left posterior lower pleural fluid collection. Approximately 1200 mL of bloody fluid was drained. The catheter was removed, and a sterile dressing was applied. A specimen was collected and sent to the laboratory for analysis, as requested by the referring clinician. The patient tolerated the procedure well. A chest x-ray was ordered. US/Thoracentesis W US IMPRESSION: Ultrasound-guided left thoracentesis. Electronically Signed: Mihir Mathis MD at 9:55 EDT , Service support ,
[2021-03-31 13:47] LABS: Pathologist Review Reviewed
[2021-03-31] MEDS: Tamsulosin HCl 0.4 MG Capsule PO (17:51)
[2021-03-31] MEDS: 0.9% Saline Lock 10 ML Syringe IV (22:37)
--- NOTE | 2021-04-01 00:04 | PCS.PANDOC ---
PANDEMIC DOCUMENTATION INITIATED: Date: 02/15/2021 Time: 190
[2021-04-01 03:00] VITALS: PULSE 74
[2021-04-01 04:37] VITALS: BP 106/70; PULSE 73; RESP 16; TEMP 36.4; O2SAT 97
[2021-04-01 04:38] VITALS: O2SAT 96
[2021-04-01 05:17] LABS: Absolute Lymphocyte Count 2.74 X10^3/uL (0.83-4.51); Absolute Neutrophil Count 6.1 X10^3/uL (2.0-7.7); Basophil# 0.06 X10^3/uL; Basophil% 0.5 % (0-1); Eosinophil# 0.33 X10^3/uL; Eosinophils% 2.7 % (0-5); Hematocrit 23.8 % (40-54); Hemoglobin 7.6 g/dL (13.0-16.5); Lymphocyte # 2.74 X10^3/ul (0.83-4.51); Lymphocyte % 22.2 % (19-41); Mean Corp Hgb Conc 31.9 g/dL (32-36); Mean Corpuscular Hgb 30.3 pg (27.0-32.0); Mean Corpuscular Volume 94.8 fL (80-94); Mean Platelet Vol. 10.4 fl (6.2-12.0); Monocyte# 2.58 X10^3/uL; Monocyte% 20.9 % (0-10); NRBC Flagged by Analyzer 0.4 % (0-5); Neutrophil # 6.14 X10^3/uL (2.7-7.7); Neutrophil % 49.6 % (47-70); POSITIVE COUNT YES; POSITIVE DIFFERENTIAL YES; POSITIVE MORPHOLOGY YES; Platelet Count 74 K/mm3 (150-450); RBC Distribution Width CV 16.1 % (11.6-14.6); RBC Distribution Width SD 54.1 fl (35.1-43.9); Red Blood Count 2.51 M/mm3 (4.6-6.2); White Blood Count 12.4 K/mm3 (4.4-11.0)
[2021-04-01 05:19] LABS: Differential Indicated SCAN CRITERIA MET
[2021-04-01 05:32] LABS: ALB/GLOB Ratio 0.7 RATIO (0.9-2.4); AST(SGOT) 45 U/L (15-37); Alanine Aminotransfer ALT/SGPT 73 U/L (16-61); Albumin, Serum 1.9 g/dL (3.2-5.0); Alkaline Phosphatase 82 U/L (45-117); Anion Gap 9 (5-15); BUN 39 mg/dL (7-18); Calcium,Total 7.9 mg/dL (8.5-10.1); Chloride 101 mmol/L (98-107); EST Glomerular Filtration Rate 48 mL/min (>60); Est Glom Filt Rate - Afr Amer 58 mL/min (>60); Estimated Creatinine Clearance 44.62 ml/min; Globulin 2.8 g/dL (2.2-4.2); Glucose 103 mg/dL (74-106); Protein, Total 4.7 g/dL (6.4-8.2); Sodium Level 137 mmol/L (136-145)
[2021-04-01 05:34] LABS: Differential Comment SCANNED
[2021-04-01 05:35] LABS: Hypochromasia RARE; Platelet Estimate MOD DEC (ADEQ); Polychromasia RARE
[2021-04-01] MEDS: 0.9% Saline Lock 10 ML Syringe IV (05:43)
[2021-04-01 07:08] VITALS: PULSE 84
--- NOTE | 2021-04-01 07:13 | PN.CC_ITS ---
Assessment & Plan Assessment/Plan (1) Shortness of breath: (2) Mantle cell lymphoma: QUALIFIERS: Lymphoma site: multiple regions Qualified Code(s): C83.18 - Mantle cell lymphoma, lymph nodes of multiple sites (3) Anemia: PLAN: RECOMMENDATIONS: 1. Continue PPI twice daily on discharge 2. Monitor CBC daily 3. Further results of thoracentesis can be reviewed as an outpatient 4. Potential discontinuation of antibiotics once cultures negative at 48 hours 5. Walking oximetry prior to discharge 6. Okay to discharge from a pulmonary perspective with follow-up as already scheduled IMPRESSIONS: 1. Shock Unclear etiology. Patient did have a fever and leukocytosis on presentation. Patient would be at risk for septic shock given immunocompromise state. Unclear source at this time. Other possibility would be acute blood loss anemia and hemorrhagic shock. Patient did have a significant drop in his hemoglobin, but this has remained stable throughout the last 48 hours. Thoracentesis is an exudate, but not consistent with an empyema or parapneumonic effusion. Likely okay to discontinue antibiotics once cultures negative at 48 hours. Patient is mentating well and appears to be responding well to blood products. Okay to discharge from my perspective 2. Acute hypoxic respiratory insufficiency secondary to left exudative pleural effusion Patient received significant volume resuscitation secondary to problem #1. Patient with exudative pleural effusion. This can be followed up as an outpatient. Given lymphocytic and other cell predominance, malignant effusion cannot be excluded. Patient does not need to stay hospitalized to follow-up on additional testing. 3. Duodenal ulcer Patient with upper GI 2 weeks ago showing a duodenal ulcer. Patient has been treated medically and appears to be doing well on therapy. Patient was guaiac positive. Patient is on iron supplementation, so stool color is less helpful. Patient also had some blood loss associated with port placement. PPI should be continued twice daily as an outpatient. Unclear if scope needs to be repeated unless patient develops hematemesis or worsening lower GI bleed symptoms. Defer to oncology and GI about Eliquis reinitiation 4. Mantle cell lymphoma Patient is asking if chemotherapy will be delayed secondary to his acute presentation. It is unclear if patient could proceed with chemotherapy on discharge. Clinical suspicion is patient will be monitored for 48 hours to allow for cultures to result. If culture negative and H&H remained stable, charisse meza may be able to proceed with chemotherapy as an outpatient. Patient can follow-up with pulmonary as previously scheduled. 5. Advanced age/multiple hospitalizations/hypertension/allergic rhinitis/asthma Unclear if patient is truly in an asthma exacerbation. Patient did receive some steroids, but would not continue these long-term given his duodenal ulcer. 5-day burst of steroids should be sufficient. Patient can be continued on bronchodilators. Physical therapy to evaluate the patient. Subjective Subjective Patient did well overnight. No acute issues were reported. Patient did have a thoracentesis yesterday with 1200 mL removed and feels this made a significant difference in his shortness of breath. Patient is not reporting any GI losses. Objective Data Objective Data Vital Signs: Vital Signs Temp Pulse Resp BP Pulse Ox 36.4 C L 73 16 106/70 96 04/01/21 04:37 04/01/21 04:37 04/01/21 04:37 04/01/21 04:37 04/01/21 04:38 Oxygen Flow Rate (L/min) [4] 3 Oxygen Flow Rate (L/min) [3] 3 Oxygen Flow Rate (L/min) [2] 3 Oxygen Flow Rate (L/min) [1 ( 3 Initial Baseline)] Oxygen Flow Rate (L/min) 2 Oxygen Delivery Method [4] Nasal Cannula Oxygen Delivery Method [3] Nasal Cannula Oxygen Delivery Method [2] Nasal Cannula Oxygen Delivery Method [1 ( Nasal Cannula Initial Baseline)] Oxygen Delivery Method Nasal Cannula Weight: 109 kg Body Mass Index (BMI) 34.0 Intake & Output: Intake and Output for Last 24 Hours 03/30/21 03/31/21 04/01/21 23:59 23:59 23:59 Intake Total 3200 / 3200 1780 / 1780 50 / 50 Output Total 2075 / 2075 3035 / 3035 575 / 575 Balance 1125 / 1125 -1255 / -1255 -525 / -525 Lab / Micro Data Result Diagrams: 04/01/21 05:00 04/01/21 05:00 Labs: Laboratory Results - last 24 hr 03/30/21 04:25: Immature Gran % (Auto) MACHINE PACKAGING TECHNICIAN, Neut % (Auto) MACHINE PACKAGING TECHNICIAN, Lymph % (Auto) MACHINE PACKAGING TECHNICIAN, [place] % (Auto) MACHINE PACKAGING TECHNICIAN, Eos % (Auto) MACHINE PACKAGING TECHNICIAN, Baso % (Auto) MACHINE PACKAGING TECHNICIAN, Absolute Neuts (auto) 8.6 H , Absolute Lymphs (auto) 3.00, Total Counted MACHINE PACKAGING TECHNICIAN, Neutrophils % (Manual) 48, Band Neutrophils % 12 H, Lymphocytes % (Manual) 21, Monocytes % (Manual) 4, Eosinophils % (Manual) 12 H, Metamyelocytes % 2 H, Myelocytes % 1 H, Nucleated RBC % MACHINE PACKAGING TECHNICIAN, Nucleated RBCs/100 WBC 1, Diff Path Review Reviewed 03/31/21 09:40: Fluid Glucose 150 H, Fluid Total Protein 3.1, Fluid LDH 300 03/31/21 09:40: Fluid Source THORACENTESIS, Fluid Color RED, Fluid Appearance CLOUDY, Fluid WBC 1.265, Fluid RBC 0.181, Fluid Tot Cell Count 1.383, Fld Polynuclear WBCs # 0.063, Fld Polynuclear WBCs % 5.0, Fluid Mononuclear WBCs 1.202, Fld Mononuclear WBCs % 95.0, Fluid Neutrophils 7, Fluid Lymphocytes 27, Fluid Monocytes 15, Fld Mesothelial Cells 17, Fluid Other Cells 34, Fl Pathologist Comment May follow, Fluid Comment 2 SEE COMMENT 03/31/21 10:08: Vancomycin Trough 14.8 04/01/21 05:00: WBC 12.4 H, RBC 2.51 L, Hgb 7.6 L, Hct 23.8 L, MCV 94.8 H, MCH 30.3, MCHC 31.9 L, RDW Std Deviation 54.1 H, RDW Coeff of Dmitry 16.1 H, Plt Count 74 L, MPV 10.4, Immature Gran % (Auto) 4.100 H, Neut % (Auto) 49.6, Lymph % (Auto) 22.2, [place] % (Auto) 20.9 H, Eos % (Auto) 2.7, Baso % (Auto) 0.5, Absolute Neuts (auto) 6.1, Absolute Lymphs (auto) 2.74, Nucleated RBC % 0.4, Differential Comment SCANNED, Diff Path Review May foll, Platelet Estimate MOD DEC, Jl ychromasia RARE, Hypochromasia RARE 04/01/21 05:00: Sodium 137, Potassium 4.0, Chloride 101, Carbon Dioxide 27.0, Anion Gap 9, BUN 39 H, Creatinine 1.50 H, Estim Creat Clear Calc 44.62, Est GFR (MDRD) Af Amer 58 L, Est GFR (MDRD) Non-Af 48 L, BUN/Creatinine Ratio 26.0 H, Glucose 103, Calcium 7.9 L, Total Bilirubin 0.60, AST 45 H, ALT 73 H, Alkaline Phosphatase 82, Total Protein 4.7 L, Albumin 1.9 L, Globulin 2.8, Albumin/Globulin Ratio 0.7 L Micro: Microbiology 03/29/21 20:15 Urine, Random Urine Culture - Preliminary Culture exhibits no growth. 03/29/21 20:05 Mucosa - Nasopharyngeal Respiratory Panel (PCR) - Final 03/29/21 20:15 Urine, Clean Catch Legionella Antigen - Final 03/29/21 20:15 Urine, Clean Catch Streptococcus pneumoniae Antigen (M - Final 03/29/21 21:30 Stool Stool Occult Blood (SERGIO) - Final Occult Blood Positive 03/29/21 21:10 Nasal Secretion SARS-CoV-2 Antigen (Rapid) - Final Radiography Diagnostic Testing: Radiology Impression Chest X-Ray 03/31/21 09:20 IMPRESSION: Status post left thoracentesis. There is no evidence of pneumothorax. Electronically Signed: Mihir Mathis MD at 9:56 EDT , Service support , Thoracentesis Ultrasound 03/31/21 13:46 IMPRESSION: Ultrasound-guided left thoracentesis. Electronically Signed: Mihir Mathis MD at 9:55 EDT , Service support , Physical Exam Const alert General Appearance: cooperative and ill appearing HEENT normocephalic Mouth: oral and palatal mucosa normal, No lesions and No thrush Neck supple and no JVD Lymph Lymphatic: lymphadenopathy Lymphadenopathy Laterality: bilateral Chest Chest: symmetrical chest wall rise Resp normal respiratory effort and normal air movement Effort and Inspection: able to speak in complete sentences Auscultation: wheezes; Negative for rales or rhonchi Cardio regular rate, regular rhythm, no murmurs, no rub and no gallops Jugular Venous Distention: Negative for JVD GI non-tender, non-distended and hepatosplenomegaly Extremity General Extremity: edema bilateral lower extremity Details: moderate; Negative for clubbing or cyanosis Skin Rashes: rashes noted Neuro CN's II-XII intact bilaterally and moves all extremities Speech: speech normal Psych Attitude: calm and engaged Charges/Coding Visit Charges Inpatient E&M: 15093 Subs Hosp L3
[2021-04-01 08:05] VITALS: BP 106/71; PULSE 94; RESP 16; TEMP 36.6; O2SAT 98
[2021-04-01] MEDS: predniSONE 20 MG Tablet 40 MG PO (08:09)
[2021-04-01] MEDS: Pantoprazole Sodium 40 MG Tablet PO (08:09)
[2021-04-01] MEDS: Allopurinol 300 MG Tablet PO (09:06)
--- NOTE | 2021-04-01 09:19 | PCM.DC ---
Discharge Instructions Diet Discharge Diet: 6 Cup Fluid Restriction and 2000 mg Sodium Diet Activity Discharge Activity: Return to Normal Activity Dressing / Incision Call your doctor if you observe: Fever of 101 or Higher and Shortness of breath Follow Up Care Test Results: Test results from this visit will be discussed in further detail at your follow-up appointment, if applicable. Discharge Plan Admission Admit Date/Time: 03/29/21 23:31 Primary Reason for Your Visit: shock Attending Provider: Hernan Campbell Primary Care Provider: Yo Pedro Consulting Providers: Marcin Medina ; Mike Silverio ; Romulo Goode ; Jerome Grimes ; Halle Sebastian ; Marcin Burrell ; Rajat Guzman ; Aman Grimes ; Myles Caraballo ; Nini Yepez HEAVY EQUIPMENT OPERATING ENGINEER Instructions Patient Instructions: Thoracentesis Dc Discharge Orders/Prescriptions Prescriptions: New prednisone 10 mg tablet 10 mg PO DAILY Qty: 30 RF: 0 Ensure Enlive 0.08 gram-1.5 kcal/mL liquid 120 ml PO .qid Qty: 2844 RF: 0 Continued finasteride 5 mg tablet 5 mg PO QDAY RF: 0 multivitamin Tablet 1 tab PO DAILY RF: 0 albuterol sulfate 90 mcg/actuation HFA aerosol inhaler 2 puff inhalation Q6H PRN (Reason: shortness of breath or wheezing) Qty: 8.5 RF: 1 lidocaine-prilocaine 2.5-2.5 % cream 1 applic topical ONCE PRN (Reason: port access) 30 Days Qty: 30 RF: 2 ondansetron 8 mg tablet,disintegrating 8 mg PO Q8H PRN (Reason: nausea and vomiting) Qty: 30 RF: 2 allopurinol 300 mg Tablet 300 mg PO DAILY 20 Days Qty: 20 RF: 0 tamsulosin 0.4 mg Capsule 0.4 mg PO DAILY@1730 Qty: 30 RF: 0 pantoprazole 40 mg Tablet,Delayed Release (Dr/Ec) 40 mg PO BID Qty: 60 RF: 0 furosemide [Lasix] 40 mg tablet 40 mg PO BID Qty: 60 RF: 0 hydrocortisone 2.5 % cream 1 applic topical BID PRN (Reason: rash, itching) Qty: 30 RF: 1 Held Eliquis 5 mg tablet 5 mg PO BID RF: 0 Hold Instructions: Resume on 04/03/21. No Action prednisone 10 mg Tablet 100 mg PO DAILY 5 Days Qty: 50 RF: 0 Referrals / Follow Up: Mike Silverio MD [STAFF PHYSICIAN] - Within 1 Month Yo Pedro DO [Primary Care Provider] - Within 1 Week Halle Sebastian MD [STAFF PHYSICIAN] - Within 1 Week Disposition Disposition (needs filled in before D/C Order can be placed): Home, Self Care
--- NOTE | 2021-04-01 09:32 | DS.PCM_ITS ---
Providers Date of Admission: 03/29/21 Primary Care Physician: Dr. Yo Pedro, DO Consultations 03/30/21 00:03 Consult: Infectious Disease Routine Consulting Provider: Marcin Medina Reason for Consult: septic shock EMERGENT Consult: No MD Notified: Yes Date Notified: 03/29/21 Time Notified: 07:56 Method of Notification: Text Consult: Planning Feeder / Pulmonary Medicine Routine Consulting Provider: Mike Silverio Reason for Consult: Septic shock EMERGENT Consult: No MD Notified: Yes Date Notified: 03/29/21 Time Notified: 23:38 Method of Notification: Text Method of Consult:: In-Person 03/30/21 10:19 Consult: Oncology/Hematology Routine Consulting Provider: [facility] Reason for Consult: thrombocytopenia EMERGENT Consult: No MD Notified: Yes Date Notified: 03/30/21 Time Notified: 10:44 Method of Notification: Page Reason For Visit: SEPTIC SHOCK Diagnosis Discharge Diagnosis (1) Shortness of breath: Status: Acute Code(s): R06.02 - Shortness of breath (2) Mantle cell lymphoma: Status: Acute Code(s): C83.10 - Mantle cell lymphoma, unspecified site Qualifiers: Lymphoma site: multiple regions Qualified Code(s): C83.18 - Mantle cell lymphoma, lymph nodes of multiple sites (3) Anemia: Status: Acute Code(s): D64.9 - Anemia, unspecified Qualifiers: Anemia type: unspecified type Qualified Code(s): D64.9 - Anemia, unspecified (4) Hypovolemic shock: Status: Acute Code(s): R57.1 - Hypovolemic shock Medications at Discharge Home Medications finasteride 5 mg tablet 5 mg PO QDAY 10/25/17 albuterol sulfate 90 mcg/actuation aerosol inhaler 2 puff INHALATION Q6H PRN #8.5 g 03/03/21 multivitamin 1 tab PO DAILY 03/03/21 furosemide [Lasix] 40 mg PO BID #60 tab 03/17/21 pantoprazole 40 mg PO BID #60 tab 03/17/21 tamsulosin 0.4 mg PO DAILY@1730 #30 cap 03/17/21 hydrocortisone 2.5 % topical cream 1 applic TOPICAL BID PRN #30 g 03/19/21 allopurinol 300 mg PO DAILY 20 Days #20 tab 03/24/21 prednisone 100 mg PO DAILY 5 Days #50 tab 03/24/21 lidocaine-prilocaine 2.5 %-2.5 % topical cream 1 applic TOPICAL ONCE PRN 30 Days #30 g 03/25/21 ondansetron 8 mg disintegrating tablet 8 mg PO Q8H PRN #30 tab 03/25/21 Eliquis 5 mg PO BID 03/26/21 ferrous sulfate 325 mg PO QODAY #14 tab 04/01/21 food supplemt, lactose-reduced [Ensure Enlive] 120 ml PO .qid #2844 ml 04/01/21 prednisone 10 mg PO DAILY #30 tab 04/01/21 Hospital Course Operations None Procedures None Summary of Care Provided Minutes Spent on Discharge: 35 Hospital Course: 35-year-old male presents emergency room after a Port-A-Cath placement. Patient had fevers and chills. During the procedure, the cath was not the patient did lose 150 cc of blood. Patient did have hypotension. Patient also did have positive Hemoccult on rectal exam. Patient was transfused 2 units of blood and hemoglobin remained fairly stable though it was decreased overall. Concern was for septic shock initially the patient was started on broad-spectrum antibiotics with Pipracil and/tazobactam and vancomycin. Patient was seen in consultation by pulmonary, oncology as well as infectious disease. Patient overall remained stable infectious work-up was negative antibiotics will be discontinued. Patient be started on ferrous sulfate for the next month every other day dosing to help with his anemia stores. Patient does have diffuse anasarca related with severe protein malnutrition and will continue with Ensure Enlive. Patient will also resume his furosemide. Patient has been started on a course of 100 mg of prednisone starting on the . Unclear if patient had a component adrenal insufficiency or not but being a short course I would suspect probably not but will put the patient on a prednisone taper. Patient is requiring oxygen but overall is feeling better. Patient will continue with his furosemide and resume his apixaban and 2 days. Patient was not on apixaban when he presented because of the catheter placement. 1. shock septic ruled out hemorrhagic v hypovolemic resolved unclear source cultures negative DC abx 2. Acute blood loss anemia did lose 150cc with port placement 03/29 s/p 2 units monitor apixaban on hold 3. pleural effusion more pronounced on CT from 03/12 left sided thoracentesis 03/31 removed 1200cc fluid exudative follow up with pulmonology 4. Asthma doubt exacerbation change to prednisone 5. Mantle cell lymphoma oncology following will need staging with PET/CT and first cycle of bendamustine/rituxan 6. VTE apixaban held, reusume 04/03 likely malignancy-induced monitor H/H Physical Exam Const alert HEENT normocephalic Resp normal respiratory effort and no retractions Resp Narrative: diffuse faint crackles. Cardio regular rate, regular rhythm and S1 normal heart sound GI normal to inspection, nondistended, normoactive bowel sounds GI Narrative: distended. non tender. Extremity General Extremity: edema Weight / BMI Weight Weight: 109 kg Body Mass Index (BMI) 34.0 ABG / Lab / Microbiology Data Result Diagrams: 04/01/21 05:00 04/01/21 05:00 Laboratory: Laboratory Results - last 24 hr 03/30/21 04:25: Immature Gran % (Auto) FOOD SERVICE CASHIER, Neut % (Auto) FOOD SERVICE CASHIER, Lymph % (Auto) FOOD SERVICE CASHIER, [place] % (Auto) FOOD SERVICE CASHIER, Eos % (Auto) FOOD SERVICE CASHIER, Baso % (Auto) FOOD SERVICE CASHIER, Absolute Neuts (auto) 8.6 H , Absolute Lymphs (auto) 3.00, Total Counted FOOD SERVICE CASHIER, Neutrophils % (Manual) 48, Band Neutrophils % 12 H, Lymphocytes % (Manual) 21, Monocytes % (Manual) 4, Eosinophils % (Manual) 12 H, Metamyelocytes % 2 H, Myelocytes % 1 H, Nucleated RBC % FOOD SERVICE CASHIER, Nucleated RBCs/100 WBC 1, Diff Path Review Reviewed 03/31/21 09:40: Fluid Glucose 150 H, Fluid Total Protein 3.1, Fluid LDH 300 03/31/21 09:40: Fluid Source THORACENTESIS, Fluid Color RED, Fluid Appearance CLOUDY, Fluid WBC 1.265, Fluid RBC 0.181, Fluid Tot Cell Count 1.383, Fld Polynuclear WBCs # 0.063, Fld Polynuclear WBCs % 5.0, Fluid Mononuclear WBCs 1.202, Fld Mononuclear WBCs % 95.0, Fluid Neutrophils 7, Fluid Lymphocytes 27, Fluid Monocytes 15, Fld Mesothelial Cells 17, Fluid Other Cells 34, Fl Pathologist Comment May follow, Fluid Comment 2 SEE COMMENT 03/31/21 10:08: Vancomycin Trough 14.8 04/01/21 05:00: WBC 12.4 H, RBC 2.51 L, Hgb 7.6 L, Hct 23.8 L, MCV 94.8 H, MCH 30.3, MCHC 31.9 L, RDW Std Deviation 54.1 H, RDW Coeff of Dmitry 16.1 H, Plt Count 74 L, MPV 10.4, Immature Gran % (Auto) 4.100 H, Neut % (Auto) 49.6, Lymph % (Auto) 22.2, [place] % (Auto) 20.9 H, Eos % (Auto) 2.7, Baso % (Auto) 0.5, Absolute Neuts (auto) 6.1, Absolute Lymphs (auto) 2.74, Nucleated RBC % 0.4, Differential Comment SCANNED, Diff Path Review October, Platelet Estimate MOD DEC, Polychromasia RARE, Hypochromasia RARE 04/01/21 05:00: Sodium 137, Potassium 4.0, Chloride 101, Carbon Dioxide 27.0, Anion Gap 9, BUN 39 H, Creatinine 1.50 H, Estim Creat Clear Calc 44.62, Est GFR (MDRD) Af Amer 58 L, Est GFR (MDRD) Non-Af 48 L, BUN/Creatinine Ratio 26.0 H, Glucose 103, Calcium 7.9 L, Total Bilirubin 0.60, AST 45 H, ALT 73 H, Alkaline Phosphatase 82, Total Protein 4.7 L, Albumin 1.9 L, Globulin 2.8, Albumin/Globulin Ratio 0.7 L Microbiology: Microbiology 03/29/21 20:15 Urine, Random Urine Culture - Final Culture exhibits no growth. 03/29/21 20:05 Mucosa - Nasopharyngeal Respiratory Panel (PCR) - Final 03/29/21 20:15 Urine, Clean Catch Legionella Antigen - Final 03/29/21 20:15 Urine, Clean Catch Streptococcus pneumoniae Antigen (M - Final 03/29/21 21:30 Stool Stool Occult Blood (SERGIO) - Final Occult Blood Positive 03/29/21 21:10 Nasal Secretion SARS-CoV-2 Antigen (Rapid) - Final Radiography Diagnostic Testing: Radiology Impression Chest X-Ray 03/31/21 09:20 IMPRESSION: Status post left thoracentesis. There is no evidence of pneumothorax. Electronically Signed: Mihir Mathis MD at 9:56 EDT , Service support , Thoracentesis Ultrasound 03/31/21 13:46 IMPRESSION: Ultrasound-guided left thoracentesis. Electronically Signed: Mihir Mathis MD at 9:55 EDT , Service support , D/C Instructions Discharge Diet: 6 Cup Fluid Restriction and 2000 mg Sodium Diet Call your doctor if you observe: Fever of 101 or Higher and Shortness of breath Meaningful Use Info Meaningful Use Diagnoses (Choose all that apply): None applicable Discharge Plan Admission Admit Date/Time: 03/29/21 23:31 Primary Reason for Your Visit: shock Attending Provider: Hernan Campbell Primary Care Provider: Yo Pedro Consulting Providers: Marcin Medina ; Mike Silverio ; Romulo Goode ; Jerome Grimes ; Hlale Sebastian ; Marcin Burrell ; Rajat Guzman ; Aman Grimes ; Myles Caraballo ; Nini Yepez FOOD SERVICE CASHIER Instructions Patient Instructions: Thoracentesis Dc Discharge Orders/Prescriptions Prescriptions: New prednisone 10 mg tablet 10 mg PO DAILY Qty: 30 RF: 0 Ensure Enlive 0.08 gram-1.5 kcal/mL liquid 120 ml PO .qid Qty: 2844 RF: 0 ferrous sulfate 325 mg (65 mg iron) tablet 325 mg PO QODAY Qty: 14 RF: 0 Continued finasteride 5 mg tablet 5 mg PO QDAY RF: 0 multivitamin Tablet 1 tab PO DAILY RF: 0 albuterol sulfate 90 mcg/actuation HFA aerosol inhaler 2 puff inhalation Q6H PRN (Reason: shortness of breath or wheezing) Qty: 8.5 RF: 1 lidocaine-prilocaine 2.5-2.5 % cream 1 applic topical ONCE PRN (Reason: port access) 30 Days Qty: 30 RF: 2 ondansetron 8 mg tablet,disintegrating 8 mg PO Q8H PRN (Reason: nausea and vomiting) Qty: 30 RF: 2 allopurinol 300 mg Tablet 300 mg PO DAILY 20 Days Qty: 20 RF: 0 tamsulosin 0.4 mg Capsule 0.4 mg PO DAILY@1730 Qty: 30 RF: 0 pantoprazole 40 mg Tablet,Delayed Release (Dr/Ec) 40 mg PO BID Qty: 60 RF: 0 furosemide [Lasix] 40 mg tablet 40 mg PO BID Qty: 60 RF: 0 hydrocortisone 2.5 % cream 1 applic topical BID PRN (Reason: rash, itching) Qty: 30 RF: 1 Held Eliquis 5 mg tablet 5 mg PO BID RF: 0 Hold Instructions: Resume on 04/03/21. No Action prednisone 10 mg Tablet 100 mg PO DAILY 5 Days Qty: 50 RF: 0 Referrals / Follow Up: Mike Silverio MD [STAFF PHYSICIAN] - Within 1 Month Yo Pedro DO [Primary Care Provider] - Within 1 Week Halle Sebastian MD [STAFF PHYSICIAN] - Within 1 Week Disposition Disposition (needs filled in before D/C Order can be placed): Home, Self Care Charges/Coding Visit Charges Inpatient E&M: 07447 Disch Hosp
[2021-04-01 10:03] VITALS: O2SAT 94; O2SAT 95
--- NOTE | 2021-04-01 10:03 | CASEMGMT ---
Per Yolande, pt does not qualify fo increased home oxygen at this time. Pt has been SBA in room and this RN CM to room to discuss d/c plan. Pt states no need for any further resources at home. Pt states has pulse ox at home to check levels. Pt voices no further questions/concerns/needs. SStaten RN CM
--- NOTE | 2021-04-01 10:46 | PCM.PN.ID ---
Physical Exam Narrative Feeling better, no fever, breathing improved, no n/v/d. Const alert and no apparent distress General Appearance: cooperative Resp normal air movement and clear to auscultation bilaterally Cardio regular rate and regular rhythm GI normal to inspection, nondistended, normoactive bowel sounds Extremity no clubbing, cyanosis or edema Skin no rashes or lesions noted ID ID: Route of nutrition/ use of supplements: [] Nutritional Intake: [] IV Site: [] Wolfe Catheter: [] Assessment & Plan Assessment/Plan (1) Septic shock: PLAN: Much improved. Covid neg, has been vaccinated. R chest port placed 03/29/21. Bcx cx neg, thora did not show sign of infection, ok to d/c off of abx. Will follow as needed (2) Mantle cell lymphoma: QUALIFIERS: Lymphoma site: multiple regions Qualified Code(s): C83.18 - Mantle cell lymphoma, lymph nodes of multiple sites
[2021-04-01 13:59] LABS: Pathologist Comment/Body Fluid Reviewed
[2021-04-02 13:29] LABS: Pathologist Review Reviewed
--- NOTE | 2021-04-02 14:33 | CASEMGMT ---
KAL GOTTLIEB Discharge Follow-Up Phone Call. [place]: 12 Strata: 3 Discharge Date: 04/01/21 Adm Dx: Septic Shock Call to pt to inquire about how he has been doing since being discharged from the hospital. Pt's , Kylah, answered the phone and states pt is resting and prefers not to talk on the phone at this time. Kylah states she can talk w/KAL Gottlieb and answer any questions. Kylah states pt has been tired a lot today and is resting a lot. She states he does have further distance to walk @ his home than when @ the hospital. When pt is awake, he has been feeling well. She states they did get the new prescriptions from [facility] yesterday w/out difficulty and denies having any questions about his medications. She states pt does have an appt w/Dr Sebastian on Monday for f/u lab work. Kylah did inquire about the fluid restriction of 6 cups and asked KAL GOTTLIEB if Ensure would be considered a fluid and if this needs to be included in that amt. KAL GOTTLIEB confirmed w/Kylah that Ensure is a fluid and does need to be included in the intake amt. KAL GOTTLIEB discussed w/Kylah that anything that is liquid at room temperature would be included. She inquired about ice chips and RN CHERY informed her that ice chips do need to be included and that 1/2 the volume is counted (1 cup of ice= 1/2 cup fluid). Kylah voices understanding and appreciation of information. She denies having other questions/concerns/needs and thanked KAL GOTTLIEB for calling. Jose GUZMÁN RN, CM
== END 2021-04-01 12:12 | disposition home or self-care (01) | DRG 314 ==
LOC: ED 23:18 → ICU 23:41 → PCU 03-30 16:55
PROVIDERS: Internal Medicine Critical Care Medicine; Internal Medicine Hematology & Oncology; Admitting Provider Hospitalist; Emergency Provider Student in an Organized Health Care Education/Training Program; PCP Family Medicine
DX: T82.838A Hemorrhage due to vascular prosthetic devices, implants and grafts, initial encounter (principal); R57.1 Hypovolemic shock; E43 Unspecified severe protein-calorie malnutrition; R57.8 Other shock; D62 Acute posthemorrhagic anemia; C83.18 Mantle cell lymphoma, lymph nodes of multiple sites; J90 Pleural effusion, not elsewhere classified; D84.9 Immunodeficiency, unspecified; J96.11 Chronic respiratory failure with hypoxia; Y82.8 Other medical devices associated with adverse incidents; D69.6 Thrombocytopenia, unspecified; L29.9 Pruritus, unspecified; R21 Rash and other nonspecific skin eruption; G25.81 Restless legs syndrome; I25.2 Old myocardial infarction; K26.9 Duodenal ulcer, unspecified as acute or chronic, without hemorrhage or perforation; M10.9 Gout, unspecified; N18.32 Chronic kidney disease, stage 3b; I12.9 Hypertensive chronic kidney disease with stage 1 through stage 4 chronic kidney disease, or unspecified chronic kidney disease; N40.0 Benign prostatic hyperplasia without lower urinary tract symptoms; J45.909 Unspecified asthma, uncomplicated; Z79.01 Long term (current) use of anticoagulants; Z86.711 Personal history of pulmonary embolism; Z79.899 Other long term (current) drug therapy
CPT/HCPCS: 32555; 36415; 36591; 71045; 71046; 71250; 77001; 80048; 80053; 80202; 81001; 82274; 82945; 83605; 83615; 84157; 84484; 84550; 85025; 85610; 85730; 86850; 86900; 86901; 86920; 86922; 87040; 87086; 87426; 87449; 87633; 87635; 88108; 88305; 88313; 89050; 93005; 94640; 97110; 97162; 97166; 97530; 97535; 97802; 99285; J7030; J7040; J7120; P9016; U0005; A4216; C1751; C1788; J2405; U0003

== ENCOUNTER 2021-04-08 13:07 | Inpatient (IN) | payer MEDICARE, SELFPAY ==
[2021-04-08] VITALS (17 sets, daily range): BP systolic 105–138; BP diastolic 60–84; PULSE 100–117; RESP 19–27; TEMP 36.6–37.2; O2SAT 90–96; BMI 33.0; BMI 37.2
--- NOTE | 2021-04-08 13:11 | CON.PCM.CC_ITS ---
Assessment & Plan Assessment/Plan (1) Tumor lysis syndrome: (2) Anemia: PLAN: RECOMMENDATIONS: 1. Continue fluids and intermittent IV diuretic therapy. 2. Continue allopurinol and initiate rasburicase, when available. 3. Transfusion of blood products per oncology recommendations. 4. Wean supplemental oxygen to maintain saturations at or above 90%. 5. Plan for Granix initiation tomorrow. 6. Encourage incentive spirometer use while in bed. 7. May need repeat thoracentesis for symptom relief once platelet count recovers. IMPRESSIONS: 1. Recently diagnosed mantle cell lymphoma The patient has an aggressive type of mantle cell lymphoma with rapid progression to a leukemic phase. He was recently started on chemotherapy. The patient is significantly anemic and thrombocytopenic. He is at high risk for further clinical decompensation. He is currently experiencing tumor lysis syndrome. The patient was direct admitted from the oncology suite for stabilization. We will plan to continue supportive measures with transfusion of blood products as needed along with supplemental IV fluid hydration combined with diuretic therapy. 2. Tumor lysis syndrome Continue supportive measures with IV fluids, Lasix and allopurinol. If uric acid continues to rise, will consider rasburicase. 3. Anemia/thrombocytopenia Plan to transfuse 1 unit of packed red blood cells. Per oncology, goal is to maintain a hemoglobin at or above 8 g/dL. No emergent need for transfusion of platelets. There are no overt signs of blood loss at the current time. If his platelet count drops below 10,000, he may require transfusion. 4. Acute on chronic kidney disease Likely secondary to the above. We will continue to monitor creatinine and urine output for now. Continue IV fluid hydration and diuresis to manage tumor lysis syndrome. 5. History of duodenal ulcer and blood loss anemia The patient will be placed on IV Protonix twice daily. Continue to monitor blood counts accordingly. 6. History of pulmonary embolism Systemic anticoagulation remains on hold due to anemia and severe thrombocytopenia. CODE status: Discussed CODE status at length including difference between FULL code, DNR-CCA and DNR-CC status. Following discussions about the differences in these status, patient requested DNR CCA/DNI CODE STATUS. Advanced Care Planning Face to Face Time: 12 minutes This note was generated with [employer] software. It may contain incorrect words, spelling, and punctuation that were not noted in checking the note before signing. HPI Consult Data Date of Consult: 04/09/21 HPI Narrative Reason for Consultation: Tumor lysis syndrome, anemia, thrombocytopenia HPI Narrative: The patient is a 75-year-old male, with a history as outlined below, who presented as a direct admit from the oncology infusion suite with t umor lysis syndrome, anemia, thrombocytopenia and acute respiratory insufficiency. The patient was admitted to the hospital at the end of March with blood loss anemia, requiring transfusion. Earlier the same month, the patient was diagnosed with pulmonary embolism. The patient has a history of recently diagnosed mantle cell lymphoma, for which he is following with Dr. Sebastian of oncology for primary management. The patient was just started on chemotherapy this week and has subsequently developed rapid progression to leukemic phase and tumor lysis syndrome with worsening thrombocytopenia. It was recommended by oncology that he be admitted for overnight observation over concerns for high risk of clinical decompensation. On presentation to the ICU, the patient was noted to be febrile and hemodynamically stable. He was mildly tachycardic and tachypneic with an oxygen requirement of 3 L/min via nasal cannula. Laboratory evaluation revealed a stable hemoglobin of 7.5 g/dL. Platelet count was low at 13,000. Chemistry profile was notable for a sodium of 133, chloride of 95, BUN of 78 and creatinine of 2.29. Uric acid was elevated at 7.6. Phosphorus was elevated at 6.5. LDH was elevated at 2810. The patient has a known left-sided pleural effusion on prior chest imaging. He last underwent thoracentesis on March 31. The patient was started on supplemental IV fluid hydration, along with intermittent Lasix and allopurinol. [facility] Medical History (Updated 04/08/21 @ 18:[address] 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 Non-smoker On home oxygen therapy Pneumonia Prostate disease Pulmonary embolism Pulmonary embolism Rash Renal cysts, acquired, bilateral Restless legs Shortness of breath on exertion Splenic infarct Wears glasses Home Medications finasteride 5 mg tablet 5 mg PO QDAY 10/25/17 [History Last Taken 04/07/21] albuterol sulfate 90 mcg/actuation aerosol inhaler 2 puff INHALATION Q6H PRN #8.5 g 03/03/21 [Rx Last Taken 03/08/21] multivitamin 1 tab PO DAILY 03/03/21 [History Last Taken 04/06/21] hydrocortisone 2.5 % topical cream 1 applic TOPICAL BID PRN #30 g 03/19/21 [Rx Last Taken 04/08/21] lidocaine-prilocaine 2.5 %-2.5 % topical cream 1 applic TOPICAL ONCE PRN 30 Days #30 g 03/25/21 [Rx Last Taken 04/08/21] ondansetron 8 mg disintegrating tablet 8 mg PO Q8H PRN #30 tab 03/25/21 [Rx Last Taken Unknown] Eliquis 5 mg PO BID 03/26/21 [History Last Taken 04/07/21] food supplemt, lactose-reduced [Ensure Enlive] 120 ml PO .qid #2844 ml 04/01/21 [Rx Last Taken Unknown] allopurinol 300 mg PO DAILY 04/08/21 [History Last Taken 04/08/21 08:00] ferrous sulfate 325 mg PO QODAY 04/08/21 [History Last Taken 04/08/21] furosemide [Lasix] 40 mg PO BID 04/08/21 [History Last Taken 04/08/21] loratadine [Claritin] 10 mg PO DAILY 04/08/21 [History Last Taken 04/07/21] pantoprazole 40 mg PO BID 04/08/21 [History Last Taken 04/08/21] tamsulosin 0.4 mg PO DAILY@1730 04/08/21 [History Last Taken 04/07/21] Allergy/AdvReac Type Severity Reaction Status Date / Time Antihistamines - Ethanolamine Allergy Severe rash Verified 04/08/21 08:37 azithromycin Allergy Rash Verified 04/08/21 08:37 ceftriaxone [From Rocephin] Allergy Rash Verified 04/08/21 08:37 MUCOUS RELIEF DM Allergy Rash Uncoded 03/29/21 20:10 Family History Father Cancer Prostate and Colon CA. Colon cancer Hypertension Grandfather CVA (cerebral vascular accident) Myocardial infarction Mother Hypertension Surgical History History of appendectomy History of esophagogastroduodenoscopy (EGD) History of tonsillectomy Hx of colonoscopy Hx of lymph node biopsy Social History household members: spouse housing: house Smoking Status: Never smoker second hand exposure: No alcohol intake: never substance use type: does not use what type of physical activity do you participate in: none yosef/pentecostalism: Mennonite seatbelt use: always do you feel safe at home: Yes ROS Constitutional Constitutional: Reports fatigue, malaise and weakness Eyes Eyes: Denies blurry vision or change in vision ENT HEENT: Denies headache(s), hoarseness or nasal congestion Cardiovascular Cardiovascular: Reports dyspnea; Denies chest pain Respiratory/Chest Respiratory/Chest: Reports dyspnea Gastrointestinal Gastrointestinal: Reports abdominal pain; Denies nausea or vomiting Genitourinary Genitourinary: Denies difficulty urinating Musculoskeletal Musculoskeletal: Denies arthralgias or back pain Integumentary Integumentary: Denies lesions, rash or skin ulcer Neurologic Neurologic: Denies abnormal gait Psychiatric Psychiatric: Reports depression Endocrine Endocrinology: Reports fatigue Hematologic/Lymphatic Hematologic/Lymphatic: Reports easy bleeding and easy bruising Physical Exam Const alert General Appearance: cooperative and ill appearing HEENT normocephalic and head/scalp atraumatic Eyes PERRL, EOMs intact bilaterally and conjunctivae normal Neck supple General: trachea midline Chest inspection of chest normal Chest Narrative: Stable chest port in place Resp Effort and Inspection: able to speak in complete sentences and tachypneic Auscultation: diminished lung sounds; Negative for rales, rhonchi or wheezes Cardio S1 normal heart sound and S2 normal heart sound Rate: tachycardic GI soft to palpation and non-tender Extremity Extremity Narrative: Profound lower extremity pitting edema General Extremity: Negative for clubbing Skin no rashes or lesions noted Neuro moves all extremities and no focal motor deficits Psych Mood & Affect: flat affect Lab / Micro Data Result Diagrams: 04/09/21 03:15 04/09/21 03:15 Charges/Coding Visit Charges Inpatient E&M: 92888 Init Hosp L3 Procedures Hospitalists Procedures: 04140 Advncd Care Plan 30 Min
[2021-04-08] MEDS: 0.9% Normal Saline 1,000 ML 150 ML IV ×2 (13:30→22:35)
[2021-04-08] MEDS: Allopurinol 300 MG Tablet PO ×2 (14:56→17:19)
--- NOTE | 2021-04-08 16:30 | HP.PCM.HOS_ITS ---
HPI - General General Date of Admission: 04/08/21 HPI Narrative WINNIE SCOTT, is a 75 M with an extensive past medical history as outlined who was admitted from the infusion center as a direct admit with a complaint of generalized weakness which was worsening and concerns for tumor lysis syndrome. Patient was recently admitted in March 2021 for blood loss anemia and required transfusion. He had also recently been diagnosed with pulmonary embolism and was on anticoagulation. Patient was also recently diagnosed with mantle cell lymphoma and had had a couple of sessions of chemotherapy previous to this admission with oncology. During his previous admission in March 2021. He had positive Hemoccult and was transfused with 2 units of packed red blood cells. Was also treated with broad-spectrum antimicrobials due to concerns for septic shock. Infectious work-up was negative so antibiotics were discontinued and he was discharged on oral iron supplements to help with his anemia stores. Was also noted to have severe anasarca and protein calorie malnutrition. Hematology was consulted on account of anemia and subsequent bone marrow biopsy results showed mantle cell lymphoma. He went for chemotherapy today. According to his oncologist, his white cell count which was markedly elevated at more than 100,000 had decreased with chemotherapy. Patient had however been weak and lethargic and this was gradually worsening and due to concerns for tumor lysis syndrome he was sent in today. Patient denied any fever or chills and denied any nausea, any vomiting or diarrhea or any uncontrolled pain. Patient did look very lethargic during my review. Review of systems otherwise negative. Vitals at the time I reviewed him with a blood pressure of 106/67 with pulse rate of 103 and respiratory rate of 26 with temperature of 98.1 and oxygen saturation of 96% on 3 L of oxygen. CBC showed hemoglobin of 7.5 and WBC was not recordable. Platelets were only 13 and he had blast cells of 2. Cr was 2.29, and uric acid was elevated at 7.6. Phosphorus was also elevated at 6.5 and LDH was also elevated at 2810. He has been admitted to be managed for tumor lysis syndrome. Was started on normal saline hydration and being continued on his allopurinol. He was. Case has been ordered by oncology pharmacy and will be available tomorrow. [facility] Medical History (Updated 04/08/21 @ 13:[address] Lui Pedro, DO) Anemia Asthma Cancer Chronic cough Dietary restriction Duodenal ulcer Encounter for education Enlarged prostate Gout History of echocardiogram History of edema History of steroid therapy History of ulceration Hypertension Infiltrate of lung present on computed tomography Mantle cell lymphoma Mantle cell lymphoma of intrathoracic lymph nodes Non-smoker On home oxygen therapy Pneumonia Prostate disease Pulmonary embolism Pulmonary embolism Rash Renal cysts, acquired, bilateral Restless legs Shortness of breath on exertion Splenic infarct Wears glasses Home Medications finasteride 5 mg tablet 5 mg PO QDAY 10/25/17 [History Last Taken 04/07/21] albuterol sulfate 90 mcg/actuation aerosol inhaler 2 puff INHALATION Q6H PRN #8.5 g 03/03/21 [Rx Last Taken 03/08/21] multivitamin 1 tab PO DAILY 03/03/21 [History Last Taken 03/08/21] furosemide [Lasix] 40 mg PO BID #60 tab 03/17/21 [Rx Last Taken Unknown] pantoprazole 40 mg PO BID #60 tab 03/17/21 [Rx Last Taken 03/29/21 0630] tamsulosin 0.4 mg PO DAILY@1730 #30 cap 03/17/21 [Rx Last Taken Unknown] hydrocortisone 2.5 % topical cream 1 applic TOPICAL BID PRN #30 g 03/19/21 [Rx Last Taken Unknown] lidocaine-prilocaine 2.5 %-2.5 % topical cream 1 applic TOPICAL ONCE PRN 30 Days #30 g 03/25/21 [Rx Last Taken Unknown] ondansetron 8 mg disintegrating tablet 8 mg PO Q8H PRN #30 tab 03/25/21 [Rx Last Taken Unknown] Eliquis 5 mg PO BID 03/26/21 [History Last Taken 03/26/21] food supplemt, lactose-reduced [Ensure Enlive] 120 ml PO .qid #2844 ml 04/01/21 [Rx Last Taken Unknown] prednisone 10 mg PO DAILY #30 tab 04/01/21 [Rx Last Taken Unknown] allopurinol 300 mg PO DAILY 04/08/21 [History Last Taken 04/08/21 08:00] ferrous sulfate 325 mg PO QODAY 04/08/21 [History Last Taken Unknown] Allergy/AdvReac Type Severity Reaction Status Date / Time Antihistamines - Ethanolamine Allergy Severe rash Verified 04/08/21 08:37 azithromycin Allergy Rash Verified 04/08/21 08:37 ceftriaxone [From Rocephin] Allergy Rash Verified 04/08/21 08:37 MUCOUS RELIEF DM Allergy Rash Uncoded 03/29/21 20:10 Family History Father Cancer Prostate and Colon CA. Colon cancer Hypertension Grandfather CVA (cerebral vascular accident) Myocardial infarction Mother Hypertension Surgical History History of appendectomy History of esophagogastroduodenoscopy (EGD) History of tonsillectomy Hx of colonoscopy Hx of lymph node biopsy Social History household members: spouse housing: house Smoking Status: Never smoker second hand exposure: No alcohol intake: never substance use type: does not use what type of physical activity do you participate in: none yosef/sabianism: Mennonite seatbelt use: always do you feel safe at home: Yes ROS Constitutional Constitutional: Reports anorexia, chills, fatigue, malaise and weakness; Denies fever(s) ENT HEENT: Denies dysphagia or sore throat Cardiovascular Cardiovascular: Denies chest pain, dyspnea on exertion, edema, lightheadedness, orthopnea, palpitations, paroxysmal nocturnal dyspnea or rapid heart rate Respiratory/Chest Respiratory/Chest: Denies cough, dyspnea or shortness of breath at rest Gastrointestinal Gastrointestinal: Denies abdominal pain, constipation, diarrhea, loose stools, melena, nausea or vomiting Genitourinary Genitourinary: Denies burning urination or dysuria Musculoskeletal Musculoskeletal: Denies arthralgias, back pain or joint swelling Neurologic Neurologic: Denies confusion, dizziness, focal weakness, numbness, seizure-like activity, seizures or syncope Psychiatric Psychiatric: Denies anxiety or depression Endocrine Endocrinology: Denies change in body appearance Hematologic/Lymphatic Hematologic/Lymphatic: Reports anemia Allergic/Immunologic Allergic/Immunologic: Denies asthma Vital Signs Vital Signs Vital Signs: 04/08/21 12:50 04/08/21 13:00 04/08/21 13:15 Temperature 98 F Temperature Source Temporal Pulse Rate 106 H 108 H 106 H Respiratory Rate 24 H 22 H 21 H Respiratory Depth Respiratory Pattern Blood Pressure 118/79 105/71 Blood Pressure [BP] 116/77 Blood Pressure Mean 92 82 Blood Pressure Mean [BP] 90 Blood Pressure Source Monitor Monitor Blood Pressure Position Semi-Fowlers Semi-Fowlers Blood Pressure Location Left Arm Left Arm Pulse Ox 93 93 94 Oxygen Delivery Method Nasal Cannula Nasal Cannula Nasal Cannula Oxygen Flow Rate (L/min) 3 3 3 04/08/21 13:19 04/08/21 14:00 04/08/21 15:00 Temperature Temperature Source Pulse Rate 110 H 108 H Respiratory Rate 19 H 24 H Respiratory Depth Normal Respiratory Pattern Tachypnea Blood Pressure Blood Pressure [BP] 116/76 127/81 H Blood Pressure Mean Blood Pressure Mean [BP] 89 96 Blood Pressure Source Blood Pressure Position Blood Pressure Location Pulse Ox 95 94 Oxygen Delivery Method Nasal Cannula Oxygen Flow Rate (L/min) 3 3 3 04/08/21 15:57 Temperature 98.1 F Temperature Source Temporal Pulse Rate 103 H Respiratory Rate 26 H Respiratory Depth Respiratory Pattern Blood Pressure 106/67 Blood Pressure [BP] Blood Pressure Mean 80 Blood Pressure Mean [BP] Blood Pressure Source Monitor Blood Pressure Position Semi-Fowlers Blood Pressure Location Right Arm Pulse Ox 96 Oxygen Delivery Method Nasal Cannula Oxygen Flow Rate (L/min) 3 Weight Weight: 267 lb 2.005 oz Body Mass Index (BMI) 37.2 Physical Exam Const alert and oriented x3 Constitutional Narrative: looks very weak and frail Orientation / Consciousness: lethargic HEENT normocephalic Eyes PERRL and EOMs intact bilaterally Neck no lymphadenopathy and supple Resp Resp Narrative: diminished breath sounds bibasally, but more on the right. Few crackles bibasally. Tachypneic Cardio S1 normal heart sound, S2 normal heart sound and no murmurs Cardio Narrative: tachycardic GI soft to palpation and non-tender GI Narrative: abdomen distended, fluid thrill positive. Extremity normal to inspection, full ROM and no clubbing, cyanosis or edema Peripheral Pulses: Yes pulses 2+ throughout Skin no rashes or lesions noted Skin Narrative: chemotherapy port in place Neuro CN's II-XII intact bilaterally and moves all extremities Sensorium / Orientation: awake and alert Psych Psych Narrative: flat affect Results Lab / Micro Data Labs: Laboratory Results - last 24 hr 04/07/21 08:45: Blood Type A POSITIVE, Antibody Screen NEGATIVE 04/07/21 08:45: Crossmatch See Detail Assessment & Plan Assessment/Plan (1) Tumor lysis syndrome: (2) Mantle cell lymphoma: QUALIFIERS: Lymphoma site: multiple regions Qualified Code(s): C83.18 - Mantle cell lymphoma, lymph nodes of multiple sites (3) Anemia: PLAN: #Tumor lysis syndrome * admit to ICU * due to mantle cell lymphoma with chemotherapy * uric acid elevated, phosphorous and LDH elevated * on allopurinol; will continue. * rasburicase ordered by oncology pharmacy; will be available tomorrow * trend uric acid, phosphorus and LDH * Oncology consulted. * #History of mantle cell lymphoma * Diagnosis March 2021. Definite improvement with chemotherapy. * Wbc has trended down markedly. Now complicated by tumor lysis syndrome as mentioned above. * Oncology consulted. * Per oncology, will give Granix daily for 7 to 10 days. * #Acute on chronic anemia * Hemoglobin is 7.5. Patient is also symptomatic. Will transfuse 1 unit of packed red blood cells per oncology. * Trend hemoglobin. * #SIRS criteria * Patient is tachypneic and tachycardic. However this likely due to tumor lysis syndrome and there is no overt evidence of infection. Will hold off any antibiotics for now. * Being treated for tumor lysis syndrome as above. * #EFREN on CKD stage III * Creatinine is 2.29 with a baseline of around 1.5. Been hydrated as above. Nephrology consulted due to risk of this worsening on account of tumor lysis syndrome. * Will trend Cr * #Lymphedema * Patient generally edema ~which is thought to be due to lymphedema. * Patient needs IV fluids on account of tumor lysis syndrome. Will also need intermittent diuresis to help prevent fluid overload. * #History of PE: Currently on Xarelto. Will hold Xarelto due to marked thromb ocytopenia with platelets of 13. #Thrombocytopenia and anemia: * Likely due to mantle cell lymphoma. Xarelto on hold. * Being transfused 1 unit of packed red cells as above. * #BPH: on flomax DVT prophylaxis: SCds. Code status: DNRCCA no intubation * Patient counseled extensively about different types of CODE STATUS including full code, DNR CCA and DNR CCA. Patient elects to be DNRCCA no intubation. Total lloe-my-afry time 17 minutes. * Charges/Coding Visit Charges Inpatient E&M: 41344 Init Hosp L3 Procedures Hospitalists Procedures: 91679 Advncd Care Plan 30 Min
--- NOTE | 2021-04-08 16:38 | PCS.PANDOC ---
PANDEMIC DOCUMENTATION INITIATED: Date: 02/15/2021 Time: 190
--- NOTE | 2021-04-08 17:18 | ONC.CONSULT ---
Assessment & Plan Assessment/Plan (1) Mantle cell lymphoma: Status: Acute Code(s): C83.10 - Mantle cell lymphoma, unspecified site Qualifiers: Lymphoma site: multiple regions Qualified Code(s): C83.18 - Mantle cell lymphoma, lymph nodes of multiple sites Plan: And aggressive rapidly progressive mantle cell lymphoma stage IVB with rapid progression to a leukemic phase over the past few days. Patient received his first cycle of bendamustine Rituxan April 07-2020. He had a dramatic decline in his peripheral blood lymphocytosis and blasts within 24 hours. Support with growth factor to start April 10 daily Granix for 7 to 10 days. Will follow and guide. Impression and plan in its entirety was discussed with patient, his , attendings on case (Dr. Pedro and Yaquelin) (2) Tumor lysis syndrome: Status: Acute Code(s): E88.3 - Tumor lysis syndrome Plan: Initially due to an aggressive rapidly growing bulky malignancy, worsening with initiation of treatment despite allopurinol (started weeks earlier), oral and IV hydration and diuresis with oral and IV Lasix. Continue to support with vigorous hydration/diuresis. Continue allopurinol orally daily. Consider rasburicase IV if there is further rise in uric acid. 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 Platelet transfusion if there is any active bleeding more than Minor skin bruising nose and gum bleed to avoid alloimmunization. May be needed prior to any invasive procedure. (5) EFREN (acute kidney injury): Status: Acute Code(s): N17.9 - Acute kidney failure, unspecified Plan: Hydration and diuresis (6) Hyperuricemia: Status: Acute Code(s): E79.0 - Hyperuricemia without signs of inflammatory arthritis and tophaceous disease Plan: Continue allopurinol and consider rasburicase if there is further rise in uric acid. (7) Pulmonary embolism: Status: Acute Code(s): I26.99 - Other pulmonary embolism without acute cor pulmonale Qualifiers: Acute cor pulmonale presence: without acute cor pulmonale Chronicity: acute Pulmonary embolism type: other Qualified Code(s): I26.99 - Other pulmonary embolism without acute cor pulmonale Plan: Patient was on oral anticoagulation, on hold since 04/08/2021 due to severe thrombocytopenia (8) Pleural effusion: Status: Acute Code(s): J90 - Pleural effusion, not elsewhere classified Plan: Left-sided secondary to lymphoma, negative cytology, likely obstruction of lymphatic drainage due to extensive lymphomatous involvement in the mediastinum. May consider retap after platelet recovery. (9) Anasarca: Status: Acute Code(s): R60.1 - Generalized edema Plan: Generalized, severe secondary to lymphatic obstruction by malignancy. HPI Consult Data Date of Service:: 04/08/21 PCP / Referring Provider: Dr. Yo Pedro DO Attending: Dr. Mariya Jamison MD Chief Complaint Chief Complaint: Dyspnea, lymphoma History of Present Illness History of Present Illness: 75-year-old meng who was in his usual state of health until December 2020 when he experienced increasing fatigue, dyspnea, lower body edema. March 10, 2021 through March 17, 2021: He was hospitalized in [facility] work-up revealed anemia, generalized lymphadenopathy and hepatosplenomegaly. CTA revealed pulmonary embolism in the distal right descending pulmonary artery and he was placed on anticoagulation. March 15, 2021 Left inguinal lymph node, biopsy: MICROSCOPIC DIAGNOSISLeft inguinal lymph node, excisional biopsy:Consistent with mantle cell lymphoma ANTIBODY /CLONE RESULTBlock 2AE1-3 (AE1/AE3/PCK26) negativeCD3 (PS1) negativeCD5 (SP10) ufcahffyTH63 (56C6) qwlxdhofHN99 (MMA) jkucekqcKH26 (L26) hyajaukaPO05 (1B12) ktiippkgTG79 (Christopher-H2) nzlhtvxnUW99 (L60) zzhgxdoqCA28 (RP2/18) rpgfafnoCK16w (11E3) zjtqzhwpPK591 (B-A38) negativeBCL-2 (bcl-2/100/D5) positiveBCL-6 (PJ065I/A8) negativeCyclin D1/BCL-1 (SP4) positiveMUM1 (MRQ-43) positiveC-MYC (Y69) negativeKappa (polyclonal) negativeLambda (polyclonal) negativeEMA (E29) negativeKi-67 (30-9) positive, >95% March 12, 2021 chest CTA: IMPRESSION: 1. Positive for pulmonary embolism of the distal right descending pulmonary artery. 2. Bilateral axillary, bilateral hilar, mediastinal lymphadenopathy as well as splenomegaly suggestive of lymphoma or metastatic disease. 3. Large left pleural effusion with left lower lobe atelectasis. March 10, 2021 CT abdomen and pelvis: IMPRESSION: Diffuse peritoneal and retroperitoneal lymphadenopathy extending into the pelvis. Marked degree of splenomegaly with findings suggestive of peripheral infarcts. Hepatomegaly. Small left pleural effusion with left ulnar infiltrate. March 292020: Rehospitalized at [facility] with fever following central venous access placement, sepsis was ruled out, worsening anemia, increasing pleural effusion with increasing dyspnea and worsening generalized edema. March 31, 2021 Thoracentesis fluid for cytology (cytospin and cell block):Negative for malignant cells. 1200 cc bloodstained fluid were drained. PET/CT for initial staging: Was scheduled for March 30, due to acute illness and hospitalization. 04/06/2021 patient was noted to have a dramatic increase in peripheral blood lymphocytes including blasts consistent with a leukemic phase mantle cell lymphoma together with acute worsening of kidney function consistent with tumor lysis. Treatment: Started without awaiting completion of staging by PET/CT due to rapidly progressing malignancy. Bendamustine Rituxan April 07-2020 cycle #1. Patient was already on allopurinol, initially oral hydration, received IV fluid hydration starting April 06 concomitant with diuretics. Advanced Directives Power of Mechanical Technical Service Specialist: Yes Living Will: Yes [facility] Medical History (Updated 04/08/21 @ 18:[address] 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 Non-smoker On home oxygen therapy Pneumonia Prostate disease Pulmonary embolism Pulmonary embolism Rash Renal cysts, acquired, bilateral Restless legs Shortness of breath on exertion Splenic infarct Wears glasses Home Medications finasteride 5 mg tablet 5 mg PO QDAY 10/25/17 [History Last Taken 04/07/21] albuterol sulfate 90 mcg/actuation aerosol inhaler 2 puff INHALATION Q6H PRN #8.5 g 03/03/21 [Rx Last Taken 03/08/21] multivitamin 1 tab PO DAILY 03/03/21 [History Last Taken 03/08/21] furosemide [Lasix] 40 mg PO BID #60 tab 03/17/21 [Rx Last Taken Unknown] pantoprazole 40 mg PO BID #60 tab 03/17/21 [Rx Last Taken 03/29/21 0630] tamsulosin 0.4 mg PO DAILY@1730 #30 cap 03/17/21 [Rx Last Taken Unknown] hydrocortisone 2.5 % topical cream 1 applic TOPICAL BID PRN #30 g 03/19/21 [Rx Last Taken Unknown] lidocaine-prilocaine 2.5 %-2.5 % topical cream 1 applic TOPICAL ONCE PRN 30 Days #30 g 03/25/21 [Rx Last Taken Unknown] ondansetron 8 mg disintegrating tablet 8 mg PO Q8H PRN #30 tab 03/25/21 [Rx Last Taken Unknown] Eliquis 5 mg PO BID 03/26/21 [History Last Taken 03/26/21] food supplemt, lactose-reduced [Ensure Enlive] 120 ml PO .qid #2844 ml 04/01/21 [Rx Last Taken Unknown] prednisone 10 mg PO DAILY #30 tab 04/01/21 [Rx Last Taken Unknown] allopurinol 300 mg PO DAILY 04/08/21 [History Last Taken 04/08/21 08:00] ferrous sulfate 325 mg PO QODAY 04/08/21 [History Last Taken Unknown] Allergy/AdvReac Type Severity Reaction Status Date / Time Antihistamines - Ethanolamine Allergy Severe rash Verified 04/08/21 08:37 azithromycin Allergy Rash Verified 04/08/21 08:37 ceftriaxone [From Rocephin] Allergy Rash Verified 04/08/21 08:37 MUCOUS RELIEF DM Allergy Rash Uncoded 03/29/21 20:10 Family History Father Cancer Prostate and Colon CA. Colon cancer Hypertension Grandfather CVA (cerebral vascular accident) Myocardial infarction Mother Hypertension Surgical History History of appendectomy History of esophagogastroduodenoscopy (EGD) History of tonsillectomy Hx of colonoscopy Hx of lymph node biopsy Social History household members: spouse housing: house Smoking Status: Never smoker second hand exposure: No alcohol intake: never substance use type: does not use what type of physical activity do you participate in: none yosef/yazidi: Mennonite seatbelt use: always do you feel safe at home: Yes ROS Constitutional Constitutional: Reports fatigue, poor appetite and weight gain; Denies fever(s) or night sweats ENT HEENT: Reports neck mass; Denies dysphagia or sore throat Cardiovascular Cardiovascular: Reports dyspnea, dyspnea at rest, dyspnea on exertion and edema; Denies chest pain or palpitations Respiratory/Chest Respiratory/Chest: Reports dyspnea and dyspnea on exertion; Denies cough, hemoptysis or pain on inspiration Gastrointestinal Gastrointestinal: Reports anorexia and bloating; Denies abdominal pain, change in bowel habits, coffee ground emesis, hematochezia, melena, nausea or vomiting Genitourinary Genitourinary: Denies dysuria or hematuria Musculoskeletal Musculoskeletal: Denies back pain or muscle weakness Integumentary Integumentary: Reports rash; Denies pruritus Neurologic Neurologic: Denies abnormal speech, confusion, focal weakness or headache(s) Psychiatric Psychiatric: Denies anxiety or depression Endocrine Endocrinology: Denies flushing Hematologic/Lymphatic Hematologic/Lymphatic: Reports easy bruising and lymphadenopathy; Denies easy bleeding Physical Exam Narrative ECOG 2 Const alert and oriented x3 General Appearance: cooperative, in distress, ill appearing and grossly edematous HEENT normocephalic and moist oral mucous membranes Head and Scalp: atraumatic Eyes conjunctivae normal and no scleral icterus Neck General: lymphadenopathy other (Generalized) matted Lymph Lymphatic: lymphedema severe and lymphadenopathy Lymphadenopathy Laterality: bilateral Resp Effort and Inspection: tachypneic Auscultation: diminished lung sounds left (Left pleural effusion) Cardio regular rate, regular rhythm and no murmurs GI non-tender GI Narrative: Bloated with massive edema waist down Extremity General Extremity: edema bilateral upper extremity and lower extremity Skin no jaundice Skin Narrative: Macular rash with petechiae over the upper back General Skin Exam: ecchymosis and petechiae Rashes: rashes noted Neuro CN's II-XII intact bilaterally, moves all extremities and no focal motor deficits Motor Exam: general weakness Psych mental status grossly normal Vital Signs Temperature 98.5 F 04/08/21 17:00 Temperature Source Temporal 04/08/21 17:00 Pulse Rate 102 H 04/08/21 17:00 Respiratory Rate 26 H 04/08/21 17:00 Respiratory Depth Normal 04/08/21 13:19 Respiratory Pattern Tachypnea 04/08/21 13:19 Blood Pressure 110/60 04/08/21 17:00 Blood Pressure Mean 76 04/08/21 17:00 Blood Pressure Source Monitor 04/08/21 17:00 Blood Pressure Position Semi-Fowlers 04/08/21 17:00 Blood Pressure Location Left Arm 04/08/21 17:00 Pulse Ox 93 04/08/21 17:00 Oxygen Delivery Method Nasal Cannula 04/08/21 17:00 Oxygen Flow Rate (L/min) 3 04/08/21 17:00 Laboratory Results - last 24 hr 04/07/21 08:45: Blood Type A POSITIVE, Antibody Screen NEGATIVE 04/07/21 08:45: Crossmatch See Detail Laboratory Tests 03/16/21 03/24/21 03/30/21 21:28 13:00 04:25 WBC Corrected WBC Hgb Plt Count 121 L Potassium BUN Creatinine Uric Acid 10.0 H Calcium Phosphorus Lactate Dehydrogenase 363 H 438 H 03/30/21 03/30/21 04/01/21 04:25 10:40 05:00 WBC 12.4 H Corrected WBC Hgb 8.0 L 7.6 L Plt Count 74 L Potassium BUN Creatinine Uric Acid 7.0 Calcium Phosphorus Lactate Dehydrogenase 867 H 04/01/21 04/05/21 04/06/21 05:00 14:25 10:55 WBC Corrected WBC Hgb Plt Count Potassium BUN 39 H 52 H 56 H Creatinine 1.50 H 2.09 H 2.05 H Uric Acid 6.5 Calcium Phosphorus Lactate Dehydrogenase 04/06/21 04/07/21 04/07/21 10:57 08:45 08:45 WBC 169.2 H* 192.9 H* Corrected WBC Hgb 7.6 L 7.2 L Plt Count 87 L 92 L Potassium BUN Creatinine Uric Acid Calcium Phosphorus Lactate Dehydrogenase 2149 H 04/07/21 04/08/21 04/08/21 08:45 08:15 08:15 WBC Corrected WBC 24.2 H Hgb 7.5 L Plt Count 10 L* Potassium BUN 62 H Creatinine 2.27 H Uric Acid 7.6 H Calcium Phosphorus 6.5 H Lactate Dehydrogenase 2810 H 04/08/21 04/08/21 08:15 08:53 WBC Corrected WBC Hgb Plt Count 13 L* Potassium 5.0 BUN 78 H Creatinine 2.29 H Uric Acid Calcium 9.7 Phosphorus Lactate Dehydrogenase
[2021-04-08 20:24] LABS: Anion Gap 12 (5-15); BUN 88 mg/dL (7-18); BUN/Creat Ratio 37.4 RATIO (10-20); Chloride 95 mmol/L (98-107); Creatinine, Serum 2.35 mg/dL (0.70-1.30); EST Glomerular Filtration Rate 29 mL/min (>60); Est Glom Filt Rate - Afr Amer 35 mL/min (>60); Estimated Creatinine Clearance 28.48 ml/min; Glucose 210 mg/dL (74-106); Magnesium 2.6 mg/dL (1.6-2.6); Phosphorus 8.5 mg/dL (2.5-4.9); Potassium 5.5 mmol/L (3.5-5.1); Sodium Level 134 mmol/L (136-145)
[2021-04-08] MEDS: 0.9% Saline Lock 10 ML Syringe IV (21:30)
--- NOTE | 2021-04-08 23:15 | RAD_ITS ---
STUDY: X-RAY CHEST REASON FOR EXAM: Male, 75 years old. Shortness of breath. TECHNIQUE: Single AP portable view of the chest. COMPARISON: 03/31/2021. FINDINGS: There is a right jugular central venous catheter with its tip in the proximal superior vena cava. There is persistent large left pleural effusion and atelectasis. A stable granuloma is seen at the right lung base. Question mild cardiomegaly. Normal mediastinum and ledy. Normal visualized pulmonary arteries. Normal visualized aortic arch and descending thoracic aorta. There are diffuse degenerative changes of the visualized thoracic spine. There is degenerative osteoarthritis of the bilateral shoulders. There is no demonstrated abnormality of the visualized soft tissue structures of the upper abdomen. RAD/Chest 1 View (Portable) IMPRESSION: No major interval change. Electronically Signed: Adam Verma DO at 23:40 EDT Tel [phone], Service support ,
[2021-04-08] MEDS: Albuterol 2.5 MG/3 ML VIAL.NEB. INHALATION (23:45)
[2021-04-08] MEDS: Furosemide 40 MG/4 ML Vial IV (23:46)
[2021-04-08] MEDS: Sodium Polystyrene Sulfonate 15 GM/60 ML UDC 30 GM PO (23:46)
[2021-04-08] MEDS: Calcium Acetate 667 MG Capsule PO (23:51)
[2021-04-09] VITALS (41 sets, daily range): BP systolic 90–138; BP diastolic 60–80; PULSE 103–119; RESP 17–28; TEMP 36.5–37.3; O2SAT 93–100
[2021-04-09 00:09] LABS: Anion Gap 11 (5-15); BUN 96 mg/dL (7-18); BUN/Creat Ratio 39.5 RATIO (10-20); Calcium,Total 8.9 mg/dL (8.5-10.1); Chloride 95 mmol/L (98-107); Creatinine, Serum 2.43 mg/dL (0.70-1.30); EST Glomerular Filtration Rate 28 mL/min (>60); Est Glom Filt Rate - Afr Amer 34 mL/min (>60); Estimated Creatinine Clearance 27.54 ml/min; Glucose 244 mg/dL (74-106); Potassium 5.7 mmol/L (3.5-5.1); Sodium Level 134 mmol/L (136-145)
[2021-04-09] MEDS: Albuterol 2.5 MG/3 ML VIAL.NEB. INHALATION ×6 (02:52→22:25)
[2021-04-09 03:30] LABS: Hematocrit 21.6 % (40-54); Hemoglobin 7.2 g/dL (13.0-16.5); Mean Corp Hgb Conc 33.3 g/dL (32-36); Mean Platelet Vol. 11.4 fl (6.2-12.0); POSITIVE COUNT YES; POSITIVE MORPHOLOGY YES; Platelet Count 6 K/mm3 (150-450); RBC Distribution Width CV 17.1 % (11.6-14.6); RBC Distribution Width SD 53.3 fl (35.1-43.9); White Blood Count 6.6 K/mm3 (4.4-11.0)
[2021-04-09 03:44] LABS: Differential Indicated MANUAL DIFF
[2021-04-09] MEDS: 0.9% Normal Saline 1,000 ML 200 ML IV (03:49)
[2021-04-09 04:01] LABS: Phosphorus 10.5 mg/dL (2.5-4.9)
[2021-04-09 04:14] LABS: Absolute Lymphocyte Count 1.25 X10^3/uL (0.83-4.51); Absolute Neutrophil Count 4.3 X10^3/uL (2.0-7.7); Neutrophil-Segmented 61 % (47-70)
[2021-04-09 04:15] LABS: Blast 1 % (0-0); Eosinophil 3 % (0-5); Lymphocyte 19 % (19-41); Metamyelocyte 1 % (0-1); Myelocyte 3 % (0-0); Neutrophil-Band 5 % (0-5); Promyelocyte 1 % (0-0)
[2021-04-09 04:16] LABS: Monocyte 6 % (0-10); Nucleated Red Bld Cells,Manual 2 % (0-5); Platelet Estimate MKD DEC (ADEQ); Red Cell Morphology NORM C+C NORMAL (NORM C&C)
[2021-04-09 05:34] LABS: ALB/GLOB Ratio 0.8 RATIO (0.9-2.4); AST(SGOT) 494 U/L (15-37); Alanine Aminotransfer ALT/SGPT 71 U/L (16-61); Albumin, Serum 2.1 g/dL (3.2-5.0); Alkaline Phosphatase 833 U/L (45-117); Anion Gap 16 (5-15); BUN 100 mg/dL (7-18); BUN/Creat Ratio 41.5 RATIO (10-20); Calcium,Total 8.8 mg/dL (8.5-10.1); Chloride 94 mmol/L (98-107); Creatinine, Serum 2.41 mg/dL (0.70-1.30); EST Glomerular Filtration Rate 28 mL/min (>60); Est Glom Filt Rate - Afr Amer 34 mL/min (>60); Estimated Creatinine Clearance 27.77 ml/min; Globulin 2.7 g/dL (2.2-4.2); Glucose 239 mg/dL (74-106); LDH > 4000 U/L (87-241); Magnesium 2.7 mg/dL (1.6-2.6); Potassium 5.6 mmol/L (3.5-5.1); Protein, Total 4.8 g/dL (6.4-8.2); Sodium Level 133 mmol/L (136-145); Uric Acid 6.7 mg/dL (3.5-7.2)
--- NOTE | 2021-04-09 06:47 | PCM.PN.INT ---
Assessment & Plan Assessment/Plan (1) Tumor lysis syndrome: (2) Anemia: QUALIFIERS: Bone marrow failure anemia type: other bone marrow failure PLAN: RECOMMENDATIONS: 1. Continue fluids and intermittent IV diuretic therapy. 2. Continue allopurinol. 3. Start phosphate binder. 4. Transfuse additional packed red blood cells and platelets, as ordered. 5. Wean supplemental oxygen to maintain saturations at or above 90%. 6. Plan for Granix initiation today. 7. Encourage incentive spirometer use while in bed. 8. May need repeat thoracentesis for symptom relief once platelet count recovers. IMPRESSIONS: 1. Recently diagnosed mantle cell lymphoma The patient has an aggressive type of mantle cell lymphoma with rapid progression to a leukemic phase. He was recently started on chemotherapy. The patient is significantly anemic and thrombocytopenic. He is at high risk for further clinical decompensation. The patient was direct admitted from the oncology suite for stabilization. We will plan to continue supportive measures with transfusion of blood products as needed along with supplemental IV fluid hydration combined with diuretic therapy. Granix will be initiated today. 2. Tumor lysis syndrome/hyperphosphatemia The patient does not appear to be experiencing tumor lysis syndrome at the current time. However, the patient has evidence of hyperphosphatemia. Nephrology is currently following. Anticipate need for phosphate binder. 3. Anemia/thrombocytopenia Plan to transfuse additional packed red blood cells and platelets, as ordered. Per oncology, goal is to maintain a hemoglobin at or above 8 g/dL. There are no overt signs of blood loss at the current time. 4. Acute on chronic kidney disease Likely secondary to the above. We will continue to monitor creatinine and urine output for now. Continue IV fluid hydration and diuresis. Nephrology is following. 5. History of duodenal ulcer and blood loss anemia The patient will be placed on IV Protonix twice daily. Continue to monitor blood counts accordingly. 6. History of pulmonary embolism Systemic anticoagulation remains on hold due to anemia and severe thrombocytopenia. This note was generated with [employer] dictation software. It may contain incorrect words, spelling, and punctuation that were not noted in checking the note before signing. Subjective Subjective The patient was seen and examined at the bedside this morning. Events from the last 24 hours have been reviewed. The patient is currently afebrile, hemodynamically stable and maintaining appropriate oxygen saturations on 6 L/min via nasal cannula. The patient's oxygen requirement has increased overnight. The patient remains on IV fluids, along with Lasix and allopurinol. Hemoglobin is down to 7.2 g/dL this morning. Platelet count has dropped to 6000. Objective Data Objective Data The patient's most recent lab work, culture data and imaging studies have all been personally reviewed. Vital Signs: Vital Signs Temp Pulse Resp BP Pulse Ox 98.7 F 107 H 19 H 138/75 H 96 04/09/21 04:00 04/09/21 06:00 04/09/21 06:00 04/09/21 06:00 04/09/21 06:00 Oxygen Flow Rate (L/min) 6 Oxygen Delivery Method Nasal Cannula Weight: 107.076 kg Body Mass Index (BMI) 37.2 Intake & Output: Intake and Output for Last 24 Hours 04/07/21 04/08/21 04/09/21 23:59 23:59 23:59 Intake Total 2252.5 / 2252.5 1417.5 / 1417.5 Output Total 1300 / 1650 2050 / 2050 Balance 952.5 / 602.5 -632.5 / -632.5 Lab / Micro Data Attestation: I reviewed the patient's lab results. Result Diagrams: 04/09/21 03:15 04/09/21 03:15 Labs: Laboratory Results - last 24 hr 04/07/21 08:45: Blood Type A POSITIVE, Antibody Screen NEGATIVE 04/07/21 08:45: Crossmatch See Detail 04/08/21 18:45: Sodium 134 L, Potassium 5.5 H, Chloride 95 L, Carbon Dioxide 27.0, Anion Gap 12, BUN 88 H, Creatinine 2.35 H, Estim Creat Clear Calc 28.48, Est GFR (MDRD) Af Amer 35 L, Est GFR (MDRD) Non-Af 29 L, BUN/Creatinine Ratio 37.4 H, Glucose 210 H, Calcium 9.0, Phosphorus 8.5 H, Magnesium 2.6 04/08/21 18:45: Uric Acid 7.0 04/08/21 23:25: Sodium 134 L, Potassium 5.7 H, Chloride 95 L, Carbon Dioxide 28.0, Anion Gap 11, BUN 96 H, Creatinine 2.43 H, Estim Creat Clear Calc 27.54, Est GFR (MDRD) Af Amer 34 L, Est GFR (MDRD) Non-Af 28 L, BUN/Creatinine Ratio 39.5 H, Glucose 244 H, Calcium 8.9 04/09/21 03:15: WBC 6.6, RBC 2.40 L, Hgb 7.2 L, Hct 21.6 L, MCV 90.0, MCH 30.0, MCHC 33.3, RDW Std Deviation 53.3 H, RDW Coeff of Dmitry 17.1 H, Plt Count 6 L*, MPV 11.4, Neut % (Auto) Not Reportable, Absolute Neuts (auto) 4.3, Absolute Lymphs (auto) 1.25, Neutrophils % (Manual) 61, Band Neutrophils % 5, Lymphocytes % (Manual) 19, Monocytes % (Manual) 6, Eosinophils % (Manual) 3, Metamyelocytes % 1, Myelocytes % 3 H, Promyelocytes % 1 H, Blast Cells % 1 H*, Nucleated RBCs/100 WBC 2, Diff Path Review October, Platelet Estimate MKD DEC, RBC Morphology NORM C+C 04/09/21 03:15: Sodium 133 L, Potassium 5.6 H, Chloride 94 L, Carbon Dioxide 23.0, Anion Gap 16 H, BUN 100 H, Creatinine 2.41 H, Estim Creat Clear Calc 27.77, Est GFR (MDRD) Af Amer 34 L, Est GFR (MDRD) Non-Af 28 L, BUN/Creatinine Ratio 41.5 H, Glucose 239 H, Uric Acid 6.7, Calcium 8.8, Magnesium 2.7 H, Total Bilirubin 1.00, AST 494 H, ALT 71 H, Alkaline Phosphatase 833 H, Lactate Dehydrogenase > 4000 H, Total Protein 4.8 L, Albumin 2.1 L, Globulin 2.7, Albumin/Globulin Ratio 0.8 L 04/09/21 03:15: Phosphorus 10.5 H* Radiography Diagnostic Testing: Radiology Impression Chest X-Ray 04/08/21 23:15 IMPRESSION: No major interval change. Electronically Signed: Adam Verma DO at 23:40 EDT Tel [phone], Service support , Physical Exam Const alert Constitutional Narrative: Sitting in bedside recliner. General Appearance: cooperative Nutritional Appearance: obese HEENT normocephalic and head/scalp atraumatic Eyes PERRL, EOMs intact bilaterally and conjunctivae normal Neck supple General: trachea midline Chest inspection of chest normal Chest Narrative: Stable chest port in place Resp Effort and Inspection: tachypneic Auscultation: wheezes and diminished lung sounds; Negative for rales or rhonchi Cardio S1 normal heart sound and S2 normal heart sound Rate: tachycardic GI soft to palpation and non-tender Extremity Extremity Narrative: Profound lower extremity pitting edema General Extremity: Negative for clubbing Skin no rashes or lesions noted Neuro moves all extremities and no focal motor deficits Psych cooperative and affect normal Charges/Coding Visit Charges Inpatient E&M: 00440 Subs Hosp L3
[2021-04-09] MEDS: Furosemide 40 MG/4 ML Vial IV ×3 (09:39→17:38)
[2021-04-09] MEDS: 0.9% Saline Lock 10 ML Syringe IV ×3 (09:46→22:25)
[2021-04-09] MEDS: 0.9% Normal Saline 1,000 ML 100 ML IV (10:11)
[2021-04-09 10:52] LABS: Hemoglobin A1c 6.9 % (3.8-5.6)
--- NOTE | 2021-04-09 10:55 | PN.HOSP_ITS ---
Subjective Subjective Patient seen and examined. He says he feels much better today. He remains tachycardic and tachypneic. Phosphorous and potassium are markedly elevated. Hb is down to 7.2. Uric acid is 6.7 today. Objective Data Objective Data Vital Signs: Vital Signs Temp Pulse Resp BP Pulse Ox 98.7 F 114 H 22 H 136/70 H 95 04/09/21 04:00 04/09/21 10:29 04/09/21 10:29 04/09/21 07:00 04/09/21 07:00 Oxygen Flow Rate (L/min) 6 Oxygen Delivery Method Nasal Cannula Weight: 236 lb 1 oz Body Mass Index (BMI) 37.2 Intake & Output: Intake and Output for Last 24 Hours 04/07/21 04/08/21 04/09/21 23:59 23:59 23:59 Intake Total 2252.5 / 2252.5 2417.5 / 2417.5 Output Total 1300 / 1650 0 / 2050 Balance 952.5 / 602.5 367.5 / 367.5 Lab / Micro Data Result Diagrams: 04/09/21 03:15 04/09/21 03:15 Labs: Laboratory Results - last 24 hr 04/07/21 08:45: Blood Type A POSITIVE, Antibody Screen NEGATIVE 04/07/21 08:45: Crossmatch See Detail 04/07/21 08:45: Crossmatch See Detail 04/08/21 18:45: Sodium 134 L, Potassium 5.5 H, Chloride 95 L, Carbon Dioxide 27.0, Anion Gap 12, BUN 88 H, Creatinine 2.35 H, Estim Creat Clear Calc 28.48, Est GFR (MDRD) Af Amer 35 L, Est GFR (MDRD) Non-Af 29 L, BUN/Creatinine Ratio 37.4 H, Glucose 210 H, Calcium 9.0, Phosphorus 8.5 H, Magnesium 2.6 04/08/21 18:45: Uric Acid 7.0 04/08/21 23:25: Sodium 134 L, Potassium 5.7 H, Chloride 95 L, Carbon Dioxide 28.0, Anion Gap 11, BUN 96 H, Creatinine 2.43 H, Estim Creat Clear Calc 27.54, Est GFR (MDRD) Af Amer 34 L, Est GFR (MDRD) Non-Af 28 L, BUN/Creatinine Ratio 39.5 H, Glucose 244 H, Calcium 8.9 04/09/21 03:15: WBC 6.6, RBC 2.40 L, Hgb 7.2 L, Hct 21.6 L, MCV 90.0, MCH 30.0, MCHC 33.3, RDW Std Deviation 53.3 H, RDW Coeff of Dmitry 17.1 H, Plt Count 6 L*, MPV 11.4, Neut % (Auto) Not Reportable, Absolute Neuts (auto) 4.3, Absolute Lymphs (auto) 1.25, Neutrophils % (Manual) 61, Band Neutrophils % 5, Lymphocytes % (Manual) 19, Monocytes % (Manual) 6, Eosinophils % (Manual) 3, Metamyelocytes % 1, Myelocytes % 3 H, Promyelocytes % 1 H, Blast Cells % 1 H*, Nucleated RBCs/100 WBC 2, Diff Path Review October, Platelet Estimate MKD DEC, RBC Morphology NORM C+C 04/09/21 03:15: Sodium 133 L, Potassium 5.6 H, Chloride 94 L, Carbon Dioxide 23.0, Anion Gap 16 H, BUN 100 H, Creatinine 2.41 H, Estim Creat Clear Calc 27.77, Est GFR (MDRD) Af Amer 34 L, Est GFR (MDRD) Non-Af 28 L, BUN/Creatinine Ratio 41.5 H, Glucose 239 H, Uric Acid 6.7, Calcium 8.8, Magnesium 2.7 H, Total Bilirubin 1.00, AST 494 H, ALT 71 H, Alkaline Phosphatase 833 H, Lactate Dehydrogenase > 4000 H, Total Protein 4.8 L, Albumin 2.1 L, Globulin 2.7, Albumin/Globulin Ratio 0.8 L 04/09/21 03:15: Phosphorus 10.5 H* 04/09/21 03:15: Hemoglobin A1c 6.9 H Radiography Diagnostic Testing: Radiology Impression Chest X-Ray 04/08/21 23:15 IMPRESSION: No major interval change. Electronically Signed: Adam Verma DO at 23:40 EDT Tel [phone], Service support , Physical Exam Const alert, oriented x3 and no apparent distress Constitutional Narrative: less lethargic today. HEENT head/scalp atraumatic HEENT Narrative: dry oral mucosa Head and Scalp: normocephalic Eyes PERRL, EOMs intact bilaterally and conjunctivae normal Neck no lymphadenopathy Resp Resp Narrative: tachypneic, diminished breath sounds bibasally, no wheezes or crackles. On 6L of oxygen by nasal canula. Cardio S1 normal heart sound and S2 normal heart sound Cardio Narrative: tachypneic GI normal to inspection, nondistended, normoactive bowel sounds, soft to palpation, non-tender and non-distended Extremity normal to inspection Extremity Narrative: bilateral 2+ LE pitting edema Peripheral Pulses: Yes pulses 2+ throughout Skin no rashes or lesions noted Neuro oriented x3 and moves all extremities Sensorium / Orientation: awake and alert Psych affect normal Assessment & Plan Assessment/Plan (1) Hyperuricemia: (2) Anasarca: (3) Thrombocytopenia: (4) EFREN (acute kidney injury): (5) Tumor lysis syndrome: (6) Mantle cell lymphoma: QUALIFIERS: Lymphoma site: multiple regions Qualified Code(s): C83.18 - Mantle cell lymphoma, lymph nodes of multiple sites (7) Anemia: QUALIFIERS: Bone marrow failure anemia type: other bone marrow failure PLAN: #Tumor lysis syndrome due to chemotherapy for mantle cell lymphoma * phosphorous and potassium as well as magnesium are still elevated * on allopurinol. Awaiting rasburicase, which had to be ordered from outside. * oncology on board. * critical care also on board. * LDH markedly elevated today * * #History of mantle cell lymphoma * Diagnosis March 2021. Definite improvement with chemotherapy. * Wbc today is 6. Now complicated by tumor lysis syndrome as mentioned above. * Oncology on board * Per oncology, will give Granix daily for 7 to 10 days. * #Acute on chronic anemia * Hemoglobin today is 7.2. Has been transfused one unit of PRBCs already. * to be transfused 2 more units of pRBCs. * likely due to mantle cell lymphoma. * will trend Hb * #Acute hypoxic respiratory failure due * likely due to fluid overload and lymphedema * on 5L of oxygen now. * titrate oxygen to maintain sats >90% * breathing treatments with bronchodilators * #SIRS criteria * Patient is tachypneic and tachycardic. However this likely due to tumor lysis syndrome and there is no overt evidence of infection. Will hold off any ant ibiotics for now. * Being treated for tumor lysis syndrome as above. * #EFREN on CKD stage III * Cr is 2.41 today; went up to 2.43 yesterday * baseline is ~ 1.5 * being hydrated with IVF, and also diuresed due to concerns about fluid overload. * await nephrology rec's. * #Acute on chronic hypoxic respiratory failure * likely due to fluid overload. * #Lymphedema * Patient generally edematous ~which is thought to be due to lymphedema. * being hydrated with IVF which can worsen the lymphedema. Will therefore be having intermittent dialysis. * #History of PE: Currently on Xarelto. xarelto on hold due to thrombocytopenia #Thrombocytopenia and anemia: * Likely due to mantle cell lymphoma. Xarelto on hold. * platelets today are 6. To be transfused with platelets. * Oncology on board. * #BPH: on flomax DVT prophylaxis: SCds. Code status: DNRCCA no intubation * * Charges/Coding Visit Charges Inpatient E&M: 50631 Subs Hosp L3
--- NOTE | 2021-04-09 11:49 | PCM.CONS.R ---
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 Phosphorus is greater than 4.5 mg/dL. However, uric acid is less than 8 mg/dL, potassium level is less than 6 mmol/L, and calcium is greater than 7 mg/dL. -There is no need for dialysis based on potassium level which is still less than 6 mmol/L. Bicarbonate level is also normal at 23 mmol/L. Urine output is already greater than 2 L today on her current dose of furosemide. -Therefore, there is no urgent need for kidney replacement therapy today. However, I will monitor the patient closely. -I will change phosphorus binder from calcium acetate to sevelamer to avoid calcium phosphate deposition since calcium x phosphorus product is greater than 60. -Current medications are reviewed and are appropriately dosed for the current estimated creatinine clearance. Above d/w gallery or museum attendant, Dr. Pedro. HPI Consult Data Date of Consult: 04/09/21 HPI Narrative HPI Narrative: The patient is a 75-year-old man with multiple medical problems including a recently diagnosed mantle cell lymphoma which was being treated with chemotherapy prior to admission. The patient was sent from the outpatient infusion center because of generalized weakness and concern for tumor lysis syndrome. The patient was also admitted recently in March 2021 with sepsis as well. Nephrology is asked to see the patient because of acute kidney injury. Review of prior records reveals that his serum creatinine has been chronically elevated around 1.5 to 1.8 mg/dL. The patient does have elevated serum phosphorus at 10.5 mg/dL. However, he does not fulfill the other [place] criteria for tumor lysis syndrome such as potassium level of more than 6 mmol/L, calcium less than 7 mg/dL, or uric acid greater than 8 mg/dL. The patient denies current chest pain. He is short of breath but not any worse than yesterday. The patient has chronic lower extremity edema which has worsened subjectively. There has been no nausea, vomiting, or diarrhea. The patient was on allopurinol prior to admission. He has not been given uricase such as rasburicase since admission. [facility] Medical History (Updated 04/08/21 @ 18:[address] 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 Non-smoker On home oxygen therapy Pneumonia Prostate disease Pulmonary embolism Pulmonary embolism Rash Renal cysts, acquired, bilateral Restless legs Shortness of breath on exertion Splenic infarct Wears glasses Home Medications finasteride 5 mg tablet 5 mg PO QDAY 10/25/17 [History Last Taken 04/07/21] albuterol sulfate 90 mcg/actuation aerosol inhaler 2 puff INHALATION Q6H PRN #8.5 g 03/03/21 [Rx Last Taken 03/08/21] multivitamin 1 tab PO DAILY 03/03/21 [History Last Taken 04/06/21] hydrocortisone 2.5 % topical cream 1 applic TOPICAL BID PRN #30 g 03/19/21 [Rx Last Taken 04/08/21] lidocaine-prilocaine 2.5 %-2.5 % topical cream 1 applic TOPICAL ONCE PRN 30 Days #30 g 03/25/21 [Rx Last Taken 04/08/21] ondansetron 8 mg disintegrating tablet 8 mg PO Q8H PRN #30 tab 03/25/21 [Rx Last Taken Unknown] Eliquis 5 mg PO BID 03/26/21 [History Last Taken 04/07/21] food supplemt, lactose-reduced [Ensure Enlive] 120 ml PO .qid #2844 ml 04/01/21 [Rx Last Taken Unknown] allopurinol 300 mg PO DAILY 04/08/21 [History Last Taken 04/08/21 08:00] ferrous sulfate 325 mg PO QODAY 04/08/21 [History Last Taken 04/08/21] furosemide [Lasix] 40 mg PO BID 04/08/21 [History Last Taken 04/08/21] loratadine [Claritin] 10 mg PO DAILY 04/08/21 [History Last Taken 04/07/21] pantoprazole 40 mg PO BID 04/08/21 [History Last Taken 04/08/21] tamsulosin 0.4 mg PO DAILY@1730 04/08/21 [History Last Taken 04/07/21] Allergy/AdvReac Type Severity Reaction Status Date / Time Antihistamines - Ethanolamine Allergy Severe rash Verified 04/08/21 08:37 azithromycin Allergy Rash Verified 04/08/21 08:37 ceftriaxone [From Rocephin] Allergy Rash Verified 04/08/21 08:37 MUCOUS RELIEF DM Allergy Rash Uncoded 03/29/21 20:10 Family History Father Cancer Prostate and Colon CA. Colon cancer Hypertension Grandfather CVA (cerebral vascular accident) Myocardial infarction Mother Hypertension Surgical History History of appendectomy History of esophagogastroduodenoscopy (EGD) History of tonsillectomy Hx of colonoscopy Hx of lymph node biopsy Social History household members: spouse housing: house Smoking Status: Never smoker second hand exposure: No alcohol intake: never substance use type: does not use what type of physical activity do you participate in: none yosef/episcopal: Mennonite seatbelt use: always do you feel safe at home: Yes ROS ROS Narrative 10 out of 10 review of system was done and otherwise negative. Physical Exam Narrative General: Ill-appearing man who appears to be his stated age. HEENT: Normocephalic, atraumatic. Mucous membrane dry. PERRLA, EOMI. There is no erythema of the mucosa. Neck: Supple. Heart: Normal S1, S2 no rubs or murmurs. Lungs: Clear to auscultation anteriorly. Abdomen: Scant bowel sounds, distended, abdomen is soft to palpation, there is no guarding or rebound. Extremity: Diffuse petechiae of the lower extremity. There is 4+ edema of the lower extremities bilaterally. Limited range of motion because of edema. Full upper extremity range of motion. Psychiatric: Normal affect. Neurologic: No focal neurologic deficit. Lab / Micro Data Result Diagrams: 04/09/21 03:15 04/09/21 03:15 Labs: Laboratory Results - last 24 hr 04/07/21 08:45: Blood Type A POSITIVE, Antibody Screen NEGATIVE 04/07/21 08:45: Crossmatch See Detail 04/07/21 08:45: Crossmatch See Detail 04/08/21 18:45: Sodium 134 L, Potassium 5.5 H, Chloride 95 L, Carbon Dioxide 27.0, Anion Gap 12, BUN 88 H, Creatinine 2.35 H, Estim Creat Clear Calc 28.48, Est GFR (MDRD) Af Amer 35 L, Est GFR (MDRD) Non-Af 29 L, BUN/Creatinine Ratio 37.4 H, Glucose 210 H, Calcium 9.0, Phosphorus 8.5 H, Magnesium 2.6 04/08/21 18:45: Uric Acid 7.0 04/08/21 23:25: Sodium 134 L, Potassium 5.7 H, Chloride 95 L, Carbon Dioxide 28.0, Anion Gap 11, BUN 96 H, Creatinine 2.43 H, Estim Creat Clear Calc 27.54, Est GFR (MDRD) Af Amer 34 L, Est GFR (MDRD) Non-Af 28 L, BUN/Creatinine Ratio 39.5 H, Glucose 244 H, Calcium 8.9 04/09/21 03:15: WBC 6.6, RBC 2.40 L, Hgb 7.2 L, Hct 21.6 L, MCV 90.0, MCH 30.0, MCHC 33.3, RDW Std Deviation 53.3 H, RDW Coeff of Dmitry 17.1 H, Plt Count 6 L*, MPV 11.4, Neut % (Auto) Not Reportable, Absolute Neuts (auto) 4.3, Absolute Lymphs (auto) 1.25, Neutrophils % (Manual) 61, Band Neutrophils % 5, Lymphocytes % (Manual) 19, Monocytes % (Manual) 6, Eosinophils % (Manual) 3, Metamyelocytes % 1, Myelocytes % 3 H, Promyelocytes % 1 H, Blast Cells % 1 H*, Nucleated RBCs/100 WBC 2, Diff Path Review May foll, Platelet Estimate MKD DEC, RBC Morphology NORM C+C 04/09/21 03:15: Sodium 133 L, Potassium 5.6 H, Chloride 94 L, Carbon Dioxide 23.0, Anion Gap 16 H, BUN 100 H, Creatinine 2.41 H, Estim Creat Clear Calc 27.77, Est GFR (MDRD) Af Amer 34 L, Est GFR (MDRD) Non-Af 28 L, BUN/Creatinine Ratio 41.5 H, Glucose 239 H, Uric Acid 6.7, Calcium 8.8, Magnesium 2.7 H, Total Bilirubin 1.00, AST 494 H, ALT 71 H, Alkaline Phosphatase 833 H, Lactate Dehydrogenase > 4000 H, Total Protein 4.8 L, Albumin 2.1 L, Globulin 2.7, Albumin/Globulin Ratio 0.8 L 04/09/21 03:15: Phosphorus 10.5 H* 04/09/21 03:15: Hemoglobin A1c 6.9 H Radiology Impression Chest X-Ray 04/08/21 23:15 IMPRESSION: No major interval change. Electronically Signed: Adam Verma DO at 23:40 EDT Tel [phone], Service support ,
[2021-04-09] MEDS: Allopurinol 300 MG Tablet PO ×2 (12:12→17:07)
[2021-04-09] MEDS: Calcium Acetate 667 MG Capsule PO (12:13)
[2021-04-09] MEDS: Insulin Lispro 100 UNIT/ML INSULN.PEN SC ×2 (12:23→17:05)
[2021-04-09 12:25] LABS: Bedside Glucose 264 mg/dL (70-110)
[2021-04-09] MEDS: Ipratropium 0.5 MG/2.5 ML SOLUTION INHALATION (13:28)
--- NOTE | 2021-04-09 13:40 | ONC.PN.INPT ---
Subjective Subjective Constitutional: Overall I feel a bit better Constitutional: Reports fatigue, poor appetite I ate a little HEENT: Denies dysphagia or sore throat Cardiovascular: Reports dyspnea, Denies chest pain or palpitations Respiratory/Chest: Reports dyspnea Denies cough, hemoptysis or pain on inspiration Gastrointestinal: Reports anorexia and bloating; Denies abdominal pain, change in bowel habits, coffee ground emesis, hematochezia, melena, nausea or vomiting Genitourinary: Denies dysuria or hematuria Musculoskeletal: Denies back pain or muscle weakness Integumentary: Denies pruritus, reports easy bruises Neurologic: Denies abnormal speech, confusion, focal weakness or headache(s) Hematologic/Lymphatic: Reports easy bruising and lymphadenopathy; Denies bleeding Physical Exam Narrative ECOG 2 Const alert and oriented x3 General Appearance: cooperative, in distress, ill appearing and grossly edematous HEENT normocephalic and moist oral mucous membranes Head and Scalp: atraumatic Eyes conjunctivae normal and no scleral icterus Neck General: lymphadenopathy other (Generalized) matted Lymph Lymphatic: lymphedema severe and lymphadenopathy Lymphadenopathy Laterality: bilateral Resp Effort and Inspection: tachypneic and audible wheezes Auscultation: diminished lung sounds left (Left pleural effusion) Cardio regular rate, regular rhythm and no murmurs GI non-tender GI Narrative: Bloated with massive edema waist down Extremity General Extremity: edema bilateral upper extremity and lower extremity Skin no jaundice Skin Narrative: Petechiae over the upper back, ecchymoses over extremities General Skin Exam: ecchymosis and petechiae Rashes: rashes noted Neuro CN's II-XII intact bilaterally, moves all extremities and no focal motor deficits Motor Exam: general weakness Psych mental status grossly normal Vital Signs Temperature 98 F 04/09/21 13:25 Temperature Source Temporal 04/09/21 13:25 Pulse Rate 114 H 04/09/21 13:25 Respiratory Rate 28 H 04/09/21 13:25 Respiratory Effort 04/09/21 04:00 Respiratory Depth Normal 04/09/21 04:00 Respiratory Pattern Tachypnea 04/09/21 10:29 Blood Pressure 100/67 04/09/21 13:25 Blood Pressure Mean 78 04/09/21 13:25 Blood Pressure Source Monitor 04/09/21 13:25 Blood Pressure Position Sitting 04/09/21 13:25 Blood Pressure Location Right Arm 04/09/21 13:25 Pulse Ox 95 04/09/21 13:25 Oxygen Delivery Method Nasal Cannula 04/09/21 13:25 Oxygen Flow Rate (L/min) 4 04/09/21 13:25 Laboratory Results - last 24 hr 04/07/21 08:45: Blood Type A POSITIVE, Antibody Screen NEGATIVE 04/07/21 08:45: Crossmatch See Detail 04/07/21 08:45: Crossmatch See Detail 04/08/21 18:45: Sodium 134 L, Potassium 5.5 H, Chloride 95 L, Carbon Dioxide 27.0, Anion Gap 12, BUN 88 H, Creatinine 2.35 H, Estim Creat Clear Calc 28.48, Est GFR (MDRD) Af Amer 35 L, Est GFR (MDRD) Non-Af 29 L, BUN/Creatinine Ratio 37.4 H, Glucose 210 H, Calcium 9.0, Phosphorus 8.5 H, Magnesium 2.6 04/08/21 18:45: Uric Acid 7.0 04/08/21 23:25: Sodium 134 L, Potassium 5.7 H, Chloride 95 L, Carbon Dioxide 28.0, Anion Gap 11, BUN 96 H, Creatinine 2.43 H, Estim Creat Clear Calc 27.54, Est GFR (MDRD) Af Amer 34 L, Est GFR (MDRD) Non-Af 28 L, BUN/Creatinine Ratio 39.5 H, Glucose 244 H, Calcium 8.9 04/09/21 03:15: WBC 6.6, RBC 2.40 L, Hgb 7.2 L, Hct 21.6 L, MCV 90.0, MCH 30.0, MCHC 33.3, RDW Std Deviation 53.3 H, RDW Coeff of Dmitry 17.1 H, Plt Count 6 L*, MPV 11.4, Neut % (Auto) Not Reportable, Absolute Neuts (auto) 4.3, Absolute Lymphs (auto) 1.25, Neutrophils % (Manual) 61, Band Neutrophils % 5, Lymphocytes % (Manual) 19, Monocytes % (Manual) 6, Eosinophils % (Manual) 3, Metamyelocytes % 1, Myelocytes % 3 H, Promyelocytes % 1 H, Blast Cells % 1 H*, Nucleated RBCs/100 WBC 2, Diff Path Review May foll, Platelet Estimate MKD DEC, RBC Morphology NORM C+C 04/09/21 03:15: Sodium 133 L, Potassium 5.6 H, Chloride 94 L, Carbon Dioxide 23.0, Anion Gap 16 H, BUN 100 H, Creatinine 2.41 H, Estim Creat Clear Calc 27.77, Est GFR (MDRD) Af Amer 34 L, Est GFR (MDRD) Non-Af 28 L, BUN/Creatinine Ratio 41.5 H, Glucose 239 H, Uric Acid 6.7, Calcium 8.8, Magnesium 2.7 H, Total Bilirubin 1.00, AST 494 H, ALT 71 H, Alkaline Phosphatase 833 H, Lactate Dehydrogenase > 4000 H, Total Protein 4.8 L, Albumin 2.1 L, Globulin 2.7, Albumin/Globulin Ratio 0.8 L 04/09/21 03:15: Phosphorus 10.5 H* 04/09/21 03:15: Hemoglobin A1c 6.9 H 04/09/21 12:21: POC Glucose 264 H Diagnostic Data Chest X-Ray 04/08/21 23:15 IMPRESSION: No major interval change. Electronically Signed: Adam Verma DO at 23:40 EDT Tel [phone], Service support , Assessment & Plan Assessment/Plan (1) Anasarca: (2) Pleural effusion: (3) Hyperuricemia: (4) Thrombocytopenia: (5) EFREN (acute kidney injury): (6) Pulmonary embolism: QUALIFIERS: Pulmonary embolism type: other Chronicity: acute Acute cor pulmonale presence: without acute cor pulmonale Qualified Code(s): I26.99 - Other pulmonary embolism without acute cor pulmonale (7) Anemia: QUALIFIERS: Bone marrow failure anemia type: other bone marrow failure Anemia type: bone marrow failure Qualified Code(s): D61.89 - Other specified aplastic anemias and other bone marrow failure syndromes (8) Tumor lysis syndrome: (9) Mantle cell lymphoma: QUALIFIERS: Lymphoma site: multiple regions Qualified Code(s): C83.18 - Mantle cell lymphoma, lymph nodes of multiple sites (10) Anemia: QUALIFIERS: Anemia type: unspecified type Qualified Code(s): D64.9 - Anemia, unspecified PLAN: Assessment/Plan (1) Mantle cell lymphoma: An aggressive rapidly progressive mantle cell lymphoma stage IVB with rapid progression to a leukemic phase over the past few days. Patient received his first cycle of bendamustine Rituxan April 07-2020. He had a dramatic decline in his peripheral blood lymphocytosis and blasts within 24 hours. Next cycle of therapy provided he continues to improve will be in 4 weeks. Await recovery from tumor lysis and bone marrow treatment related toxicity. Support with growth factor to start April 10 daily Granix for 7 to 10 days. Will follow and guide. (2) Tumor lysis syndrome: Initially due to an aggressive rapidly growing bulky malignancy, worsening with initiation of treatment despite allopurinol (started weeks earlier), oral and IV hydration and diuresis . Nephrology has been consulted and guiding therapy. (3) Anemia: Anemia due to cancer with bone marrow involvement, transfuse with packed red blood cells to maintain hemoglobin at or above 8 g per DL. An upcoming days anemia may worsen due to bone marrow toxicity from therapy before recovery. (4) Thrombocytopenia: At this time secondary to extensive bone marrow involvement by lymphoma, in upcoming days may worsen as an expected side effect from chemotherapy. Anticoagulation for PE is on hold until platelet count is above 30-50 K without transfusion dependency. Prophylactic platelet transfusion if less than 10K. Platelet transfusion if there is any active bleeding more than Minor skin bruising nose and gum bleed to avoid alloimmunization. May be needed prior to any invasive (5) EFREN (acute kidney injury): Continue Hydration and diuresis, nephrology guiding. (6) Hyperuricemia, hyperphosphatemia: Secondary to tumor lysis, defer to nephrology consult. Rasburicase is now in pharmacy stock if needed. (7) Pulmonary embolism: Patient was on oral anticoagulation, on hold since 04/08/2021 due to severe thrombocytopenia, may resume once platelets are at least 30-50 K, no active bleeding and not transfusion dependent. (8) Pleural effusion: Left-sided secondary to lymphoma, negative cytology, likely obstruction of lymphatic drainage due to extensive lymphomatous involvement in the mediastinum. May consider retap after platelet recovery. (9) Anasarca: Generalized, severe primarily secondary to lymphatic obstruction by malignancy, some degree of fluid overload required for treatment of tumor lysis. Patient was seen and examined, discussed with Drs. Pedro and Yaquelin.
--- NOTE | 2021-04-09 14:19 | CASEMGMT ---
KAL GOTTLIEB Readmission Note Previous Admission: 03/29/21-04/01/21 Diagnosis: septic shock DC Disposition: Home with family support. Current Admission Diagnosis: Tumor lysis syndrome Pt presented as a direct admit from the oncology suite. The patient was just started on chemotherapy for mantle cell lymphoma this week and has subsequently developed rapid progression to leukemic phase and tumor lysis syndrome with worsening thrombocytopenia. KAL GOTTLIEB in to pt room, pt sitting up in the chair with O2 on and receiving blood products. Pt is short of breath with conversation. Pt reports he has seen since last hospitalization. He has not had any other follow up appts. Pt states he has declined palliative care as he does not feel he is ready for this but lastnight I was close. Upon discussing palliative care, it was evident that patient was referring to hospice. KAL GOTTLIEB educated pt on the difference between the two services. Pt still declines the need for the referral. Pt states he has been taking his medications as ordered as well as wearing his O2. Pt states he does have a portable tank in the car and can have his bring in when he dc's to go home on. Discussed how pt is managing at home. He states he is weak. Discussed HHC options and what services are available, pt declines. Pt states he has family who help with his care. Pt nurse Kaykay asks this KAL GOTTLIEB to call pt to make aware that she can visit. TC to pt , she is aware. Discussed with her options for help in the home. She states she does not feel it has come to that yet. Provided education on HHC. She was agreeable to take a list of HHC's. Provided to pt. DC PLAN: Home with family support.
[2021-04-09 14:34] LABS: Pathologist Review Reviewed
[2021-04-09] MEDS: CHLORHEXIDINE GLUC 2% CLOTH 1 EACH TOWELETTE TOPICAL (16:16)
[2021-04-09 17:05] LABS: Bedside Glucose 381 mg/dL (70-110)
[2021-04-09] MEDS: SEVELAMER CARBONATE 800 MG TABLET 1600 MG PO (17:28)
--- NOTE | 2021-04-09 21:50 | PCM.HOSP.N ---
Hospitalist Note Patient's blood sugars are consistently high and bedtime blood sugar was greater than 400. Patient was started on a sliding scale today. I did add Lantus 15 units at at bedtime and sliding scales to be continued. Accu-Cheks before meals and at bedtime were ordered as well.
[2021-04-10] VITALS (35 sets, daily range): BP systolic 89–115; BP diastolic 56–78; PULSE 98–114; RESP 14–28; TEMP 35.7–37.1; O2SAT 90–100
[2021-04-10 04:28] LABS: Hematocrit 25.2 % (40-54); Hemoglobin 8.6 g/dL (13.0-16.5); Mean Corp Hgb Conc 34.1 g/dL (32-36); Mean Corpuscular Hgb 30.4 pg (27.0-32.0); POSITIVE COUNT YES; POSITIVE DIFFERENTIAL YES; POSITIVE MORPHOLOGY YES; RBC Distribution Width CV 15.8 % (11.6-14.6); RBC Distribution Width SD 49.2 fl (35.1-43.9); Red Blood Count 2.83 M/mm3 (4.6-6.2); White Blood Count 1.7 K/mm3 (4.4-11.0)
[2021-04-10 04:55] LABS: Platelet Count 4 K/mm3 (150-450)
[2021-04-10 05:01] LABS: Differential Indicated MANUAL DIFF
[2021-04-10 05:20] LABS: ALB/GLOB Ratio 0.8 RATIO (0.9-2.4); AST(SGOT) 259 U/L (15-37); Alanine Aminotransfer ALT/SGPT 69 U/L (16-61); Albumin, Serum 2.2 g/dL (3.2-5.0); Alkaline Phosphatase 901 U/L (45-117); Anion Gap 16 (5-15); BUN 115 mg/dL (7-18); BUN/Creat Ratio 44.6 RATIO (10-20); Calcium,Total 7.3 mg/dL (8.5-10.1); Chloride 95 mmol/L (98-107); Creatinine, Serum 2.58 mg/dL (0.70-1.30); EST Glomerular Filtration Rate 26 mL/min (>60); Est Glom Filt Rate - Afr Amer 31 mL/min (>60); Estimated Creatinine Clearance 25.94 ml/min; Globulin 2.6 g/dL (2.2-4.2); Glucose 255 mg/dL (74-106); LDH > 4000 U/L (87-241); Magnesium 2.8 mg/dL (1.6-2.6); Phosphorus 11.3 mg/dL (2.5-4.9); Potassium 5.2 mmol/L (3.5-5.1); Protein, Total 4.8 g/dL (6.4-8.2); Sodium Level 137 mmol/L (136-145); Uric Acid 6.6 mg/dL (3.5-7.2)
[2021-04-10 05:33] LABS: Eosinophil 1 % (0-5); Lymphocyte 12 % (19-41); Metamyelocyte 2 % (0-1); Monocyte 1 % (0-10); Myelocyte 1 % (0-0); Neutrophil-Band 2 % (0-5); Neutrophil-Segmented 79 % (47-70); Other WBC Type 2 %; Total Cells Counted 100 (MANUAL DIFF)
[2021-04-10 05:34] LABS: Nucleated Red Bld Cells,Manual 1 % (0-5)
[2021-04-10 05:37] LABS: Absolute Lymphocyte Count 0.21 X10^3/uL (0.83-4.51); Absolute Neutrophil Count 1.5 X10^3/uL (2.0-7.7)
[2021-04-10 05:39] LABS: Red Cell Morphology NORM C+C NORMAL (NORM C&C)
[2021-04-10 05:40] LABS: Platelet Estimate MKD DEC (ADEQ)
--- NOTE | 2021-04-10 06:32 | PN.CC_ITS ---
Assessment & Plan Assessment/Plan (1) Tumor lysis syndrome: (2) Anemia: QUALIFIERS: Anemia type: bone marrow failure Bone marrow failure anemia type: other bone marrow failure Qualified Code(s): D61.89 - Other specified aplastic anemias and other bone marrow failure syndromes PLAN: RECOMMENDATIONS: 1. Continue fluids and IV diuretic therapy. 2. Continue allopurinol. 3. Continue phosphate binder per nephrology recommendations. 4. Transfuse additional platelets today. 5. Wean supplemental oxygen to maintain saturations at or above 90%. 6. Continue Granix as ordered. 7. Encourage incentive spirometer use while in bed. 8. May need repeat thoracentesis for symptom relief once platelet count recovers. IMPRESSIONS: 1. Recently diagnosed mantle cell lymphoma The patient has an aggressive type of mantle cell lymphoma with rapid progression to a leukemic phase. He was recently started on chemotherapy. The patient is significantly anemic and thrombocytopenic. He is at high risk for further clinical decompensation. The patient was direct admitted from the oncology suite for stabilization. We will plan to continue supportive measures with transfusion of blood products as needed along with supplemental IV fluid hydration combined with diuretic therapy. Granix will be continued. 2. Tumor lysis syndrome/hyperphosphatemia The patient does not appear to be experiencing tumor lysis syndrome at the current time. However, the patient has evidence of hyperphosphatemia. Nephrology is currently following. Plan to continue phosphate binder as ordered. 3. Anemia/thrombocytopenia The patient's hemoglobin did improve following transfusion of packed red blood cells. However, the patient remains progressively thrombocytopenic, despite having received platelets yesterday. Therefore, orders for additional transfusion of platelets have been ordered. There are no overt signs of blood loss at the current time. 4. Acute on chronic kidney disease Likely secondary to the above. We will continue to monitor creatinine and urine output for now. Continue IV fluid hydration and diuresis. Nephrology is following. 5. History of duodenal ulcer and blood loss anemia The patient will be placed on IV Protonix twice daily. Continue to monitor blood counts accordingly. 6. History of pulmonary embolism Systemic anticoagulation remains on hold due to anemia and severe thr ombocytopenia. This note was generated with [employer]ig[employer] software. It may contain incorrect words, spelling, and punctuation that were not noted in checking the note before signing. Subjective Subjective The patient was seen and examined at the bedside this morning. Events from the last 24 hours have been reviewed. The patient is currently afebrile, hemodynamically stable and maintaining appropriate oxygen saturations on 2 L/min via nasal cannula. The patient is currently documented to be overall net -2.7 L for the hospital admission. The patient was transfused packed red blood cells and platelets yesterday. This morning, hemoglobin is up to 8.6 g/dL. However, platelet count is low at 4000. Potassium is elevated at 5.2 with a BUN of 115 and creatinine of 2.58. Uric acid levels within normal limits. Phosphorus is elevated at 11.3. The patient remains on a normal saline infusion, Granix and twice daily IV Lasix. The patient was started on Renvela yesterday. Objective Data Objective Data The patient's most recent lab work, culture data and imaging studies have all been personally reviewed. Vital Signs: Vital Signs Temp Pulse Resp BP Pulse Ox 98.0 F 100 14 115/75 95 04/10/21 04:00 04/10/21 06:00 04/10/21 06:00 04/10/21 06:00 04/10/21 06:00 Oxygen Flow Rate (L/min) 2 Oxygen Delivery Method Nasal Cannula Weight: 106.594 kg Body Mass Index (BMI) 37.2 Intake & Output: Intake and Output for Last 24 Hours 04/08/21 04/09/21 04/10/21 23:59 23:59 23:59 Intake Total 2252.5 / 2252.5 4600.83 / 4694.58 543.75 / 543.75 Output Total 1300 / 1650 7325 / 7775 1550 / 1550 Balance 952.5 / 602.5 -2724.17 / -3080.42 -1006.25 / -1006.25 Lab / Micro Data Attestation: I reviewed the patient's lab results. Result Diagrams: 04/10/21 04:00 04/10/21 04:00 Labs: Laboratory Results - last 24 hr 04/07/21 08:45: Crossmatch See Detail 04/07/21 08:45: Crossmatch See Detail 04/09/21 03:15: Diff Path Review Reviewed 04/09/21 03:15: Hemoglobin A1c 6.9 H 04/09/21 12:21: POC Glucose 264 H 04/09/21 17:03: POC Glucose 381 H 04/10/21 04:00: WBC 1.7 L, RBC 2.83 L, Hgb 8.6 L, Hct 25.2 L, MCV 89.0, MCH 30.4, MCHC 34.1, RDW Std Deviation 49.2 H, RDW Coeff of Dmitry 15.8 H, Plt Count 4 L*, Immature Gran % (Auto) HOME CARE SPECIALIST, Neut % (Auto) HOME CARE SPECIALIST, Lymph % (Auto) HOME CARE SPECIALIST, [place] % (Auto) HOME CARE SPECIALIST, Eos % (Auto) HOME CARE SPECIALIST, Baso % (Auto) HOME CARE SPECIALIST, Absolute Neuts (auto) 1.5 L, Absolute Lymphs (auto) 0.21 L, Total Counted 100, Neutrophils % (Manual) 79 H, Band Neutrophils % 2, Lymphocytes % (Manual) 12 L, Monocytes % (Manual) 1, E osinophils % (Manual) 1, Metamyelocytes % 2 H, Myelocytes % 1 H, Other Cells % 2, Nucleated RBC % HOME CARE SPECIALIST, Nucleated RBCs/100 WBC 1, Diff Path Review October, Platelet Estimate MKD DEC, RBC Morphology NORM C+C 04/10/21 04:00: Sodium 137, Potassium 5.2 H, Chloride 95 L, Carbon Dioxide 26.0, Anion Gap 16 H, BUN 115 H*, Creatinine 2.58 H, Estim Creat Clear Calc 25.94, Est GFR (MDRD) Af Amer 31 L, Est GFR (MDRD) Non-Af 26 L, BUN/Creatinine Ratio 44.6 H , Glucose 255 H, Uric Acid 6.6, Calcium 7.3 L, Magnesium 2.8 H, Total Bilirubin 1.10 H, AST 259 H, ALT 69 H, Alkaline Phosphatase 901 H, Lactate Dehydrogenase > 4000 H, Total Protein 4.8 L, Albumin 2.2 L, Globulin 2.6, Albumin/Globulin Ratio 0.8 L 04/10/21 04:00: Phosphorus 11.3 H* Physical Exam Const alert General Appearance: cooperative Nutritional Appearance: obese HEENT normocephalic and head/scalp atraumatic Eyes PERRL, EOMs intact bilaterally and conjunctivae normal Neck supple General: trachea midline Chest inspection of chest normal Chest Narrative: Stable chest port in place Resp Effort and Inspection: tachypneic Auscultation: wheezes and diminished lung sounds; Negative for rales or rhonchi Cardio regular rate, regular rhythm, S1 normal heart sound and S2 normal heart sound GI soft to palpation and non-tender Extremity Extremity Narrative: Profound lower extremity pitting edema General Extremity: Negative for clubbing Skin no rashes or lesions noted Neuro moves all extremities and no focal motor deficits Psych cooperative and affect normal Charges/Coding Visit Charges Inpatient E&M: 40557 Subs Hosp L3
[2021-04-10] MEDS: Albuterol 2.5 MG/3 ML VIAL.NEB. INHALATION ×5 (06:56→23:31)
[2021-04-10] MEDS: Insulin Lispro 100 UNIT/ML INSULN.PEN SC ×3 (07:02→16:46)
[2021-04-10 07:06] LABS: Bedside Glucose 245 mg/dL (70-110)
[2021-04-10] MEDS: 0.9% Normal Saline 1,000 ML 75 ML IV ×2 (07:07→19:16)
--- NOTE | 2021-04-10 07:22 | PN.HOSP_ITS ---
Subjective Subjective Patient seen and examined. He has no active complaints today. He is feeling better. He was transfused with PRBCs and platelets yesterday. Potassium is elevated at 5.2 and Cr of 2.58. URic acid is now normalised. Phosphorous is still elevated. Nephrology on board. Objective Data Objective Data Vital Signs: Vital Signs Temp Pulse Resp BP Pulse Ox 98.0 F 103 H 21 H 102/78 98 04/10/21 04:00 04/10/21 07:00 04/10/21 07:00 04/10/21 07:00 04/10/21 07:00 Oxygen Flow Rate (L/min) 2 Oxygen Delivery Method Nasal Cannula Weight: 235 lb Body Mass Index (BMI) 37.2 Intake & Output: Intake and Output for Last 24 Hours 04/08/21 04/09/21 04/10/21 23:59 23:59 23:59 Intake Total 2252.5 / 2252.5 4600.83 / 4694.58 1127.50 / 1127.50 Output Total 1300 / 1650 7325 / 7775 1875 / 1875 Balance 952.5 / 602.5 -2724.17 / -3080.42 -747.50 / -747.50 Lab / Micro Data Result Diagrams: 04/10/21 04:00 04/10/21 04:00 Labs: Laboratory Results - last 24 hr 04/07/21 08:45: Crossmatch See Detail 04/07/21 08:45: Crossmatch See Detail 04/09/21 03:15: Diff Path Review Reviewed 04/09/21 03:15: Hemoglobin A1c 6.9 H 04/09/21 12:21: POC Glucose 264 H 04/09/21 17:03: POC Glucose 381 H 04/10/21 04:00: WBC 1.7 L, RBC 2.83 L, Hgb 8.6 L, Hct 25.2 L, MCV 89.0, MCH 30.4, MCHC 34.1, RDW Std Deviation 49.2 H, RDW Coeff of Dmitry 15.8 H, Plt Count 4 L*, Immature Gran % (Auto) SUPERVISOR DOG LICENSE OFFICER, Neut % (Auto) SUPERVISOR DOG LICENSE OFFICER, Lymph % (Auto) SUPERVISOR DOG LICENSE OFFICER, [place] % (Auto) SUPERVISOR DOG LICENSE OFFICER, Eos % (Auto) SUPERVISOR DOG LICENSE OFFICER, Baso % (Auto) SUPERVISOR DOG LICENSE OFFICER, Absolute Neuts (auto) 1.5 L, Absolute Lymphs (auto) 0.21 L, Total Counted 100, Neutrophils % (Manual) 79 H, Band Neutrophils % 2, Lymphocytes % (Manual) 12 L, Monocytes % (Manual) 1, Eosinophils % (Manual) 1, Metamyelocytes % 2 H, Myelocytes % 1 H, Other Cells % 2, Nucleated RBC % SUPERVISOR DOG LICENSE OFFICER, Nucleated RBCs/100 WBC 1, Diff Path Review October foll, Platelet Estimate MKD DEC, RBC Morphology NORM C+C 04/10/21 04:00: Sodium 137, Potassium 5.2 H, Chloride 95 L, Carbon Dioxide 26.0, Anion Gap 16 H, BUN 115 H*, Creatinine 2.58 H, Estim Creat Clear Calc 25.94, Est GFR (MDRD) Af Amer 31 L, Est GFR (MDRD) Non-Af 26 L, BUN/Creatinine Ratio 44.6 H , Glucose 255 H, Uric Acid 6.6, Calcium 7.3 L, Magnesium 2.8 H, Total Bilirubin 1.10 H, AST 259 H, ALT 69 H, Alkaline Phosphatase 901 H, Lactate Dehydrogenase > 4000 H, Total Protein 4.8 L, Albumin 2.2 L, Globulin 2.6, Albumin/Globulin Ratio 0.8 L 04/10/21 04:00: Phosphorus 11.3 H* 04/10/21 07:00: POC Glucose 245 H Physical Exam Const alert, oriented x3 and no apparent distress HEENT normocephalic and head/scalp atraumatic Head and Scalp: normocephalic Eyes PERRL, EOMs intact bilaterally and conjunctivae normal Neck no lymphadenopathy and supple Resp Resp Narrative: tachypneic, diminished breath sounds bibasally, no wheezes or crackles. On 2L of oxygen by nasal canula. Cardio S1 normal heart sound, S2 normal heart sound and no murmurs Cardio Narrative: tachypneic GI normal to inspection, nondistended, normoactive bowel sounds, soft to palpation and non-tender GI Narrative: abdomen distended, fluid thrill positive. Extremity normal to inspection, full ROM and no clubbing, cyanosis or edema Extremity Narrative: bilateral 2+ LE pitting edema Peripheral Pulses: Yes pulses 2+ throughout Skin no rashes or lesions noted Skin Narrative: chemotherapy port in place Neuro oriented x3, CN's II-XII intact bilaterally and moves all extremities Sensorium / Orientation: awake and alert Psych affect normal Psych Narrative: flat affect Assessment & Plan Assessment/Plan (1) Hyperuricemia: (2) Anasarca: (3) Thrombocytopenia: (4) EFREN (acute kidney injury): (5) Tumor lysis syndrome: (6) Mantle cell lymphoma: QUALIFIERS: Lymphoma site: multiple regions Qualified Code(s): C83.18 - Mantle cell lymphoma, lymph nodes of multiple sites (7) Anemia: QUALIFIERS: Anemia type: bone marrow failure Bone marrow failure anemia type: other bone marrow failure Qualified Code(s): D61.89 - Other specified aplastic anemias and other bone marrow failure syndromes PLAN: #Tumor lysis syndrome due to chemotherapy for mantle cell lymphoma * phosphorous and potassium as well as magnesium are still elevated * on allopurinol. * oncology on board. * critical care also on board. * LDH remains markedly elevated, but uric acid is down. * * #History of mantle cell lymphoma * Diagnosed March 2021. Definite improvement with chemotherapy. * Wbc today is 6. Now complicated by tumor lysis syndrome as mentioned above. * Oncology on board * On granix * #Acute on chronic anemia * Hemoglobin today is 8.6. * s/p transfusion of 3 units of PRBCs * likely due to mantle cell lymphoma. * will trend Hb * #Acute hypoxic respiratory failure due * likely due to fluid overload and lymphedema * on 5L of oxygen now. * titrate oxygen to maintain sats >90% * breathing treatments with bronchodilators * #SIRS criteria * Patient is tachypneic and tachycardic. However this likely due to tumor lysis syndrome and there is no overt evidence of infection. Will hold off any antibiotics for now. * Being treated for tumor lysis syndrome as above. * #EFREN on CKD stage III * Cr is 2.58 today * baseline is ~ 1.5 * being hydrated with IVF, and also diuresed due to concerns about fluid overload. * nephrology on board * started on renvela * #Acute on chronic hypoxic respiratory failure * likely due to fluid overload. * #Lymphedema * being hydrated with IVF which can worsen the lymphedema. Will therefore be having intermittent dialysis as needed * #History of PE: Currently on Xarelto. xarelto on hold due to thrombocytopenia #Thrombocytopenia and anemia: * Likely due to mantle cell lymphoma. Xarelto on hold. * platelets today are 4. Is s/p transfusion of platelets. * will benefit from more platelets today * Oncology on board. * #BPH: on flomax DVT prophylaxis: SCds. Code status: DNRCCA no intubation * * Charges/Coding Visit Charges Inpatient E&M: 99561 Subs Hosp L3
[2021-04-10] MEDS: Allopurinol 300 MG Tablet PO ×2 (09:13→18:17)
[2021-04-10] MEDS: SEVELAMER CARBONATE 800 MG TABLET 1600 MG PO ×3 (09:13→18:17)
[2021-04-10] MEDS: Acetaminophen 325 MG Tablet 650 MG PO (09:18)
[2021-04-10] MEDS: CHLORHEXIDINE GLUC 2% CLOTH 1 EACH TOWELETTE TOPICAL (09:45)
[2021-04-10] MEDS: Furosemide 40 MG/4 ML Vial IV ×2 (11:28→18:17)
[2021-04-10] MEDS: TBO-FILGRASTIM 480 MCG/0.8 ML ML SC (14:38)
[2021-04-10 15:57] LABS: Hematocrit 21.9 % (40-54); Hemoglobin 7.6 g/dL (13.0-16.5); Mean Corp Hgb Conc 34.7 g/dL (32-36); Mean Corpuscular Hgb 30.4 pg (27.0-32.0); Mean Corpuscular Volume 87.6 fL (80-94); POSITIVE COUNT YES; POSITIVE DIFFERENTIAL YES; POSITIVE MORPHOLOGY YES; Platelet Count 21 K/mm3 (150-450); RBC Distribution Width CV 15.8 % (11.6-14.6)
[2021-04-10 16:03] LABS: Differential Indicated MANUAL DIFF
[2021-04-10 16:05] LABS: White Blood Count 0.8 K/mm3 (4.4-11.0)
[2021-04-10 16:36] LABS: Eosinophil 1 % (0-5); Lymphocyte 17 % (19-41); Monocyte 2 % (0-10); Neutrophil-Band 4 % (0-5); Neutrophil-Segmented 76 % (47-70); Total Cells Counted 100 (MANUAL DIFF)
[2021-04-10 16:47] LABS: Absolute Lymphocyte Count 0.14 X10^3/uL (0.83-4.51); Absolute Neutrophil Count 0.7 X10^3/uL (2.0-7.7)
[2021-04-10 16:48] LABS: Platelet Estimate MKD DEC (ADEQ); Red Cell Morphology NORM C+C NORMAL (NORM C&C)
--- NOTE | 2021-04-10 17:35 | PN.RENAL_ITS ---
Subjective Subjective alert awake Objective Data Objective Data Vital Signs: Vital Signs Temp Pulse Resp BP Pulse Ox 97.8 F 98 19 H 94/60 98 04/10/21 13:39 04/10/21 16:05 04/10/21 14:17 04/10/21 14:15 04/10/21 14:15 Oxygen Flow Rate (L/min) 3 Oxygen Delivery Method Nasal Cannula Weight: 106.594 kg Body Mass Index (BMI) 37.2 Intake & Output: Intake and Output for Last 24 Hours 04/08/21 04/09/21 04/10/21 23:59 23:59 23:59 Intake Total 2252.5 / 2252.5 4600.83 / 4694.58 1237.50 / 1237.50 Output Total 1300 / 1650 7325 / 7775 4150 / 4150 Balance 952.5 / 602.5 -2724.17 / -3080.42 -2912.50 / -2912.50 Lab / Micro Data Result Diagrams: 04/10/21 15:40 04/10/21 04:00 Labs: Laboratory Results - last 24 hr 04/07/21 08:45: Crossmatch See Detail 04/10/21 04:00: WBC 1.7 L, RBC 2.83 L, Hgb 8.6 L, Hct 25.2 L, MCV 89.0, MCH 30.4, MCHC 34.1, RDW Std Deviation 49.2 H, RDW Coeff of Dmitry 15.8 H, Plt Count 4 L*, Immature Gran % (Auto) PIPE FITTER HELPER, Neut % (Auto) PIPE FITTER HELPER, Lymph % (Auto) PIPE FITTER HELPER, [place] % (Auto) PIPE FITTER HELPER, Eos % (Auto) PIPE FITTER HELPER, Baso % (Auto) PIPE FITTER HELPER, Absolute Neuts (auto) 1.5 L, Absolute Lymphs (auto) 0.21 L, Total Counted 100, Neutrophils % (Manual) 79 H, Band Neutrophils % 2, Lymphocytes % (Manual) 12 L, Monocytes % (Manual) 1, Eosinophils % (Manual) 1, Metamyelocytes % 2 H, Myelocytes % 1 H, Other Cells % 2, Nucleated RBC % PIPE FITTER HELPER, Nucleated RBCs/100 WBC 1, Diff Path Review May , Platelet Estimate MKD DEC, RBC Morphology NORM C+C 04/10/21 04:00: Sodium 137, Potassium 5.2 H, Chloride 95 L, Carbon Dioxide 26.0, Anion Gap 16 H, BUN 115 H*, Creatinine 2.58 H, Estim Creat Clear Calc 25.94, Est GFR (MDRD) Af Amer 31 L, Est GFR (MDRD) Non-Af 26 L, BUN/Creatinine Ratio 44.6 H , Glucose 255 H, Uric Acid 6.6, Calcium 7.3 L, Magnesium 2.8 H, Total Bilirubin 1.10 H, AST 259 H, ALT 69 H, Alkaline Phosphatase 901 H, Lactate Dehydrogenase > 4000 H, Total Protein 4.8 L, Albumin 2.2 L, Globulin 2.6, Albumin/Globulin Ratio 0.8 L 04/10/21 04:00: Phosphorus 11.3 H* 04/10/21 04:00: Blood Type A POSITIVE, Antibody Screen NEGATIVE 04/10/21 07:00: POC Glucose 245 H 04/10/21 15:40: WBC 0.8 L*, RBC 2.50 L, Hgb 7.6 L, Hct 21.9 L, MCV 87.6, MCH 30.4, MCHC 34.7, RDW Std Deviation 49.0 H, RDW Coeff of Dmitry 15.8 H, Plt Count 21 L*, MPV 9.0, Neut % (Auto) Not Reportable, Absolute Neuts (auto) 0.7 L, Absolute Lymphs (auto) 0.14 L, Total Counted 100, Neutrophils % (Manual) 76 H, Band Neutrophils % 4, Lymphocytes % (Manual) 17 L, Monocytes % (Manual) 2, Eosinophils % (Manual) 1, Diff Path Review October, Platelet Estimate MKD DEC, RBC Morphology NORM C+C Physical Exam Narrative General: Ill-appearing man who appears to be his stated age. HEENT: Normocephalic, atraumatic. Mucous membrane dry. PERRLA, EOMI. There is no erythema of the mucosa. Neck: Supple. Heart: Normal S1, S2 no rubs or murmurs. Lungs: Clear to auscultation anteriorly. Abdomen: Scant bowel sounds, distended, abdomen is soft to palpation, there is no guarding or rebound. Extremity: Diffuse petechiae of the lower extremity. There is 4+ edema of the lower extremities bilaterally. Limited range of motion because of edema. Full upper extremity range of motion. Psychiatric: Normal affect. Neurologic: No focal neurologic deficit. 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 Phosphorus is greater than 4.5 mg/dL. However, uric acid is less than 8 mg/dL, potassium level is less than 6 mmol/L, and calcium is greater than 7 mg/dL. -There is no need for dialysis based on potassium level which is still less than 6 mmol/L. Bicarbonate level is also normal. Urine output is already greater than 2 L today on current dose of furosemide. -Therefore, there is no urgent need for kidney replacement therapy today. However, I will monitor the patient closely. -I will change phosphorus binder from calcium acetate to sevelamer to avoid calcium phosphate deposition since calcium x phosphorus product is greater than 60. -Current medications are reviewed and are appropriately dosed for the current estimated creatinine clearance. dw
[2021-04-10 21:21] LABS: Bedside Glucose 191 mg/dL (70-110)
[2021-04-11] VITALS (22 sets, daily range): BP systolic 84–107; BP diastolic 54–64; PULSE 100–118; RESP 16–26; TEMP 36.4–37.1; O2SAT 91–98
[2021-04-11 05:42] LABS: Hemoglobin 7.3 g/dL (13.0-16.5); Mean Corp Hgb Conc 34.8 g/dL (32-36); Mean Corpuscular Hgb 30.7 pg (27.0-32.0); Mean Corpuscular Volume 88.2 fL (80-94); Mean Platelet Vol. 10.8 fl (6.2-12.0); POSITIVE COUNT YES; POSITIVE DIFFERENTIAL YES; POSITIVE MORPHOLOGY YES; Platelet Count 5 K/mm3 (150-450); RBC Distribution Width CV 15.9 % (11.6-14.6); RBC Distribution Width SD 49.9 fl (35.1-43.9); Red Blood Count 2.38 M/mm3 (4.6-6.2)
[2021-04-11] MEDS: Furosemide 40 MG/4 ML Vial IV ×2 (05:59→17:13)
[2021-04-11 06:16] LABS: Bedside Glucose 139 mg/dL (70-110)
[2021-04-11 06:30] LABS: Differential Indicated MANUAL DIFF
[2021-04-11 07:18] LABS: ALB/GLOB Ratio 0.8 RATIO (0.9-2.4); AST(SGOT) 155 U/L (15-37); Alanine Aminotransfer ALT/SGPT 51 U/L (16-61); Albumin, Serum 2.1 g/dL (3.2-5.0); Alkaline Phosphatase 657 U/L (45-117); Anion Gap 10 (5-15); BUN 100 mg/dL (7-18); BUN/Creat Ratio 48.3 RATIO (10-20); Calcium,Total 6.6 mg/dL (8.5-10.1); Chloride 98 mmol/L (98-107); Creatinine, Serum 2.07 mg/dL (0.70-1.30); EST Glomerular Filtration Rate 33 mL/min (>60); Est Glom Filt Rate - Afr Amer 40 mL/min (>60); Estimated Creatinine Clearance 32.33 ml/min; Globulin 2.7 g/dL (2.2-4.2); Glucose 133 mg/dL (74-106); LDH > 4000 U/L (87-241); Magnesium 2.6 mg/dL (1.6-2.6); Potassium 4.4 mmol/L (3.5-5.1); Protein, Total 4.8 g/dL (6.4-8.2); Sodium Level 139 mmol/L (136-145); Uric Acid 6.9 mg/dL (3.5-7.2)
--- NOTE | 2021-04-11 07:20 | NURSING ---
Bedside rounding w/off-going RN Jaja. Pt awake in bed. Audible crackles/rhonchi/wheezes. Pt states he feels his 'hard breathing' is the same as yesterday. Elevated HOB >30.
[2021-04-11 07:23] LABS: Anisocytosis 1+; Platelet Estimate MKD DEC (ADEQ); Red Cell Morphology NORM C+C NORMAL (NORM C&C); Target Cells RARE
[2021-04-11 07:35] LABS: Phosphorus 8.7 mg/dL (2.5-4.9)
[2021-04-11 08:21] LABS: Absolute Neutrophil Count 0.7 X10^3/uL (2.0-7.7)
[2021-04-11] MEDS: TBO-FILGRASTIM 480 MCG/0.8 ML ML SC (11:41)
[2021-04-11] MEDS: Allopurinol 300 MG Tablet PO ×2 (11:42→17:13)
[2021-04-11] MEDS: SEVELAMER CARBONATE 800 MG TABLET 1600 MG PO ×2 (11:42→17:13)
[2021-04-11 12:10] LABS: Bedside Glucose 110 mg/dL (70-110)
--- NOTE | 2021-04-11 13:08 | PN.HOSP_ITS ---
Subjective Subjective Patient seen and examined. He felt much better today and had no active complaints. Was reported as having nosebleeds yesterday he states this persisted throughout the night. Review of systems otherwise negative. Patient was quite melancholic and said he was wondering whether he should continue with aggressive care for his cancer and current medical condition. Review of systems otherwise negative. His platelets are down to 5 today. Hb is 7.3. Objective Data Objective Data Vital Signs: Vital Signs Temp Pulse Resp BP Pulse Ox 97.8 F 108 H 20 H 98/63 95 04/11/21 05:40 04/11/21 07:30 04/11/21 05:40 04/11/21 05:40 04/11/21 07:58 Oxygen Flow Rate (L/min) 6 Oxygen Delivery Method Nasal Cannula Weight: 231 lb 4.238 oz Body Mass Index (BMI) 37.2 Intake & Output: Intake and Output for Last 24 Hours 04/09/21 04/10/21 04/11/21 23:59 23:59 23:59 Intake Total 4600.83 / 4694.58 2382.50 / 2382.50 585.5 / 585.5 Output Total 7325 / 7775 5150 / 5150 2450 / 2450 Balance -2724.17 / -3080.42 -2767.50 / -2767.50 -1864.5 / -1864.5 Lab / Micro Data Result Diagrams: 04/11/21 04:22 04/11/21 04:22 Labs: Laboratory Results - last 24 hr 04/10/21 04:00: Crossmatch See Detail 04/10/21 15:40: WBC 0.8 L*, RBC 2.50 L, Hgb 7.6 L, Hct 21.9 L, MCV 87.6, MCH 30.4, MCHC 34.7, RDW Std Deviation 49.0 H, RDW Coeff of Dmitry 15.8 H, Plt Count 21 L*, MPV 9.0, Neut % (Auto) Not Reportable, Absolute Neuts (auto) 0.7 L, Absolute Lymphs (auto) 0.14 L, Total Counted 100, Neutrophils % (Manual) 76 H, Band Neutrophils % 4, Lymphocytes % (Manual) 17 L, Monocytes % (Manual) 2, Eosinophils % (Manual) 1, Diff Path Review October, Platelet Estimate MKD DEC, RBC Morphology NORM C+C 04/10/21 21:05: POC Glucose 191 H 04/11/21 04:22: WBC 1.0 L*, RBC 2.38 L, Hgb 7.3 L, Hct 21.0 L, MCV 88.2, MCH 30.7, MCHC 34.8, RDW Std Deviation 49.9 H, RDW Coeff of Dmitry 15.9 H, Plt Count 5 L*, MPV 10.8, Neut % (Auto) Not Reportable, Absolute Neuts (auto) 0.7 L, Absolute Lymphs (auto) 0.10 L, Diff Path Review October norris, Platelet Estimate MKD DEC, RBC Morphology NORM C+C, Anisocytosis 1+, Target Cells RARE 04/11/21 04:22: Sodium 139, Potassium 4.4, Chloride 98, Carbon Dioxide 31.0, Anion Gap 10, BUN 100 H, Creatinine 2.07 H, Estim Creat Clear Calc 32.33, Est GFR (MDRD) Af Amer 40 L, Est GFR (MDRD) Non-Af 33 L, BUN/Creatinine Ratio 48.3 H , Glucose 133 H, Uric Acid 6.9, Calcium 6.6 L, Magnesium 2.6, Total Bilirubin 1.10 H, AST 155 H, ALT 51, Alkaline Phosphatase 657 H, Lactate Dehydrogenase > 4000 H, Total Protein 4.8 L, Albumin 2.1 L, Globulin 2.7, Albumin/Globulin Ratio 0.8 L 04/11/21 04:22: Phosphorus 8.7 H 04/11/21 06:11: POC Glucose 139 H 04/11/21 11:48: POC Glucose 110 Physical Exam Const alert, oriented x3 and no apparent distress Exam Limitations: no limitations HEENT normocephalic, head/scalp atraumatic and moist oral mucous membranes Head and Scalp: normocephalic Eyes PERRL, EOMs intact bilaterally and conjunctivae normal Neck no lymphadenopathy and supple Resp Resp Narrative: diminished breath sounds bibasally, no wheezes or crackles. Now on 6L of oxygen by nasal canula. Cardio regular rate, regular rhythm, S1 normal heart sound, S2 normal heart sound and no murmurs GI normal to inspection, nondistended, normoactive bowel sounds, soft to palpation and non-tender Extremity normal to inspection, full ROM and no clubbing, cyanosis or edema Extremity Narrative: bilateral 2+ LE pitting edema Peripheral Pulses: Yes pulses 2+ throughout Skin no rashes or lesions noted Skin Narrative: chemotherapy port in place Neuro oriented x3, CN's II-XII intact bilaterally and moves all extremities Sensorium / Orientation: awake and alert Psych affect normal Assessment & Plan Assessment/Plan (1) Hyperuricemia: (2) Anasarca: (3) Thrombocytopenia: (4) EFREN (acute kidney injury): (5) Tumor lysis syndrome: (6) Mantle cell lymphoma: QUALIFIERS: Lymphoma site: multiple regions Qualified Code(s): C83.18 - Mantle cell lymphoma, lymph nodes of multiple sites (7) Anemia: QUALIFIERS: Anemia type: bone marrow failure Bone marrow failure anemia type: other bone marrow failure Qualified Code(s): D61.89 - Other specified aplastic anemias and other bone marrow failure syndromes PLAN: #Tumor lysis syndrome due to chemotherapy for mantle cell lymphoma * phosphorous and potassium as well as magnesium have trended down * uric acid has also trended down. * on allopurinol. * oncology on board. * critical care also on board. * * #History of mantle cell lymphoma * Diagnosed March 2021. Definite improvement with chemotherapy. * Wbc today is down to 1. Now complicated by tumor lysis syndrome as mentioned above. * Oncology on board * Per discussion with Dr Sebastian today, patient's true response to lymphoma treatment would be known in about 3 weeks after the first course of chemotherapy, as that is when it would be clear if he has responded to the chemotherapy. Per oncology, he has a high chance of relapse with mantle cell lymphoma within one year even if he responds to chemotheraphy. Will need to follow up with oncology for further discussion about prognostication. * On granix * #Acute on chronic anemia * Hemoglobin today is 7.3 * has already received 3 units of PRBCs * to receive one more unit of PRBC today,as per oncology, goal is to keep Hb >8 * likely due to mantle cell lymphoma. * will trend Hb * #Acute hypoxic respiratory failure * likely due to fluid overload and lymphedema * on 6L of oxygen now. * titrate oxygen to maintain sats >90% * breathing treatments with bronchodilators * on diuresis prn to help with fluid overload * #SIRS criteria * Patient is tachypneic and tachycardic. However this likely due to tumor lysis syndrome and there is no overt evidence of infection. Will hold off any antibiotics for now. * Being treated for tumor lysis syndrome as above. * #EFREN on CKD stage III * Cr is down to 2.07 today * baseline is ~ 1.5 * cut down on IVF due to fluid overload and as urine acid has trended down * nephrology on board * on renvela * #Acute on chronic hypoxic respiratory failure * likely due to fluid overload. * #Lymphedema * improving. Has RD wraps on LEs. * #History of PE: Currently on Xarelto. xarelto on hold due to thrombocytopenia #Thrombocytopenia and anemia: * Likely due to mantle cell lymphoma. Xarelto on hold. * platelets today are 5. * Has been transfused with 4 units of platelets already. Will order 4 more units of platelets today. Discussed with oncology today. * Oncology on board. * #BPH: on flomax DVT prophylaxis: SCds. Code status: DNRCCA no intubation * Patient says he is reconsidering whether all this treatment is worth it, and if he will recover or not. Wants to think about his CODE STATUS some more and will discuss prognosis with Dr. Nolasco. * Charges/Coding Visit Charges Inpatient E&M: 32208 Subs Hosp L3
[2021-04-11] MEDS: 0.9% Normal Saline 1,000 ML 75 ML IV (13:30)
[2021-04-11] MEDS: Nepro with Carbsteady 237 ML Liquid 120 ML PO ×2 (15:56→18:33)
--- NOTE | 2021-04-11 16:30 | PCM.PN.REN ---
Subjective Subjective no new complaints Objective Data Objective Data Vital Signs: Vital Signs Temp Pulse Resp BP Pulse Ox 98.0 F 106 H 18 84/59 L 98 04/11/21 13:00 04/11/21 15:39 04/11/21 13:00 04/11/21 13:00 04/11/21 13:00 Oxygen Flow Rate (L/min) 6 Oxygen Delivery Method Nasal Cannula Weight: 104.9 kg Body Mass Index (BMI) 37.2 Intake & Output: Intake and Output for Last 24 Hours 04/09/21 04/10/21 04/11/21 23:59 23:59 23:59 Intake Total 4600.83 / 4694.58 2382.50 / 2382.50 695.5 / 695.5 Output Total 7325 / 7775 5150 / 5150 2450 / 2450 Balance -2724.17 / -3080.42 -2767.50 / -2767.50 -1754.5 / -1754.5 Lab / Micro Data Result Diagrams: 04/11/21 04:22 04/11/21 04:22 Labs: Laboratory Results - last 24 hr 04/10/21 04:00: Crossmatch See Detail 04/10/21 15:40: Absolute Neuts (auto) 0.7 L, Absolute Lymphs (auto) 0.14 L, Total Counted 100, Neutrophils % (Manual) 76 H, Band Neutrophils % 4, Lymphocytes % (Manual) 17 L, Monocytes % (Manual) 2, Eosinophils % (Manual) 1, Diff Path Review May norris Platelet Estimate MKD DEC, RBC Morphology NORM C+C 04/10/21 21:05: POC Glucose 191 H 04/11/21 04:22: WBC 1.0 L*, RBC 2.38 L, Hgb 7.3 L, Hct 21.0 L, MCV 88.2, MCH 30.7, MCHC 34.8, RDW Std Deviation 49.9 H, RDW Coeff of Dmitry 15.9 H, Plt Count 5 L*, MPV 10.8, Neut % (Auto) Not Reportable, Absolute Neuts (auto) 0.7 L, Absolute Lymphs (auto) 0.10 L, Diff Path Review May norris Platelet Estimate MKD DEC, RBC Morphology NORM C+C, Anisocytosis 1+, Target Cells RARE 04/11/21 04:22: Sodium 139, Potassium 4.4, Chloride 98, Carbon Dioxide 31.0, Anion Gap 10, BUN 100 H, Creatinine 2.07 H, Estim Creat Clear Calc 32.33, Est GFR (MDRD) Af Amer 40 L, Est GFR (MDRD) Non-Af 33 L, BUN/Creatinine Ratio 48.3 H, Glucose 133 H, Uric Acid 6.9, Calcium 6.6 L, Magnesium 2.6, Total Bilirubin 1.10 H, AST 155 H, ALT 51, Alkaline Phosphatase 657 H, Lactate Dehydrogenase > 4000 H, Total Protein 4.8 L, Albumin 2.1 L, Globulin 2.7, Albumin/Globulin Ratio 0.8 L 04/11/21 04:22: Phosphorus 8.7 H 04/11/21 06:11: POC Glucose 139 H 04/11/21 11:48: POC Glucose 110 Physical Exam Narrative General: Ill-appearing man who appears to be his stated age. HEENT: Normocephalic, atraumatic. Mucous membrane dry. PERRLA, EOMI. There is no erythema of the mucosa. Neck: Supple. Heart: Normal S1, S2 no rubs or murmurs. Lungs: Clear to auscultation anteriorly. Abdomen: Scant bowel sounds, distended, abdomen is soft to palpation, there is no guarding or rebound. Extremity: Diffuse petechiae of the lower extremity. There is 4+ edema of the lower extremities bilaterally. Limited range of motion because of edema. Full upper extremity range of motion. Psychiatric: Normal affect. Neurologic: No focal neurologic deficit. 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 Phosphorus is greater than 4.5 mg/dL. However, uric acid is less than 8 mg/dL, potassium level is less than 6 mmol/L, and calcium is greater than 7 mg/dL. -cr better. phos and K lower. K normal. likely recovery. aggressive diuresis once cr better
[2021-04-11] MEDS: Acetaminophen 325 MG Tablet 650 MG PO (18:24)
[2021-04-11] MEDS: Albuterol 2.5 MG/3 ML VIAL.NEB. INHALATION ×2 (19:00→22:40)
[2021-04-11 19:46] LABS: Bedside Glucose 167 mg/dL (70-110)
[2021-04-11 22:11] LABS: Bedside Glucose 213 mg/dL (70-110)
[2021-04-11] MEDS: Ipratropium 0.5 MG/2.5 ML SOLUTION INHALATION (22:40)
[2021-04-11] MEDS: LORazepam 2 MG/ML Syringe 1 MG IV (23:32)
[2021-04-12] VITALS (35 sets, daily range): BP systolic 87–139; BP diastolic 58–111; PULSE 97–128; RESP 18–32; TEMP 36.4–37.3; O2SAT 79–99
[2021-04-12] MEDS: Albuterol 2.5 MG/3 ML VIAL.NEB. INHALATION ×3 (03:30→11:12)
[2021-04-12] MEDS: Ipratropium 0.5 MG/2.5 ML SOLUTION INHALATION ×3 (03:30→11:13)
[2021-04-12] MEDS: Furosemide 20 MG/2 ML VIAL IV (03:41)
[2021-04-12] MEDS: 0.9% Saline Lock 10 ML Syringe IV ×3 (03:41→15:14)
[2021-04-12 06:25] LABS: Hematocrit 19.7 % (40-54); Hemoglobin 6.6 g/dL (13.0-16.5); Mean Corp Hgb Conc 33.5 g/dL (32-36); Mean Corpuscular Volume 89.5 fL (80-94); Mean Platelet Vol. 9.8 fl (6.2-12.0); POSITIVE COUNT YES; POSITIVE DIFFERENTIAL YES; POSITIVE MORPHOLOGY YES; Platelet Count 29 K/mm3 (150-450); RBC Distribution Width CV 15.9 % (11.6-14.6); RBC Distribution Width SD 50.9 fl (35.1-43.9); White Blood Count 0.5 K/mm3 (4.4-11.0)
[2021-04-12 07:03] LABS: Anisocytosis 2+; Hypochromasia 1+; Platelet Estimate MKD DEC (ADEQ)
[2021-04-12 07:05] LABS: Phosphorus 6.7 mg/dL (2.5-4.9)
[2021-04-12 07:29] LABS: ALB/GLOB Ratio 0.8 RATIO (0.9-2.4); AST(SGOT) 107 U/L (15-37); Alanine Aminotransfer ALT/SGPT 41 U/L (16-61); Albumin, Serum 2.2 g/dL (3.2-5.0); Alkaline Phosphatase 463 U/L (45-117); Anion Gap 7 (5-15); BUN 79 mg/dL (7-18); BUN/Creat Ratio 52.7 RATIO (10-20); Calcium,Total 6.2 mg/dL (8.5-10.1); Chloride 101 mmol/L (98-107); EST Glomerular Filtration Rate 48 mL/min (>60); Est Glom Filt Rate - Afr Amer 58 mL/min (>60); Estimated Creatinine Clearance 44.62 ml/min; Globulin 2.8 g/dL (2.2-4.2); Glucose 115 mg/dL (74-106); LDH > 4000 U/L (87-241); Magnesium 2.5 mg/dL (1.6-2.6); Potassium 3.8 mmol/L (3.5-5.1); Sodium Level 141 mmol/L (136-145); Uric Acid 7.1 mg/dL (3.5-7.2)
[2021-04-12 07:36] LABS: Bedside Glucose 103 mg/dL (70-110)
[2021-04-12] MEDS: Budesonide Respules 0.5 MG/2 ML AMPUL.NEB. INHALATION ×2 (11:18→19:40)
[2021-04-12] MEDS: Allopurinol 300 MG Tablet PO ×2 (11:32→17:01)
[2021-04-12] MEDS: SEVELAMER CARBONATE 800 MG TABLET 1600 MG PO ×2 (11:33→17:01)
[2021-04-12] MEDS: TBO-FILGRASTIM 480 MCG/0.8 ML ML SC (11:34)
[2021-04-12] MEDS: Furosemide 40 MG/4 ML Vial IV ×3 (11:35→23:14)
[2021-04-12] MEDS: Nepro with Carbsteady 237 ML Liquid 120 ML PO ×2 (11:52→17:04)
[2021-04-12 12:11] LABS: Bedside Glucose 134 mg/dL (70-110)
[2021-04-12 12:39] LABS: Pathologist Review Reviewed
[2021-04-12 12:39] LABS: Pathologist Review Reviewed
[2021-04-12 12:40] LABS: Pathologist Review Reviewed
[2021-04-12 13:18] LABS: Pathologist Review Reviewed
--- NOTE | 2021-04-12 13:32 | PN.HOSP_ITS ---
Subjective Subjective Audible expiratory wheezing, and increasing oxygen requirements. He does have a history of asthma. Otherwise feels okay. Objective Data Objective Data Vital Signs: Vital Signs Temp Pulse Resp BP Pulse Ox 97.7 F L 109 H 20 H 129/111 H 96 04/12/21 07:56 04/12/21 07:56 04/12/21 08:01 04/12/21 07:56 04/12/21 11:40 Oxygen Flow Rate (L/min) 11 Oxygen Delivery Method Nasal Cannula Weight: 233 lb 3.985 oz Body Mass Index (BMI) 37.2 Intake & Output: Intake and Output for Last 24 Hours 04/11/21 04/12/21 04/13/21 03:59 03:59 03:59 Intake Total 2394.25 / 2394.25 4979.50 / 4979.50 1110 / 1110 Output Total 6250 / 6250 6775 / 6775 2090 / 2090 Balance -3855.75 / -3855.75 -1795.50 / -1795.50 -980 / -980 Lab / Micro Data Result Diagrams: 04/12/21 06:16 04/12/21 06:16 Labs: Laboratory Results - last 24 hr 04/10/21 04:00: Diff Path Review Reviewed 04/10/21 04:00: Crossmatch See Detail 04/10/21 04:00: Crossmatch See Detail 04/10/21 04:00: Crossmatch See Detail 04/10/21 15:40: Diff Path Review Reviewed 04/11/21 04:22: Diff Path Review Reviewed 04/11/21 17:35: POC Glucose 167 H 04/11/21 22:04: POC Glucose 213 H 04/12/21 06:16: WBC 0.5 L*, RBC 2.20 L, Hgb 6.6 L, Hct 19.7 L, MCV 89.5, MCH 30.0, MCHC 33.5, RDW Std Deviation 50.9 H, RDW Coeff of Dmitry 15.9 H, Plt Count 29 L*, MPV 9.8, Neut % (Auto) Not Reportable, Differential Comment , Diff Path Review Reviewed, Platelet Estimate MKD DEC, Hypochromasia 1+, Anisocytosis 2+ 04/12/21 06:16: Sodium 141, Potassium 3.8, Chloride 101, Carbon Dioxide 33.0 H, Anion Gap 7, BUN 79 H, Creatinine 1.50 H, Estim Creat Clear Calc 44.62, Est GFR (MDRD) Af Amer 58 L, Est GFR (MDRD) Non-Af 48 L, BUN/Creatinine Ratio 52.7 H, Glucose 115 H, Uric Acid 7.1, Calcium 6.2 L*, Magnesium 2.5, Total Bilirubin 1.10 H, AST 107 H, ALT 41, Alkaline Phosphatase 463 H, Lactate Dehydrogenase > 4000 H, Total Protein 5.0 L, Albumin 2.2 L, Globulin 2.8, Albumin/Globulin Ratio 0.8 L 04/12/21 06:16: Phosphorus 6.7 H 04/12/21 07:25: POC Glucose 103 04/12/21 10:46: POC Glucose 134 H Physical Exam Const alert, oriented x3 and no apparent distress General Appearance: cooperative HEENT normocephalic and moist oral mucous membranes Eyes PERRL, EOMs intact bilaterally and conjunctivae normal Neck supple and no JVD Resp normal respiratory effort, no retractions and no use of accessory muscles Auscultation: wheezes expiratory wheezes and throughout; Negative for crackles, rales or rhonchi Cardio regular rate, regular rhythm, S1 normal heart sound, S2 normal heart sound and no murmurs GI soft to palpation, non-tender and non-distended; Negative for hepatosplenomegaly Extremity General Extremity: edema bilateral lower extremity Details: mild; Negative for clubbing or cyanosis Skin no rashes or lesions noted Neuro no focal motor deficits and no sensory deficits noted Psych affect normal Appearance: appropriate Assessment & Plan Assessment/Plan (1) Hyperuricemia: (2) Anasarca: (3) Thrombocytopenia: (4) EFREN (acute kidney injury): (5) Tumor lysis syndrome: (6) Mantle cell lymphoma: QUALIFIERS: Lymphoma site: multiple regions Qualified Code(s): C83.18 - Mantle cell lymphoma, lymph nodes of multiple sites (7) Anemia: QUALIFIERS: Anemia type: bone marrow failure Bone marrow failure anemia type: other bone marrow failure Qualified Code(s): D61.89 - Other specified aplastic anemias and other bone marrow failure syndromes PLAN: 1. Tumor lysis syndrome secondary to chemotherapy for mantle cell lymphoma/ pancytopenia secondary to mantle cell lymphoma and chemotherapy/EFREN on CKD 3 a -Calcium is now dropped to 6.2, will discuss with nephrology -Continue with IV fluids, creatinine has improved to 1.5 today -Appreciate oncology nephrology assistance -We will need to be transfused again as his hemoglobin is 6.6 -Continue with allopurinol, electrolytes are trending down -Continue with Granix -Platelets today are 29, will hold any further platelet transfusions -Had a 25-minute discussion with the family on advance care planning in terms of issues going forward with his tumor lysis syndrome as well as further chemotherapy. According to oncology he does have a high chance of relapse within a year even with response to chemotherapy. Plan will have further discussion with oncology today and again tomorrow. 2. Acute on chronic hypoxic respiratory failure -Likely component of fluid overload given his edema, and his continued IV fluids -However still hesitant to diurese secondary to his other electrolytes and his creatinine still being a little bit elevated, will defer to nephrology -Today he does have significant wheezing on exam therefore we will start him on inhaled budesonide 3. History of PE with history of pulmonary hypertension -He was on Xarelto however this is been discontinued secondary to his thrombocytopenia -Recent echo with an RVSP of 51 mmHg -He is on Lasix as an outpatient DVT: SCDs Charges/Coding Visit Charges Inpatient E&M: 85928 Subs Hosp L2
[2021-04-12] MEDS: Ipratropium/Albuterol Sulfate 3 ML AMPUL.NEB INHALATION ×2 (13:42→19:40)
--- NOTE | 2021-04-12 14:01 | PCM.PN.REN ---
Subjective Subjective SOB. coughing bloody sputum No CP. No N/V edema is the same No diarrhea eating Ok Objective Data Objective Data Vital Signs: Vital Signs Temp Pulse Resp BP Pulse Ox 99.2 F H 128 H 32 H 139/83 H 94 04/12/21 13:55 04/12/21 13:55 04/12/21 13:55 04/12/21 13:55 04/12/21 13:55 Oxygen Flow Rate (L/min) 15 Oxygen Delivery Method Nasal Cannula Weight: 105.8 kg Body Mass Index (BMI) 37.2 Intake & Output: Intake and Output for Last 24 Hours 04/10/21 04/11/21 04/12/21 23:59 23:59 23:59 Intake Total 2382.50 / 2382.50 3438.75 / 3438.75 2756.25 / 2756.25 Output Total 5150 / 5150 7150 / 7150 3265 / 3265 Balance -2767.50 / -2767.50 -3711.25 / -3711.25 -508.75 / -508.75 Lab / Micro Data Result Diagrams: 04/12/21 06:16 04/12/21 06:16 Labs: Laboratory Results - last 24 hr 04/10/21 04:00: Diff Path Review Reviewed 04/10/21 04:00: Crossmatch See Detail 04/10/21 04:00: Crossmatch See Detail 04/10/21 04:00: Crossmatch See Detail 04/10/21 15:40: Diff Path Review Reviewed 04/11/21 04:22: Diff Path Review Reviewed 04/11/21 17:35: POC Glucose 167 H 04/11/21 22:04: POC Glucose 213 H 04/12/21 06:16: WBC 0.5 L*, RBC 2.20 L, Hgb 6.6 L, Hct 19.7 L, MCV 89.5, MCH 30.0, MCHC 33.5, RDW Std Deviation 50.9 H, RDW Coeff of Dmitry 15.9 H, Plt Count 29 L*, MPV 9.8, Neut % (Auto) Not Reportable, Differential Comment , Diff Path Review Reviewed, Platelet Estimate MKD DEC, Hypochromasia 1+, Anisocytosis 2+ 04/12/21 06:16: Sodium 141, Potassium 3.8, Chloride 101, Carbon Dioxide 33.0 H, Anion Gap 7, BUN 79 H, Creatinine 1.50 H, Estim Creat Clear Calc 44.62, Est GFR (MDRD) Af Amer 58 L, Est GFR (MDRD) Non-Af 48 L, BUN/Creatinine Ratio 52.7 H, Glucose 115 H, Uric Acid 7.1, Calcium 6.2 L*, Magnesium 2.5, Total Bilirubin 1.10 H, AST 107 H, ALT 41, Alkaline Phosphatase 463 H, Lactate Dehydrogenase > 4000 H, Total Protein 5.0 L, Albumin 2.2 L, Globulin 2.8, Albumin/Globulin Ratio 0.8 L 04/12/21 06:16: Phosphorus 6.7 H 04/12/21 07:25: POC Glucose 103 04/12/21 10:46: POC Glucose 134 H Physical Exam Narrative General: Ill-appearing man HEENT: Normocephalic, atraumatic. Mucous membrane dry. PERRLA, EOMI. There is no erythema of the mucosa. Neck: Supple. Heart: Normal S1, S2 no rubs or murmurs. Lungs: B/L wheezing Abdomen: Scant bowel sounds, distended, abdomen is soft to palpation, there is no guarding or rebound. Extremity: There is 3+ edema of the lower extremities bilaterally. Psychiatric: Normal affect. Neurologic: No focal neurologic deficit. 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 Cr is improving -Will d/c IVF -Continue lasix due to significant edema -No need for [employer] -Monitor RFP Acute RF. Continue lasix Might need CT chest r/o pulmonary hemorrhage. Will defer to primary service
[2021-04-12 14:16] LABS: Absolute Lymphocyte Count 0.03 X10^3/uL (0.83-4.51); Absolute Neutrophil Count 0.3 X10^3/uL (2.0-7.7); Eosinophils% 3.8 % (0-5); Lymphocyte # 0.03 X10^3/ul (0.83-4.51); Lymphocyte % 5.8 % (19-41); Monocyte# 0.03 X10^3/uL; Monocyte% 5.8 % (0-10); Neutrophil # 0.32 X10^3/uL (2.7-7.7); Neutrophil % 61.5 % (47-70)
[2021-04-12 14:17] LABS: Eosinophil# 0.02 X10^3/uL
--- NOTE | 2021-04-12 14:44 | NURSING ---
This RN reviewed SN charting.
--- NOTE | 2021-04-12 15:48 | ONC.PN.INPT ---
Subjective Subjective Upon entering the room the patient is sitting upright in bed conversing with spouse at the bedside. Audible wheezes, endorses dyspnea but describes as unchanged since I got here referring to evening on admission. Complains of noting scant amount dark red blood in sputum yesterday along with bloody noses with O2 use?describes episodes of bleeding as now resolved. Physical Exam Const alert, oriented x3 and no apparent distress HEENT normocephalic Mouth: dry mucous membranes Eyes PERRL, EOMs intact bilaterally, conjunctivae normal and no scleral icterus Neck supple and no JVD Lymph Lymphatic: lymphedema and lymphadenopathy Lymphadenopathy Laterality: bilateral Positive for multiple Lymphatic Narrative: Affecting bilateral lower extremities?improved Resp normal respiratory effort, no retractions and no use of accessory muscles Auscultation: wheezes expiratory wheezes and throughout; Negative for crackles, rales or rhonchi Cardio regular rate, regular rhythm, S1 normal heart sound and S2 normal heart sound GI soft to palpation, non-tender and non-distended; Negative for hepatosplenomegaly GI Narrative: Bowel sounds x4 Palpation: firm Extremity General Extremity: edema bilateral lower extremity Details: mild; Negative for clubbing or cyanosis Skin no rashes or lesions noted Neuro moves all extremities, no focal motor deficits and no sensory deficits noted Psych mental status grossly normal, cooperative and affect normal Appearance: appropriate Vital Signs Temperature 97.5 F L 04/12/21 14:10 Temperature Source Oral 04/12/21 14:10 Pulse Rate 113 H 04/12/21 15:09 Respiratory Rate 20 H 04/12/21 14:10 Respiratory Effort Labored 04/12/21 15:01 Respiratory Depth Normal 04/12/21 15:01 Respiratory Pattern Normal 04/12/21 15:01 Blood Pressure 111/63 04/12/21 15:09 Blood Pressure Mean 79 04/12/21 15:09 Blood Pressure Source Monitor 04/12/21 15:09 Blood Pressure Position Semi-Fowlers 04/12/21 15:09 Blood Pressure Location Right Arm 04/12/21 15:09 Pulse Ox 98 04/12/21 15:09 Oxygen Delivery Method Nasal Cannula 04/12/21 15:09 Oxygen Flow Rate (L/min) 15 04/12/21 15:09 Laboratory Results - last 24 hr 04/10/21 04:00: Diff Path Review Reviewed 04/10/21 04:00: Crossmatch See Detail 04/10/21 04:00: Crossmatch See Detail 04/10/21 04:00: Crossmatch See Detail 04/10/21 15:40: Diff Path Review Reviewed 04/11/21 04:22: Diff Path Review Reviewed 04/11/21 17:35: POC Glucose 167 H 04/11/21 22:04: POC Glucose 213 H 04/12/21 06:16: WBC 0.5 L*, RBC 2.20 L, Hgb 6.6 L, Hct 19.7 L, MCV 89.5, MCH 30.0, MCHC 33.5, RDW Std Deviation 50.9 H, RDW Coeff of Dmitry 15.9 H, Plt Count 29 L*, MPV 9.8, Immature Gran % (Auto) 23.100 H, Neut % (Auto) 61.5, Lymph % (Auto) 5.8 L, [place] % (Auto) 5.8, Eos % (Auto) 3.8, Baso % (Auto) 0.0, Absolute Neuts (auto) 0.3 L, Absolute Lymphs (auto) 0.03 L, Differential Comment , Diff Path Review Reviewed, Platelet Estimate MKD DEC, Hypochromasia 1+, Anisocytosis 2+ 04/12/21 06:16: Sodium 141, Potassium 3.8, Chloride 101, Carbon Dioxide 33.0 H, Anion Gap 7, BUN 79 H, Creatinine 1.50 H, Estim Creat Clear Calc 44.62, Est GFR (MDRD) Af Amer 58 L, Est GFR (MDRD) Non-Af 48 L, BUN/Creatinine Ratio 52.7 H, Glucose 115 H, Uric Acid 7.1, Calcium 6.2 L*, Magnesium 2.5, Total Bilirubin 1.10 H, AST 107 H, ALT 41, Alkaline Phosphatase 463 H, Lactate Dehydrogenase > 4000 H, Total Protein 5.0 L, Albumin 2.2 L, Globulin 2.8, Albumin/Globulin Ratio 0.8 L 04/12/21 06:16: Phosphorus 6.7 H 04/12/21 07:25: POC Glucose 103 04/12/21 10:46: POC Glucose 134 H Diagnostic Data Chest X-Ray 04/08/21 23:15 IMPRESSION: No major interval change. Electronically Signed: Adam Verma DO at 23:40 EDT Tel [phone], Service support , Assessment & Plan Assessment/Plan (1) Mantle cell lymphoma: QUALIFIERS: Lymphoma site: multiple regions Qualified Code(s): C83.18 - Mantle cell lymphoma, lymph nodes of multiple sites (2) Tumor lysis syndrome: (3) Anasarca: (4) Pleural effusion: (5) Hyperuricemia: (6) Pulmonary embolism: QUALIFIERS: Acute cor pulmonale presence: without acute cor pulmonale Chronicity: acute Pulmonary embolism type: other Qualified Code(s): I26.99 - Other pulmonary embolism without acute cor pulmonale (7) Pancytopenia: PLAN: Assessment/Plan (1) Mantle cell lymphoma: An aggressive rapidly progressive mantle cell lymphoma stage IVB with rapid progression to a leukemic phase over the past few days. Patient received his first cycle of bendamustine Rituxan April 07-2020. He had a dramatic decline in his peripheral blood lymphocytosis and blasts within 24 hours prior to initiating chemotherapy. Next cycle of therapy provided he continues to improve will be due on May 05?await recovery from tumor lysis and bone marrow treatment related toxicity. LDH remains above quantifiable level, greater than 4000. We will continue to monitor closely. (2) Tumor lysis syndrome: Initially due to an aggressive rapidly growing bulky malignancy, worsening with initiation of treatment despite allopurinol (started weeks earlier), oral and IV hydration and diuresis . S/sx of TLS overall improving. Cr improved, today 1.5, uric acid and serum potassium have returned to normal limits. Phosphorus level remains elevated however vastly improved from initial presentation. Hypocalcemia now present. Nephrology is guiding. (3) Pancytopenia: Due to cancer with bone marrow involvement, transfuse with packed red blood cells to maintain hemoglobin at or above 8 g per DL. Hgb today 6.6. Advise T &C 2 units PRBCs, leukodeplete. Anticoagulation for PE is on hold until platelet count is above 30-50 K without transfusion dependency. Prophylactic platelet transfusion if less than 10K. Platelet transfusion if there is any active bleeding more than Minor skin bruising nose and gum bleed to avoid alloimmunization. May be needed prior to any invasive procedures, such as thoracentesis (discussed below). Patient was not able to receive long acting G CSF on day 3 of treatment d/t this admission. Therefore continue Granix 480 mcg SQ daily. In the upcoming days cytopenias may worsen due to bone marrow toxicity from therapy before recovery. (4) Anasarca: Improved. Generalized, severe primarily secondary to lymphatic obstruction by malignancy, some degree of fluid overload required for treatment of tumor lysis. (5) Pulmonary embolism: Patient was on oral anticoagulation, on hold since 04/08/2021 due to severe thrombocytopenia, may resume once platelets are at least 30-50 K, no active bleeding and not transfusion dependent. (6) Pleural effusion: Large left-sided secondary to lymphoma, initially negative cytology, likely obstruction of lymphatic drainage due to extensive lymphomatous involvement in the mediastinum. He was tentatively scheduled for repeat diagnostic/therapeutic thoracentesis on April 09 however was canceled due to degree of thrombocytopenia. Reconsider thoracentesis based on platelet level tomorrow. Engaged in lengthy conversation with both patient and spouse and later spouse and son about expected risk of tumor lysis syndrome with the amount of bulky disease that was present at initial presentation. Difficult to discern at this point if he will exhibit any response to therapy, I explained the utility of LDH level in this clinical circumstance. I did review positive changes from yesterday including improvement of his kidney function and normalization of electrolytes and uric acid level. I explained to family and patient that thoracentesis would be helpful in providing him some comfort however I did discuss thoracentesis with interventional radiology and it is preferred his platelets were to be 40,000 or > to perform procedure (assuming anticoags are normal). Plan to continue diuresis and Lasix, support with leukodepleted PRBCs and reassess lab work clinical situation tomorrow morning. Both patient and family were in agreement with that plan. Case discussed with Dr. Sebastian who was in agreement with the aforementioned plan.
[2021-04-12] MEDS: Acetaminophen 325 MG Tablet 650 MG PO ×2 (16:45→23:57)
[2021-04-12] MEDS: Insulin Lispro 100 UNIT/ML INSULN.PEN SC (16:58)
[2021-04-12 17:10] LABS: Bedside Glucose 166 mg/dL (70-110)
[2021-04-12 23:20] LABS: Bedside Glucose 166 mg/dL (70-110)
[2021-04-13] VITALS (17 sets, daily range): BP systolic 95–129; BP diastolic 58–76; PULSE 95–120; RESP 19–36; TEMP 36.6–37.1; O2SAT 87–100
[2021-04-13 05:24] LABS: Absolute Lymphocyte Count 0.03 X10^3/uL (0.83-4.51); Absolute Neutrophil Count 0.2 X10^3/uL (2.0-7.7); Eosinophil# 0.02 X10^3/uL; Eosinophils% 7.1 % (0-5); Hematocrit 23.1 % (40-54); Hemoglobin 7.7 g/dL (13.0-16.5); Lymphocyte # 0.03 X10^3/ul (0.83-4.51); Lymphocyte % 10.7 % (19-41); Mean Corp Hgb Conc 33.3 g/dL (32-36); Mean Corpuscular Hgb 30.6 pg (27.0-32.0); Mean Corpuscular Volume 91.7 fL (80-94); Mean Platelet Vol. 11.2 fl (6.2-12.0); Monocyte# 0.02 X10^3/uL; Monocyte% 7.1 % (0-10); NRBC Flagged by Analyzer 14.3 % (0-5); Neutrophil # 0.17 X10^3/uL (2.7-7.7); Neutrophil % 60.8 % (47-70); POSITIVE COUNT YES; POSITIVE DIFFERENTIAL YES; POSITIVE MORPHOLOGY YES; RBC Distribution Width CV 15.1 % (11.6-14.6); RBC Distribution Width SD 50.2 fl (35.1-43.9); Red Blood Count 2.52 M/mm3 (4.6-6.2)
[2021-04-13 05:30] LABS: Differential Indicated SCAN CRITERIA MET
[2021-04-13 05:32] LABS: Platelet Count 7 K/mm3 (150-450); White Blood Count 0.3 K/mm3 (4.4-11.0)
[2021-04-13 05:39] LABS: Phosphorus 4.2 mg/dL (2.5-4.9)
[2021-04-13 05:47] LABS: Differential Comment SCANNED; Platelet Estimate MKD DEC (ADEQ)
[2021-04-13 05:48] LABS: Hypochromasia 1+; Red Cell Morphology N CYTIC NORMAL (NORM C&C)
[2021-04-13 05:54] LABS: ALB/GLOB Ratio 0.6 RATIO (0.9-2.4); AST(SGOT) 69 U/L (15-37); Alanine Aminotransfer ALT/SGPT 33 U/L (16-61); Albumin, Serum 1.9 g/dL (3.2-5.0); Alkaline Phosphatase 350 U/L (45-117); Anion Gap 5 (5-15); BUN 58 mg/dL (7-18); BUN/Creat Ratio 48.7 RATIO (10-20); Calcium,Total 6.3 mg/dL (8.5-10.1); Chloride 98 mmol/L (98-107); Creatinine, Serum 1.19 mg/dL (0.70-1.30); EST Glomerular Filtration Rate 63 mL/min (>60); Est Glom Filt Rate - Afr Amer 76 mL/min (>60); Estimated Creatinine Clearance 56.25 ml/min; Globulin 3.1 g/dL (2.2-4.2); Glucose 145 mg/dL (74-106); LDH 3125 U/L (87-241); Magnesium 2.1 mg/dL (1.6-2.6); Potassium 3.5 mmol/L (3.5-5.1); Sodium Level 140 mmol/L (136-145); Uric Acid 7.1 mg/dL (3.5-7.2)
[2021-04-13 06:41] LABS: Bedside Glucose 143 mg/dL (70-110)
[2021-04-13] MEDS: Budesonide Respules 0.5 MG/2 ML AMPUL.NEB. INHALATION ×2 (07:08→19:03)
[2021-04-13] MEDS: Ipratropium/Albuterol Sulfate 3 ML AMPUL.NEB INHALATION ×5 (07:08→22:25)
--- NOTE | 2021-04-13 09:42 | PCM.PN.HOSP ---
Subjective Subjective Doing well, feels a little bit more short of breath today. He was transfused 2 units yesterday and corrected to 7.7 today however his platelets are back down to 7 and he will need platelet transfusion Objective Data Objective Data Vital Signs: Vital Signs Temp Pulse Resp BP Pulse Ox 97.8 F 102 H 24 H 129/64 H 93 04/13/21 06:39 04/13/21 07:08 04/13/21 07:08 04/13/21 06:39 04/13/21 07:08 Oxygen Flow Rate (L/min) 12 Oxygen Delivery Method Nasal Cannula Weight: 225 lb 8.526 oz Body Mass Index (BMI) 37.2 Intake & Output: Intake and Output for Last 24 Hours 04/12/21 04/13/21 04/14/21 03:59 03:59 03:59 Intake Total 4979.50 / 4979.50 3085 / 3085 120 / 120 Output Total 6775 / 6775 4440 / 4440 650 / 650 Balance -1795.50 / -1795.50 -1355 / -1355 -530 / -530 Lab / Micro Data Result Diagrams: 04/13/21 05:15 04/13/21 05:15 Labs: Laboratory Results - last 24 hr 04/10/21 04:00: Diff Path Review Reviewed 04/10/21 04:00: Crossmatch See Detail 04/10/21 04:00: Crossmatch See Detail 04/10/21 04:00: Crossmatch See Detail 04/10/21 15:40: Diff Path Review Reviewed 04/11/21 04:22: Diff Path Review Reviewed 04/12/21 06:16: Immature Gran % (Auto) 23.100 H, Neut % (Auto) 61.5, Lymph % (Auto) 5.8 L, [place] % (Auto) 5.8, Eos % (Auto) 3.8, Baso % (Auto) 0.0, Absolute Neuts (auto) 0.3 L, Absolute Lymphs (auto) 0.03 L, Diff Path Review Reviewed 04/12/21 10:46: POC Glucose 134 H 04/12/21 16:56: POC Glucose 166 H 04/12/21 23:17: POC Glucose 166 H 04/13/21 05:15: WBC 0.3 L*, RBC 2.52 L, Hgb 7.7 L, Hct 23.1 L, MCV 91.7, MCH 30.6, MCHC 33.3, RDW Std Deviation 50.2 H, RDW Coeff of Dmitry 15.1 H, Plt Count 7 L*, MPV 11.2, Immature Gran % (Auto) 14.300 H, Neut % (Auto) 60.8, Lymph % (Auto) 10.7 L, [place] % (Auto) 7.1, Eos % (Auto) 7.1 H, Baso % (Auto) 0.0, Absolute Neuts (auto) 0.2 L, Absolute Lymphs (auto) 0.03 L, Nucleated RBC % 14.3 H, Differential Comment SCANNED, Diff Path Review October foll, Platelet Estimate MKD DEC, RBC Morphology N CYTIC, Hypochromasia 1+ 04/13/21 05:15: Sodium 140, Potassium 3.5, Chloride 98, Carbon Dioxide 37.0 H, Anion Gap 5, BUN 58 H, Creatinine 1.19, Estim Creat Clear Calc 56.25, Est GFR (MDRD) Af Amer 76, Est GFR (MDRD) Non-Af 63, BUN/Creatinine Ratio 48.7 H, Glucose 145 H, Uric Acid 7.1, Calcium 6.3 L*, Magnesium 2.1, Total Bilirubin 1.30 H, AST 69 H, ALT 33, Alkaline Phosphatase 350 H, Lactate Dehydrogenase 3125 H, Total Protein 5.0 L, Albumin 1.9 L, Globulin 3.1, Albumin/Globulin Ratio 0.6 L 04/13/21 05:15: Phosphorus 4.2 04/13/21 06:38: POC Glucose 143 H Physical Exam Const alert, oriented x3 and no apparent distress General Appearance: cooperative HEENT normocephalic and moist oral mucous membranes Eyes PERRL, EOMs intact bilaterally and conjunctivae normal Neck supple and no JVD Resp normal respiratory effort, no retractions and no use of accessory muscles Auscultation: wheezes expiratory wheezes and throughout and diminished lung sounds; Negative for crackles, rales or rhonchi Cardio regular rate, regular rhythm, S1 normal heart sound, S2 normal heart sound and no murmurs GI soft to palpation, non-tender and non-distended; Negative for hepatosplenomegaly Extremity General Extremity: edema bilateral lower extremity Details: mild; Negative for clubbing or cyanosis Skin no rashes or lesions noted Neuro no focal motor deficits and no sensory deficits noted Psych affect normal Appearance: appropriate Assessment & Plan Assessment/Plan (1) Hyperuricemia: (2) Anasarca: (3) Thrombocytopenia: (4) EFREN (acute kidney injury): (5) Tumor lysis syndrome: (6) Mantle cell lymphoma: QUALIFIERS: Lymphoma site: multiple regions Qualified Code(s): C83.18 - Mantle cell lymphoma, lymph nodes of multiple sites (7) Anemia: QUALIFIERS: Anemia type: bone marrow failure Bone marrow failure anemia type: other bone marrow failure Qualified Code(s): D61.89 - Other specified aplastic anemias and other bone marrow failure syndromes PLAN: 1. Tumor lysis syndrome secondary to chemotherapy for mantle cell lymphoma/pancytopenia secondary to mantle cell lymphoma and chemotherapy/EFREN on CKD 3 a -Receiving calcium gluconate -Continue with IV fluids, creatinine has improved to 1.2 today -Appreciate oncology and nephrology assistance -Received 2 units of PRBCs and will need to get platelets today since his platelets are 7 -Continue with allopurinol, electrolytes are trending down -Continue with Granix -LDH is improving and his phosphorus is coming down to normal levels, does appear that his tumor lysis syndrome overall is improving now just awaiting his bone marrow to recover a little 2. Acute on chronic hypoxic respiratory failure -Likely component of fluid overload given his edema, and his continued IV fluids -We will hold his IV fluids and diurese as nephrology is okay with this and his creatinine has improved. His respiratory status is back down to 11 L nasal cannula -Continue with inhaled budesonide 3. History of PE with history of pulmonary hypertension -He was on Xarelto however this is been discontinued secondary to his thrombocytopenia -Recent echo with an RVSP of 51 mmHg -He is on Lasix as an outpatient DVT: SCDs Charges/Coding Visit Charges Inpatient E&M: 80697 Subs Hosp L2
[2021-04-13] MEDS: SEVELAMER CARBONATE 800 MG TABLET 1600 MG PO ×3 (09:59→17:47)
[2021-04-13] MEDS: Furosemide 40 MG/4 ML Vial IV ×2 (10:00→17:51)
[2021-04-13] MEDS: Allopurinol 300 MG Tablet PO ×2 (10:00→17:48)
[2021-04-13] MEDS: TBO-FILGRASTIM 480 MCG/0.8 ML ML SC (10:00)
--- NOTE | 2021-04-13 10:57 | NURSING ---
Addendum entered by Elmer Lora 04/13/21 16:32: 1632- Checked states of platelets with blood bank. [facility]. Original Note: 1033-spoke with blood bank. [place] does not have any platelets at this time. Will hopefully be getting some in late this afternoon/evening.
--- NOTE | 2021-04-13 11:07 | RAD_ITS ---
STUDY: X-RAY CHEST REASON FOR EXAM: Male, 75 years old. Pleural effusion TECHNIQUE: Single AP portable view of the chest. COMPARISON: Comparison is made with prior study 04/08/2021. FINDINGS: EKG electrodes are seen. A right-sided central catheter is seen with the tip at the junction of the right subclavian vein and superior vena cava. There is increasing moderate sized left pleural effusion with left basilar infiltration and/or atelectasis. New infiltrate is seen in the medial aspect of the right upper lobe. Normal size heart. Normal mediastinum and ledy. Normal visualized pulmonary arteries. There is atherosclerotic tortuosity of the aortic arch and descending thoracic aorta. There are diffuse degenerative changes of the visualized thoracic spine. Normal visualized ribs, clavicles, and shoulders. There is no demonstrated abnormality of the visualized soft tissue structures of the upper abdomen. RAD/Chest 1 View (Portable) IMPRESSION: Increasing left pleural effusion. New infiltrate in the medial aspect of the right upper lobe. Electronically Signed: Mihir Mathis MD at 13:23 EDT , Service support ,
--- NOTE | 2021-04-13 11:17 | ONC.PN.INPT ---
Subjective Subjective Constitutional: Overall I feel a bit better Constitutional: Reports fatigue, poor appetite HEENT: Denies dysphagia or sore throat Cardiovascular: Reports dyspnea, Denies chest pain or palpitations Respiratory/Chest: Reports dyspnea and occasional hemoptysis after bouts of cough. Denies pain on inspiration Gastrointestinal: Reports anorexia and bloating; Denies abdominal pain, change in bowel habits, coffee ground emesis, hematochezia, melena, nausea or vomiting Genitourinary: Denies dysuria or hematuria Musculoskeletal: Denies back pain or muscle weakness Integumentary: Denies pruritus, reports easy bruises Neurologic: Denies abnormal speech, confusion, focal weakness or headache(s) Hematologic/Lymphatic: Reports easy bruising and lymphadenopathy; Denies bleeding Physical Exam Narrative ECOG 2 Const alert and oriented x3 General Appearance: cooperative and grossly edematous HEENT normocephalic and moist oral mucous membranes HEENT Narrative: Cold blister lower lip Head and Scalp: atraumatic Eyes conjunctivae normal and no scleral icterus Neck General: lymphadenopathy other (Generalized) matted Lymph Lymphatic: lymphedema severe and lymphadenopathy Lymphadenopathy Laterality: bilateral Resp Resp Narrative: Left base consistent with small to moderate size left pleural effusion Effort and Inspection: tachypneic and audible wheezes Auscultation: wheezes and diminished lung sounds left (Left pleural effusion) and localized Cardio regular rate, regular rhythm and no murmurs GI non-tender GI Narrative: Bloated with massive edema waist down Extremity General Extremity: edema bilateral upper extremity and lower extremity Skin no jaundice Skin Narrative: Petechiae over the upper back, ecchymoses over extremities General Skin Exam: ecchymosis and petechiae Rashes: rashes noted Neuro CN's II-XII intact bilaterally, moves all extremities and no focal motor deficits Motor Exam: general weakness Psych mental status grossly normal Vital Signs Temperature 98.4 F 04/13/21 09:45 Temperature Source Oral 04/13/21 09:45 Pulse Rate 110 H 04/13/21 10:46 Respiratory Rate 24 H 04/13/21 10:46 Respiratory Effort 04/13/21 02:55 Respiratory Depth Deep 04/13/21 02:55 Respiratory Pattern Tachypnea 04/13/21 07:08 Blood Pressure 105/65 04/13/21 09:45 Blood Pressure Mean 78 04/13/21 09:45 Blood Pressure Source Monitor 04/13/21 09:45 Blood Pressure Position Sitting 04/13/21 09:45 Blood Pressure Location Left Arm 04/13/21 09:45 Pulse Ox 94 04/13/21 10:46 Oxygen Delivery Method Nasal Cannula 04/13/21 10:46 Oxygen Flow Rate (L/min) 10 04/13/21 10:46 Laboratory Results - last 24 hr 04/10/21 04:00: Diff Path Review Reviewed 04/10/21 04:00: Crossmatch See Detail 04/10/21 04:00: Crossmatch See Detail 04/10/21 15:40: Diff Path Review Reviewed 04/11/21 04:22: Diff Path Review Reviewed 04/12/21 06:16: Immature Gran % (Auto) 23.100 H, Neut % (Auto) 61.5, Lymph % (Auto) 5.8 L, [place] % (Auto) 5.8, Eos % (Auto) 3.8, Baso % (Auto) 0.0, Absolute Neuts (auto) 0.3 L, Absolute Lymphs (auto) 0.03 L, Diff Path Review Reviewed 04/12/21 10:46: POC Glucose 134 H 04/12/21 16:56: POC Glucose 166 H 04/12/21 23:17: POC Glucose 166 H 04/13/21 05:15: WBC 0.3 L*, RBC 2.52 L, Hgb 7.7 L, Hct 23.1 L, MCV 91.7, MCH 30.6, MCHC 33.3, RDW Std Deviation 50.2 H, RDW Coeff of Dmitry 15.1 H, Plt Count 7 L*, MPV 11.2, Immature Gran % (Auto) 14.300 H, Neut % (Auto) 60.8, Lymph % (Auto) 10.7 L, [place] % (Auto) 7.1, Eos % (Auto) 7.1 H, Baso % (Auto) 0.0, Absolute Neuts (auto) 0.2 L, Absolute Lymphs (auto) 0.03 L, Nucleated RBC % 14.3 H, Differential Comment SCANNED, Diff Path Review May norris, Platelet Estimate MKD DEC, RBC Morphology N CYTIC, Hypochromasia 1+ 04/13/21 05:15: Sodium 140, Potassium 3.5, Chloride 98, Carbon Dioxide 37.0 H, Anion Gap 5, BUN 58 H, Creatinine 1.19, Estim Creat Clear Calc 56.25, Est GFR (MDRD) Af Amer 76, Est GFR (MDRD) Non-Af 63, BUN/Creatinine Ratio 48.7 H, Glucose 145 H, Uric Acid 7.1, Calcium 6.3 L*, Magnesium 2.1, Total Bilirubin 1.30 H, AST 69 H, ALT 33, Alkaline Phosphatase 350 H, Lactate Dehydrogenase 3125 H, Total Protein 5.0 L, Albumin 1.9 L, Globulin 3.1, Albumin/Globulin Ratio 0.6 L 04/13/21 05:15: Phosphorus 4.2 04/13/21 06:34: Blood Type A POSITIVE, Antibody Screen NEGATIVE 04/13/21 06:38: POC Glucose 143 H Assessment & Plan Assessment/Plan (1) Anasarca: (2) Pleural effusion: (3) Hyperuricemia: (4) Thrombocytopenia: (5) EFREN (acute kidney injury): (6) Pulmonary embolism: QUALIFIERS: Acute cor pulmonale presence: without acute cor pulmonale Chronicity: acute Pulmonary embolism type: other Qualified Code(s): I26.99 - Other pulmonary embolism without acute cor pulmonale (7) Anemia: QUALIFIERS: Anemia type: bone marrow failure Bone marrow failure anemia type: other bone marrow failure Qualified Code(s): D61.89 - Other specified aplastic anemias and other bone marrow failure syndromes (8) Tumor lysis syndrome: (9) Mantle cell lymphoma: QUALIFIERS: Lymphoma site: multiple regions Qualified Code(s): C83.18 - Mantle cell lymphoma, lymph nodes of multiple sites (10) Anemia: QUALIFIERS: Anemia type: unspecified type Qualified Code(s): D64.9 - Anemia, unspecified (11) Pancytopenia: PLAN: Assessment/Plan (1) Mantle cell lymphoma: An aggressive rapidly progressive mantle cell lymphoma stage IVB with rapid progression to a leukemic phase over the past few days. Patient received his first cycle of bendamustine Rituxan April 07-2020. He had a dramatic decline in his peripheral blood lymphocytosis and blasts within 24 hours. Next cycle of therapy provided he continues to improve will be in 4 weeks. Await bone marrow recovery from underlying disease and recent chemotherapy. Support with growth factor to start April 10 daily Granix for 7 to 10 days. Will follow and guide. (2) Tumor lysis syndrome: Initially due to an aggressive rapidly growing bulky malignancy, worsening with initiation of treatment despite allopurinol (started weeks earlier), oral and IV hydration and diuresis . Nephrology has been consulted and guiding therapy. ATN and hypoperfusion appear to be a pretreatment contributing factor since the patient does not fulfill tumor lysis syndrome criteria completely (appears to have an attenuated tumor lysis on top of other kidney disease) (3) Anemia: Anemia due to cancer with bone marrow involvement and bone marrow toxicity from recent chemotherapy, transfuse with packed red blood cells to maintain hemoglobin at or above 8 g per DL. (4) Thrombocytopenia: Secondary to extensive bone marrow involvement by lymphoma, and treatment related bone marrow toxicity. Anticoagulation for PE is on hold until platelet count is above 30-50 K without transfusion dependency. Prophylactic platelet transfusion if less than 10K. Platelet transfusion if there is any active bleeding more than Minor skin bruising nose and gum bleed to avoid alloimmunization. May be needed prior to any invasive procedure if necessary. (5) EFREN (acute kidney injury): Multifactorial, tumor lysis appears to be all contributing factor on top of ATN. Continue Hydration and diuresis as Per, nephrology guiding. (6) Hyperuricemia, hyperphosphatemia: Secondary to tumor lysis, defer to nephrology consult. Improving. Continue allopurinol at least 1 more week. (7) Pulmonary embolism: Patient was on oral anticoagulation, on hold since 04/08/2021 due to severe thrombocytopenia, may resume once platelets are at least 30-50 K, no active bleeding and not transfusion dependent. Use nonpharmacologic DVT prophylaxis if possible in view of massive edema. (8) Pleural effusion: Left-sided secondary to lymphoma, negative cytology, likely obstruction of lymphatic drainage due to extensive lymphomatous involvement in the mediastinum. May consider retap after platelet recovery. (9) Anasarca: Generalized, severe primarily secondary to lymphatic obstruction by malignancy, some degree of fluid overload required for treatment of tumor lysis. Is slowly improving. (10) debility from malignancy and recent aggressive anticancer therapy, expected need for inpatient rehab before final discharge. Patient was seen and examined. Met with patient, his and his son. Impression and plan as above discussed.
[2021-04-13] MEDS: Acetaminophen 325 MG Tablet 650 MG PO ×2 (11:23→20:13)
[2021-04-13] MEDS: Insulin Lispro 100 UNIT/ML INSULN.PEN SC (11:29)
[2021-04-13 12:56] LABS: Bedside Glucose 169 mg/dL (70-110)
[2021-04-13 13:25] LABS: Pathologist Review Reviewed
--- NOTE | 2021-04-13 14:00 | PN.RENAL_ITS ---
Subjective Subjective On NC 10 l/min No N/V/D/CP Objective Data Objective Data Vital Signs: Vital Signs Temp Pulse Resp BP Pulse Ox 98.1 F 113 H 20 H 115/73 98 04/13/21 13:36 04/13/21 13:36 04/13/21 13:36 04/13/21 13:36 04/13/21 13:36 Oxygen Flow Rate (L/min) 10 Oxygen Delivery Method Nasal Cannula Weight: 102.3 kg Body Mass Index (BMI) 37.2 Intake & Output: Intake and Output for Last 24 Hours 04/11/21 04/12/21 04/13/21 23:59 23:59 23:59 Intake Total 3438.75 / 3438.75 3851.25 / 3851.25 1999 Output Total 7150 / 7150 4815 / 4815 2350 / 2350 Balance -3711.25 / -3711.25 -963.75 / -963.75 -350 / -350 Lab / Micro Data Result Diagrams: 04/13/21 05:15 04/13/21 05:15 Labs: Laboratory Results - last 24 hr 04/10/21 04:00: Crossmatch See Detail 04/10/21 04:00: Crossmatch See Detail 04/12/21 06:16: Immature Gran % (Auto) 23.100 H, Neut % (Auto) 61.5, Lymph % (Auto) 5.8 L, Forrest % (Auto) 5.8, Eos % (Auto) 3.8, Baso % (Auto) 0.0, Absolute Neuts (auto) 0.3 L, Absolute Lymphs (auto) 0.03 L 04/12/21 16:56: POC Glucose 166 H 04/12/21 23:17: POC Glucose 166 H 04/13/21 05:15: WBC 0.3 L*, RBC 2.52 L, Hgb 7.7 L, Hct 23.1 L, MCV 91.7, MCH 30.6, MCHC 33.3, RDW Std Deviation 50.2 H, RDW Coeff of Dmitry 15.1 H, Plt Count 7 L*, MPV 11.2, Immature Gran % (Auto) 14.300 H, Neut % (Auto) 60.8, Lymph % (Auto) 10.7 L, Forrest % (Auto) 7.1, Eos % (Auto) 7.1 H, Baso % (Auto) 0.0, Absolute Neuts (auto) 0.2 L, Absolute Lymphs (auto) 0.03 L, Nucleated RBC % 14.3 H, Differential Comment SCANNED, Diff Path Review Reviewed, Platelet Estimate MKD DEC, RBC Morphology N CYTIC, Hypochromasia 1+ 04/13/21 05:15: Sodium 140, Potassium 3.5, Chloride 98, Carbon Dioxide 37.0 H, Anion Gap 5, BUN 58 H, Creatinine 1.19, Estim Creat Clear Calc 56.25, Est GFR (MDRD) Af Amer 76, Est GFR (MDRD) Non-Af 63, BUN/Creatinine Ratio 48.7 H, Glucose 145 H, Uric Acid 7.1, Calcium 6.3 L*, Magnesium 2.1, Total Bilirubin 1.30 H, AST 69 H, ALT 33, Alkaline Phosphatase 350 H, Lactate Dehydrogenase 3125 H, Total Protein 5.0 L, Albumin 1.9 L, Globulin 3.1, Albumin/Globulin Ratio 0.6 L 04/13/21 05:15: Phosphorus 4.2 04/13/21 06:34: Blood Type A POSITIVE, Antibody Screen NEGATIVE 04/13/21 06:38: POC Glucose 143 H 04/13/21 11:27: POC Glucose 169 H Radiography Diagnostic Testing: Radiology Impression Chest X-Ray 04/13/21 11:07 IMPRESSION: Increasing left pleural effusion. New infiltrate in the medial aspect of the right upper lobe. Electronically Signed: Mihir Mathis MD at 13:23 EDT , Service support , Physical Exam Narrative General: NAD HEENT: Normocephalic, atraumatic. Mucous membrane dry. PERRLA, EOMI. There is no erythema of the mucosa. Neck: Supple. Heart: Normal S1, S2 no rubs or murmurs. Lungs: B/L wheezing but better than yesterday . reduced BS over LLL Abdomen: Scant bowel sounds, distended, abdomen is soft to palpation, there is no guarding or rebound. Extremity: There is 2+ edema of the lower extremities bilaterally. Psychiatric: Normal affect. Neurologic: No focal neurologic deficit. 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 Cr is improving -Cr is down to 1.1 mg/dl. Non oliguric -Continue lasix due to significant edema and pleural effusion -No need for ELECTRICAL ENGINEERING MANAGER -Monitor RFP Acute RF. Continue lasix RBC and PLT transfusion as per the primary service Will follow. Call if any question
[2021-04-13 17:16] LABS: Bedside Glucose 145 mg/dL (70-110)
[2021-04-13] MEDS: 0.9% Saline Lock 10 ML Syringe IV (20:13)
[2021-04-13 20:31] LABS: Bedside Glucose 173 mg/dL (70-110)
--- NOTE | 2021-04-13 23:52 | NURSING ---
spoke with blood bank on phone, no platelets have arrived to be able to transfuse patient.
[2021-04-14] VITALS (24 sets, daily range): BP systolic 99–119; BP diastolic 55–72; PULSE 84–138; RESP 18–28; TEMP 36.4–38.5; O2SAT 92–100
[2021-04-14] MEDS: 0.9% Saline Lock 10 ML Syringe IV ×4 (04:24→13:34)
[2021-04-14 06:45] LABS: Bedside Glucose 126 mg/dL (70-110)
[2021-04-14] MEDS: Ipratropium/Albuterol Sulfate 3 ML AMPUL.NEB INHALATION ×4 (06:59→18:56)
[2021-04-14] MEDS: Budesonide Respules 0.5 MG/2 ML AMPUL.NEB. INHALATION ×2 (07:00→18:56)
[2021-04-14 08:02] LABS: Absolute Lymphocyte Count 0.02 X10^3/uL (0.83-4.51); Absolute Neutrophil Count 0.1 X10^3/uL (2.0-7.7); Eosinophil# 0.01 X10^3/uL; Eosinophils% 5.9 % (0-5); Hematocrit 22.9 % (40-54); Hemoglobin 7.5 g/dL (13.0-16.5); Lymphocyte # 0.02 X10^3/ul (0.83-4.51); Lymphocyte % 11.8 % (19-41); Mean Corp Hgb Conc 32.8 g/dL (32-36); Mean Corpuscular Hgb 30.1 pg (27.0-32.0); Mean Platelet Vol. 10.1 fl (6.2-12.0); Monocyte# 0.03 X10^3/uL; Monocyte% 17.6 % (0-10); NRBC Flagged by Analyzer 94.1 % (0-5); Neutrophil # 0.11 X10^3/uL (2.7-7.7); Neutrophil % 64.7 % (47-70); POSITIVE COUNT YES; POSITIVE DIFFERENTIAL YES; POSITIVE MORPHOLOGY YES; Platelet Count 27 K/mm3 (150-450); RBC Distribution Width CV 15.2 % (11.6-14.6); RBC Distribution Width SD 50.3 fl (35.1-43.9); Red Blood Count 2.49 M/mm3 (4.6-6.2)
[2021-04-14 08:15] LABS: Differential Indicated SCAN CRITERIA MET; White Blood Count 0.2 K/mm3 (4.4-11.0)
[2021-04-14] MEDS: Allopurinol 300 MG Tablet PO ×2 (08:27→18:03)
[2021-04-14] MEDS: SEVELAMER CARBONATE 800 MG TABLET 1600 MG PO ×2 (08:28→13:26)
[2021-04-14 08:39] LABS: ALB/GLOB Ratio 0.6 RATIO (0.9-2.4); AST(SGOT) 63 U/L (15-37); Alanine Aminotransfer ALT/SGPT 30 U/L (16-61); Albumin, Serum 2.1 g/dL (3.2-5.0); Alkaline Phosphatase 306 U/L (45-117); Anion Gap 7 (5-15); BUN 44 mg/dL (7-18); BUN/Creat Ratio 42.3 RATIO (10-20); Calcium,Total 6.9 mg/dL (8.5-10.1); Chloride 96 mmol/L (98-107); Creatinine, Serum 1.04 mg/dL (0.70-1.30); EST Glomerular Filtration Rate 74 mL/min (>60); Est Glom Filt Rate - Afr Amer 89 mL/min (>60); Estimated Creatinine Clearance 64.36 ml/min; Globulin 3.4 g/dL (2.2-4.2); Glucose 125 mg/dL (74-106); LDH 2830 U/L (87-241); Phosphorus 2.5 mg/dL (2.5-4.9); Potassium 3.3 mmol/L (3.5-5.1); Protein, Total 5.5 g/dL (6.4-8.2); Sodium Level 139 mmol/L (136-145)
[2021-04-14 08:52] LABS: Platelet Estimate MKD DEC (ADEQ)
[2021-04-14 08:53] LABS: Differential Comment SCANNED
[2021-04-14] MEDS: Furosemide 40 MG/4 ML Vial IV ×2 (09:18→18:03)
--- NOTE | 2021-04-14 09:34 | PCM.PN.HOSP ---
Subjective Subjective Feels unchanged from previous. Still short of breath requiring 11 L nasal cannula. He is down about 7 or 8 pounds with diuresis. Objective Data Objective Data Vital Signs: Vital Signs Temp Pulse Resp BP Pulse Ox 98.2 F 84 22 H 119/65 97 04/14/21 08:13 04/14/21 08:13 04/14/21 08:13 04/14/21 08:13 04/14/21 08:13 Oxygen Flow Rate (L/min) 10 Oxygen Delivery Method Nasal Cannula Weight: 225 lb 8.526 oz Body Mass Index (BMI) 37.2 Intake & Output: Intake and Output for Last 24 Hours 04/13/21 04/14/21 04/15/21 03:59 03:59 03:59 Intake Total 3085 / 3085 2219.75 / 2219.75 1400 / 1400 Output Total 4440 / 4440 2350 / 2350 300 / 300 Balance -1355 / -1355 -130.25 / -130.25 1100 / 1100 Lab / Micro Data Result Diagrams: 04/14/21 07:45 04/14/21 07:45 Labs: Laboratory Results - last 24 hr 04/13/21 05:15: Diff Path Review Reviewed 04/13/21 06:34: Blood Type Cancelled, A1 Antigen Typing Cancelled, Rho(D) Type Cancelled, Antibody Screen Cancelled 04/13/21 06:34: Blood Type A POSITIVE, Antibody Screen NEGATIVE 04/13/21 11:27: POC Glucose 169 H 04/13/21 17:07: POC Glucose 145 H 04/13/21 20:11: POC Glucose 173 H 04/14/21 06:27: POC Glucose 126 H 04/14/21 07:45: WBC 0.2 L*, RBC 2.49 L, Hgb 7.5 L, Hct 22.9 L, MCV 92.0, MCH 30.1, MCHC 32.8, RDW Std Deviation 50.3 H, RDW Coeff of Dmitry 15.2 H, Plt Count 27 L*, MPV 10.1, Immature Gran % (Auto) 0.000, Neut % (Auto) 64.7, Lymph % (Auto) 11.8 L, Williams % (Auto) 17.6 H, Eos % (Auto) 5.9 H, Baso % (Auto) 0.0, Absolute Neuts (auto) 0.1 L, Absolute Lymphs (auto) 0.02 L, Nucleated RBC % 94.1 H, Differential Comment SCANNED, Diff Path Review October foll, Platelet Estimate MKD 04/14/21 07:45: Sodium 139, Potassium 3.3 L, Chloride 96 L, Carbon Dioxide 36.0 H, Anion Gap 7, BUN 44 H, Creatinine 1.04, Estim Creat Clear Calc 64.36, Est GFR (MDRD) Af Amer 89, Est GFR (MDRD) Non-Af 74, BUN/Creatinine Ratio 42.3 H, Glucose 125 H, Calcium 6.9 L, Phosphorus 2.5, Total Bilirubin 2.10 H, AST 63 H, ALT 30, Alkaline Phosphatase 306 H, Lactate Dehydrogenase 2830 H, Total Protein 5.5 L, Albumin 2.1 L, Globulin 3.4, Albumin/Globulin Ratio 0.6 L Radiography Diagnostic Testing: Radiology Impression Chest X-Ray 04/13/21 11:07 IMPRESSION: Increasing left pleural effusion. New infiltrate in the medial aspect of the right upper lobe. Electronically Signed: Mihir Mathis MD at 13:23 EDT , Service support , Physical Exam Const alert, oriented x3 and no apparent distress General Appearance: cooperative HEENT normocephalic and moist oral mucous membranes Eyes PERRL, EOMs intact bilaterally and conjunctivae normal Neck supple and no JVD Resp normal respiratory effort, no retractions and no use of accessory muscles Auscultation: diminished lung sounds; Negative for crackles, rales, rhonchi or wheezes Cardio regular rate, regular rhythm, S1 normal heart sound, S2 normal heart sound and no murmurs GI soft to palpation, non-tender and non-distended; Negative for hepatosplenomegaly Extremity General Extremity: edema bilateral lower extremity Details: severe; Negative for clubbing or cyanosis Skin Skin Narrative: Redness and slight pain to his right lower extremity Neuro no focal motor deficits and no sensory deficits noted Psych affect normal Appearance: appropriate Assessment & Plan Assessment/Plan (1) Hyperuricemia: (2) Anasarca: (3) Thrombocytopenia: (4) EFREN (acute kidney injury): (5) Tumor lysis syndrome: (6) Mantle cell lymphoma: QUALIFIERS: Lymphoma site: multiple regions Qualified Code(s): C83.18 - Mantle cell lymphoma, lymph nodes of multiple sites (7) Anemia: QUALIFIERS: Anemia type: bone marrow failure Bone marrow failure anemia type: other bone marrow failure Qualified Code(s): D61.89 - Other specified aplastic anemias and other bone marrow failure syndromes PLAN: 1. Tumor lysis syndrome secondary to chemotherapy for mantle cell lymphoma/pancytopenia secondary to mantle cell lymphoma and chemotherapy/EFREN on CKD 3 a -Calcium is normal with correction -Hold IV fluids, creatinine is stable at 1.04 -Appreciate oncology and nephrology assistance -We will continue to monitor his hemoglobin and platelets and transfuse as necessary, the only need to be leukoreduced he did not need to be CMV negative or irradiated per oncology -Continue with allopurinol, electrolytes are trending down -Continue with Granix 2. Acute on chronic hypoxic respiratory failure -Likely component of fluid overload given his edema, and his continued IV fluids -Continue with diuresis -Continue with inhaled budesonide 3. History of PE with history of pulmonary hypertension -He was on Xarelto however this is been discontinued secondary to his thrombocytopenia -Recent echo with an RVSP of 51 mmHg -He is on Lasix as an outpatient 4. Right lower extremity cellulitis -Concern for possible cellulitis given warmth and tenderness to his right lower extremity -We will start him on antibiotics -We will obtain blood cultures DVT: SCDs Charges/Coding Visit Charges Inpatient E&M: 79825 Subs Hosp L2
[2021-04-14] MEDS: Potassium Chloride Oral Tablet 20 MEQ 40 MEQ PO (10:51)
[2021-04-14] MEDS: TBO-FILGRASTIM 480 MCG/0.8 ML ML SC (10:52)
[2021-04-14 12:11] LABS: Bedside Glucose 149 mg/dL (70-110)
--- NOTE | 2021-04-14 12:15 | CASEMGMT ---
Physician said patient and his would like patient to go to [facility] at discharge. SW met with patient and his . Patient was sleeping so SW spoke with his . She confirmed this is what they would like. SW told her that he will not be able to get chemo while he is in TCU. Patient's asked about SNF coverage. SW told her Medicare's SNF coverage. She asked if she could have a print out of the coverage. SW told her SW will print something from Medicare's website. Patient has a Pet Scan scheduled for next week. She asked if he would be able to get that while in TCU. SW told her SW would have to ask. MARIE called [facility] in TCU and made referral for patient. They would be able to take patient. She will have to ask about the Pet Scan. SW will get Medicare information to patient's and the answer on the Pet Scan. Plan: d/c to [facility] Sherrell PATINO
--- NOTE | 2021-04-14 13:13 | PN.ONC_ITS ---
Subjective Subjective Patient upright in chair conversing with spouse. Describes dyspnea as unchanged, however is most distressing symptom for him at this time. Indicates causing sleep disturbance and generalized discomfort and restlessness. Specifically denies any overt bleeding with the exception of his nares. C/o RLE pain and increased warmth. Physical Exam Const alert and oriented x3; Negative for healthy appearing General Appearance: cooperative HEENT normocephalic and moist oral mucous membranes Eyes PERRL, EOMs intact bilaterally and conjunctivae normal Neck supple and no JVD Lymph Lymphatic: lymphadenopathy Resp no retractions and no use of accessory muscles Effort and Inspection: Negative for able to speak in complete sentences Auscultation: wheezes and diminished lung sounds; Negative for crackles, rales or rhonchi Cardio regular rate, regular rhythm, S1 normal heart sound, S2 normal heart sound and no murmurs GI soft to palpation, non-tender and non-distended; Negative for hepatosplenomegaly Palpation: firm Extremity General Extremity: edema bilateral lower extremity Details: severe; Negative for clubbing or cyanosis Skin Skin Narrative: Increased warmth right lower extremity, bilateral lower extremities are wrapped with Juliano bandages Dried blood-nares beneath O2 canula Scabbed area right bottom lip- no oozing Neuro no focal motor deficits and no sensory deficits noted Psych mental status grossly normal and affect normal Appearance: appropriate Attention / Concentration: attention grossly intact Vital Signs Temperature 98.7 F 04/14/21 12:01 Temperature Source Oral 04/14/21 12:01 Pulse Rate 132 H 04/14/21 12:01 Respiratory Rate 22 H 04/14/21 12:01 Respiratory Effort Labored 04/14/21 09:46 Respiratory Depth Shallow 04/14/21 09:46 Respiratory Pattern Tachypnea 04/14/21 10:31 Blood Pressure 118/69 04/14/21 12:01 Blood Pressure Mean 85 04/14/21 12:01 Blood Pressure Source Monitor 04/14/21 12:01 Blood Pressure Position Sitting 04/14/21 08:13 Blood Pressure Location Left Arm 04/14/21 12:01 Pulse Ox 93 04/14/21 12:01 Oxygen Delivery Method Nasal Cannula 04/14/21 12:01 Oxygen Flow Rate (L/min) 11 04/14/21 12:01 Laboratory Results - last 24 hr 04/13/21 05:15: Diff Path Review Reviewed 04/13/21 06:34: Blood Type Cancelled, A1 Antigen Typing Cancelled, Rho(D) Type Cancelled, Antibody Screen Cancelled 04/13/21 17:07: POC Glucose 145 H 04/13/21 20:11: POC Glucose 173 H 04/14/21 06:27: POC Glucose 126 H 04/14/21 07:45: WBC 0.2 L*, RBC 2.49 L, Hgb 7.5 L, Hct 22.9 L, MCV 92.0, MCH 30.1, MCHC 32.8, RDW Std Deviation 50.3 H, RDW Coeff of Dmitry 15.2 H, Plt Count 27 L*, MPV 10.1, Immature Gran % (Auto) 0.000, Neut % (Auto) 64.7, Lymph % (Auto) 11.8 L, Price % (Auto) 17.6 H, Eos % (Auto) 5.9 H, Baso % (Auto) 0.0, Absolute Neuts (auto) 0.1 L, Absolute Lymphs (auto) 0.02 L, Nucleated RBC % 94.1 H, Differential Comment SCANNED, Diff Path Review October foll, Platelet Estimate MKD 04/14/21 07:45: Sodium 139, Potassium 3.3 L, Chloride 96 L, Carbon Dioxide 36.0 H, Anion Gap 7, BUN 44 H, Creatinine 1.04, Estim Creat Clear Calc 64.36, Est GFR (MDRD) Af Amer 89, Est GFR (MDRD) Non-Af 74, BUN/Creatinine Ratio 42.3 H, Glucose 125 H, Calcium 6.9 L, Phosphorus 2.5, Total Bilirubin 2.10 H, AST 63 H, ALT 30, Alkaline Phosphatase 306 H, Lactate Dehydrogenase 2830 H, Total Protein 5.5 L, Albumin 2.1 L, Globulin 3.4, Albumin/Globulin Ratio 0.6 L 04/14/21 11:13: POC Glucose 149 H Diagnostic Data Chest X-Ray 04/13/21 11:07 IMPRESSION: Increasing left pleural effusion. New infiltrate in the medial aspect of the right upper lobe. Electronically Signed: Mihir Mathis MD at 13:23 EDT , Service support , Assessment & Plan Assessment/Plan (1) Mantle cell lymphoma: QUALIFIERS: Lymphoma site: multiple regions Qualified Code(s): C83.18 - Mantle cell lymphoma, lymph nodes of multiple sites (2) Tumor lysis syndrome: (3) Pleural effusion: (4) Pulmonary embolism: QUALIFIERS: Acute cor pulmonale presence: without acute cor pulmonale Chronicity: acute Pulmonary embolism type: other Qualified Code(s): I26.99 - Other pulmonary embolism without acute cor pulmonale (5) Pancytopenia: PLAN: Assessment/Plan (1) Mantle cell lymphoma: An aggressive rapidly progressive mantle cell lymphoma stage IVB with rapid progression to a leukemic phase over the past few days. Patient received his first cycle of bendamustine Rituxan April 07-2020. He had a dramatic decline in his peripheral blood lymphocytosis and blasts within 24 hours prior to initiating chemotherapy. Next cycle of therapy provided he continues to improve will be due on May 05?await recovery from tumor lysis and bone marrow treatment related toxicity. LDH is trending downward indicating a response to treatment. We will continue to monitor daily. (2) Tumor lysis syndrome: Initially due to an aggressive rapidly growing bulky malignancy, worsening with initiation of treatment despite allopurinol (started weeks earlier), oral and IV hydration and diuresis. S/sx of TLS overall improving, with creatinine within normal limits and electrolyte aberrancies resolved. (3) Pancytopenia: Due to cancer with bone marrow involvement, transfuse with packed red blood cells to maintain hemoglobin at or above 8 g per DL. Hgb today 7.5 advise T &C 1 units PRBCs, leukodeplete. Anticoagulation for PE is on hold until platelet count is above 30-50 K without transfusion dependency. Prophylactic platelet transfusion if less than 10K. Platelet transfusion if there is any active bleeding more than Minor skin bruising nose and gum bleed to avoid alloimmunization. If considering invasive procedures, such as thoracentesis (discussed below), per Dr. Sebastian platelet level closer to 50,000 would be ideal. It appears platelets have already been ordered in prep aration for thoracentesis tomorrow. Patient was not able to receive long acting G CSF on day 3 of treatment d/t this admission. Therefore continue Granix 480 mcg SQ daily. This is day 8 of bendamustine/rituximab cycle 1, in the upcoming days cytopenias may worsen due to bone marrow toxicity from therapy before recovery. (4) Pulmonary embolism: Patient was on oral anticoagulation, on hold since 04/08/2021 due to severe thrombocytopenia, may resume once platelets are at least 30-50 K, no active bleeding and not transfusion dependent. (5) Pleural effusion: Large left-sided secondary to lymphoma, initially negative cytology, likely obstruction of lymphatic drainage due to extensive lymphomatous involvement in the mediastinum. He was tentatively scheduled for repeat diagnostic/therapeutic thoracentesis on Monday, April 09 however was canceled due to degree of thrombocytopenia. Chest x-ray 04/13/2021 demonstrated increased size of left- sided pleural effusion also with new right upper lobe infiltrate (discussed below). Patient has been tachycardic since admission however heart rate is now consistently above 130 and he is quite uncomfortable. Per primary team thoracentesis is planned for tomorrow under the care of interventional radiology pending normal coagulation studies and per Dr. Sebastian advise platelet count at least above 40,000 however closer to 50 would be optimal. (6) right upper lobe infiltrate: Evidenced on chest x-ray obtained yesterday. Patient to begin Unasyn per primary team. (7) right lower extremity pain: Accompanied by increased warmth and subsequent to extreme lower extremity lymphedema last week, concerning for cellulitis although DVT within d ifferentials. Given grade of thrombocytopenia could not resume anticoagulation so ultrasound may not be helpful. Unasyn to begin per primary team. Blood cultures have already been drawn. Case discussed with Dr. Sebastian who was in agreement with the aforementioned plan.
--- NOTE | 2021-04-14 13:44 | CASEMGMT ---
SW gave Medicare SNF coverage information to patient's . SW also let her know TCU can take him, but he will not be able to have a Pet Scan while there. She thanked MARIE for finding out and the Medicare information. Plan: d/c to [facility] under skilled level of care when medically ready. Sherrell PATINO
--- NOTE | 2021-04-14 13:45 | PN.RENAL_ITS ---
Subjective Subjective no acute events Objective Data Objective Data Vital Signs: Vital Signs Temp Pulse Resp BP Pulse Ox 98.7 F 132 H 22 H 118/69 93 04/14/21 12:01 04/14/21 12:01 04/14/21 12:01 04/14/21 12:01 04/14/21 12:01 Oxygen Flow Rate (L/min) 11 Oxygen Delivery Method Nasal Cannula Weight: 102.3 kg Body Mass Index (BMI) 37.2 Intake & Output: Intake and Output for Last 24 Hours 04/12/21 04/13/21 04/14/21 23:59 23:59 23:59 Intake Total 3851.25 / 3851.25 3039.75 / 3099.75 1570 / 1570 Output Total 4815 / 4815 3050 / 3150 400 / 400 Balance -963.75 / -963.75 -10.25 / -50.25 1170 / 1170 Lab / Micro Data Result Diagrams: 04/14/21 07:45 04/14/21 07:45 Labs: Laboratory Results - last 24 hr 04/13/21 06:34: Blood Type Cancelled, A1 Antigen Typing Cancelled, Rho(D) Type Cancelled, Antibody Screen Cancelled 04/13/21 17:07: POC Glucose 145 H 04/13/21 20:11: POC Glucose 173 H 04/14/21 06:27: POC Glucose 126 H 04/14/21 07:45: WBC 0.2 L*, RBC 2.49 L, Hgb 7.5 L, Hct 22.9 L, MCV 92.0, MCH 30.1, MCHC 32.8, RDW Std Deviation 50.3 H, RDW Coeff of Dmitry 15.2 H, Plt Count 27 L*, MPV 10.1, Immature Gran % (Auto) 0.000, Neut % (Auto) 64.7, Lymph % (Auto) 11.8 L, [place] % (Auto) 17.6 H, Eos % (Auto) 5.9 H, Baso % (Auto) 0.0, Absolute Neuts (auto) 0.1 L, Absolute Lymphs (auto) 0.02 L, Nucleated RBC % 94.1 H, Differential Comment SCANNED, Diff Path Review October, Platelet Estimate MKD 04/14/21 07:45: Sodium 139, Potassium 3.3 L, Chloride 96 L, Carbon Dioxide 36.0 H, Anion Gap 7, BUN 44 H, Creatinine 1.04, Estim Creat Clear Calc 64.36, Est GFR (MDRD) Af Amer 89, Est GFR (MDRD) Non-Af 74, BUN/Creatinine Ratio 42.3 H, Glucose 125 H, Calcium 6.9 L, Phosphorus 2.5, Total Bilirubin 2.10 H, AST 63 H, ALT 30, Alkaline Phosphatase 306 H, Lactate Dehydrogenase 2830 H, Total Protein 5.5 L, Albumin 2.1 L, Globulin 3.4, Albumin/Globulin Ratio 0.6 L 04/14/21 11:13: POC Glucose 149 H Physical Exam Narrative General: NAD HEENT: Normocephalic, atraumatic. Mucous membrane dry. PERRLA, EOMI. There is no erythema of the mucosa. Neck: Supple. Heart: Normal S1, S2 no rubs or murmurs. Lungs: . reduced BS over LLL Abdomen: Scant bowel sounds, distended, abdomen is soft to palpation, there is no guarding or rebound. Extremity: There is 2+ edema of the lower extremities bilaterally. Psychiatric: Normal affect. Neurologic: No focal neurologic deficit. 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 Cr is improving -Cr is down to 1.0 mg/dl. Non oliguric -Continue lasix due to significant edema and pleural effusion -replace K and monitor level -No need for INSURANCE ACCOUNT EXECUTIVE -Monitor RFP Acute RF. Continue lasix RBC and PLT transfusion as per the primary service Will follow. Call if any question
[2021-04-14] MEDS: Insulin Lispro 100 UNIT/ML INSULN.PEN SC (18:03)
[2021-04-14 18:11] LABS: Bedside Glucose 192 mg/dL (70-110)
[2021-04-14] MEDS: Acetaminophen 325 MG Tablet 650 MG PO (18:24)
--- NOTE | 2021-04-14 20:03 | PCM.RX.CS ---
Consult Pharmacy has been consulted to manage selected antiobiotic: Vancomycin Type of Consult: New start Labs: Sodium 139 mmol/L (136-145) 04/14/21 07:45 Potassium 3.3 mmol/L (3.5-5.1) L 04/14/21 07:45 Chloride 96 mmol/L (98-107) L 04/14/21 07:45 Carbon Dioxide 36.0 mmol/L (21.0-32.0) H 04/14/21 07:45 Anion Gap 7 (5-15) 04/14/21 07:45 BUN 44 mg/dL (7-18) H 04/14/21 07:45 Creatinine 1.04 mg/dL (0.70-1.30) 04/14/21 07:45 Est GFR (MDRD) Af Amer 89 mL/min (>60) 04/14/21 07:45 Est GFR (MDRD) Non-Af 74 mL/min (>60) 04/14/21 07:45 BUN/Creatinine Ratio 42.3 RATIO (10-20) H 04/14/21 07:45 Glucose 125 mg/dL (74-106) H 04/14/21 07:45 Weight used for dosin.3 kg Estimated Creatinine Clearance: 74ML/MIN Goal Trough: 15-20 mcg/mL Pharmacy Plan for Drug Dosing: Give initial standard dose of 1500mg IV x1, then continue with 1500mg IV q12h per [facility] dosing protocol. Will check a trough before the 4th total dose. The patient's CrCl of 74ml/min was calculated using an adjusted body weight of 86.1kg. Pharmacy Service will continue to monitor and adjust dosing as required. Follow-Up Labs: Trough Vancomycin Labs to be done on [date and time ordered]: 04/16/21 07:30
[2021-04-14] MEDS: Nepro with Carbsteady 237 ML Liquid 120 ML PO (22:40)
[2021-04-14 23:01] LABS: Bedside Glucose 164 mg/dL (70-110)
[2021-04-15] VITALS (26 sets, daily range): BP systolic 81–109; BP diastolic 44–79; PULSE 91–130; RESP 18–32; TEMP 36.6–37.8; O2SAT 92–100
[2021-04-15 06:46] LABS: Bedside Glucose 134 mg/dL (70-110)
[2021-04-15] MEDS: 0.9% Saline Lock 10 ML Syringe IV ×3 (08:26→18:43)
[2021-04-15 08:27] LABS: International Normalized Ratio 1.3; Prothrombin Time (Protime)PT. 15.4 SECONDS (11.7-14.9)
[2021-04-15 08:28] LABS: Partial Thromboplast Time 43.9 Seconds (24.1-36.2)
[2021-04-15 08:41] LABS: Absolute Lymphocyte Count 0.01 X10^3/uL (0.83-4.51); Absolute Neutrophil Count 0.2 X10^3/uL (2.0-7.7); Hematocrit 18.7 % (40-54); Lymphocyte # 0.01 X10^3/ul (0.83-4.51); Lymphocyte % 4.5 % (19-41); Mean Corp Hgb Conc 32.1 g/dL (32-36); Mean Corpuscular Hgb 30.2 pg (27.0-32.0); Mean Platelet Vol. 10.2 fl (6.2-12.0); Monocyte# 0.02 X10^3/uL; Monocyte% 9.1 % (0-10); NRBC Flagged by Analyzer 140.9 % (0-5); Neutrophil # 0.19 X10^3/uL (2.7-7.7); Neutrophil % 86.4 % (47-70); POSITIVE COUNT YES; POSITIVE DIFFERENTIAL YES; POSITIVE MORPHOLOGY YES; Platelet Count 35 K/mm3 (150-450); RBC Distribution Width CV 15.4 % (11.6-14.6); RBC Distribution Width SD 52.1 fl (35.1-43.9); Red Blood Count 1.99 M/mm3 (4.6-6.2); White Blood Count 0.2 K/mm3 (4.4-11.0)
[2021-04-15 08:44] LABS: Differential Indicated SCAN CRITERIA MET
[2021-04-15 08:45] LABS: ALB/GLOB Ratio 0.5 RATIO (0.9-2.4); AST(SGOT) 50 U/L (15-37); Alanine Aminotransfer ALT/SGPT 28 U/L (16-61); Albumin, Serum 1.8 g/dL (3.2-5.0); Alkaline Phosphatase 221 U/L (45-117); Anion Gap 5 (5-15); BUN 43 mg/dL (7-18); BUN/Creat Ratio 34.4 RATIO (10-20); Calcium,Total 7.1 mg/dL (8.5-10.1); Chloride 99 mmol/L (98-107); Creatinine, Serum 1.25 mg/dL (0.70-1.30); EST Glomerular Filtration Rate 60 mL/min (>60); Est Glom Filt Rate - Afr Amer 72 mL/min (>60); Estimated Creatinine Clearance 53.55 ml/min; Globulin 3.4 g/dL (2.2-4.2); Glucose 121 mg/dL (74-106); Phosphorus 2.7 mg/dL (2.5-4.9); Potassium 3.3 mmol/L (3.5-5.1); Protein, Total 5.2 g/dL (6.4-8.2); Sodium Level 137 mmol/L (136-145)
[2021-04-15 08:52] LABS: Anisocytosis 1+; Basophilic Stippling RARE; Platelet Estimate MKD DEC (ADEQ)
[2021-04-15 08:53] LABS: Polychromasia RARE
[2021-04-15] MEDS: Allopurinol 300 MG Tablet PO ×2 (09:09→16:38)
[2021-04-15] MEDS: Furosemide 40 MG/4 ML Vial IV ×2 (09:09→18:44)
[2021-04-15] MEDS: TBO-FILGRASTIM 480 MCG/0.8 ML ML SC (09:10)
--- NOTE | 2021-04-15 09:23 | PN.RENAL_ITS ---
Subjective Subjective complaining of SOB, cough On high 02 [place] Objective Data Objective Data Vital Signs: Vital Signs Temp Pulse Resp BP Pulse Ox 97.9 F 120 H 26 H 100/44 L 95 04/15/21 09:05 04/15/21 09:05 04/15/21 09:05 04/15/21 09:05 04/15/21 09:05 Oxygen Flow Rate (L/min) 11 Oxygen Delivery Method Nasal Cannula Weight: 102.3 kg Body Mass Index (BMI) 37.2 Intake & Output: Intake and Output for Last 24 Hours 04/13/21 04/14/21 04/15/21 23:59 23:59 23:59 Intake Total 3039.75 / 3099.75 3822 / 4222 850 / 850 Output Total 3050 / 3150 1925 / 2225 450 / 450 Balance -10.25 / -50.25 1896 400 / 400 Lab / Micro Data Result Diagrams: 04/15/21 07:58 04/15/21 07:58 Labs: Laboratory Results - last 24 hr 04/14/21 11:13: POC Glucose 149 H 04/14/21 18:01: POC Glucose 192 H 04/14/21 22:37: POC Glucose 164 H 04/15/21 06:22: POC Glucose 134 H 04/15/21 07:58: WBC 0.2 L*, RBC 1.99 L, Hgb 6.0 L*, Hct 18.7 L, MCV 94.0, MCH 30.2, MCHC 32.1, RDW Std Deviation 52.1 H, RDW Coeff of Dmitry 15.4 H, Plt Count 35 L*, MPV 10.2, Immature Gran % (Auto) 0.000, Neut % (Auto) 86.4 H, Lymph % (Auto) 4.5 L, [place] % (Auto) 9.1, Eos % (Auto) 0.0, Baso % (Auto) 0.0, Absolute Neuts (auto) 0.2 L, Absolute Lymphs (auto) 0.01 L, Nucleated RBC % 140.9 H, Differential Comment , Diff Path Review May , Platelet Estimate MKD DEC, Polychromasia RARE, Basophilic Stippling RARE, Anisocytosis 1+ 04/15/21 07:58: Sodium 137, Potassium 3.3 L, Chloride 99, Carbon Dioxide 33.0 H, Anion Gap 5, BUN 43 H, Creatinine 1.25, Estim Creat Clear Calc 53.55, Est GFR (MDRD) Af Amer 72, Est GFR (MDRD) Non-Af 60, BUN/Creatinine Ratio 34.4 H, Glucose 121 H, Calcium 7.1 L, Phosphorus 2.7, Total Bilirubin 2.10 H, AST 50 H, ALT 28, Alkaline Phosphatase 221 H, Total Protein 5.2 L, Albumin 1.8 L, Globulin 3.4, Albumin/Globulin Ratio 0.5 L 04/15/21 07:58: PT 15.4 H, INR 1.3, APTT 43.9 H Physical Exam Narrative General: NAD HEENT: Normocephalic, atraumatic. mucosa. Heart: Normal S1, S2 no rubs or murmurs. Lungs: . reduced BS over LLL with wheezing Abdomen: Scant bowel sounds, distended, abdomen is soft to palpation, there is no guarding or rebound. Extremity: There is 2+ edema of the lower extremities bilaterally. Psychiatric: Normal affect. Neurologic: No focal neurologic deficit. 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 Cr is improving -Cr is fluctuating with diuresis -last 24 hrs Cr trend 1.04->1.2 mg/dl - Non oliguric -Continue lasix due to significant edema and pleural effusion -replace K and monitor level -No need for ADOLESCENT MEDICINE SPECIALIST -Monitor RFP Acute RF. Continue lasix RBC and PLT transfusion as per the primary service Will follow. Call if any question
--- NOTE | 2021-04-15 09:30 | US_ITS ---
PROCEDURE: ULTRASOUND GUIDED THORACENTESIS. DATE: 04/15/2021. INDICATION: Male, 75 years old. Left pleural effusion PHYSICIAN: Mihir Mathis M.D. PROCEDURE: The risks, benefits, and alternatives to the procedure were explained to the patient. The specific risks of bleeding, infection, and pneumothorax requiring chest tube insertion were discussed and accepted. Written informed consent was obtained. Ultrasonographic evaluation of the left lower pleural space was carried out. An adequate pocket was identified. The patient was placed in the sitting, upright position. The overlying skin was prepped and draped in sterile fashion. 1% lidocaine was administered subcutaneously for local anesthesia. Under ultrasound guidance, a 5French thoracentesis needle/catheter system was advanced into the left posterior lower pleural fluid collection. Approximately 2050 mL of bloody fluid was drained. The catheter was removed, and a sterile dressing was applied. A specimen was collected and sent to the laboratory for analysis, as requested by the referring clinician. The patient tolerated the procedure well. A chest x-ray was ordered. US/Thoracentesis W US IMPRESSION: Ultrasound-guided left thoracentesis. Electronically Signed: Mihir Mathis MD at 11:00 EDT , Service support ,
[2021-04-15 09:46] LABS: Bilirubin, Direct 1.27 mg/dL (0.00-0.30); LDH 2179 U/L (87-241)
[2021-04-15] MEDS: Lidocaine 2% (20 ml mdv) 20 ML Vial INFILT (10:00)
--- NOTE | 2021-04-15 10:05 | FLU_PTH ---
PATIENT: WINNIE SCOTT LOC: [facility] U#:[id number] AGE/SX: 75/M ROOM: [facility] RE04/08/[address]: Dr. Florentino Zhou MD : 1945 BED: 1 DIS: 04/17/2021 SPEC #: [id number] RECD: 04/15/21 10:31 STATUS: JELLY REJannette #: [id number] DELIO: 04/15/21 10:[address]: Florentino Zhou DEPT: CYTOLOGY RECD BY: Shannan Dill ENTERED: 04/15/21 11:44 SP TYPE: Fluid OTHR DR: MD Dr. Yo Pepe DO Dr. Derek Brown, DO Dr. David Kantorowitz, MD Dr. Jayaprakas Dasari, MD Dr. Joseph Prah, MD Dr. Mansour Isckarus, MD Dr. Nana Yaa Koram, MD Dr. Robert Field, MD Dr. Ryan Jin, MD Dr. Roger Macklis, MD Dr. Steve Walston, DO Christina Muller, NP-C GREGORIO Patel Tissues: THORACIC FLUID Procedures: Special Stain Group II Surgery Specimen Level IV Cytospin Fluid HEADER OPERATION: Left thoracentesis PRE-OP DIAGNOSIS: Pleural effusion TISSUE SUBMITTED: Thoracentesis fluid for cytology DIAGNOSIS CYTOLOGY Thoracentesis fluid for cytology (cytospin and cell block): Negative for malignant cells. Bloody specimen. See comment. Denia 04/16/2021 COMMENT Clinical correlation and appropriate follow up are necessary. Please make reference to previous specimen ([id number]) left inguinal lymph node, excisional biopsy with diagnosis of ?consistent with mantle cell lymphoma.? CYTOLOGY STUDY Slides are reviewed. CYTOLOGY GROSS Received is 90 ml of dark red cloudy fluid labeled with the patient's name and and designated per the requisition as thoracentesis. Submitted for cytology preparation including cell block. / bob 04/15/2021 TC:5 CPT: 45411, 12719
--- NOTE | 2021-04-15 10:15 | RAD_ITS ---
STUDY: X-RAY CHEST REASON FOR EXAM: Male, 75 years old. Post thora TECHNIQUE: AP inspiration and expiration views. COMPARISON: Comparison is made with prior examination dated 04/13/2021. FINDINGS: The patient is status post left thoracentesis. No evidence of pneumothorax. Mild residual pleural-parenchymal changes at the left lung base. RAD/Chest Insp/Exp 2 View IMPRESSION: Status post left thoracentesis. There is no evidence of pneumothorax. Electronically Signed: Mihir Mathis MD at 10:32 EDT , Service support ,
[2021-04-15 10:32] LABS: Cytology, Body Fluid / CSF SEE PATHOLOGY REPORT
[2021-04-15 10:58] LABS: Body Fluid Mononuclear WBC # 0.322 10^3/uL; Body Fluid Mononuclear WBC % 61.9 %; Body Fluid Polynuclear WBC # 0.198 10^3/uL; Body Fluid Polynuclear WBC % 38.1 %; Body Fluid Total Cells Counted 0.565 10^3/ul; Red Cell Count/Body Fluid 2.154 10^6/ul
[2021-04-15 11:04] LABS: Appearance/Body Fluid TURBID; Auto B Fluid Analyzer BKGD Ct COUNTS W/IN LIMITS (W/IN LIMITS); Color/Body Fluid RED; Source- Body Fluid THORACENTESIS
--- NOTE | 2021-04-15 11:27 | ONC.PN.INPT ---
Subjective Subjective Constitutional: Overall I feel a bit better Constitutional: Reports fatigue, poor appetite HEENT: Denies dysphagia or sore throat Cardiovascular: Reports dyspnea, wheezing, denies chest pain or palpitations Respiratory/Chest: Reports dyspnea and occasional hemoptysis after bouts of vigorous cough. Denies pain on inspiration Gastrointestinal: Reports anorexia and bloating; Denies abdominal pain, change in bowel habits, coffee ground emesis, hematochezia, melena, nausea or vomiting Genitourinary: Denies dysuria or hematuria Musculoskeletal: Denies back pain or muscle weakness Integumentary: Denies pruritus, reports easy bruises Neurologic: Denies abnormal speech, confusion, focal weakness or headache(s) Hematologic/Lymphatic: Reports easy bruising Physical Exam Narrative ECOG 2 Const alert and oriented x3 General Appearance: cooperative and grossly edematous HEENT normocephalic and moist oral mucous membranes HEENT Narrative: Dried cold blister lower lip Head and Scalp: atraumatic Eyes conjunctivae normal and no scleral icterus Neck General: lymphadenopathy other (Generalized) Lymph Lymphatic: lymphedema severe and lymphadenopathy Lymphadenopathy Laterality: bilateral Resp Resp Narrative: Left base consistent with small to moderate size left pleural effusion Effort and Inspection: tachypneic and audible wheezes Auscultation: wheezes and diminished lung sounds left (Left pleural effusion) and localized Cardio regular rhythm and no murmurs Rate: tachycardic GI non-tender GI Narrative: Bloated with massive edema waist down Extremity General Extremity: edema bilateral upper extremity and lower extremity Skin no jaundice Skin Narrative: Petechiae over the upper back, ecchymoses over extremities General Skin Exam: ecchymosis and petechiae Neuro CN's II-XII intact bilaterally, moves all extremities and no focal motor deficits Motor Exam: general weakness Psych mental status grossly normal Vital Signs Temperature 98.7 F 04/15/21 10:52 Temperature Source Temporal 04/15/21 10:52 Pulse Rate 115 H 04/15/21 10:52 Respiratory Rate 22 H 04/15/21 10:52 Respiratory Effort Labored 04/15/21 10:00 Respiratory Depth Normal 04/15/21 04:00 Respiratory Pattern Tachypnea 04/15/21 10:00 Blood Pressure 96/57 L 04/15/21 10:52 Blood Pressure Mean 70 04/15/21 10:52 Blood Pressure Source Monitor 04/15/21 10:52 Blood Pressure Position Semi-Fowlers 04/15/21 10:52 Blood Pressure Location Right Arm 04/15/21 10:52 Pulse Ox 95 04/15/21 10:52 Oxygen Delivery Method Nasal Cannula 04/15/21 10:52 Oxygen Flow Rate (L/min) 8 04/15/21 10:52 Laboratory Results - last 24 hr 04/13/21 06:34: Crossmatch See Detail 04/14/21 11:13: POC Glucose 149 H 04/14/21 18:01: POC Glucose 192 H 04/14/21 22:37: POC Glucose 164 H 04/15/21 06:22: POC Glucose 134 H 04/15/21 07:58: WBC 0.2 L*, RBC 1.99 L, Hgb 6.0 L*, Hct 18.7 L, MCV 94.0, MCH 30.2, MCHC 32.1, RDW Std Deviation 52.1 H, RDW Coeff of Dmitry 15.4 H, Plt Count 35 L*, MPV 10.2, Immature Gran % (Auto) 0.000, Neut % (Auto) 86.4 H, Lymph % (Auto) 4.5 L, [place] % (Auto) 9.1, Eos % (Auto) 0.0, Baso % (Auto) 0.0, Absolute Neuts (auto) 0.2 L, Absolute Lymphs (auto) 0.01 L, Nucleated RBC % 140.9 H, Differential Comment , Diff Path Review May foll, Platelet Estimate MKD DEC, Polychromasia RARE, Basophilic Stippling RARE, Anisocytosis 1+ 04/15/21 07:58: Sodium 137, Potassium 3.3 L, Chloride 99, Carbon Dioxide 33.0 H, Anion Gap 5, BUN 43 H, Creatinine 1.25, Estim Creat Clear Calc 53.55, Est GFR (MDRD) Af Amer 72, Est GFR (MDRD) Non-Af 60, BUN/Creatinine Ratio 34.4 H, Glucose 121 H, Calcium 7.1 L, Phosphorus 2.7, Total Bilirubin 2.10 H, AST 50 H, ALT 28, Alkaline Phosphatase 221 H, Total Protein 5.2 L, Albumin 1.8 L, Globulin 3.4, Albumin/Globulin Ratio 0.5 L 04/15/21 07:58: PT 15.4 H, INR 1.3, APTT 43.9 H 04/15/21 07:58: Direct Bilirubin 1.27 H, Lactate Dehydrogenase 2179 H 04/15/21 07:58: Direct Antiglob Test NEG w/POLYSPECIFIC 04/15/21 10:05: Fluid Source THORACENTESIS, Fluid Color RED, Fluid Appearance TURBID, Fluid WBC 0.520, Fluid RBC 2.154, Fluid Tot Cell Count 0.565, Fld Polynuclear WBCs # 0.198, Fld Polynuclear WBCs % 38.1, Fluid Mononuclear WBCs 0.322, Fld Mononuclear WBCs % 61.9, Fl Pathologist Comment May follow, Fluid Comment 2 SEE COMMENT Diagnostic Data Thoracentesis Ultrasound 04/15/21 09:30 IMPRESSION: Ultrasound-guided left thoracentesis. Approximately 2050 mL of bloody fluid was drained. Electronically Signed: Mihir Mathis MD at 11:00 EDT , Service support , Chest X-Ray 04/15/21 10:15 IMPRESSION: Status post left thoracentesis. There is no evidence of pneumothorax. Electronically Signed: Mihir Mathis MD at 10:32 EDT , Service support , Assessment & Plan Assessment/Plan (1) Anasarca: (2) Pleural effusion: (3) Hyperuricemia: (4) Thrombocytopenia: (5) EFREN (acute kidney injury): (6) Pulmonary embolism: QUALIFIERS: Acute cor pulmonale presence: without acute cor pulmonale Chronicity: acute Pulmonary embolism type: other Qualified Code(s): I26.99 - Other pulmonary embolism without acute cor pulmonale (7) Anemia: QUALIFIERS: Anemia type: bone marrow failure Bone marrow failure anemia type: other bone marrow failure Qualified Code(s): D61.89 - Other specified aplastic anemias and other bone marrow failure syndromes (8) Tumor lysis syndrome: (9) Mantle cell lymphoma: QUALIFIERS: Lymphoma site: multiple regions Qualified Code(s): C83.18 - Mantle cell lymphoma, lymph nodes of multiple sites (10) Anemia: QUALIFIERS: Anemia type: unspecified type Qualified Code(s): D64.9 - Anemia, unspecified (11) Pancytopenia: PLAN: Assessment/Plan (1) Mantle cell lymphoma: An aggressive rapidly progressive mantle cell lymphoma stage IVB with rapid progression to a leukemic phase over the past few days. Patient received his first cycle of bendamustine Rituxan April 072020. He had a dramatic decline in his peripheral blood lymphocytosis and blasts within 24 hours. Next cycle of therapy provided he continues to improve will be in 4 weeks. Await bone marrow recovery from underlying disease and recent chemotherapy. Support with growth factor to start April 10 daily Granix for 7 to 10+ days. Target is absolute neutrophil count over 1000 for 3 successive days. Will follow and guide. (2) Tumor lysis syndrome: Initially due to an aggressive rapidly growing bulky malignancy, worsening with initiation of treatment despite allopurinol (started weeks earlier), oral and IV hydration and diuresis . Nephrology has been consulted and guiding therapy. ATN and hypoperfusion appear to be a pretreatment contributing factor since the patient does not fulfill tumor lysis syndrome criteria completely (appears to have an attenuated tumor lysis on top of other kidney disease) (3) Anemia: Recovering anemia due to cancer with bone marrow involvement and bone marrow toxicity from recent chemotherapy, transfuse with packed red blood cells to maintain hemoglobin at or above 8 g per DL. Some degree of anemia is due to chronic external blood loss including GI. Evaluation for immune mediated hemolysis (antibody screen and direct Tulio April 15, 2021) negative. (4) Thrombocytopenia: Secondary to extensive bone marrow involvement by lymphoma, and treatment related bone marrow toxicity. Anticoagulation for PE is on hold until platelet count is above 50 K without transfusion dependency. Prophylactic platelet transfusion if less than 10K. Platelet transfusion if there is any active bleeding more than Minor skin bruising nose and gum bleed to avoid alloimmunization. May be needed prior to any invasive procedure if necessary. (5) EFREN (acute kidney injury) hyperuricemia, hyperphosphatemia, hypo-Gallito C. Claudia: Multifactorial, tumor lysis appears to be all contributing factor on top of ATN. There is continued improvement with normalization of creatinine Continue Hydration and diuresis as Per, nephrology guiding. (6) febrile neutropenia: Single episode of fever, cultures negative to date, on broad-spectrum antibiotic cover to continue until neutrophil recovery (7) Pulmonary embolism: Patient was on oral anticoagulation, on hold since 04/08/2021 due to severe thrombocytopenia, may resume once platelets are at least 30-50 K, no active bleeding and not transfusion dependent. Use nonpharmacologic DVT prophylaxis if possible in view of massive edema. (8) Pleural effusion: Left-sided secondary to lymphoma, negative cytology, likely obstruction of lymphatic drainage due to extensive lymphomatous involvement in the mediastinum. 2 L of bloodstained fluid were drained April 15, 2021. (9) Anasarca: Generalized, severe primarily secondary to lymphatic obstruction by malignancy, some degree of fluid overload required for treatment of tumor lysis. Is slowly improving. (10) debility from malignancy and recent aggressive anticancer therapy, expected need for inpatient rehab before final discharge. (11) All blood products to be transfused through a standard leukocyte filter, prefer irradiated if available without delaying transfusions. CMV negative blood is not required (with standard use of leukocyte filter, patient's CMV status unknown). Patient was seen and examined. Met with patient, his . Impression and plan as above discussed. Discussed also with Dr. Zhou
[2021-04-15 11:46] LABS: Glucose, Body Fluid 127 mg/dL (40-70); LDH,Body Fluid 2191 Units/l (Not Establ.); Protein, Body Fluid 3.3 g/dL (Not Establ.)
[2021-04-15 11:50] LABS: Lymphocytes 19 %; Monocytes 2 %; Neutrophil (Segs) 27 %
[2021-04-15 11:51] LABS: Bedside Glucose 124 mg/dL (70-110)
[2021-04-15 11:52] LABS: Body Fluid QC Type(s) BF4Q; Other Cell Type/BF 52 %
--- NOTE | 2021-04-15 13:07 | PN.HOSP_ITS ---
Subjective Subjective Still in some respiratory distress with his oxygen requirements up to 11 L with tachypnea. He has significant diminished lung sounds on the left. He did spike a fever yesterday Objective Data Objective Data Vital Signs: Vital Signs Temp Pulse Resp BP Pulse Ox 99.6 F H 110 H 20 H 89/55 L 95 04/15/21 12:45 04/15/21 12:45 04/15/21 12:45 04/15/21 12:45 04/15/21 12:45 Oxygen Flow Rate (L/min) [4] 8 Oxygen Flow Rate (L/min) [3] 8 Oxygen Flow Rate (L/min) [2] 15 Oxygen Flow Rate (L/min) [1 ( 15 Initial Baseline)] Oxygen Flow Rate (L/min) 5 Oxygen Delivery Method [4] Nasal Cannula Oxygen Delivery Method [3] Nasal Cannula Oxygen Delivery Method [2] Room Air Oxygen Delivery Method [1 ( Nasal Cannula Initial Baseline)] Oxygen Delivery Method Nasal Cannula Weight: 231 lb 0.711 oz Body Mass Index (BMI) 37.2 Intake & Output: Intake and Output for Last 24 Hours 04/14/21 04/15/21 04/16/21 03:59 03:59 03:59 Intake Total 2219.75 / 2219.75 4212 / 4212 800 / 800 Output Total 2350 / 2350 2125 / 2125 3200 / 3200 Balance -130.25 / -130.25 2087 / 2087 -2400 / -2400 Lab / Micro Data Result Diagrams: 04/15/21 07:58 04/15/21 07:58 Labs: Laboratory Results - last 24 hr 04/13/21 06:34: Crossmatch See Detail 04/14/21 18:01: POC Glucose 192 H 04/14/21 22:37: POC Glucose 164 H 04/15/21 06:22: POC Glucose 134 H 04/15/21 07:58: WBC 0.2 L*, RBC 1.99 L, Hgb 6.0 L*, Hct 18.7 L, MCV 94.0, MCH 30.2, MCHC 32.1, RDW Std Deviation 52.1 H, RDW Coeff of Dmitry 15.4 H, Plt Count 35 L*, MPV 10.2, Immature Gran % (Auto) 0.000, Neut % (Auto) 86.4 H, Lymph % (Auto) 4.5 L, [place] % (Auto) 9.1, Eos % (Auto) 0.0, Baso % (Auto) 0.0, Absolute Neuts (auto) 0.2 L, Absolute Lymphs (auto) 0.01 L, Nucleated RBC % 140.9 H, Differential Comment , Diff Path Review October, Platelet Estimate MKD DEC, Polychromasia RARE, Basophilic Stippling RARE, Anisocytosis 1+ 04/15/21 07:58: Sodium 137, Potassium 3.3 L, Chloride 99, Carbon Dioxide 33.0 H, Anion Gap 5, BUN 43 H, Creatinine 1.25, Estim Creat Clear Calc 53.55, Est GFR (MDRD) Af Amer 72, Est GFR (MDRD) Non-Af 60, BUN/Creatinine Ratio 34.4 H, Glucose 121 H, Calcium 7.1 L, Phosphorus 2.7, Total Bilirubin 2.10 H, AST 50 H, ALT 28, Alkaline Phosphatase 221 H, Total Protein 5.2 L, Albumin 1.8 L, Globulin 3.4, Albumin/Globulin Ratio 0.5 L 04/15/21 07:58: PT 15.4 H, INR 1.3, APTT 43.9 H 04/15/21 07:58: Direct Bilirubin 1.27 H, Lactate Dehydrogenase 2179 H 04/15/21 07:58: Direct Antiglob Test NEG w/POLYSPECIFIC 04/15/21 10:05: Fluid Glucose 127 H, Fluid Total Protein 3.3, Fluid LDH 2191 04/15/21 10:05: Fluid Source THORACENTESIS, Fluid Color RED, Fluid Appearance TURBID, Fluid WBC 0.520, Fluid RBC 2.154, Fluid Tot Cell Count 0.565, Fld Polynuclear WBCs # 0.198, Fld Polynuclear WBCs % 38.1, Fluid Mononuclear WBCs 0.322, Fld Mononuclear WBCs % 61.9, Fluid Neutrophils 27, Fluid Lymphocytes 19, Fluid Monocytes 2, Fluid Other Cells 52, Fl Pathologist Comment May follow, Fluid Comment 2 SEE COMMENT 04/15/21 11:33: POC Glucose 124 H Radiography Diagnostic Testing: Radiology Impression Thoracentesis Ultrasound 04/15/21 09:30 IMPRESSION: Ultrasound-guided left thoracentesis. Electronically Signed: Mihir Mathis MD at 11:00 EDT , Service support , Chest X-Ray 04/15/21 10:15 IMPRESSION: Status post left thoracentesis. There is no evidence of pneumothorax. Electronically Signed: Mihir Mathis MD at 10:32 EDT , Service support , Physical Exam Const alert and oriented x3 Constitutional Narrative: Appears uncomfortable from a respiratory standpoint General Appearance: cooperative HEENT normocephalic and moist oral mucous membranes Eyes PERRL, EOMs intact bilaterally and conjunctivae normal Neck supple and no JVD Resp normal respiratory effort, no retractions and no use of accessory muscles Auscultation: wheezes and diminished lung sounds; Negative for crackles, rales or rhonchi Cardio regular rate, regular rhythm, S1 normal heart sound, S2 normal heart sound and no murmurs GI soft to palpation, non-tender and non-distended; Negative for hepatosplenomegaly Extremity General Extremity: edema bilateral lower extremity Details: severe; Negative for clubbing or cyanosis Skin no rashes or lesions noted Skin Narrative: Redness and slight pain to his right lower extremity Neuro no focal motor deficits and no sensory deficits noted Psych affect normal Appearance: appropriate Assessment & Plan Assessment/Plan (1) Hyperuricemia: (2) Anasarca: (3) Thrombocytopenia: (4) EFREN (acute kidney injury): (5) Tumor lysis syndrome: (6) Mantle cell lymphoma: QUALIFIERS: Lymphoma site: multiple regions Qualified Code(s): C83.18 - Mantle cell lymphoma, lymph nodes of multiple sites (7) Anemia: QUALIFIERS: Anemia type: bone marrow failure Bone marrow failure anemia type: other bone marrow failure Qualified Code(s): D61.89 - Other specified aplastic anemias and other bone marrow failure syndromes PLAN: 1. Tumor lysis syndrome secondary to chemotherapy for mantle cell lymphoma/pancytopenia secondary to mantle cell lymphoma and chemotherapy/EFREN on CKD 3 a -Calcium is normal with correction -Hold IV fluids, creatinine is stable at 1.25 -Appreciate oncology and nephrology assistance -We will continue to monitor his hemoglobin and platelets and transfuse as necessary, the only need to be leukoreduced he did not need to be CMV negative or irradiated per oncology -Continue with allopurinol, electrolytes are trending down -Continue with Granix 2. Acute on chronic hypoxic respiratory failure/possible right middle lobe pneumonia -Likely component of fluid overload given his edema, and his continued IV fluids -Continue with diuresis -Continue with inhaled budesonide -Plan for thoracentesis today both therapeutic and diagnostic 3. History of PE with history of pulmonary hypertension -He was on Xarelto however this is been discontinued secondary to his thrombocytopenia -Recent echo with an RVSP of 51 mmHg -He is on Lasix as an outpatient 4. Right lower extremity cellulitis -Concern for possible cellulitis given warmth and tenderness to his right lower extremity -We will start him on antibiotics, and broadened to Vanco and Zosyn secondary to fever -We will obtain blood cultures and sputum cultures for #2 DVT: SCDs Charges/Coding Visit Charges Inpatient E&M: 51498 Subs Hosp L2
[2021-04-15] MEDS: Ipratropium/Albuterol Sulfate 3 ML AMPUL.NEB INHALATION ×2 (14:40→18:46)
[2021-04-15] MEDS: Furosemide 20 MG/2 ML VIAL IV (15:43)
[2021-04-15] MEDS: Acetaminophen 325 MG Tablet 650 MG PO (16:35)
[2021-04-15] MEDS: Tamsulosin HCl 0.4 MG Capsule PO (16:39)
[2021-04-15] MEDS: Insulin Lispro 100 UNIT/ML INSULN.PEN SC (17:27)
[2021-04-15 17:40] LABS: Bedside Glucose 173 mg/dL (70-110)
[2021-04-15] MEDS: Budesonide Respules 0.5 MG/2 ML AMPUL.NEB. INHALATION (18:46)
[2021-04-15 21:51] LABS: Bedside Glucose 139 mg/dL (70-110)
[2021-04-16] VITALS (26 sets, daily range): BP systolic 87–126; BP diastolic 45–90; PULSE 110–132; RESP 14–38; TEMP 36.6–39.3; O2SAT 91–100
[2021-04-16 06:50] LABS: Bedside Glucose 66 mg/dL (70-110)
[2021-04-16 07:01] LABS: Bedside Glucose 67 mg/dL (70-110)
[2021-04-16] MEDS: Budesonide Respules 0.5 MG/2 ML AMPUL.NEB. INHALATION ×2 (07:31→18:52)
[2021-04-16] MEDS: Ipratropium/Albuterol Sulfate 3 ML AMPUL.NEB INHALATION ×3 (07:31→18:52)
[2021-04-16 08:06] LABS: Mean Corp Hgb Conc 33.3 g/dL (32-36); Mean Corpuscular Hgb 30.9 pg (27.0-32.0); Mean Corpuscular Volume 92.7 fL (80-94); POSITIVE COUNT YES; POSITIVE DIFFERENTIAL YES; POSITIVE MORPHOLOGY YES; RBC Distribution Width CV 15.2 % (11.6-14.6); Red Blood Count 2.59 M/mm3 (4.6-6.2)
[2021-04-16 08:16] LABS: Differential Indicated MANUAL DIFF
[2021-04-16] MEDS: Allopurinol 300 MG Tablet PO ×2 (08:31→20:29)
[2021-04-16] MEDS: Furosemide 40 MG/4 ML Vial IV ×2 (08:32→20:28)
[2021-04-16 08:33] LABS: ALB/GLOB Ratio 0.5 RATIO (0.9-2.4); AST(SGOT) 59 U/L (15-37); Alanine Aminotransfer ALT/SGPT 32 U/L (16-61); Albumin, Serum 1.6 g/dL (3.2-5.0); Alkaline Phosphatase 176 U/L (45-117); Anion Gap 5 (5-15); BUN 38 mg/dL (7-18); BUN/Creat Ratio 30.2 RATIO (10-20); Calcium,Total 7.1 mg/dL (8.5-10.1); Chloride 99 mmol/L (98-107); Creatinine, Serum 1.26 mg/dL (0.70-1.30); EST Glomerular Filtration Rate 59 mL/min (>60); Est Glom Filt Rate - Afr Amer 71 mL/min (>60); Estimated Creatinine Clearance 53.12 ml/min; Globulin 3.5 g/dL (2.2-4.2); Glucose 73 mg/dL (74-106); Potassium 3.1 mmol/L (3.5-5.1); Protein, Total 5.1 g/dL (6.4-8.2); Sodium Level 138 mmol/L (136-145)
[2021-04-16] MEDS: 0.9% Saline Lock 10 ML Syringe IV ×2 (08:33→13:54)
[2021-04-16 08:34] LABS: Vancomycin, Trough Level 19.4 ug/mL (5.0-15.0)
[2021-04-16 08:49] LABS: Blast 4 % (0-0); Eosinophil 4 % (0-5); Lymphocyte 44 % (19-41); Neutrophil-Segmented 48 % (47-70); Nucleated Red Bld Cells,Manual 176 % (0-5); Total Cells Counted 25 (MANUAL DIFF)
[2021-04-16 08:50] LABS: Platelet Estimate MKD DEC (ADEQ); Red Cell Morphology NORM C+C NORMAL (NORM C&C)
[2021-04-16 08:52] LABS: Corrected WBC 0.2 K/mm3 (4.4-11.0)
[2021-04-16 08:53] LABS: Platelet Count 9 K/mm3 (150-450)
[2021-04-16 08:54] LABS: Absolute Lymphocyte Count 0.35 X10^3/uL (0.83-4.51); Absolute Neutrophil Count 0.4 X10^3/uL (2.0-7.7); Lymphocyte # 0.35 X10^3/ul (0.83-4.51)
--- NOTE | 2021-04-16 09:02 | PN.RENAL_ITS ---
Subjective Subjective had thoracocentesis yesterday with 2L fluid removal no acute events Objective Data Objective Data Vital Signs: Vital Signs Temp Pulse Resp BP Pulse Ox 98.1 F 117 H 20 H 104/45 L 99 04/16/21 08:43 04/16/21 08:43 04/16/21 08:43 04/16/21 08:43 04/16/21 08:43 Oxygen Flow Rate (L/min) [4] 8 Oxygen Flow Rate (L/min) [3] 8 Oxygen Flow Rate (L/min) [2] 15 Oxygen Flow Rate (L/min) [1 ( 15 Initial Baseline)] Oxygen Flow Rate (L/min) 6 Oxygen Delivery Method [4] Nasal Cannula Oxygen Delivery Method [3] Nasal Cannula Oxygen Delivery Method [2] Room Air Oxygen Delivery Method [1 ( Nasal Cannula Initial Baseline)] Oxygen Delivery Method Nasal Cannula Weight: 105 kg Body Mass Index (BMI) 37.2 Intake & Output: Intake and Output for Last 24 Hours 04/14/21 04/15/21 04/16/21 23:59 23:59 23:59 Intake Total 3822 / 4222 3497 / 3747 1060 / 1060 Output Total 1925 / 2225 4100 / 4925 1450 / 1450 Balance 1896 / 1996 -603 / -1178 -390 / -390 Lab / Micro Data Result Diagrams: 04/16/21 07:30 04/16/21 07:30 Labs: Laboratory Results - last 24 hr 04/13/21 06:34: Crossmatch See Detail 04/15/21 07:58: Direct Bilirubin 1.27 H, Lactate Dehydrogenase 2179 H 04/15/21 07:58: Direct Antiglob Test NEG w/POLYSPECIFIC 04/15/21 10:05: Fluid Glucose 127 H, Fluid Total Protein 3.3, Fluid LDH 2191 04/15/21 10:05: Fluid Source THORACENTESIS, Fluid Color RED, Fluid Appearance TURBID, Fluid WBC 0.520, Fluid RBC 2.154, Fluid Tot Cell Count 0.565, Fld Polynuclear WBCs # 0.198, Fld Polynuclear WBCs % 38.1, Fluid Mononuclear WBCs 0.322, Fld Mononuclear WBCs % 61.9, Fluid Neutrophils 27, Fluid Lymphocytes 19, Fluid Monocytes 2, Fluid Other Cells 52, Fl Pathologist Comment May follow, Fluid Comment 2 SEE COMMENT 10/14/21 11:33: POC Glucose 124 H 04/15/21 17:25: POC Glucose 173 H 04/15/21 21:36: POC Glucose 139 H 04/16/21 06:27: POC Glucose 66 L 04/16/21 06:56: POC Glucose 67 L 04/16/21 07:30: WBC TECHNICAL FELLOW, Corrected WBC 0.2 L*, RBC 2.59 L, Hgb 8.0 L, Hct 24.0 L, MCV 92.7, MCH 30.9, MCHC 33.3, RDW Std Deviation 51.0 H, RDW Coeff of Dmitry 15.2 H , Plt Count 9 L*, Neut % (Auto) Not Reportable, Absolute Neuts (auto) 0.4 L, Absolute Lymphs (auto) 0.35 L, Total Counted 25, Neutrophils % (Manual) 48, Lymphocytes % (Manual) 44 H, Eosinophils % (Manual) 4, Blast Cells % 4 H*, Nucleated RBCs/100 WBC 176 H, Diff Path Review May foll, Platelet Estimate MKD DEC, RBC Morphology NORM C+C 04/16/21 07:30: Sodium 138, Potassium 3.1 L, Chloride 99, Carbon Dioxide 34.0 H, Anion Gap 5, BUN 38 H, Creatinine 1.26, Estim Creat Clear Calc 53.12, Est GFR (MDRD) Af Amer 71, Est GFR (MDRD) Non-Af 59 L, BUN/Creatinine Ratio 30.2 H, Glucose 73 L, Calcium 7.1 L, Total Bilirubin 1.60 H, AST 59 H, ALT 32, Alkaline Phosphatase 176 H, Total Protein 5.1 L, Albumin 1.6 L, Globulin 3.5, Albumin/Globulin Ratio 0.5 L 04/16/21 07:30: Vancomycin Trough 19.4 H Micro: Microbiology 04/14/21 10:10 Blood Culture (Wb) - Anticubital Right Blood Culture - Preliminary No growth in 48 hours. 04/14/21 10:06 Blood Culture (Wb) - Anticubital Left Blood Culture - Preliminary No growth in 48 hours. Radiography Diagnostic Testing: Radiology Impression Thoracentesis Ultrasound 04/15/21 09:30 IMPRESSION: Ultrasound-guided left thoracentesis. Electronically Signed: Mihir Mathis MD at 11:00 EDT , Service support , Chest X-Ray 04/15/21 10:15 IMPRESSION: Status post left thoracentesis. There is no evidence of pneumothorax. Electronically Signed: Mihir Mathis MD at 10:32 EDT , Service support , Physical Exam Narrative General: NAD HEENT: Normocephalic, atraumatic. mucosa. Heart: Normal S1, S2 no rubs or murmurs. Lungs: . coarse BS Abdomen: Scant bowel sounds, distended, abdomen is soft to palpation, there is no guarding or rebound. Extremity: There is 1+ edema of the lower extremities bilaterally. Psychiatric: Normal affect. Neurologic: No focal neurologic deficit. 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 Cr is improving -Cr is fluctuating with diuresis -last 24 hrs Cr trend is stable at 1.2 mg/dl - Non oliguric, UOP is excellent with current direutic dose -Continue lasix due to significant edema and pleural effusion -replace K and monitor level -No need for ESCORT SERVICE ATTENDANT -Monitor RFP Acute RF. Continue lasix RBC and PLT transfusion as per the primary service Will follow. Call if any question
--- NOTE | 2021-04-16 09:20 | PCM.RX.CS ---
Consult Pharmacy has been consulted to manage selected antiobiotic: Vancomycin Type of Consult: Follow-up Prior Doses of Antibiotics Received/Current Regimen: currently on vanc 1500mg IV q12h Labs: Sodium 138 mmol/L (136-145) 04/16/21 07:30 Potassium 3.1 mmol/L (3.5-5.1) L 04/16/21 07:30 Chloride 99 mmol/L (98-107) 04/16/21 07:30 Carbon Dioxide 34.0 mmol/L (21.0-32.0) H 04/16/21 07:30 Anion Gap 5 (5-15) 04/16/21 07:30 BUN 38 mg/dL (7-18) H 04/16/21 07:30 Creatinine 1.26 mg/dL (0.70-1.30) 04/16/21 07:30 Est GFR (MDRD) Af Amer 71 mL/min (>60) 04/16/21 07:30 Est GFR (MDRD) Non-Af 59 mL/min (>60) L 04/16/21 07:30 BUN/Creatinine Ratio 30.2 RATIO (10-20) H 04/16/21 07:30 Glucose 73 mg/dL (74-106) L 04/16/21 07:30 Vancomycin Trough 19.4 ug/mL (5.0-15.0) H 04/16/21 07:30 Microbiology: Microbiology 04/14/21 10:10 Blood Culture (Wb) - Anticubital Right Blood Culture - Preliminary No growth in 48 hours. 04/14/21 10:06 Blood Culture (Wb) - Anticubital Left Blood Culture - Preliminary No growth in 48 hours. Weight used for dosin kg Estimated Creatinine Clearance: 61.5ml/min Goal Trough: 15-20 mcg/mL Pharmacy Plan for Drug Dosing: The vanc trough level drawn this morning was 19.4. It was drawn a little early (approximately 10.5 hours after the previous dose instead of closer to 12 hours) but it would have been even lower than 19.4 if drawn closer to 12 hours. Will leave patient on same dose and recheck a trough again in 2 days per protocol. The patient's CrCl of 61.5ml/min was calculated using an adjusted body weight of 87.2kg. Pharmacy Service will continue to monitor and adjust dosing as required. Follow-Up Labs: Trough Vancomycin Labs to be done on [date and time ordered]: 04/18/21 9772
[2021-04-16 09:21] LABS: Pathologist Review Reviewed
[2021-04-16 09:22] LABS: Pathologist Review Reviewed
--- NOTE | 2021-04-16 10:00 | NURSING ---
This RN assumed care from Nathalia Fleming RN.
[2021-04-16] MEDS: Potassium Chloride Oral Tablet 20 MEQ 60 MEQ PO (10:21)
[2021-04-16] MEDS: TBO-FILGRASTIM 480 MCG/0.8 ML ML SC (10:21)
[2021-04-16] MEDS: Acetaminophen 325 MG Tablet 650 MG PO ×2 (10:23→20:41)
[2021-04-16 11:35] LABS: Bedside Glucose 101 mg/dL (70-110)
--- NOTE | 2021-04-16 11:47 | PN.HOSP_ITS ---
Subjective Subjective Seems dejected today, he asked when you know it is time to just become comfortable and to stop fighting. Oxygen requirement seems to be going up Objective Data Objective Data Vital Signs: Vital Signs Temp Pulse Resp BP Pulse Ox 98.5 F 120 H 14 102/56 L 99 04/16/21 10:00 04/16/21 10:00 04/16/21 10:00 04/16/21 10:00 04/16/21 10:00 Oxygen Flow Rate (L/min) [4] 8 Oxygen Flow Rate (L/min) [3] 8 Oxygen Flow Rate (L/min) [2] 15 Oxygen Flow Rate (L/min) [1 ( 15 Initial Baseline)] Oxygen Flow Rate (L/min) 9 Oxygen Delivery Method [4] Nasal Cannula Oxygen Delivery Method [3] Nasal Cannula Oxygen Delivery Method [2] Room Air Oxygen Delivery Method [1 ( Nasal Cannula Initial Baseline)] Oxygen Delivery Method Nasal Cannula Weight: 231 lb 7.766 oz Body Mass Index (BMI) 37.2 Intake & Output: Intake and Output for Last 24 Hours 04/15/21 04/16/21 04/17/21 03:59 03:59 03:59 Intake Total 4212 / 4212 3297 / 3297 1620 / 1620 Output Total 2125 / 2125 4625 / 4625 625 / 625 Balance 7 / 2086 -1328 / -1328 995 / 995 Lab / Micro Data Result Diagrams: 04/16/21 07:30 04/16/21 07:30 Labs: Laboratory Results - last 24 hr 04/13/21 06:34: Crossmatch See Detail 04/14/21 07:45: Diff Path Review Reviewed 04/15/21 07:58: Diff Path Review Reviewed 04/15/21 10:05: Fluid Neutrophils 27, Fluid Lymphocytes 19, Fluid Monocytes 2, Fluid Other Cells 52 04/15/21 11:33: POC Glucose 124 H 04/15/21 17:25: POC Glucose 173 H 04/15/21 21:36: POC Glucose 139 H 04/16/21 06:27: POC Glucose 66 L 04/16/21 06:56: POC Glucose 67 L 04/16/21 07:30: WBC MAILING SPECIALIST, Corrected WBC 0.2 L*, RBC 2.59 L, Hgb 8.0 L, Hct 24.0 L, MCV 92.7, MCH 30.9, MCHC 33.3, RDW Std Deviation 51.0 H, RDW Coeff of Dmitry 15.2 H , Plt Count 9 L*, Neut % (Auto) Not Reportable, Absolute Neuts (auto) 0.4 L, Absolute Lymphs (auto) 0.35 L, Total Counted 25, Neutrophils % (Manual) 48, Lymphocytes % (Manual) 44 H, Eosinophils % (Manual) 4, Blast Cells % 4 H*, Nucleated RBCs/100 WBC 176 H, Diff Path Review October, Platelet Estimate MKD DEC, RBC Morphology NORM C+C 04/16/21 07:30: Sodium 138, Potassium 3.1 L, Chloride 99, Carbon Dioxide 34.0 H, Anion Gap 5, BUN 38 H, Creatinine 1.26, Estim Creat Clear Calc 53.12, Est GFR (MDRD) Af Amer 71, Est GFR (MDRD) Non-Af 59 L, BUN/Creatinine Ratio 30.2 H, Glucose 73 L, Calcium 7.1 L, Total Bilirubin 1.60 H, AST 59 H, ALT 32, Alkaline Phosphatase 176 H, Total Protein 5.1 L, Albumin 1.6 L, Globulin 3.5, Albumin/Globulin Ratio 0.5 L 04/16/21 07:30: Vancomycin Trough 19.4 H 04/16/21 09:26: Blood Type A POSITIVE, Antibody Screen NEGATIVE 04/16/21 11:14: POC Glucose 101 Micro: Microbiology 04/14/21 10:10 Blood Culture (Wb) - Anticubital Right Blood Culture - Preliminary No growth in 48 hours. 04/14/21 10:06 Blood Culture (Wb) - Anticubital Left Blood Culture - Preliminary No growth in 48 hours. Physical Exam Const alert and oriented x3 Constitutional Narrative: Appears uncomfortable from a respiratory standpoint General Appearance: cooperative HEENT normocephalic and moist oral mucous membranes Eyes PERRL, EOMs intact bilaterally and conjunctivae normal Neck supple and no JVD Resp normal respiratory effort, no retractions and no use of accessory muscles Auscultation: wheezes expiratory wheezes and throughout and diminished lung sounds; Negative for crackles, rales or rhonchi Cardio regular rate, regular rhythm, S1 normal heart sound, S2 normal heart sound and no murmurs GI soft to palpation, non-tender and non-distended; Negative for hepatosplenomegaly Extremity General Extremity: edema bilateral lower extremity Details: severe; Negative for clubbing or cyanosis Skin no rashes or lesions noted Skin Narrative: Redness and slight pain to his right lower extremity Neuro no focal motor deficits and no sensory deficits noted Psych affect normal Appearance: appropriate Assessment & Plan Assessment/Plan (1) Hyperuricemia: (2) Anasarca: (3) Thrombocytopenia: (4) EFREN (acute kidney injury): (5) Tumor lysis syndrome: (6) Mantle cell lymphoma: QUALIFIERS: Lymphoma site: multiple regions Qualified Code(s): C83.18 - Mantle cell lymphoma, lymph nodes of multiple sites (7) Anemia: QUALIFIERS: Anemia type: bone marrow failure Bone marrow failure anemia type: other bone marrow failure Qualified Code(s): D61.89 - Other specified aplastic anemias and other bone marrow failure syndromes PLAN: 1. Tumor lysis syndrome secondary to chemotherapy for mantle cell lymphoma/pancytopenia secondary to mantle cell lymphoma and chemotherapy/EFREN on CKD 3 a -Calcium is normal with correction -Hold IV fluids, creatinine is stable at 1.26 -Appreciate oncology and nephrology assistance -We will continue to monitor his hemoglobin and platelets and transfuse as necessary, the only need to be leukoreduced he did not need to be CMV negative or irradiated per oncology -Continue with allopurinol, electrolytes are trending down -Continue with Granix -We will hold Lasix secondary to hypotension 2. Acute on chronic hypoxic respiratory failure/possible right middle lobe pneumonia -Likely component of fluid overload given his edema, and his continued IV fluids -Hold Lasix secondary to soft blood pressures -Continue with inhaled budesonide -Plan for thoracentesis today both therapeutic and diagnostic 3. History of PE with history of pulmonary hypertension -He was on Xarelto however this is been discontinued secondary to his thrombocytopenia -Recent echo with an RVSP of 51 mmHg -He is on Lasix as an outpatient 4. Right lower extremity cellulitis -Concern for possible cellulitis given warmth and tenderness to his right lower extremity -We will start him on antibiotics, and broadened to Vanco and Zosyn secondary to fever in the setting of his neutropenia -We will obtain blood cultures and sputum cultures for #2 DVT: SCDs Charges/Coding Visit Charges Inpatient E&M: 84784 Subs Hosp L2
--- NOTE | 2021-04-16 14:16 | NURSING ---
Read and reviewed SN documentation. Reviewed plan of care with SN
[2021-04-16 17:41] LABS: Bedside Glucose 123 mg/dL (70-110)
[2021-04-16] MEDS: Tamsulosin HCl 0.4 MG Capsule PO (17:46)
--- NOTE | 2021-04-16 19:49 | PCM.PN.BLA ---
Progress Note Nurse report that patient with worsening shortness of breath and edematous legs. Reportedly he was furosemide but it was stopped because of hypotension. Blood pressure is normal at this time. Lasix 40 mg IV push x1 given
[2021-04-16 23:10] LABS: Bedside Glucose 162 mg/dL (70-110)
[2021-04-17] VITALS (46 sets, daily range): BP systolic 44–111; BP diastolic 30–82; PULSE 103–142; RESP 15–33; TEMP 36.4–39.1; O2SAT 83–100
[2021-04-17] MEDS: Acetaminophen 325 MG Tablet 650 MG PO ×2 (02:48→13:10)
[2021-04-17 06:48] LABS: Absolute Lymphocyte Count 0.02 X10^3/uL (0.83-4.51); Eosinophil# 0.01 X10^3/uL; Eosinophils% 6.3 % (0-5); Hematocrit 21.2 % (40-54); Hemoglobin 7.1 g/dL (13.0-16.5); Lymphocyte # 0.02 X10^3/ul (0.83-4.51); Lymphocyte % 12.5 % (19-41); Mean Corp Hgb Conc 33.5 g/dL (32-36); Mean Corpuscular Volume 92.6 fL (80-94); Monocyte# 0.08 X10^3/uL; NRBC Flagged by Analyzer 43.8 % (0-5); Neutrophil # 0.04 X10^3/uL (2.7-7.7); Neutrophil % 24.9 % (47-70); POSITIVE COUNT YES; POSITIVE DIFFERENTIAL YES; POSITIVE MORPHOLOGY YES; RBC Distribution Width CV 15.2 % (11.6-14.6); RBC Distribution Width SD 50.6 fl (35.1-43.9); Red Blood Count 2.29 M/mm3 (4.6-6.2)
[2021-04-17] MEDS: Ipratropium/Albuterol Sulfate 3 ML AMPUL.NEB INHALATION ×2 (06:57→10:46)
[2021-04-17] MEDS: Budesonide Respules 0.5 MG/2 ML AMPUL.NEB. INHALATION (06:57)
[2021-04-17 06:58] LABS: Differential Indicated SCAN CRITERIA MET; Platelet Count 6 K/mm3 (150-450); White Blood Count 0.2 K/mm3 (4.4-11.0)
[2021-04-17 07:16] LABS: Bedside Glucose 88 mg/dL (70-110)
[2021-04-17 07:19] LABS: Anisocytosis 1+
[2021-04-17 07:25] LABS: ALB/GLOB Ratio 0.4 RATIO (0.9-2.4); AST(SGOT) 45 U/L (15-37); Alanine Aminotransfer ALT/SGPT 33 U/L (16-61); Albumin, Serum 1.4 g/dL (3.2-5.0); Alkaline Phosphatase 151 U/L (45-117); Anion Gap 8 (5-15); BUN 36 mg/dL (7-18); BUN/Creat Ratio 26.9 RATIO (10-20); Calcium,Total 6.9 mg/dL (8.5-10.1); Chloride 98 mmol/L (98-107); Creatinine, Serum 1.34 mg/dL (0.70-1.30); EST Glomerular Filtration Rate 55 mL/min (>60); Est Glom Filt Rate - Afr Amer 67 mL/min (>60); Estimated Creatinine Clearance 49.95 ml/min; Globulin 3.2 g/dL (2.2-4.2); Glucose 93 mg/dL (74-106); Potassium 3.2 mmol/L (3.5-5.1); Protein, Total 4.6 g/dL (6.4-8.2); Sodium Level 138 mmol/L (136-145)
[2021-04-17] MEDS: Potassium Chloride Oral Tablet 20 MEQ 40 MEQ PO (07:49)
[2021-04-17] MEDS: Allopurinol 300 MG Tablet PO ×2 (07:49→18:03)
[2021-04-17] MEDS: 0.9% Saline Lock 10 ML Syringe IV ×4 (09:14→18:03)
[2021-04-17] MEDS: TBO-FILGRASTIM 480 MCG/0.8 ML ML SC (09:25)
--- NOTE | 2021-04-17 10:02 | RAD_ITS ---
STUDY: X-RAY CHEST REASON FOR EXAM: Male, 75 years old. SOB TECHNIQUE: Single AP portable view of the chest. COMPARISON: 04/15/2021 FINDINGS: Stable right chest wall Mediport. Hypoinflated lungs are again noted with diffuse patchy airspace disease bilaterally suggesting infection and/or edema. Stable elevated left hemidiaphragm with left effusion. Remainder is unchanged and stable RAD/Chest 1 View (Portable) IMPRESSION: Patchy airspace disease bilaterally with elevated left hemidiaphragm. Small left effusion. Electronically Signed: Wayne Nice DO at 1:08 EDT Tel , Service support ,
--- NOTE | 2021-04-17 10:04 | PN.HOSP_ITS ---
Subjective Subjective Continues to have some shortness of breath. Crackles on exam. Continues to have significant issues with pancytopenia Objective Data Objective Data Vital Signs: Vital Signs Temp Pulse Resp BP Pulse Ox 98.4 F 112 H 26 H 103/66 98 04/17/21 07:35 04/17/21 07:35 04/17/21 07:40 04/17/21 07:35 04/17/21 07:40 Oxygen Flow Rate (L/min) [4] 8 Oxygen Flow Rate (L/min) [3] 8 Oxygen Flow Rate (L/min) [2] 15 Oxygen Flow Rate (L/min) [1 ( 15 Initial Baseline)] Oxygen Flow Rate (L/min) 6 Oxygen Delivery Method [4] Nasal Cannula Oxygen Delivery Method [3] Nasal Cannula Oxygen Delivery Method [2] Room Air Oxygen Delivery Method [1 ( Nasal Cannula Initial Baseline)] Oxygen Delivery Method Nasal Cannula Weight: 231 lb 7.766 oz Body Mass Index (BMI) 37.2 Intake & Output: Intake and Output for Last 24 Hours 04/16/21 04/17/21 04/18/21 03:59 03:59 03:59 Intake Total 3297 / 3297 3850 / 3850 300 / 300 Output Total 4625 / 4625 3000 / 3000 650 / 650 Balance -1328 / -1328 850 / 850 -350 / -350 Lab / Micro Data Result Diagrams: 04/17/21 05:51 04/17/21 05:51 Labs: Laboratory Results - last 24 hr 04/13/21 06:34: Crossmatch See Detail 04/16/21 09:26: Blood Type A POSITIVE, Antibody Screen NEGATIVE 04/16/21 09:26: Crossmatch See Detail 04/16/21 11:14: POC Glucose 101 04/16/21 17:29: POC Glucose 123 H 04/16/21 22:33: POC Glucose 162 H 04/17/21 05:51: WBC 0.2 L*, RBC 2.29 L, Hgb 7.1 L, Hct 21.2 L, MCV 92.6, MCH 31.0, MCHC 33.5, RDW Std Deviation 50.6 H, RDW Coeff of Dmitry 15.2 H, Plt Count 6 L*, MPV 12.0, Immature Gran % (Auto) 6.300 H, Neut % (Auto) 24.9 L, Lymph % (Auto) 12.5 L, Tyler % (Auto) 50.0 H, Eos % (Auto) 6.3 H, Baso % (Auto) 0.0, Abs olute Neuts (auto) 0.0 L, Absolute Lymphs (auto) 0.02 L, Nucleated RBC % 43.8 H, Differential Comment , Diff Path Review May foll, Anisocytosis 1+ 04/17/21 05:51: Sodium 138, Potassium 3.2 L, Chloride 98, Carbon Dioxide 32.0, Anion Gap 8, BUN 36 H, Creatinine 1.34 H, Estim Creat Clear Calc 49.95, Est GFR (MDRD) Af Amer 67, Est GFR (MDRD) Non-Af 55 L, BUN/Creatinine Ratio 26.9 H, Glucose 93, Calcium 6.9 L, Total Bilirubin 1.20 H, AST 45 H, ALT 33, Alkaline Phosphatase 151 H, Total Protein 4.6 L, Albumin 1.4 L, Globulin 3.2, Albumin/Globulin Ratio 0.4 L 04/17/21 07:11: POC Glucose 88 Micro: Microbiology 04/15/21 20:50 Sputum, Expectorated/Coughed Gram Stain - Final 04/15/21 20:50 Sputum, Expectorated/Coughed Respiratory Culture - Preliminar y Appears to be normal respiratory fartun. Further studies to follow. 04/14/21 10:10 Blood Culture (Wb) - Anticubital Right Blood Culture - P reliminary No growth in 48 hours. 04/14/21 10:06 Blood Culture (Wb) - Anticubital Left Blood Culture - Preliminary No growth in 48 hours. Physical Exam Const alert and oriented x3 Constitutional Narrative: Appears uncomfortable from a respiratory standpoint General Appearance: cooperative HEENT normocephalic and moist oral mucous membranes Eyes PERRL, EOMs intact bilaterally and conjunctivae normal Neck supple and no JVD Resp normal respiratory effort, no retractions and no use of accessory muscles Auscultation: crackles, wheezes expiratory wheezes and throughout and diminished lung sounds; Negative for rales or rhonchi Cardio regular rate, regular rhythm, S1 normal heart sound, S2 normal heart sound and no murmurs GI soft to palpation, non-tender and non-distended; Negative for hepatosplenomegaly Extremity General Extremity: edema bilateral lower extremity Details: severe; Negative for clubbing or cyanosis Skin no rashes or lesions noted Skin Narrative: Redness and slight pain to his right lower extremity Neuro no focal motor deficits and no sensory deficits noted Psych affect normal Appearance: appropriate Assessment & Plan Assessment/Plan (1) Hyperuricemia: (2) Anasarca: (3) Thrombocytopenia: (4) EFREN (acute kidney injury): (5) Tumor lysis syndrome: (6) Mantle cell lymphoma: QUALIFIERS: Lymphoma site: multiple regions Qualified Code(s): C83.18 - Mantle cell lymphoma, lymph nodes of multiple sites (7) Anemia: QUALIFIERS: Anemia type: bone marrow failure Bone marrow failure anemia type: other bone marrow failure Qualified Code(s): D61.89 - Other spe cified aplastic anemias and other bone marrow failure syndromes PLAN: 1. Tumor lysis syndrome secondary to chemotherapy for mantle cell lymphoma/pancytopenia secondary to mantle cell lymphoma and chemotherapy/EFREN on CKD 3 a -Calcium is normal with correction -Hold IV fluids, will continue to monitor creatinine and make adjustments as necessary -Appreciate oncology and nephrology assistance -We will continue to monitor his hemoglobin and platelets and transfuse as necessary, the only need to be leukoreduced he did not need to be CMV negative or irradiated per oncology -Continue with allopurinol, electrolytes are trending down -Continue with Granix -Give Lasix between PRBCs 2. Acute on chronic hypoxic respiratory failure/possible right middle lobe pneumonia -Likely component of fluid overload given his edema, and his continued IV fluids -Hold Lasix secondary to soft blood pressures -Continue with inhaled budesonide -Plan for thoracentesis today both therapeutic and diagnostic -Blood cultures and sputum cultures are unremarkable 3. History of PE with history of pulmonary hypertension -He was on Xarelto however this is been discontinued secondary to his thrombocytopenia -Recent echo with an RVSP of 51 mmHg -He is on Lasix as an outpatient 4. Right lower extremity cellulitis -Concern for possible cellulitis given warmth and tenderness to his right lower extremity -We will start him on antibiotics, and broadened to Vanco and Zosyn secondary to fever in the setting of his neutropenia -Blood and sputum cultures unremarkable DVT: SCDs Charges/Coding Visit Charges Inpatient E&M: 28719 Subs Hosp L2
[2021-04-17] MEDS: Alteplase 2 MG/2 ML Vial IV (11:33)
[2021-04-17 12:05] LABS: Bedside Glucose 60 mg/dL (70-110)
--- NOTE | 2021-04-17 12:10 | CPS ---
pt decreased to 4 lpm. nurse aware of change
[2021-04-17 12:20] LABS: Bedside Glucose 72 mg/dL (70-110)
[2021-04-17] MEDS: Furosemide 20 MG/2 ML VIAL IV (12:37)
--- NOTE | 2021-04-17 13:41 | CPS ---
called to give pt PRN aerosol rx at 1330. Pt's HR was 135 and higher. Rx was held and nurse was notified.
--- NOTE | 2021-04-17 14:27 | EKG12_ITS ---
Test Reason : RHYTHM Blood Pressure : / mmHG Vent. Rate : 136 BPM Atrial Rate : 136 BPM P-R Int : 134 ms QRS Dur : 076 ms QT Int : 278 ms P-R-T Axes : 031 -06 040 degrees QTc Int : 418 ms Sinus tachycardia Low voltage QRS Borderline ECG When compared with ECG of 29-MAR-2021 20:53, QRS duration has decreased Nonspecific T wave abnormality has replaced inverted T waves in Lateral leads Confirmed by DIMITRI FINLEY, LEONIDAS ([id number]), editor school photograph LYN CULVER ([id number]) on 04/20/2021 2:17:07 PM Referred By: LUZ Confirmed By:LEONIDAS MOSLEY MD
[2021-04-17] MEDS: Furosemide 40 MG/4 ML Vial IV (14:36)
[2021-04-17 17:10] LABS: Bedside Glucose 85 mg/dL (70-110)
[2021-04-17] MEDS: Tamsulosin HCl 0.4 MG Capsule PO (18:04)
--- NOTE | 2021-04-17 23:12 | PCM.PN.BLA ---
Progress Note Nurse reports that family wants patient to be DNR-CC only. Orders placed. Treatment meds discontinued.
--- NOTE | 2021-04-17 23:20 | PCM.PN.BLA ---
Progress Note Noted by nursing team the patient on 04/17/2021 at 2310.
--- NOTE | 2021-04-17 23:22 | EXP.PCM_ITS ---
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 Patient was recently admitted in March 2021 for blood loss anemia and required transfusion. He had also recently been diagnosed with pulmonary embolism and was on anticoagulation. Patient was also recently diagnosed with mantle cell lymphoma and had had a couple of sessions of chemotherapy previous to this admission with oncology. During his previous admission in March 2021. He had positive Hemoccult and was transfused with 2 units of packed red blood cells. Was also treated with broad-spectrum antimicrobials due to concerns for septic shock. Infectious work-up was negative so antibiotics were discontinued and he was discharged on oral iron supplements to help with his anemia stores. Was also noted to have severe anasarca and protein calorie malnutrition. Hematology was consulted on account of anemia and subsequent bone marrow biopsy results showed mantle cell lymphoma. He went for chemotherapy on the day of presentation. According to his oncologist, his white cell count which was markedly elevated at more than 100,000 had decreased with chemotherapy. Patient had however been weak and lethargic and this was gradually worsening and due to concerns for tumor lysis syndrome he was sent in today. Patient denied any fever or chills and denied any nausea, any vomiting or diarrhea or any uncontrolled pain. Patient did look very lethargic during Hospitalist review. Review of systems otherwise negative. Vitals at the time of admitting Hospitalist review showed a blood pressure of 106/67 with pulse rate of 103 and respiratory rate of 26 with temperature of 98.1 and oxygen saturation of 96% on 3 L of oxygen. CBC showed hemoglobin of 7.5 and WBC was not recordable. Platelets were only 13 and he had blast cells of 2. Cr was 2.29, and uric acid was elevated at 7.6. Phosphorus was also elevated at 6.5 and LDH was also elevated at 2810. He was admitted to be managed for tumor lysis syndrome. Was started on normal saline hydration and his allopurinol continued. Admitting Hospitalist discussed case with oncology Hospital course: Tumor lysis syndrome secondary to Mantle cell lymphoma initially admit to ICU; later transferred to the progressive care unit. due to mantle cell lymphoma with chemotherapy uric acid elevated, phosphorous and LDH elevated on allopurinol; will continue. Received IV fluid and lasix Oncology and nephrology followed. Oncology followed. Pancytopenia Received platelets; Granix was given. Was transfused with packed red blood cells. CBC was trended Xarelto was held EFREN on CKD stage IIIa Received IVF BMP was trended. Acute on chronic hypoxic respiratory failure/possible right middle lobe pneumonia/Pleural effusion Thoracentesis was done Received antibiotics -Blood cultures and sputum cultures are unremarkable Right lower extremity cellulitis Concern for possible cellulitis given warmth and tenderness to his right lower extremity Received vancomycin and zosyn -Blood and sputum cultures unremarkable BPH: Flomax was continued. Patient condition continued to worsen. Patient was made DNR CC by family. Patient on 04/17/2021 at 2310. Nursing staff notified physician of patient staff. Date of : 04/17/2021 Time of : 2310 Immediate cause of (final disease of condition resulting in ): Tumor lysis syndrome duration: Days/month/years: Weeks Listed conditions leading to cause of (due to or as a consequence of) : Mantle cell lymphoma Day/month/years: Months Listed other significant conditions contributing to but not resulting in the underlying cause of : Renal Failure, Respiratory Failure Did tobacco contribute to : No
[2021-04-19 09:19] LABS: Pathologist Comment/Body Fluid Reviewed
[2021-04-19 09:26] LABS: Pathologist Review Reviewed
[2021-04-19 15:45] LABS: Pathologist Review Reviewed
== END 2021-04-17 23:10 | DRG 682 ==
LOC: ICU 04-10 06:43 → PCU 04-12 07:12 → ICU 04-12 16:54 → PCU 04-12 16:54
PROVIDERS: Internal Medicine; Internal Medicine Hematology & Oncology; Admitting Provider Student in an Organized Health Care Education/Training Program; PCP Family Medicine; Visit Provider Family Medicine
DX: E88.3 Tumor lysis syndrome (principal); J96.21 Acute and chronic respiratory failure with hypoxia; D61.810 Antineoplastic chemotherapy induced pancytopenia; J18.9 Pneumonia, unspecified organism; C83.18 Mantle cell lymphoma, lymph nodes of multiple sites; C85.90 Non-Hodgkin lymphoma, unspecified, unspecified site; J91.0 Malignant pleural effusion; L03.115 Cellulitis of right lower limb; E83.51 Hypocalcemia; E83.39 Other disorders of phosphorus metabolism; I27.20 Pulmonary hypertension, unspecified; I95.9 Hypotension, unspecified; N17.0 Acute kidney failure with tubular necrosis; N18.31 Chronic kidney disease, stage 3a; D69.59 Other secondary thrombocytopenia; D63.0 Anemia in neoplastic disease; G25.81 Restless legs syndrome; I12.9 Hypertensive chronic kidney disease with stage 1 through stage 4 chronic kidney disease, or unspecified chronic kidney disease; I25.2 Old myocardial infarction; I89.0 Lymphedema, not elsewhere classified; J45.909 Unspecified asthma, uncomplicated; M10.9 Gout, unspecified; D50.9 Iron deficiency anemia, unspecified; T45.1X5A Adverse effect of antineoplastic and immunosuppressive drugs, initial encounter; Y92.9 Unspecified place or not applicable; N40.0 Benign prostatic hyperplasia without lower urinary tract symptoms; Z66 Do not resuscitate; Z87.19 Personal history of other diseases of the digestive system; Z79.01 Long term (current) use of anticoagulants; Z86.711 Personal history of pulmonary embolism; Z79.899 Other long term (current) drug therapy; R59.0 Localized enlarged lymph nodes
CPT/HCPCS: 31720; 32555; 36415; 36591; 71045; 71046; 80048; 80053; 80202; 82248; 82945; 82962; 83036; 83615; 83735; 84100; 84157; 84550; 85025; 85049; 85610; 85730; 86644; 86850; 86880; 86900; 86901; 86920; 86921; 86922; 86965; 87040; 87070; 87205; 88108; 88305; 88313; 89050; 93005; 94640; 94762; 96360; 96361; 96365; 96367; 96376; 96413; 96415; 97110; 97162; 97166; 97530; 97535; 97802; 97803; J2997; J7030; J7040; J7050; J9034; P9016; P9035; P9040; A4216; J0295; J0610; J1447; J1940; J2469; J3490; Q5115